=== PATIENT | female | born 1980 | race Caucasian/White ===

== ENCOUNTER 2023-02-15 12:33 | Outpatient (AMB) | payer OTHER, SELFPAY ==
--- NOTE | 2023-02-15 12:34 | A.OFFPC_ITS ---
Vital Signs 02/15/23 12:35 Height 5 ft 6 in Weight 145 lb 0.4 oz BMI 23.4 BP 134/82 Blood Pressure Location Lt brachial Position Sitting Pulse 88 Pulse Source Pulse Oximeter Temp Source Skin Pulse Oximetry (%) 99 Oxygen Delivery Method Room Air Intake Visit Reasons: PE Intake Note: Patient is here today for a physical. Claims Correspondence Clerk Required: No Allergies oxaprozin Allergy (Severe, Verified 02/15/23 12:40) Anaphylaxis tramadol Allergy (Intermediate, Verified 02/15/23 12:40) Anxiety levofloxacin [Levaquin] Allergy (Unknown, Verified 12/25/19 00:00) stomach upset latex Adverse Reaction (Intermediate, Unverified 02/15/23 13:07) Rash Medication List - Last Reconciled 02/15/23 by Nagi Howard MD acetaminophen-codeine 300-30 mg 1 tab PO TID PRN amlodipine 5 mg PO BEDTIME diclofenac sodium 75 mg PO BID PRN Tobacco use date assessed: 02/15/23 Dental Screening Dental Screen Date: 02/15/23 Did you have a dental visit in the last 12 months?: Yes Did you have a dental problem in the last 6 months where you did not have access to dental care?: No Was dental information given to patient?: Patient has dentist HPI PE HPI Details 42-year-old female with a history of tony ymyositis and Raynaud's disease GERD impaired glucose tolerance and generalized anxiety disorder last seen in January 2022 for physical exam. Patient is here for PE again. Patient was seen by the Rheumatology in August 2022 for the polymyositis stable off medication was given nystatin for thrush primary osteoarthritis diclofenac sodium twice a day and Tylenol No. 3 Raynaud's on amlodipine had bone density done 2020 showing osteopenia on calcium and vitamin-D. has seen gyne - states abnormal bloodwork - states TSH - has swelling legs- was told. patient feels that the leg swelling is not from amlodipine [facility] Medical History Asthma GERD (gastroesophageal reflux disease) Migraine Onychomycosis Polymyositis Raynaud's syndrome Family History (Updated 02/10/22 @ 13:31 by Nagi Howard MD) Father Myocardial infarction Maternal Grandmother Ovarian cancer Social History Housing: House Alcohol intake: never Patient Tobacco Use Status: Never used Tobacco e-Cigarette/Vaping Use: Never Used Second Hand Smoke Exposure: No service: No Current occupational status: employed Cognitive needs: No Hearing needs: No Vision needs: No Questionnaire PHQ-9 Over the last 2 weeks, how often have you been bothered by any of the following problems? 1. Little interest or pleasure in doing things: not at all 2. Feeling down, depressed, or hopeless: not at all 3. Trouble falling or staying asleep, or sleeping too much: not at all 4. Feeling tired or having little energy: not at all 5. Poor appetite or overeating: not at all 6. Feeling bad about yourself - or that you are a failure or have let yourself or your family down: not at all 7. Trouble concentrating on things, such as reading the newspaper or watching television: not at all 8. Moving or speaking so slowly that other people could have noticed. Or the opposite - being so fidgety or restless that you have been moving around a lot more than usual: not at all 9. Thoughts that you would be better off or of hurting yourself in some way: not at all Total score: 0 Depression Screening Interpretation: Negative Depression Screening Done: Yes Source: Developed by Drs. Cristino Robison, Stefany Garza, Chip Baldwin and colleagues, with an educational deb from [employer]. Thrive Questionnaire Date Thrive assessed: 02/15/23 I am a: Patient What is your living situation today?: I have a steady place to live Within the past 12 months, did the food you bought not last and you didn't have the money to get more?: Never true Within the past 12 months, did you worry whether your food would run out before you got money to buy more?: Never true Currently or been in a relationship where the following occur: no concerns reported AUDIT C Alcohol Use Questionnaire (AUDIT-C) 1. How often do you have a drink containing alcohol?: Never 3. How often do you have six or more drinks on one occasion?: Never Total Score: 0 JANY-7 AMB Questionnaire JANY-7 Date JANY - 7 assessed: 02/15/23 Feeling nervous, anxious, or on edge: 1 = Several days Not being able to stop or control worryin = Not at all Worrying too much about different things: 0 = Not at all Trouble relaxin = Not at all Being so restless that it is hard to sit still: 0 = Not at all Becoming easily annoyed or irritable: 0 = Not at all Feeling afraid as if something awful might happen: 0 = Not at all Total JANY-7 score (0-4 normal; 5-9 mild; 10-14 moderate; 15-21 severe): 1 Source: Developed by Drs. Cristino Robison, Stefany Garza, Chip Baldwin and colleagues, with an educational deb from [employer]. Review of Systems Const Denies poor appetite and Denies weakness Eyes Denies no additional complaints ENT Reports Normal hearing present, Denies dizziness, Denies nasal congestion, Denies tinnitus and Denies sore throat Card Denies chest pain, Denies syncope, Denies rapid heart rate and Denies dyspnea Resp Denies cough and Denies dyspnea GI Denies change in stool character, Reports constipation, Denies diarrhea, Denies nausea and Denies vomiting Denies urinary frequency, Denies difficulty voiding and Denies dysuria Neuro Reports Normal hearing present, Denies confusion, Denies dizziness, Denies syncope and Denies weakness Psych Denies confusion Physical exam (Primary Care) Vital Signs: Last Vital Signs Pulse 88 02/15/23 12:35 BP 134/82 02/15/23 12:35 Pulse Ox 99 02/15/23 12:35 Oxygen Delivery Method Room Air 02/15/23 12:35 BMI result Body Mass Index 23.4 Tobacco/Smoking Status: Tobacco use Status Tobacco use date assessed 02/15/23 02/15/23 12:44 Patient Tobacco Use Status Never used Tobacco 02/15/23 12:44 e-Cigarette/Vaping Use Never Used 02/15/23 12:44 PHQ-9: PHQ-9 Score PHQ-9: Total score 0 02/15/23 12:44 Depression Screening Interpretation: Negative Thrive Assessment: Date of Thrive Assessment Date Thrive assessed 02/15/23 02/15/23 12:44 Currently or been in a relationship where the following occur: no concerns reported Const General: No confusion Orientation/consciousness: No confusion HENMT Head: Yes normocephalic Ears: external ears normal and TM's normal bilaterally Face and sinus: Yes normal facial exam Mouth: moist mucous membranes Throat: Yes tonsils normal Eyes Conjunctivae: conjunctivae normal Pupils: Equal, round and reactive pupils present and Pupil accommodation reflex normal Direct Ophthalmoscopy: normal light reflex Neck Neck: No lymphadenopathy Thyroid: Thyroid normal Chest Chest palpation & inspection: normal inspection of the chest Resp Effort & Inspection: normal respiratory effort and no audible wheezes Auscultation: clear to auscultation bilaterally, no crackles, no wheezes and lung sounds not diminished Cardio Rate: regular rate Rhythm: regular rhythm Peripheral pulses: radial pulses present and dorsalis pedis present GI Palpation (GI): no masses Auscultation: normal bowel sounds and normoactive bowel sounds Rectal Exam - Female: deferred Skin General skin exam: no rashes or lesions noted Rashes: no rashes Neuro General: No confusion Cranial nerves: Yes Equal, round and reactive pupils present and Yes Normal hearing present Cognition (Neuro): normal cognition Gait exam (Neuro): Normal gait present Motor exam (neuro): 5/5 motor strength present throughout Deep tendon reflexes (DTR's): Right brachioradialis reflex intensity grade: 2+, Left brachioradialis reflex intensity grade: 2+, Right patellar reflex intensity grade: 2+ and Left patellar reflex intensity grade: 2+ Extrem General: No edema Assessment and Plan Assessment & Plan (1) Annual physical exam: Code(s): Z00.00 - Encounter for general adult medical examination without abnormal findings (2) Impaired glucose tolerance: Code(s): R73.02 - Impaired glucose tolerance (oral) Plan: Decrease the amount of carbohydrate intake, pasta, bread, rice and potatoes are all sugar and that is aside from all the sweet stuff, remember that fruits are good but they are Sweet also. (3) Polymyositis: Comment: Dr. Kebede September 2019 Code(s): M33.20 - Polymyositis, organ involvement unspecified Plan: Patient follows up with Rheumatology continuing on monitoring. (4) Raynaud's disease: Code(s): I73.00 - Raynaud's syndrome without gangrene Plan: Continue with amlodipine 5 mg once a day (5) Osteopenia: Comment: 2020 Code(s): M85.80 - Other specified disorders of bone density and structure, unspecified site Plan: reminded patient about this (6) Nuclear nonsenile cataract: Code(s): H26.9 - Unspecified cataract (7) Leg swelling: Code(s): M79.89 - Other specified soft tissue disorders (8) Breast cancer screening by mammogram: Code(s): Z12.31 - Encounter for screening mammogram for malignant neoplasm of breast Plan: reminded Orders: Orders Complete Blood Count Auto Diff Today M33.20 - Polymyositis, organ involvement unspecified Comprehensive Met. Panel Today M33.20 - Polymyositis, organ involvement unspecified Thyroid Stimulating Hormone Today M33.20 - Polymyositis, organ involvement unspecified Vitamin D 25-OH Total Today M33.20 - Polymyositis, organ involvement unspecified Hemoglobin A1c Today M33.20 - Polymyositis, organ involvement unspecified Free T4 (Free Thyroxine) Today M33.20 - Polymyositis, organ involvement unspecified Vitamin B12 and Folate Today M33.20 - Polymyositis, organ involvement u nspecified Lipid Panel Today E78.00 - Pure hypercholesterolemia, unspecified, M33.20 - Polymyositis, organ involvement unspecified Erythrocyte Sedimentation Rate Today M33.20 - Polymyositis, organ involvement unspecified C Reactive Protein Today M33.20 - Polymyositis, organ involvement unspecified Referrals Vascular Surgery Referral M79.89 - Other specified soft tissue disorders Coding Level of Care Code Est Pt Prev Care 40-64y(48206) Diagnoses Annual physical exam Z00.00 Impaired glucose tolerance R73.02 Polymyositis M33.20 Raynaud's disease I73.00 Osteopenia M85.80 Nuclear nonsenile cataract H26.9 Leg swelling M79.89 Breast cancer screening by mammogram Z12.31
[2023-02-15 12:35] VITALS: BP 134/82; PULSE 88; O2SAT 99; BMI 23.4
== END 2023-02-15 13:27 | disposition home or self-care (01) ==
PROVIDERS: Visit Provider Internal Medicine
DX: Z00.00 Encounter for general adult medical examination without abnormal findings (principal); R73.02 Impaired glucose tolerance (oral); M33.20 Polymyositis, organ involvement unspecified; I73.00 Raynaud's syndrome without gangrene; M85.80 Other specified disorders of bone density and structure, unspecified site; H26.9 Unspecified cataract; M79.89 Other specified soft tissue disorders; Z12.31 Encounter for screening mammogram for malignant neoplasm of breast
CPT/HCPCS: 99396

== ENCOUNTER 2023-04-08 09:35 | Outpatient (AMB) | payer OTHER, SELFPAY ==
[2023-04-08 09:41] VITALS: BMI 23.4
--- NOTE | 2023-04-08 09:41 | MHC.OFFVIS ---
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 States he feet are extremely swollen and worse in the summer. Pt states that she does get discoloration, and toes and fingers turn white. Pt states elevation sometimes helps. 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 Complaints include pain over varicosities, swelling of lower extremities, cramping, fatigue, and heaviness of the lower extremities. It has been affecting there daily activities including walking. It is noted more so in right leg. Of note she does have a history significant for Raynaud's disease and is being maintained on amlodipine. In addition she does have a history polymyositis. Patient denies any previous venous surgery or injections. Patient denies any history of DVT/ PE. Patient denies any history of phlebitis. Trial of compression includes - [id number] They now present for vascular evaluation regarding their varicose veins. [facility] Medical History Raynaud's syndrome Asthma Onychomycosis Migraine Polymyositis GERD (gastroesophageal reflux disease) Family History Father Myocardial infarction Maternal Grandmother Ovarian cancer Social History Housing: House Alcohol intake: never Patient Tobacco Use Status: Never used Tobacco e-Cigarette/Vaping Use: Never Used Second Hand Smoke Exposure: No service: No Current occupational status: employed Cognitive needs: No Hearing needs: No Vision needs: No Review of Systems Const Reports as per HPI ENT Reports no additional complaints Card Denies chest pain, Denies chest pain at rest and Denies chest pain with activity Resp Denies chest congestion and Denies cough GI Reports no additional complaints Musc Details: pain over varicosities, aching of lower extremities, swelling, cramping, heaviness and tiredness, itching Denies abnormal gait Skin/Breast Reports pruritus and Denies wounds Neuro Reports no additional complaints and Denies abnormal gait Psych Denies no additional complaints Physical Exam Vital Signs: BMI result Body Mass Index 23.4 Const General: cooperative, healthy appearing and comfortable Orientation/consciousness: oriented to person, oriented to place and oriented to time Neck Carotids: no bruits Chest Chest palpation & inspection: normal inspection of the chest and normal palpation of entire chest wall Resp Effort & Inspection: normal respiratory effort and able to speak in complete sentences Cardio Rate: regular rate Heart sounds: S1 normal heart sound present and S2 normal heart sound present Peripheral pulses: Peripheral pulses 2+ throughout GI Inspection: Yes normal to inspection Skin Other: +2 edema, bilateral calfs on down CEAP Classification C4 - skin color changes Ep - Etiology Primary As - superficial veins P - reflux General skin exam: dry skin Neuro General: oriented to person, oriented to place and oriented to time Extrem Right lower extremity: full ROM, normal capillary refill and edema Left lower extremity: full ROM, normal capillary refill and edema Psych Mental Status: mental status grossly normal Assessment & Plan Assessment & Plan (1) Varicose veins of right lower extremity with inflammation: Code(s): I83.11 - Varicose veins of right lower extremity with inflammation Plan: In short, the patient has evidence of venous insufficiency. I have discussed the pathophysiology with the patient. In addition I have provided informational material regarding venous disease to the patient. We have discussed conservative measures including compression, elevation, and exercise. I have also provided a handout regarding appropriate use of compression stockings and where to purchase good compression stockings as well. I have taken the liberty of ordering venous insufficiency testing with the patient. They will follow up with me after testing. The patient had an opportunity to ask questions regarding the treatment plan. All questions were answered. Imaging studies, laboratory studies and physical exam results were discussed and reviewed in detail. No major barriers to understanding were identified. The patient expressed understanding and agreement with the above treatment plan. The patient is aware they should contact our office by phone for worsening of the current condition or the appearance of new symptoms. Thank you for allowing me to participate in the vascular care of this patient. If you have any questions or concerns regarding the treatment for the above condition please do not hesitate to contact me. The office telephone contact is [phone]. This note is constructed using voice recognition software. While every effort has been made to ensure accuracy, convolute tube winder errors may have been included. Thank you for allowing me to participate in the care of your patient. Yours sincerely, Lenny Valadez MD, FACS, R.P.V.I. Orders: Orders US venous duplex LE BI 1 Week I83.11 - Varicose veins of right lower extremity with inflammation Coding Level of Care Code Est Pt Level 4 (61808) Diagnoses Varicose veins of right lower extremity with inflammation I83.11
== END 2023-04-08 10:41 | disposition home or self-care (01) ==
PROVIDERS: PCP Internal Medicine; Visit Provider Surgery Vascular Surgery
DX: I83.11 Varicose veins of right lower extremity with inflammation (principal)
CPT/HCPCS: 99213

== ENCOUNTER → 2023-04-08 09:35 | Outpatient (BNVA) | payer OTHER, SELFPAY | PROVIDERS: PCP Internal Medicine; Visit Provider Surgery Vascular Surgery ==

== ENCOUNTER 2023-04-13 12:54 | Outpatient (REF) | payer OTHER, SELFPAY ==
--- NOTE | ~2023-04-13 | US_ITS ---
EXAMINATION: US LOWER EXTREMITY VENOUS (REFLUX EXAM), BILATERAL CLINICAL INDICATION: Chronic venous insufficiency with lower extremity varicose veins and inflammation COMPARISON: None. TECHNIQUE: Color flow triplex imaging and compression Doppler was performed to evaluate both the deep and the superficial systems bilaterally. To evaluate the superficial system, the examination was performed in the upright position. Color-flow Doppler ultrasound and compression ultrasound were utilized. In addition, maneuvers were utilized to demonstrate reflux. FINDINGS: 1. DEEP VENOUS ULTRASOUND OF THE RIGHT LOWER EXTREMITY: Common Femoral Vein: Compressible, normal respiratory variation and augmented flow. Femoral Vein: Compressible, normal color flow and augmentation. Popliteal Vein: Compressible, normal augmentation. Deep Reflux: There is no evidence of reflux in the deep system in either the common femoral vein, superficial femoral or the popliteal vein. There is no evidence of a Chapa's cyst. 2. SUPERFICIAL ULTRASOUND WITH DOPPLER OF RIGHT LOWER EXTREMITY: GREAT SAPHENOUS VEIN: Saphenofemoral Junction: 0.5 cm; Reflux: 0 ms Proximal Thigh: 0.5 cm; Reflux: 0 ms Mid Thigh: 0.4 cm; Reflux: 0 ms Above Knee: 0.3 cm; Reflux: 0 ms At Knee: 0.2 cm; Reflux: 0 ms Below Knee: 0.3 cm; Reflux: 0 ms Mid Calf: 0.3 cm; Reflux: 0 ms Ankle: 0.3 cm; Reflux: 0 ms DUPLICATED MEDIAL GREAT SAPHENOUS VEIN: Diameter: None imaged Reflux: NA DUPLICATED LATERAL GREAT SAPHENOUS VEIN: Diameter: 0.3 cm Reflux: None SMALL SAPHENOUS VEIN: Proximal: 0.2 cm; Reflux: 0 ms Distal: 0.2 cm; Reflux: 0 ms VEIN OF GIACOMINI: Size: NA Reflux: NA PERFORATORS: Location: None imaged Size: NA Reflux: NA VARICOSITIES: Location: Mid thigh off the great saphenous vein Size: 0.3 cm Reflux: None 3. DEEP VENOUS ULTRASOUND OF THE LEFT LOWER EXTREMITY: Common Femoral Vein: Compressible, normal respiratory variation and augmented flow. Femoral Vein: Compressible, normal color flow and augmentation. Popliteal Vein: Compressible, normal augmentation. Deep Reflux: There is no evidence of reflux in the deep system in either the common femoral vein, superficial femoral or the popliteal vein. There is no evidence of a Chapa's cyst. 4. SUPERFICIAL ULTRASOUND WITH DOPPLER OF LEFT LOWER EXTREMITY: GREAT SAPHENOUS VEIN: Saphenofemoral Junction: 0.5 cm cm; Reflux: 0 ms Proximal Thigh: 0.4 cm; Reflux: 0 ms Mid Thigh: 0.2 cm; Reflux: 0 ms Above Knee: 0.2 cm; Reflux: 0 ms At Knee: 0.2 cm; Reflux: 0 ms Below Knee: 0.2 cm; Reflux: 0 ms Mid Calf: 0.2 cm; Reflux: 0 ms Ankle: 0.2 cm; Reflux: 0 ms DUPLICATED MEDIAL GREAT SAPHENOUS VEIN: Diameter: None imaged Reflux: NA DUPLICATED LATERAL GREAT SAPHENOUS VEIN: Diameter: 0.3 cm Reflux: None SMALL SAPHENOUS VEIN: Proximal: 0.4 cm; Reflux: 0 ms Distal: 0.3 cm; Reflux: 0 ms VEIN OF GIACOMINI: Size: NA Reflux: NA PERFORATORS: Location: None imaged Size: NA Reflux: NA VARICOSITIES: Location: Proximal thigh off the great saphenous vein Size: 0.4 cm Reflux: None US/US venous duplex LE BI IMPRESSION: Right: No significant venous insufficiency or superficial reflux Left: No significant venous insufficiency or superficial reflux
== END 2023-04-13 12:55 | disposition home or self-care (01) ==
LOC: HO.US 12:54
PROVIDERS: PCP Internal Medicine; Visit Provider Surgery Vascular Surgery
DX: I83.11 Varicose veins of right lower extremity with inflammation (principal)
CPT/HCPCS: 93970

== ENCOUNTER 2023-05-04 14:06 | Outpatient (AMB) | payer OTHER, SELFPAY ==
[2023-05-04 14:16] VITALS: BP 140/94; PULSE 102; O2SAT 99; BMI 21.8
--- NOTE | 2023-05-04 14:16 | MHC.OFFVIS ---
Intake Vital Signs 05/04/23 14:16 Height 5 ft 6 in Weight 135 lb BMI 21.8 BP 140/94 H Blood Pressure Location Rt brachial Position Sitting Pulse 102 H Pulse Source Pulse Oximeter Pulse Oximetry (%) 99 Oxygen Delivery Method Room Air Intake Visit Reasons: FU Intake Note: Pt presents to the office today for a follow up for . Pt states she is tired and both of her legs are still swollen and still painful. Pt states elevation does help but very minimally. Accompanied by: Mother Allergies oxaprozin Allergy (Severe, Verified 05/04/23 14:18) Anaphylaxis tramadol Allergy (Intermediate, Verified 05/04/23 14:18) Anxiety levofloxacin [Levaquin] Allergy (Unknown, Verified 05/04/23 14:18) stomach upset latex Adverse Reaction (Intermediate, Unverified 05/04/23 14:18) Rash HPI FU HPI Details Very complex 42-year-old female presents for follow-up regarding swelling of the lower extremities. She reports that this is been going on for years. She has had no significant change since her last visit. Of note she has been seen by Rheumatology for polymyositis. In addition she has seen neurology in the past for migraine headaches. She now presents for follow-up with venous insufficiency testing. Of note she is extremely concerned about end-organ issues and could this be leading to her current swelling. [facility] Medical History Raynaud's syndrome Asthma Onychomycosis Migraine Polymyositis GERD (gastroesophageal reflux disease) Family History Father Myocardial infarction Maternal Grandmother Ovarian cancer Social History Housing: House Alcohol intake: never Patient Tobacco Use Status: Never used Tobacco e-Cigarette/Vaping Use: Never Used Second Hand Smoke Exposure: No service: No Current occupational status: employed Cognitive needs: No Hearing needs: No Vision needs: No Review of Systems Const All systems reviewed & are unremarkable except as noted in HPI and below Reports no additional complaints ENT Reports Normal hearing present Card Denies chest pain, Denies chest pain at rest, Denies chest pain with activity and Denies pedal edema Resp Denies cough GI Denies abdominal pain Musc Denies abnormal gait, Denies muscle cramps and Denies radiating pain into limb Skin/Breast Denies skin ulcer and Denies wounds Neuro Reports Normal hearing present and Denies abnormal gait Psych Reports no additional complaints Physical Exam Vital Signs: Last Vital Signs Pulse 102 H 05/04/23 14:16 BP 140/94 H 05/04/23 14:16 Pulse Ox 99 05/04/23 14:16 Oxygen Delivery Method Room Air 05/04/23 14:16 BMI result Body Mass Index 21.8 Const General: cooperative, healthy appearing and comfortable Orientation/consciousness: oriented to person, oriented to place and oriented to time HEENT Head: Yes normal to inspection Neck Neck: Yes normal visual inspection Carotids: no bruits Chest Chest palpation & inspection: normal inspection of the chest Resp Effort & Inspection: normal respiratory effort and able to speak in complete sentences Auscultation: clear to auscultation bilaterally, no crackles, no rales, no rhonchi and no wheezes Cardio Rate: regular rate Rhythm: regular rhythm Heart sounds: S1 normal heart sound present and S2 normal heart sound present Bruits: no carotid bruits Peripheral pulses: Peripheral pulses 2+ throughout GI Inspection: Yes normal to inspection Skin Wounds: no wounds Hair: normal Neuro General: oriented to person, oriented to place and oriented to time Cranial nerves: Yes CN's II-XII intact bilaterally and Yes Normal hearing present Cognition (Neuro): normal cognition Motor exam (neuro): 5/5 motor strength present throughout Extrem Other: venous exam: +2 edema lower extremity Right in cm: Thigh 46.5 Knee 39 Calf 40.5 Ankle 25 Left in cm: Thigh 44 Knee 38.5 Calf 42 Ankle 25 Hip/abdomen 82 General: No clubbing, No cyanosis and Yes edema Psych Appearance: grossly normal Mental Status: mental status grossly normal Speech and movement: Normal speech and movement present Results Reviewed Results Reviewed: Brief summary of venous insufficiency testing is as follows: right great saphenous vein: negative right small saphenous vein: negative right accessory vein: none present left great saphenous vein: negative left small saphenous vein: negative left accessory vein: none present Please note there is no evidence of any venous aneurysms or significant tortuosity Assessment & Plan Assessment & Plan (1) Varicose veins of right lower extremity with inflammation: Code(s): I83.11 - Varicose veins of right lower extremity with inflammation Plan: Venous insufficiency testing has shown to be negative. We will treat her for lymphedema. In addition they had several questions about potential end-organ issues that may be causing this. I did have to do a fair amount of counseling and stated that it would be quite unusual that someone so young would have some of these issues. Should symptoms persist may benefit from a cardiology follow-up as she has seen Dr. Roman for heart issues in the past at [facility]. (2) Lymphedema: Code(s): I89.0 - Lymphedema, not elsewhere classified Plan: In short the patient has late on sent lymphedema. The patient has been on conservative treatment for at least 3 months with minimal relief. Patient has tried 30 mm of mercury compression garments, elevation, exercise healthy diet and doing manual says self MLD to the best of their ability for over 4 weeks but with no significant relief. She has been compliant with the program but has provided minimal relief. In addition on physical we are noticing hyperpigmentation, lymphorrhea, and hyperplasia. It appears that she has stage 2 lymphedema. Patient has completed multiple forms of conservative therapy yet significant symptoms remain. Patient requires the use of a pneumatic compression device which we will assist in trying to have the patient obtain them. A pneumatic compression device will help reduce swelling and other lymphedema comorbidities. She does have truncal swelling and will require an advance pump. Thank you for allowing us to assist in this patient's care. Coding Level of Care Code Est Pt Level 4 (93747) Diagnoses Varicose veins of right lower extremity with inflammation I83.11 Lymphedema I89.0
== END 2023-05-04 14:58 | disposition home or self-care (01) ==
PROVIDERS: PCP Internal Medicine; Visit Provider Surgery Vascular Surgery
DX: I83.11 Varicose veins of right lower extremity with inflammation (principal); I89.0 Lymphedema, not elsewhere classified
CPT/HCPCS: 99214

== ENCOUNTER → 2023-05-04 14:06 | Outpatient (BNVA) | payer OTHER, SELFPAY | PROVIDERS: PCP Internal Medicine; Visit Provider Surgery Vascular Surgery ==

== ENCOUNTER 2023-07-20 16:32 | Outpatient (REF) | payer OTHER, SELFPAY ==
[2023-07-20 16:53] LABS: MANUAL DIFF FLAG NO
[2023-07-20 17:40] LABS: Basophils Absolute Auto 0.1 X10*3/uL (0.0-0.2); Basophils Percent Auto 0.6 % (0-2); Eosinophils Absolute Auto 0.1 X10*3/uL (0.0-0.4); Eosinophils Percent Auto 0.7 % (0-4); Hematocrit 37.4 % (37.0-47.0); Hemoglobin 12.4 g/dl (12.0-16.0); Imm Gran Abs Auto 0.05 X10*3/uL (0.00-0.03); Imm Gran Pct Auto 0.5 % (0.0-0.4); Lymphocytes Absolute Auto 1.7 X10*3/uL (1.2-4.9); Lymphocytes Percent Auto 15.9 % (20-40); Mean Corpuscular HGB Conc 33.2 g/dl (31.0-35.0); Mean Corpuscular Hemoglobin 29.2 pg (27.0-33.0); Mean Corpuscular Volume 88.2 fL (80.0-98.0); Mean Platelet Volume 10.6 fL (9.4-12.3); Monocytes Absolute Auto 0.3 X10*3/uL (0.1-1.2); Monocytes Percent Auto 2.8 % (2-11); Neutrophils Absolute Auto 8.3 x10*3/uL (2.0-8.3); Neutrophils Percent Auto 79.5 % (45-73); Platelet Count 356 X10*3/uL (160-400); Red Blood Count 4.24 X10*6/uL (4.20-5.50); Red Cell Distribution Width 13.2 % (11.0-16.0); White Blood Count 10.5 X10*3/uL (4.8-10.8)
[2023-07-20 18:20] LABS: Erythrocyte Sedimentation Rate 21 MM/HR (0-20)
[2023-07-20 18:24] LABS: Alanine Aminotransferase 18 U/L (0-31); Albumin Level 4.1 g/dL (3.5-5.0); Alkaline Phosphatase 84 U/L (39-117); Aspartate Amino Transferase 20 U/L (5-31); Bilirubin Direct 0.1 mg/dL (0.0-0.5); Bilirubin Total 0.3 mg/dL (0.0-1.0); C Reactive Protein 0.88 mg/dL (< or = 0.50); Total Protein 7.6 g/dL (6.5-8.0)
[2023-07-21 16:24] LABS: Immunoglobulin A 351 mg/dL (47-310)
[2023-07-23 12:25] LABS: Gliadin Deamidated IgA Ab <1.0 U/mL; Gliadin Deamidated IgG Ab <1.0 U/mL; Transglutaminase Ab IgG <1.0 U/mL; Transglutaminase IgA <1.0 U/mL
[2023-07-23 13:18] LABS: Endomysial IgA Antibody Negative (Negative)
== END 2023-07-20 16:33 | disposition home or self-care (01) ==
LOC: HO.LAB 16:32
PROVIDERS: PCP Internal Medicine; Visit Provider Internal Medicine
DX: K52.9 Noninfective gastroenteritis and colitis, unspecified (principal)
CPT/HCPCS: 36415; 80076; 82784; 85025; 85652; 86140; 86231; 86258; 86364

== ENCOUNTER 2023-07-22 14:00 | Outpatient (REF) | payer OTHER, SELFPAY ==
[2023-07-22 14:55] LABS: Leukocytes Stool Qualitative NEGATIVE (NEGATIVE)
[2023-07-22 16:04] LABS: CDiff Gene PCR NEGATIVE (Negative)
== END 2023-07-22 14:01 | disposition home or self-care (01) ==
LOC: HO.LNP 14:00
PROVIDERS: Visit Provider Internal Medicine
DX: K52.9 Noninfective gastroenteritis and colitis, unspecified (principal)
CPT/HCPCS: 87493; 87507; 89055

== ENCOUNTER 2023-08-17 15:27 | Outpatient (AMB) | payer OTHER, SELFPAY ==
[2023-08-17 15:41] VITALS: BP 136/74; PULSE 98; O2SAT 98; BMI 22.8
--- NOTE | 2023-08-17 15:41 | MHC.PC.OV ---
Vital Signs 08/17/23 15:41 Height 5 ft 6 in Weight 141 lb BMI 22.8 BP 136/74 Blood Pressure Location Lt brachial Position Sitting Pulse 98 Pulse Source Pulse Oximeter Pulse Oximetry (%) 98 Oxygen Delivery Method Room Air Intake Visit Reasons: polymyositis Intake Note: Dr Franco gives her oxycodone 5 mg when pharmacy can not get her acetaminophen-codeine. Requesting lung doctor requesting Dr Goodrich, requesting comp field case manager, Requesting a dermatology. Allergies oxaprozin Allergy (Severe, Verified 08/17/23 15:41) Anaphylaxis tramadol Allergy (Intermediate, Verified 08/17/23 15:41) Anxiety levofloxacin [Levaquin] Allergy (Unknown, Verified 08/17/23 15:41) stomach upset latex Adverse Reaction (Intermediate, Verified 08/17/23 15:41) Rash Medication List - Last Reconciled 08/17/23 by Nagi Howard MD acetaminophen-codeine 300-30 mg 1 tab PO TID PRN amlodipine 5 mg PO BEDTIME compress.stocking,knee,reg,med As directed 20-30 mm HG diclofenac sodium 75 mg PO BID PRN Tobacco use date assessed: 08/17/23 Dental Screening Dental Screen Date: 08/17/23 Did you have a dental visit in the last 12 months?: Yes Did you have a dental problem in the last 6 months where you did not have access to dental care?: No Was dental information given to patient?: Patient has dentist HPI polymyositis HPI Details 42-year-old female with a history of impaired glucose tolerance Raynaud's osteopenia and polymyositis coming in for follow-up. Last seen in January 2023. Review of the notes in July 2023 seen by Gastroenterology for chronic diarrhea advised colonoscopy stool testing requested patient also sees the vascular surgeon for the leg swelling diagnosis of lymphedema venous insufficiency test negative did request for a pneumatic compression device.. colon test next week [facility] Medical History Raynaud's syndrome Asthma Onychomycosis Migraine Polymyositis GERD (gastroesophageal reflux disease) Family History (Updated 08/17/23 @ 15:42 by Hellen Jung CMA) Father Myocardial infarction Maternal Grandmother Ovarian cancer Social History (Reviewed 05/04/23 @ 14:18 by Deborah Go [facility] Housing: House Alcohol intake: never Patient Tobacco Use Status: Never used Tobacco e-Cigarette/Vaping Use: Never Used Second Hand Smoke Exposure: No service: No Current occupational status: employed Cognitive needs: No Hearing needs: No Vision needs: No Questionnaire PHQ-9 Over the last 2 weeks, how often have you been bothered by any of the following problems? 1. Little interest or pleasure in doing things: not at all 2. Feeling down, depressed, or hopeless: not at all 3. Trouble falling or staying asleep, or sleeping too much: not at all 4. Feeling tired or having little energy: not at all 5. Poor appetite or overeating: not at all 6. Feeling bad about yourself - or that you are a failure or have let yourself or your family down: not at all 7. Trouble concentrating on things, such as reading the newspaper or watching television: not at all 8. Moving or speaking so slowly that other people could have noticed. Or the opposite - being so fidgety or restless that you have been moving around a lot more than usual: not at all 9. Thoughts that you would be better off or of hurting yourself in some way: not at all Total score: 0 Depression Screening Interpretation: Negative Depression Screening Done: Yes Source: Developed by Drs. Cristino Robison, Stefany Garza, Chip Baldwin and colleagues, with an educational deb from [employer]. Thrive Questionnaire Date Thrive assessed: 08/17/23 I am a: Patient What is your living situation today?: I have a steady place to live Within the past 12 months, did the food you bought not last and you didn't have the money to get more?: Never true Within the past 12 months, did you worry whether your food would run out before you got money to buy more?: Never true Do you have trouble paying for medicines?: No Do you have trouble getting transportation to medical appointments?: No Do you have trouble paying your heating and electricity bill?: No Do you have trouble taking care of your child, family member or friend?: No Do you have trouble with day-to-day activities such as bathing, preparing meals, shopping, managing finances, etc.?: No Are you currently unemployed and looking for a job?: No Are you interested in more education?: No Currently or been in a relationship where the following occur: no concerns reported THRIVE Score: 0 AUDIT C Alcohol Use Questionnaire (AUDIT-C) 1. How often do you have a drink containing alcohol?: Never 3. How often do you have six or more drinks on one occasion?: Never Total Score: 0 JANY-7 AMB Questionnaire JANY-7 Date JANY - 7 assessed: 08/17/23 Feeling nervous, anxious, or on edge: 1 = Several days Not being able to stop or control worryin = Not at all Worrying too much about different things: 0 = Not at all Trouble relaxin = Not at all Being so restless that it is hard to sit still: 0 = Not at all Becoming easily annoyed or irritable: 0 = Not at all Feeling afraid as if something awful might happen: 0 = Not at all Total JANY-7 score (0-4 normal; 5-9 mild; 10-14 moderate; 15-21 severe): 1 Source: Developed by Drs. Cristino Robison, Stefany Garza, Chip Baldwin and colleagues, with an educational deb from [employer]. Physical exam (Primary Care) Vital Signs: Last Vital Signs Pulse 98 08/17/23 15:41 BP 136/74 08/17/23 15:41 Pulse Ox 98 08/17/23 15:41 Oxygen Delivery Method Room Air 08/17/23 15:41 BMI result Body Mass Index 22.8 Tobacco/Smoking Status: Tobacco use Status Tobacco use date assessed 08/17/23 08/17/23 15:43 Patient Tobacco Use Status Never used Tobacco 08/17/23 15:43 e-Cigarette/Vaping Use Never Used 08/17/23 15:43 PHQ-9: PHQ-9 Score PHQ-9: Total score 0 08/17/23 16:01 Depression Screening Interpretation: Negative Thrive Assessment: Date of Thrive Assessment Date Thrive assessed 08/17/23 08/17/23 15:43 Currently or been in a relationship where the following occur: no concerns reported Const General: alert; No acute distress Eyes Conjunctivae: conjunctivae normal Resp Auscultation: clear to auscultation bilaterally Cardio Rate: regular rate Rhythm: regular rhythm GI Inspection: Yes normal to inspection Extrem Other: 2 + LE swelling bilateral General: Yes edema Assessment and Plan Assessment & Plan (1) Lymphedema: Code(s): I89.0 - Lymphedema, not elsewhere classified Plan: Patient has been seen by the vascular surgeon and conservative measure.. amlodipine use but needed for Raynauds- states worse swelling summer and amlodipine not taking at that time. (2) Breast cancer screening by mammogram: Code(s): Z12.31 - Encounter for screening mammogram for malignant neoplasm of breast Plan: Reminded about mammogram (3) Polymyositis: Comment: Dr. Kebede September 2019 Code(s): M33.20 - Polymyositis, organ involvement unspecified Plan: Patient continues to follow-up with the rheumatology. on oxycodone. (4) GERD (gastroesophageal reflux disease): Code(s): K21.9 - Gastro-esophageal reflux disease without esophagitis Plan: Avoid the foods that causes that usually spicy foods, tomato products, juices, coffee, soda and foods that your sensitive to. After eating do not lie down, allow 3-4 hours before in lie down. And keep the head of bed above 30 degrees to avoid the acid from going up. (5) Generalized anxiety disorder: Code(s): F41.1 - Generalized anxiety disorder Plan: Stable (6) Chronic diarrhea: Code(s): K52.9 - Noninfective gastroenteritis and colitis, unspecified Plan: colon test next week (7) SOB (shortness of breath): Code(s): R06.02 - Shortness of breath Plan: Will request for a pulmonary function test. Declined chest x-ray (8) Allergic rhinitis: Code(s): J30.9 - Allergic rhinitis, unspecified (9) Eczema: Code(s): L30.9 - Dermatitis, unspecified Plan: Patient request to be seen by Dermatology (10) Impaired fasting blood sugar: Code(s): R73.01 - Impaired fasting glucose Plan: Decrease the amount of carbohydrate intake, pasta, bread, rice and potatoes are all sugar and that is aside from all the sweet stuff, remember that fruits are good but they are Sweet also. Discussed that the hemoglobin A1c 6.2. (11) Hypothyroid: Code(s): E03.9 - Hypothyroidism, unspecified Plan: Patient declined thyroid medication and would like to see the faith doctor scheduled for August 25 (12) Hypercholesterolemia: Code(s): E78.00 - Pure hypercholesterolemia, unspecified Plan: Avoid fried foods, chicken skin, eggs, butter margarine, pastries and meat. Be it pork or beef they have a lot of cholesterol LDL goal of less than 130 and triglyceride of less than 150. Orders: Orders PFT pulmonary function test Today R06.02 - Shortness of breath Referrals Allergy & Immunology Referral J30.9 - Allergic rhinitis, unspecified Dermatology Referral L30.9 - Dermatitis, unspecified Medications: New compress.stocking,knee,reg,med As directed 20-30 mm HG 12 ea 0RF I89.0 - Lymphedema, not elsewhere classified Coding Level of Care Code Est Pt Level 4 (23014) Diagnoses Lymphedema I89.0 Breast cancer screening by mammogram Z12.31 Polymyositis M33.20 GERD (gastroesophageal reflux disease) K21.9 Generalized anxiety disorder F41.1 Chronic diarrhea K52.9 SOB (shortness of breath) R06.02 Allergic rhinitis J30.9 Eczema L30.9 Impaired fasting blood sugar R73.01 Hypothyroid E03.9 Hypercholesterolemia E78.00
== END 2023-08-17 16:53 | disposition home or self-care (01) ==
PROVIDERS: PCP Internal Medicine; Visit Provider Internal Medicine
DX: I89.0 Lymphedema, not elsewhere classified (principal); Z12.31 Encounter for screening mammogram for malignant neoplasm of breast; M33.20 Polymyositis, organ involvement unspecified; K21.9 Gastro-esophageal reflux disease without esophagitis; F41.1 Generalized anxiety disorder; K52.9 Noninfective gastroenteritis and colitis, unspecified; R06.02 Shortness of breath; J30.9 Allergic rhinitis, unspecified; L30.9 Dermatitis, unspecified; R73.01 Impaired fasting glucose; E03.9 Hypothyroidism, unspecified; E78.00 Pure hypercholesterolemia, unspecified
CPT/HCPCS: 99214

== ENCOUNTER 2023-08-23 12:49 | Day surgery (SDC) | payer OTHER, SELFPAY ==
--- NOTE | 2023-08-23 13:14 | HO.ANESPROP2 ---
HPI - Anesthesia Eval Consult details Narrative: 42 yo female patient for Colonoscopy PMFSH Active Problems Active Problems: All Active Problems Hypercholesterolemia (Acute) Hypothyroid (Acute). No meds Impaired fasting blood sugar (Acute) Eczema (Acute) Allergic rhinitis (Acute) SOB (shortness of breath) (Acute) Chronic diarrhea (Acute) Palpitations (Acute) Lymphedema (Acute) Varicose veins of right lower extremity with inflammation (Acute) Breast cancer screening by mammogram (Acute) Leg swelling (Acute) Nuclear nonsenile cataract (Acute) Osteopenia (Acute) Blood pressure elevated without history of HTN (Acute) Generalized anxiety disorder (Acute) Raynaud's disease (Acute) COVID-19 virus infection (Acute) Angular cheilitis (Acute) TSH elevation (Acute) Impaired glucose tolerance (Acute) Annual physical exam (Acute) Migraine (Acute) Polymyositis (Acute)- no meds recently. Diclofenac for generalized pain. None for 1 week GERD (gastroesophageal reflux disease) (Acute)- otc meds Past Medical History Medical History Raynaud's syndrome Asthma Onychomycosis Migraine Polymyositis GERD (gastroesophageal reflux disease) Family History Family History Father Myocardial infarction Maternal Grandmother Ovarian cancer Family history of problems with anesthesia: No Surgical History History of Problems with Anesthesia: No Social History Social History Housing: House Alcohol intake: never Patient Tobacco Use Status: Never used Tobacco e-Cigarette/Vaping Use: Never Used Second Hand Smoke Exposure: No Use of substances other than those prescribed or required for medical reasons: No Are you DNR?: No Advance Directives: No Advance Directives Information Provided: Yes service: No Current occupational status: employed Cognitive needs: No Hearing needs: No Vision needs: No Meds Allergies Allergy/AdvReac Type Severity Reaction Status Date / Time oxaprozin Allergy Severe Anaphylaxis Verified 08/17/23 15:41 tramadol Allergy Intermediate Anxiety Verified 08/17/23 15:41 levofloxacin [Levaquin] Allergy Unknown stomach Verified 08/17/23 15:41 upset latex AdvReac Intermediate Rash Verified 08/17/23 15:41 Home Medications ?Medication ?Instructions ?Recorded ?Confirmed ?Last Taken ?Type acetaminophen 300 mg-codeine 30 mg 1 tab PO TID PRN 02/15/23 08/17/23 Unknown History tablet amlodipine 5 mg tablet 5 mg PO BEDTIME 02/15/23 08/17/23 Unknown History diclofenac sodium 75 mg 75 mg PO BID PRN 02/15/23 08/17/23 Unknown History tablet,delayed release Exam Height,Weight and Vital Signs: Height 5 ft 6 in Weight 61.689 kg Vital Signs Temp Pulse Resp BP Pulse Ox O2 Del Method 08/23/23 13:44 97.1 F 99 18 141/85 H 100 Room Air Pertinent Lab Results Pertinent Lab Results: Lab Results 08/23/23 Range/Units 13:32 Urine Test NEGATIVE (NEGATIVE) Airway Mallampati Class: II TM Dist: >3cm Neck ROM: Limited (Sore with extension but extension ok) Loose/Missing/Broken Teeth: No (Denies broken, loose, missing teeth ) Heart: RRR Lungs: CTAB Assessment and Plan Assessment Anesthesia Assessment: Anesthesia Plan Discussed and Chart Reviewed Final Anesthetic Review Family History of Problems with Anesthesia: No History of Problems with Anesthesia: No NPO: Yes ASA Class: III Final Preanesthetic Review: No Changes in Pt Med Stat, Meds/Allgs Chart Reviewed, Consent Obtained/Reviewed and Anes Risks/Benef Reviewed Patient Risk: Intermediate Procedure Risk: Low Assessment/Block/Sedation in SS: Assess/Block/Sedation-SS Anesthetic Plan Anesthetic Plan: MAC: and TIVA Disposition: Standard PACU
[2023-08-23 13:44] VITALS: BP 141/85; PULSE 99; RESP 18; TEMP 36.2; O2SAT 100; BMI 21.9
[2023-08-23 13:50] LABS: UPreg QC Valid YES; Urine Pregnancy NEGATIVE (NEGATIVE)
[2023-08-23] MEDS: Lactated Ringers 1,000 ML 50 ML IVCONT (14:14)
--- NOTE | 2023-08-23 14:34 | PC.NURSE ---
report given to Matthew Richey RN
[2023-08-23 15:21] VITALS: BP 100/60; PULSE 83; RESP 16; TEMP 36.1; O2SAT 99
--- NOTE | 2023-08-23 15:23 | PM.OP ---
Brief Operative Note Date of Service: 08/23/23 Pre-op diagnosis: Diarrhea Post-op diagnosis: other (R/O Microscopic colitis, Internal hemorrhoids) Procedure: Colonoscopy to the cecum and TI with biopsies Surgeon: Cristino Cuello MD Anesthesia: MAC Was an Beam House Inspector used for this Procedure?: No Estimated blood loss (mL): 2.0 Pathology: other (A. Terminal ileum B. Ascending colon C. Descending colon) Condition: stable Disposition: PACU
[2023-08-23 15:36] VITALS: BP 101/64; PULSE 87; RESP 16; TEMP 36.6; O2SAT 100
[2023-08-23 15:52] VITALS: BP 115/76; PULSE 84; RESP 15; TEMP 36.6; O2SAT 100
--- NOTE | 2023-08-23 23:49 | OP_ITS ---
DATE OF SERVICE: 08/23/2023 SURGEON: Cristino Cuello MD INDICATIONS: The patient presents for evaluation of persistent diarrhea. Full consent has been obtained from her for this, including risks of bleeding and perforation. PREOPERATIVE DIAGNOSIS: Diarrhea. POSTOPERATIVE DIAGNOSIS: PROCEDURE PERFORMED: Colonoscopy to the cecum and terminal ileum with biopsies. ESTIMATED BLOOD LOSS: COMPLICATIONS: ANESTHESIA: Monitored anesthesia care. ASSISTANTS: SPECIMENS: POSTOPERATIVE DIAGNOSES: Diarrhea, rule out microscopic colitis, internal hemorrhoids. DESCRIPTION OF PROCEDURE: The patient was placed in the left lateral decubitus position. The digital rectal exam revealed no abnormalities. The Olympus video pediatric colonoscope was entered into the rectum and advanced easily to the cecum. Once in the cecum, I did identify normal-appearing cecal pouch with appendiceal orifice and a normal-appearing ileocecal valve. The terminal ileum was cannulated and appeared normal. Biopsies were obtained. There was no sign of any ileitis. The scope was withdrawn back in the colon. The entire cecum and ileocecal valve appeared normal. The scope was slowly withdrawn assessing all mucosal surfaces carefully. Preparation was excellent. Different areas of the colon appeared to be somewhat edematous, but in general, there did not appear to be any sign of colitis. There was no evidence of any polyps nor angiodysplasia. Random biopsies were obtained in the ascending and descending colon to rule out microscopic colitis. There were occasional diverticula noted in the sigmoid colon. In the rectum, scope was retroflexed visualizing some internal hemorrhoids, but no other pathology. The rectal mucosa appeared normal. Scope was straightened and withdrawn from the patient. She tolerated the procedure well and was returned to the recovery area in stable condition. IMPRESSION: 1. Rule out microscopic colitis. 2. Occasional sigmoid diverticulosis. 3. Internal hemorrhoids. PLAN: The results of the biopsies will be checked. At this point, she actually reports that her diarrhea has seemingly improved since I saw her in the office last month. I did advise her to use Imodium as needed for that. I did advise her not to use any aspirin and NSAIDs for 1 week. If things do remain improved and the biopsies are not revealing, then she could see me again on a p.r.n. basis and just use Imodium as needed. On the other hand, if the biopsies show any specific pathology and/or her symptoms recur and persist, then I will plan to see her in the office for a followup visit. The underlying concern is that of some type of autoimmune process given her underlying history of polymyositis. This has been discussed with her mother. This has also been discussed with the patient after the procedure. MD OLINDA Toro/ELLEN / [phone]
== END 2023-08-23 15:53 | disposition home or self-care (01) ==
PROVIDERS: PCP Internal Medicine; Visit Provider Internal Medicine
PROC: 0DJD8ZZ Inspection of Lower Intestinal Tract, Via Natural or Artificial Opening Endoscopic (ICD-10-PCS; CPT 45378; principal; 2023-08-23 13:20)
DX: K52.9 Noninfective gastroenteritis and colitis, unspecified (principal); K57.30 Diverticulosis of large intestine without perforation or abscess without bleeding; K64.8 Other hemorrhoids; M33.20 Polymyositis, organ involvement unspecified; I73.00 Raynaud's syndrome without gangrene; J45.909 Unspecified asthma, uncomplicated; G43.909 Migraine, unspecified, not intractable, without status migrainosus; Z79.899 Other long term (current) drug therapy; Z88.1 Allergy status to other antibiotic agents; Z88.5 Allergy status to narcotic agent; Z91.040 Latex allergy status
CPT/HCPCS: 45380; 81025; 88305; J2704

== ENCOUNTER 2024-01-14 14:06 | Emergency (ER) | payer OTHER, SELFPAY ==
--- NOTE | ~2024-01-14 | CT_ITS ---
EXAMINATION: CT ABDOMEN AND PELVIS WITHOUT CONTRAST CLINICAL INFORMATION: Abdominal pain. Nausea. Persistent diarrhea. COMPARISON: None TECHNIQUE: Multidetector volumetric imaging was performed from the superior aspect of the liver through the pubic symphysis. Sagittal and coronal reformatted images were obtained on the technologist's workstation. This CT examination was performed using dose optimization techniques as appropriate, variously including the following: *Automated exposure control *Adjustment of mA and/or kV according to patient size (this includes techniques or standardized protocols for targeted exams where dose is matched to indication/reason for exam; i.e. extremities or head) *Use of iterative reconstruction technique DLP: 401 mGy-cm FINDINGS: LUNG BASES: Interlobular septal thickening is evident in the lower lobes with marked associated volume loss. Cylindrical bronchiectasis is noted at the posterior and medial basilar segments of the lower lobes bilaterally, associated with groundglass attenuation. Peripheral cystlike foci are present along the pleural surface but are not yet numerous enough to be considered honeycombing. LIVER, GALLBLADDER, AND BILIARY TREE: Liver is enlarged, measuring 20.5 cm craniocaudal. Hepatic contour is normal, as is the attenuation. No focal lesions are identified. No there is no dilatation. The gallbladder is unremarkable with no evidence of radiopaque gallstones, gallbladder wall thickening, or obvious pericholecystic inflammatory changes. PANCREAS: Unremarkable. SPLEEN: Unremarkable. ADRENAL GLANDS: Unremarkable. KIDNEYS AND URETERS: The kidneys are normal in size, shape, and attenuation. No hydronephrosis or hydroureter. A few punctate 1 to 2 mm renal calculi are present within both kidneys, 3 on the right, and 2 on the left. No perinephric stranding. BLADDER: Unremarkable. GASTROINTESTINAL TRACT: Stomach, small bowel, and colon are normal in caliber. No bowel wall thickening or surrounding inflammatory changes. Moderate bilateral stool within the colon. Appendix is blunted and short is likely related to prior surgery. No intraperitoneal free fluid or free air. ABDOMINAL WALL: No significant hernia is appreciated. LYMPH NODES: Normal. VASCULAR: Unremarkable. PELVIC VISCERA: The uterus and adnexa are unremarkable. OSSEOUS STRUCTURES: Mild facet arthropathy in the lower lumbar spine L5-S1. No fracture or malalignment. CT/CT abdomen pelvis wo IV con IMPRESSION: 1. No acute intra-abdominal or intrapelvic abnormalities. 2. Hepatomegaly. 3. Punctate nonobstructing bilateral nephrolithiasis. 4. Interlobular septal thickening and bronchiectasis in the lower lobes, potentially due to interstitial lung disease. Recommend correlation with patient history and consider pulmonary function testing if warranted. Fleischner guidelines were followed. Electronically signed by: Miguel Armendariz MD 01/15/2024 12:56 AM EDT
[2024-01-14 14:25] VITALS: BP 138/81; PULSE 84; RESP 16; TEMP 36.8; O2SAT 99; BMI 21.2
--- NOTE | 2024-01-14 14:28 | ED_ITS ---
HPI - Nausea/Vomiting/Diarrhea General Chief complaint: Nausea/Vomiting/Diarrhea Stated complaint: Dehydrated Time Seen by Provider: 01/14/24 22:01 Source: patient and family History of Present Illness HPI Narrative: 43-year-old female who has a history polymyositis, chronic diarrhea, followed by Dr. Cuello from GI, presents for evaluation of persistent diarrhea. Patient states that her diarrhea has worsened over the past approximately 2 weeks. She is having more frequent episodes, nonbloody, with nocturnal symptoms. She has been taking loperamide with minimal relief. She has intermittent abdominal cramping when she is having episodes. She has had intermittent episodes of nausea and vomiting. Patient has been tolerating Gatorade and water. She denies any fevers or chills. No sick contacts. No new foods or recent travel. She has decreased p.o. intake. Related Data Home Medications ?Medication ?Instructions ?Recorded ?Confirmed acetaminophen 300 mg-codeine 30 mg 1 tab PO TID PRN Pain 02/15/23 08/23/23 tablet amlodipine 5 mg tablet 5 mg PO BEDTIME 02/15/23 08/23/23 diclofenac sodium 75 mg 75 mg PO BID PRN Pain 02/15/23 08/23/23 tablet,delayed release oxycodone 5 mg tablet 5 mg PO BEDTIME PRN Pain 08/23/23 08/23/23 Previous Rx's ?Medication ?Instructions ?Recorded compress.stocking,knee,reg,med #12 ea 08/17/23 blood sugar diagnostic (FreeStyle #100 ea 11/01/23 Lite Strips) blood-glucose meter (FreeStyle #1 ea 11/01/23 Lite Meter kit) lancets 28 gauge (FreeStyle #100 ea 11/01/23 Lancets) Allergies Allergy/AdvReac Type Severity Reaction Status Date / Time oxaprozin Allergy Severe Anaphylaxis Verified 01/14/24 14:33 tramadol Allergy Intermediate Anxiety Verified 01/14/24 14:33 levofloxacin [Levaquin] Allergy Unknown stomach Verified 01/14/24 14:33 upset latex AdvReac Intermediate Rash Verified 01/14/24 14:33 Review of Systems 2 Constitutional: Constitutional: Denies chills Cardiovascular: Cardiovascular: Denies chest pain Respiratory: Respiratory: Denies cough Musculoskeletal: Musculoskeletal: Denies myalgias and Reports muscle weakness PMFSH Past Medical History Medical History Raynaud's syndrome Asthma Onychomycosis Migraine Polymyositis GERD (gastroesophageal reflux disease) Family History Family History Father Myocardial infarction Maternal Grandmother Ovarian cancer Social History Social History Housing: House Alcohol intake: never Patient Tobacco Use Status: Never used Tobacco Smoked in Last 30 Days: No e-Cigarette/Vaping Use: Never Used Second Hand Smoke Exposure: No Advance Directives: No Advance Directives Information Provided: No Patient : No service: No Current occupational status: employed Cognitive needs: No Hearing needs: No Vision needs: No Physical Exam 2 Vital Signs: Vital Signs: Last Vital Signs Temp 98.3 F 01/14/24 21:06 Pulse 81 01/14/24 21:06 Resp 16 01/14/24 21:06 BP 131/75 01/14/24 21:06 Pulse Ox 100 01/14/24 21:06 O2 Del Method Room Air 01/14/24 21:06 BMI result Body Mass Index 21.2 Const: General: alert and awake Resp: Auscultation: clear to auscultation bilaterally Cardio: Rhythm: regular rhythm GI: Other: Abdomen is soft and nontender throughout. No peritoneal signs. No CVAT. Course Course Course Narrative: This is a Rapid Medical Examination (RME) performed by Gi Wyatt PA-C in triage. Full HPI, ROS, assessment and treatment plan per primary provider in the Main ED. 43 yo female hx of polymyositis (previously on rituxan) here for eval of diarrhea x months. reports +/15 episodes daily. has followed up with GI with negative work up - advised diet changes and anti-diarrheals. no improvement. she denies any abdominal pain. colonoscopy on 08/23/23. called GI office today, advised to come to the ED today for rehydration. no recent abx. + abd soft, ND/NT. no rebound or guarding. Plan: labs Reevaluation(s) Reevaluation #1: January 14, 1:[address] findings, no acute process. Patient states that she is feeling much better after IV fluids. She has not had any further episodes of diarrhea in the emergency department. Stool cultures are pending at this time. Patient is hemodynamically stable and afebrile. She feels comfortable with discharge plan home will follow up with her GI doctor, Dr. Cuello. I have offered the patient additional anti diarrheal medication however she has declined. She will continue diet modification and pushing fluids. Patient and mom expressed understanding of all discharge instructions and have no further questions at this time. Medications Administered Discontinued Medications Generic Name Dose Route Start Last Admin Trade Name Freq PRN Reason Stop Dose Admin Sodium Chloride 1,000 mls @ 999 mls/hr 01/14/24 22:15 01/14/24 22:46 Ns IV 01/14/24 23:15 999 mls/hr .Q1H1M RUBY Administration Potassium Chloride 40 meq 01/14/24 22:23 01/14/24 23:37 Potassium Chloride Packet 20 Meq Packet PO 01/14/24 22:24 40 meq ONCE ONE Administration Medical Decision Making Medical Decision Making MDM Narrative: 43-year-old female with history of chronic diarrhea, polymyositis, presents with persistent diarrhea. No blood is noted. The patient is not orthostatic. She is afebrile and otherwise hemodynamically stable. Mild hypokalemia, will replete. Slight leukocytosis. Given the patient's history and symptoms, check CT. Further evaluate for pancolitis or other acute process. Differential Diagnosis Differential Diagnoses: The differential diagnosis associated with the presentation includes Colitis Diverticulitis Chronic diarrhea Infectious diarrhea Admission/Observation Consideration of admission/observation: Escalation of care including admission/observation considered Lab Data [facility] Lab Attestation statement: I reviewed the patient's lab results. 01/14/24 14:53 01/14/24 22:41 Labs: Lab Results 01/14/24 01/14/24 01/15/24 Range/Units 14:53 22:41 00:35 WBC 12.4 H (4.8-10.8) X10*3/uL RBC 4.34 (4.20-5.50) X10*6/uL Hgb 12.6 (12.0-16.0) g/dl Hct 37.2 (37.0-47.0) % MCV 85.7 (80.0-98.0) fL MCH 29.0 (27.0-33.0) pg MCHC 33.9 (31.0-35.0) g/dl RDW 13.0 (11.0-16.0) % Plt Count 393 (160-400) X10*3/uL MPV 10.1 (9.4-12.3) fL Immature Gran % (Auto) 0.5 H (0.0-0.4) % Neut % (Auto) 84.1 H (45-73) % Lymph % (Auto) 10.7 L (20-40) % [place] % (Auto) 3.1 (2-11) % Eos % (Auto) 1.0 (0-4) % Baso % (Auto) 0.6 (0-2) % Lymph # (Auto) 1.3 (1.2-4.9) X10*3/uL [place] # (Auto) 0.4 (0.1-1.2) X10*3/uL Eos # (Auto) 0.1 (0.0-0.4) X10*3/uL Baso # (Auto) 0.1 (0.0-0.2) X10*3/uL Abs Immat Gran (auto) 0.06 H (0.00-0.03) X10*3/uL Absolute Neuts (auto) 10.4 H (2.0-8.3) x10*3/uL Absolute Nucleated RBC 0.000 (0.0-0.012) X10*3/uL Nucleated RBC % (auto) 0.0 (0.0-0.2) /100WBC Sodium 138 (135-145) mmol/L Potassium 3.1 L 3.5 (3.3-5.1) mmol/L Chloride 101 (96-108) mmol/L Carbon Dioxide 27 (22-29) mmol/L Anion Gap 13 (12-20) BUN 27 H (9-16) mg/dL Creatinine 1.05 (0.5-1.4) mg/dL Estim Creat Clear Calc 60.9 Estimated GFR 57 Random Glucose 208 H (60-115) mg/dL Calcium 9.2 (8.4-10.2) mg/dL Magnesium 1.6 (1.6-2.6) mg/dL Total Bilirubin 0.4 (0.0-1.0) mg/dL AST 12 (5-31) U/L ALT 9 (0-31) U/L Alkaline Phosphatase 56 (39-117) U/L Total Protein 6.7 (6.5-8.0) g/dL Albumin 3.5 (3.5-5.0) g/dL Lipase 20 (8-78) U/L Urine Color Yellow Urine Appearance Clear Urine pH 5.5 (5.0-9.0) Ur Specific [place] 1.010 (1.005-1.025) Urine Protein Negative (Neg-Trace) mg/dL Urine Glucose (UA) Negative (Negative) mg/dL Urine Ketones Negative (Negative) mg/dL Urine Blood Negative (Negative) Urine Nitrite Negative (Negative) Ur Leukocyte Esterase Negative (Negative) Urine Test NEGATIVE (NEGATIVE) Radiology Impression Discussion of test interpretation with radiology: I have reviewed the radiologist's reading. Radiologist Impression: [place] [id number] CT Scan Report Signed Patient: Mars Bray MR#: [id number] : 02/07/1984 Acct:[id number] Age/Sex: 39 / M ADM Date: 01/14/24 Loc: HO.ED Attending Dr: Ordering Physician: Gómez Batista Date of Service: 01/14/24 Procedure(s): CT abdomen pelvis w IV con Accession Number(s): [id number] cc: Lamont Nick MD; Gómez Batista~ EXAMINATION: CT ABDOMEN AND PELVIS WITH CONTRAST CLINICAL INFORMATION: Left lower quadrant abdominal pain. Bloody stool. COMPARISON: None available. TECHNIQUE: Multidetector volumetric images were obtained from the superior aspect of the liver through the pubic symphysis following administration 85 mL of Omnipaque 350 intravenous contrast. Sagittal and coronal reformatted images were obtained on the technologist's workstation. Oral contrast: No This CT examination was performed using dose optimization techniques as appropriate, variously including the following: *Automated exposure control *Adjustment of mA and/or kV according to patient size (this includes techniques or standardized protocols for targeted exams where dose is matched to indication/reason for exam; i.e. extremities or head) *Use of iterative reconstruction technique DLP: 916 mGy-cm FINDINGS: LUNG BASES: The visualized lung bases are unremarkable. LIVER, GALLBLADDER, AND BILIARY TREE: The liver is normal in size, shape, and attenuation. No focal hepatic lesion or biliary ductal dilatation is present. Gallbladder is surgically absent. PANCREAS: Unremarkable. SPLEEN: Unremarkable. ADRENAL GLANDS: Unremarkable. KIDNEYS AND URETERS: The kidneys are normal in size, shape, and attenuation. No hydronephrosis, hydroureter, or calculi seen. No perinephric stranding. BLADDER: Unremarkable. GASTROINTESTINAL TRACT: Stomach, small bowel, and colon are normal in caliber. Mild colonic diverticulosis. No acute diverticulitis. No bowel wall thickening or surrounding inflammatory changes. Appendix is normal. No intraperitoneal free fluid or free air. ABDOMINAL WALL: Small fat-containing umbilical hernia. No bowel involvement. LYMPH NODES: Normal. VASCULAR: Unremarkable. PELVIC VISCERA: The prostate and seminal vesicles are unremarkable. OSSEOUS STRUCTURES: Mild multilevel degenerative disc disease in lumbar spine with left paracentral disc protrusion at L5-S1 on and a mild disc bulge at L4-L5. No fracture or malalignment. CT/CT abdomen pelvis w IV con IMPRESSION: 1. No acute intra-abdominal or intrapelvic abnormalities. 2. Mild colonic diverticulosis without evidence of acute diverticulitis. 3. Small fat-containing umbilical hernia. Fleischner guidelines were followed. Electronically signed by: Miguel Armendariz MD 01/15/2024 12:39 AM EDT RP Discharge Plan Discharge Clinical Impression: Diarrhea Patient Disposition: Home, Self-Care Instructions: Diet for Stomach Ulcers and Gastritis (ED), Acute Diarrhea (ED) Additional Instructions: Clear liquids. Glenn diet. Gradually advanced. BRAT diet: bananas, white rice, applesauce, plain toast. We will contact you if your stool cultures require any additional treatment. Follow-up with your GI doctor, Dr. Cuello. Call Wednesday morning to schedule follow up appointment Follow-up with your primary care provider. Call this week to schedule a follow- up appointment. Return to the emergency department if you have any worsening of symptoms, or any concerns. Get well soon! Prescriptions: No Action (DME) blood-glucose meter [FreeStyle Lite Meter] Kit See Rx Instructions .ROUTE .[facility] Qty: 1 0RF Rx Instructions: As directed (DME) FreeStyle Lite Strips Strip See Rx Instructions .ROUTE .MEDSUPPLY Qty: 100 3RF Rx Instructions: As directed check the BS QD (DME) lancets [FreeStyle Lancets] 28 gauge misc See Rx Instructions .ROUTE .MEDSUPPLY Qty: 100 3RF Rx Instructions: As directed check BS QD oxycodone 5 mg tablet 5 mg PO BEDTIME PRN (Reason: Pain) diclofenac sodium 75 mg tablet,delayed release (DR/EC) 75 mg PO BID PRN (Reason: Pain) acetaminophen-codeine 300-30 mg tablet 1 tab PO TID PRN (Reason: Pain) amlodipine 5 mg tablet 5 mg PO BEDTIME Rx Instructions: january to July (DME) compress.stocking,knee,reg,med Misc See Rx Instructions .Route Qty: 12 0RF Rx Instructions: As directed 20-30 mm HG Referrals: Cristino Cuello MD [Physician] - 1 week (persistent diarrhea) Print Language: Lithuanian
[2024-01-14 15:04] LABS: MANUAL DIFF FLAG NO
[2024-01-14 15:08] LABS: Basophils Absolute Auto 0.1 X10*3/uL (0.0-0.2); Basophils Percent Auto 0.6 % (0-2); Eosinophils Absolute Auto 0.1 X10*3/uL (0.0-0.4); Hematocrit 37.2 % (37.0-47.0); Hemoglobin 12.6 g/dl (12.0-16.0); Imm Gran Abs Auto 0.06 X10*3/uL (0.00-0.03); Imm Gran Pct Auto 0.5 % (0.0-0.4); Lymphocytes Absolute Auto 1.3 X10*3/uL (1.2-4.9); Lymphocytes Percent Auto 10.7 % (20-40); Mean Corpuscular HGB Conc 33.9 g/dl (31.0-35.0); Mean Corpuscular Volume 85.7 fL (80.0-98.0); Mean Platelet Volume 10.1 fL (9.4-12.3); Monocytes Absolute Auto 0.4 X10*3/uL (0.1-1.2); Monocytes Percent Auto 3.1 % (2-11); Neutrophils Absolute Auto 10.4 x10*3/uL (2.0-8.3); Neutrophils Percent Auto 84.1 % (45-73); Platelet Count 393 X10*3/uL (160-400); Red Blood Count 4.34 X10*6/uL (4.20-5.50); White Blood Count 12.4 X10*3/uL (4.8-10.8)
[2024-01-14 15:23] LABS: Alanine Aminotransferase 9 U/L (0-31); Albumin Level 3.5 g/dL (3.5-5.0); Alkaline Phosphatase 56 U/L (39-117); Anion Gap 13 (12-20); Aspartate Amino Transferase 12 U/L (5-31); Bilirubin Total 0.4 mg/dL (0.0-1.0); Blood Urea Nitrogen 27 mg/dL (9-16); Calcium 9.2 mg/dL (8.4-10.2); Carbon Dioxide 27 mmol/L (22-29); Chloride 101 mmol/L (96-108); Creatinine Clr Calc Pharmacy 60.9; Estimated Glomerular Filt Rate 57; Glucose Random 208 mg/dL (60-115); Lipase 20 U/L (8-78); Magnesium 1.6 mg/dL (1.6-2.6); Potassium 3.1 mmol/L (3.3-5.1); Sodium 138 mmol/L (135-145); Total Protein 6.7 g/dL (6.5-8.0)
[2024-01-14 19:58] VITALS: BP 153/79; PULSE 78; RESP 16; TEMP 37.1; O2SAT 100
[2024-01-14 21:06] VITALS: BP 131/75; PULSE 81; RESP 16; TEMP 36.8; O2SAT 100
[2024-01-14] MEDS: 0.9 % Sodium Chloride 1,000 ML 999 ML IV (22:46)
[2024-01-14 23:01] LABS: Potassium 3.5 mmol/L (3.3-5.1)
--- NOTE | 2024-01-14 23:36 | MHC.EDTECH ---
GI panel and Cdiff samples collected and sent to lab.
[2024-01-14] MEDS: Potassium Chloride Packet 20 MEQ PACKET 40 MEQ PO (23:37)
[2024-01-15 00:42] LABS: Appearance Urine Clear; Color Urine Yellow; Glucose Urine UA Negative (Negative); Leukocyte Esterase Urine Negative (Negative); Nitrite Urine Negative (Negative); PH 5.5 (5.0-9.0); Urine Blood Negative (Negative); Urine Ketones Negative (Negative); Urine Protein Negative (Neg-Trace)
[2024-01-15 00:43] LABS: UPreg QC Valid YES; Urine Pregnancy NEGATIVE (NEGATIVE)
[2024-01-15 01:36] VITALS: BP 123/66; PULSE 86; RESP 12; TEMP 36.6; O2SAT 99
[2024-01-15 01:41] LABS: CDiff Gene PCR NEGATIVE (Negative)
[2024-01-15 02:23] VITALS: BP 123/66; PULSE 86; RESP 12; TEMP 36.6; O2SAT 99
[2024-01-15 11:53] LABS: Adenovirus F 40/41 Not Detected (Not Detect.); Astrovirus Not Detected (Not Detect.); Campylobacter Not Detected (Not Detect.); Cryptosporidium Not Detected (Not Detect.); Cyclospora cayetanensis Not Detected (Not Detect.); E. coli EAEC Not Detected (Not Detect.); E. coli EPEC Not Detected (Not Detect.); E. coli ETEC Not Detected (Not Detect.); E. coli STEC Not Detected (Not Detect.); Entamoeba histolytica Not Detected (Not Detect.); Giardia lamblia Not Detected (Not Detect.); Norovirus GI/GII Not Detected (Not Detect.); Plesiomonas shigelloides Not Detected (Not Detect.); Rotavirus A Not Detected (Not Detect.); Salmonella Not Detected (Not Detect.); Sapovirus Not Detected (Not Detect.); Shigella sp./EIEC Not Detected (Not Detect.); Vibrio Not Detected (Not Detect.); Vibrio Cholerae Not Detected (Not Detect.); Yersinia enterocolitica Not Detected (Not Detect.)
== END 2024-01-15 01:30 | disposition home or self-care (01) ==
PROVIDERS: Physician Assistant; Physician Assistant Medical; Emergency Provider Emergency Medicine Emergency Medical Services; PCP Internal Medicine
DX: R19.7 Diarrhea, unspecified (principal); K57.90 Diverticulosis of intestine, part unspecified, without perforation or abscess without bleeding; K42.9 Umbilical hernia without obstruction or gangrene; E78.00 Pure hypercholesterolemia, unspecified; E03.9 Hypothyroidism, unspecified; R06.02 Shortness of breath; J45.909 Unspecified asthma, uncomplicated; Z79.899 Other long term (current) drug therapy
CPT/HCPCS: 36415; 74176; 80053; 81003; 81025; 83690; 83735; 84132; 85025; 87493; 87507; 99284

== ENCOUNTER 2024-02-18 16:23 | Outpatient (AMB) | payer OTHER, SELFPAY ==
--- NOTE | 2024-02-18 16:33 | A.OFFPC_ITS ---
Vital Signs 02/18/24 16:34 Height 5 ft 5 in Weight 132 lb 8 oz BMI 22.0 BP 138/74 Blood Pressure Location Lt brachial Position Sitting Pulse 102 H Pulse Source Pulse Oximeter Pulse Oximetry (%) 97 Oxygen Delivery Method Room Air Intake Visit Reasons: Annual Exam Intake Note: Patient is here today for a physical. Pleat Taper Required: No Accompanied by: Self / Same As Patient Allergies oxaprozin Allergy (Severe, Verified 02/18/24 16:36) Anaphylaxis tramadol Allergy (Intermediate, Verified 02/18/24 16:36) Anxiety levofloxacin [Levaquin] Allergy (Unknown, Verified 02/18/24 16:36) stomach upset latex Adverse Reaction (Intermediate, Verified 02/18/24 16:36) Rash Medication List - Last Reconciled 02/18/24 by Nagi Howard MD acetaminophen-codeine 300-30 mg 1 tab PO TID PRN amlodipine 5 mg PO BEDTIME blood sugar diagnostic (FreeStyle Lite Strips) As directed check the BS QD blood-glucose meter (FreeStyle Lite Meter kit) As directed chlorthalidone 25 mg PO DAILY compress.stocking,knee,reg,med As directed 20-30 mm HG diclofenac sodium 75 mg PO BID PRN lancets (FreeStyle Lancets) As directed check BS QD levothyroxine 50 mcg PO DAILY progesterone micronized 100 mg PO QAM Tobacco use date assessed: 08/17/23 Dental Screening Dental Screen Date: 08/17/23 HPI Annual Exam HPI Details 43-year-old female with a history of tony ymyositis with Raynaud's disease GERD generalized anxiety disorder impaired glucose tolerance with hypothyroidism and hypercholesterolemia last seen in August coming in for physical exam today. Patient does mammogram in [facility] 0 up-to-date April, colonoscopy up-to-date August [address]23 Dr. Cuello. Received blood work in January 26 showing mild anemia at 11.7 and 37.1 normal platelets blood sugars 101 normal creatinine electrolytes liver function total cholesterol of 186 triglyceride of 119 LDL cholesterol of 122 hemoglobin A1c of 6.3 triglyceride of 119 with HDL of 43. Normal vitamin B12 and folic acid sedimentation rate of him when T and C-reactive protein of 12. Noted ER visit having nausea vomiting diarrhea had CT scan showing colonic diverticulosis small fat containing umbilical hernia. Review of the notes has seen Cardiology also October 2023. Blood pressure is poorly controlled and so adding chlorthalidone 25 mg once a day as for the leg edema venous insufficiency and compression stockings advised. Patient had the colonoscopy done in August due to her diarrhea results showing sigmoid diverticulosis with internal hemorrhoids. complains of chlorthalidone high BS. PAtient had a CT scan of the abd -showing ILD/broncheitasis states feel sob, . No cough no fevers no history of pneumonia. Will do referral to Pulmonary., [facility] Medical History Raynaud's syndrome Asthma Onychomycosis Migraine Polymyositis GERD (gastroesophageal reflux disease) Family History Father Myocardial infarction Maternal Grandmother Ovarian cancer Social History Housing: House Alcohol intake: never Patient Tobacco Use Status: Never used Tobacco e-Cigarette/Vaping Use: Never Used Second Hand Smoke Exposure: No service: No Current occupational status: employed Cognitive needs: No Hearing needs: No Vision needs: No Questionnaire PHQ-9 Over the last 2 weeks, how often have you been bothered by any of the following problems? 1. Little interest or pleasure in doing things: not at all 2. Feeling down, depressed, or hopeless: not at all 3. Trouble falling or staying asleep, or sleeping too much: several days 4. Feeling tired or having little energy: several days 5. Poor appetite or overeating: not at all 6. Feeling bad about yourself - or that you are a failure or have let yourself or your family down: not at all 7. Trouble concentrating on things, such as reading the newspaper or watching television: not at all 8. Moving or speaking so slowly that other people could have noticed. Or the opposite - being so fidgety or restless that you have been moving around a lot more than usual: not at all 9. Thoughts that you would be better off or of hurting yourself in some way: not at all Total score: 2 43048 - PHQ-9 Billing: Yes Source: Developed by Drs. Cristino Robison, Stefany Garza, Chip Baldwin and colleagues, with an educational deb from [employer] (now [employer]). Thrive Questionnaire Date Thrive assessed: 02/18/24 I am a: Patient What is your living situation today?: I have a steady place to live Within the past 12 months, did the food you bought not last and you didn't have the money to get more?: Never true Within the past 12 months, did you worry whether your food would run out before you got money to buy more?: Never true Do you have trouble paying for medicines?: No Do you have trouble getting transportation to medical appointments?: No Do you have trouble paying your heating and electricity bill?: No Do you have trouble taking care of your child, family member or friend?: No Do you have trouble with day-to-day activities such as bathing, preparing meals, shopping, managing finances, etc.?: No Are you currently unemployed and looking for a job?: No Are you interested in more education?: No Please select the resources that you would like help with: None Currently or been in a relationship where the following occur: No concerns reported THRIVE Score: 0 AUDIT C Alcohol Use Questionnaire (AUDIT-C) 1. How often do you have a drink containing alcohol?: Never 3. How often do you have six or more drinks on one occasion?: Never Total Score: 0 JANY-7 AMB Questionnaire JANY-7 Date JANY - 7 assessed: 02/18/24 Feeling nervous, anxious, or on edge: 1 = Several days Not being able to stop or control worryin = Not at all Worrying too much about different things: 0 = Not at all Trouble relaxin = Not at all Being so restless that it is hard to sit still: 0 = Not at all Becoming easily annoyed or irritable: 0 = Not at all Feeling afraid as if something awful might happen: 0 = Not at all Total JANY-7 score (0-4 normal; 5-9 mild; 10-14 moderate; 15-21 severe): 1 Source: Developed by Drs. Cristino Robison, Stefany Garza, Chip Baldwin and colleagues, with an educational deb from [employer] (now [employer]). JANY-7 Assessment Billing JANY-7 Assessment Tool: JANY-7 Assessment 14419 Review of Systems Const Denies poor appetite and Denies weakness Eyes Denies no additional complaints ENT Reports Normal hearing present, Denies dizziness, Denies nasal congestion, Denies tinnitus and Denies sore throat Card Denies chest pain, Denies syncope, Denies rapid heart rate and Denies dyspnea Resp Denies cough and Denies dyspnea GI Denies change in stool character, Reports constipation, Denies diarrhea, Denies nausea and Denies vomiting Denies urinary frequency, Denies difficulty voiding and Denies dysuria Neuro Reports Normal hearing present, Denies confusion, Denies dizziness, Denies syncope and Denies weakness Psych Denies confusion Physical exam (Primary Care) Vital Signs: Last Vital Signs Pulse 102 H 02/18/24 16:34 BP 138/74 02/18/24 16:34 Pulse Ox 97 02/18/24 16:34 Oxygen Delivery Method Room Air 02/18/24 16:34 BMI result Body Mass Index 22.0 Tobacco/Smoking Status: Tobacco use Status Tobacco use date assessed 08/17/23 02/18/24 16:34 Patient Tobacco Use Status Never used Tobacco 02/18/24 16:34 e-Cigarette/Vaping Use Never Used 02/18/24 16:34 PHQ-9: PHQ-9 Score PHQ-9: Total score 2 02/18/24 17:03 Thrive Assessment: Date of Thrive Assessment Date Thrive assessed 02/18/24 02/18/24 16:34 Currently or been in a relationship where the following occur: No concerns reported Const General: alert and awake; No confusion Orientation/consciousness: No confusion HENMT Head: Yes normocephalic Ears: external ears normal and TM's normal bilaterally Face and sinus: Yes normal facial exam Mouth: moist mucous membranes Throat: Yes tonsils normal Eyes Conjunctivae: conjunctivae normal Pupils: Equal, round and reactive pupils present and Pupil accommodation reflex normal Direct Ophthalmoscopy: normal light reflex Neck Neck: No lymphadenopathy Thyroid: Thyroid normal Chest Chest palpation & inspection: normal inspection of the chest Resp Effort & Inspection: normal respiratory effort and no audible wheezes Auscultation: clear to auscultation bilaterally, no crackles, no wheezes and lung sounds not diminished Cardio Rate: regular rate Rhythm: regular rhythm Peripheral pulses: radial pulses present and dorsalis pedis present GI Palpation (GI): no masses Auscultation: normal bowel sounds and normoactive bowel sounds Rectal Exam - Female: deferred Skin General skin exam: no rashes or lesions noted Rashes: no rashes Neuro General: deep tendon reflexes 2+ bilaterally and No confusion Cranial nerves: Yes Equal, round and reactive pupils present, Yes Midline tongue present, Yes Normal hearing present and Yes Ability to bilaterally elevate shoulders present Cognition (Neuro): normal cognition Gait exam (Neuro): Normal gait present Motor exam (neuro): 5/5 motor strength present throughout Deep tendon reflexes (DTR's): Right brachioradialis reflex intensity grade: 2+, Left brachioradialis reflex intensity grade: 2+, Right patellar reflex intensity grade: 2+ and Left patellar reflex intensity grade: 2+ Extrem General: No edema Office Procedures Flu Questionnaire Does the patient have a severe egg allergy?: No Immunizations Fluarix Triv [id number] (PF) 45 mcg (15 mcg x 3)/0.5 mL IM syringe Performing Provider: Nagi Howrad MD [facility] [place] [facility] Documented (not given) by: LEONARD Ortega on 02/18/24 16:34 Reason Not Given: Patient Refused Coding Level of Care Code Est Pt Prev Care 40-64y(49474) Diagnoses Annual physical exam Z00.00 Impaired fasting blood sugar R73.01 Acquired hypothyroidism E03.9 Hypothyroidism type: acquired Hypercholesterolemia E78.00 Varicose veins of right lower extremity with inflammation I83.11 Polymyositis M33.20 Gastroesophageal reflux disease without esophagitis K21.9 Esophagitis presence: without esophagitis Bronchiectasis J47.9 Nephrolithiasis N20.0 Additional Codes JANY-7 Assessment Billing - JANY-7 Assessment Tool: JANY-7 Assessment 42797 ([id number]) Assessment & Plan Assessment & Plan (1) Annual physical exam: Code(s): Z00.00 - Encounter for general adult medical examination without abnormal findings Category: Medical Plan: Patient is advised to eat healthy, keep well hydrated, keep active and have adequate sleep. (2) Impaired fasting blood sugar: Code(s): R73.01 - Impaired fasting glucose Category: Medical Plan: Decrease the amount of carbohydrate intake, pasta, bread, rice and potatoes are all sugar and that is aside from all the sweet stuff, remember that fruits are good but they are Sweet also. (3) Hypothyroid: Code(s): E03.9 - Hypothyroidism, unspecified Category: Medical Qualifiers: Hypothyroidism type: acquired Qualified Code(s): E03.9 - Hypothyroidism, unspecified Plan: Continue to monitor (4) Hypercholesterolemia: Code(s): E78.00 - Pure hypercholesterolemia, unspecified Category: Medical Plan: Avoid fried foods, chicken skin, eggs, butter margarine, pastries and meat. Be it pork or beef they have a lot of cholesterol (5) Varicose veins of right lower extremity with inflammation: Code(s): I83.11 - Varicose veins of right lower extremity with inflammation Category: Medical Plan: When sitting down elevate the legs, exercise, and support stockings (6) Polymyositis: Comment: Dr. Kebede September 2019 Code(s): M33.20 - Polymyositis, organ involvement unspecified Category: Medical Plan: Continue to follow-up with Rheumatology (7) GERD (gastroesophageal reflux disease): Code(s): K21.9 - Gastro-esophageal reflux disease without esophagitis Category: Medical Qualifiers: Esophagitis presence: without esophagitis Qualified Code(s): K21.9 - Gastro-esophageal reflux disease without esophagitis Plan: Avoid the foods that causes that usually spicy foods, tomato products, juices, coffee, soda and foods that your sensitive to. After eating do not lie down, allow 3-4 hours before in lie down. And keep the head of bed above 30 degrees to avoid the acid from going up. (8) Bronchiectasis: Comment: 01/[address] abd ILD Code(s): J47.9 - Bronchiectasis, uncomplicated Category: Medical Plan: referral to Pulmonary (9) Nephrolithiasis: Comment: CT 01/2024 Code(s): N20.0 - Calculus of kidney Category: Medical Plan: increase oral fluids Orders: Orders Influenza [id number] Immunization Today Z23 - Encounter for immunization Complete Blood Count Auto Diff Today R73.01 - Impaired fasting glucose Thyroid Stimulating Hormone Today R73.01 - Impaired fasting glucose Vitamin B12 and Folate Today R73.01 - Impaired fasting glucose Lipid Panel Today E78.00 - Pure hypercholesterolemia, unspecified, R73.01 - Impaired fasting glucose Hemoglobin A1c Today R73.01 - Impaired fasting glucose Magnesium Today R73.01 - Impaired fasting glucose AMB Hemoglobin A1c Today R73.02 - Impaired glucose tolerance (oral) Comprehensive Met. Panel Today R73.01 - Impaired fasting glucose Free T4 (Free Thyroxine) Today R73.01 - Impaired fasting glucose Vitamin D 25-OH Total Today R73.01 - Impaired fasting glucose Erythrocyte Sedimentation Rate Today R73.01 - Impaired fasting glucose C Reactive Protein Today R73.01 - Impaired fasting glucose Referrals Pulmonology Referral J47.9 - Bronchiectasis, uncomplicated
[2024-02-18 16:34] VITALS: BP 138/74; PULSE 102; O2SAT 97; BMI 22.0
== END 2024-02-18 17:36 | disposition home or self-care (01) ==
PROVIDERS: PCP Internal Medicine; Visit Provider Internal Medicine
DX: Z00.00 Encounter for general adult medical examination without abnormal findings (principal); M33.20 Polymyositis, organ involvement unspecified; J47.9 Bronchiectasis, uncomplicated; R73.01 Impaired fasting glucose; E03.9 Hypothyroidism, unspecified; E78.00 Pure hypercholesterolemia, unspecified; I83.11 Varicose veins of right lower extremity with inflammation; K21.9 Gastro-esophageal reflux disease without esophagitis; N20.0 Calculus of kidney

== ENCOUNTER → 2024-02-18 16:23 | Outpatient (BNVA) | payer OTHER, SELFPAY | PROVIDERS: PCP Internal Medicine; Visit Provider Internal Medicine | DX: Z00.00 Encounter for general adult medical examination without abnormal findings (principal); R73.01 Impaired fasting glucose; E03.9 Hypothyroidism, unspecified; E78.00 Pure hypercholesterolemia, unspecified; I83.11 Varicose veins of right lower extremity with inflammation; M33.20 Polymyositis, organ involvement unspecified; K21.9 Gastro-esophageal reflux disease without esophagitis; J47.9 Bronchiectasis, uncomplicated; N20.0 Calculus of kidney; Z28.21 Immunization not carried out because of patient refusal | CPT/HCPCS: 90471; 96127 ==

== ENCOUNTER 2024-04-03 13:27 | Outpatient (AMB) | payer OTHER, SELFPAY ==
[2024-04-03 13:29] VITALS: BP 132/64; PULSE 93; O2SAT 99; BMI 22.9
--- NOTE | 2024-04-03 13:29 | MHC.OFFVIS ---
Vital Signs 04/03/24 13:29 Height 5 ft 5 in Weight 137 lb 12.623 oz BMI 22.9 BP 132/64 Blood Pressure Location Rt brachial Position Sitting Pulse 93 Pulse Source Doppler Pulse Oximetry (%) 99 Oxygen Delivery Method Room Air Intake Visit Reasons: Bronchiectasis Allergies oxaprozin Allergy (Severe, Verified 04/03/24 13:33) Anaphylaxis tramadol Allergy (Intermediate, Verified 04/03/24 13:33) Anxiety levofloxacin [Levaquin] Allergy (Unknown, Verified 04/03/24 13:33) stomach upset latex Adverse Reaction (Intermediate, Verified 04/03/24 13:33) Rash HPI Comments Details: The patient is here for pulmonary evaluation. The patient is a 43 year woman with a known history of polymyositis followed 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 The patient did undergo a CT scan of the chest demonstrating some bronchiectatic changes in his she was referred to Pulmonary. She did see pulmonology back many years ago at [facility]. There the patient did have a CT scan of the chest back in 2011 which I personally reviewed with her. At that time she did have significant reticular changes consistent with pulmonary fibrosis bilaterally right more than left. At the time is felt to be related to methotrexate. She subsequently was having some issue with shortness of breath. At 1 point she was prescribed short-acting beta agonist that the patient had an adverse reaction to it with chest pressure. Therefore she stopped it. She does not use any inhalers any further. Recently she did undergo a CT scan of the abdomen which I personally reviewed demonstrating the reticular changes and bronchiectatic changes. Although when I compared to the CT scan from 21/04 it actually looks a little better which is reassuring. The patient did undergo pulmonary function studies at [facility] back in 09/20/2023 which I personally reviewed demonstrating a mild obstructive ventilatory defect along with small airways disease. In view of her connective tissue disease follicular bronchiolitis differential. At this point she does have what appears to be mild COPD. Based on the patient's symptoms of dyspnea and her ongoing comorbidities I do believe pulmonary rehabilitation be helpful for her. In regards of the polymyositis she is no longer taking any medications although her inflammatory markers are increasing. She will be reviewing the results with her major gifts officer soon and may be starting mycophenolate. [facility] Medical History (Updated 12/02/24 @ 19:44 by David rAriaga MD) Allergies ILD (interstitial lung disease) Asthma-COPD overlap syndrome Raynaud's syndrome Asthma Onychomycosis Migraine Polymyositis GERD (gastroesophageal reflux disease) Family History Father Myocardial infarction Maternal Grandmother Ovarian cancer Social History Housing: House Alcohol intake: never Patient Tobacco Use Status: Never used Tobacco e-Cigarette/Vaping Use: Never Used Second Hand Smoke Exposure: No service: No Current occupational status: employed Cognitive needs: No Hearing needs: No Vision needs: No Review of Systems Const Denies poor appetite and Denies weakness Eyes Denies no additional complaints ENT Reports Normal hearing present, Denies dizziness, Denies nasal congestion, Denies tinnitus and Denies sore throat Card Denies chest pain, Denies syncope, Denies rapid heart rate, Denies dyspnea and Reports dyspnea on exertion Resp Denies cough, Denies dyspnea and Reports dyspnea on exertion GI Denies change in stool character, Reports constipation, Denies diarrhea, Denies nausea and Denies vomiting Musc Reports myalgias and Reports arthralgias Skin/Breast Reports erythema, Reports skin swelling and Reports wounds Neuro Reports Normal hearing present, Denies dizziness, Denies syncope and Denies weakness Tani/Lymph Reports no additional complaints Physical Exam Vital Signs: Last Vital Signs Pulse 93 04/03/24 13:29 BP 132/64 04/03/24 13:29 Pulse Ox 99 04/03/24 13:29 Oxygen Delivery Method Room Air 04/03/24 13:29 BMI result Body Mass Index 22.9 Const General: comfortable Nutritional Appearance: thin HEENT Head: Yes atraumatic Neck Neck: Yes supple Chest Chest palpation & inspection: normal inspection of the chest Resp Effort & Inspection: normal respiratory effort and prolonged expiratory phase Auscultation: diminished lung sounds Cardio Heart sounds: S1 normal heart sound present and S2 normal heart sound present GI Palpation (GI): Soft to palpation Skin Lesions: lesion noted (mechanics hand) Neuro Cranial nerves: Yes Normal hearing present Extrem General: No edema Results Reviewed Results Reviewed: personally reviewed CT chest 2012 with ILD and bronchiectasis, CT abd with ILD/bronchiectasis but slightly better Assessment & Plan Assessment & Plan (1) Asthma-COPD overlap syndrome: Code(s): J44.89 - Other specified chronic obstructive pulmonary disease Category: Medical (2) Bronchiectasis: Comment: 01/[address] abd ILD Code(s): J47.9 - Bronchiectasis, uncomplicated Category: Medical Qualifiers: Bronchiectasis type: uncomplicated Qualified Code(s): J47.9 - Bronchiectasis, uncomplicated (3) ILD (interstitial lung disease): Comment: secondary to MTX, although also could be related to CTD Code(s): J84.9 - Interstitial pulmonary disease, unspecified Category: Medical (4) SOB (shortness of breath): Code(s): R06.02 - Shortness of breath Category: Medical (5) Allergies: Code(s): T78.40XA - Allergy, unspecified, initial encounter Category: Medical Qualifiers: Encounter type: initial encounter Qualified Code(s): T78.40XA - Allergy, unspecified, initial encounter Plan start Advair HFA, will call if any issues bloodwork pulmonary rehab at [facility] F/U with Rheumatology will requiere CT chest, will await to order till the next visit after she starts immunomonulator F/U 2-3 months Orders: Orders Pulmonary Rehab Today J44.89 - Other specified chronic obstructive pulmonary disease LUKASZ 1 Antibody Today J47.9 - Bronchiectasis, uncomplicated, J84.9 - Interstitial pulmonary disease, unspecified Scleroderma 70 Antibody Today J47.9 - Bronchiectasis, uncomplicated, J84.9 - Interstitial pulmonary disease, unspecified Hypersensitive Pneumonitis Prf Today J47.9 - Bronchiectasis, uncomplicated, J84.9 - Interstitial pulmonary disease, unspecified, R91.8 - Other nonspecific abnormal finding of lung field Erythrocyte Sedimentation Rate Today J47.9 - Bronchiectasis, uncomplicated, J84.9 - Interstitial pulmonary disease, unspecified CARL Reflex Titer and Pattern Today J47.9 - Bronchiectasis, uncomplicated, J84.9 - Interstitial pulmonary disease, unspecified ANCA Vasculitides Today J47.9 - Bronchiectasis, uncomplicated, J84.9 - Interstitial pulmonary disease, unspecified Immunoglobulins,IgG IgA IgM Today J47.9 - Bronchiectasis, uncomplicated, J84.9 - Interstitial pulmonary disease, unspecified Cyclic Citrullinated Peptide Today J47.9 - Bronchiectasis, uncomplicated, J84.9 - Interstitial pulmonary disease, unspecified Sjogren's Antibodies Today J47.9 - Bronchiectasis, uncomplicated, J84.9 - Interstitial pulmonary disease, unspecified Immunoglobulin E Today J47.9 - Bronchiectasis, uncomplicated, J84.9 - Interstitial pulmonary disease, unspecified Resp Allergy Profile Region I Today J44.89 - Other specified chronic obstructive pulmonary disease, T78.40XA - Allergy, unspecified, initial encounter Medications: New fluticasone propion-salmeterol 115-21 mcg/actuation (Advair HFA) 2 puffs inhalation Q12H 30 days 12 grams 11RF Coding Level of Care Code New Pt Level 5 (03592) Diagnoses Asthma-COPD overlap syndrome J44.89 Bronchiectasis without complication J47.9 Bronchiectasis type: uncomplicated ILD (interstitial lung disease) J84.9 SOB (shortness of breath) R06.02 Allergy, initial encounter T78.40XA Encounter type: initial encounter Time Spent (min) 60
== END 2024-04-03 14:10 | disposition home or self-care (01) ==
PROVIDERS: PCP Internal Medicine; Referring Provider Internal Medicine; Visit Provider Hospitalist
DX: J44.89 Other specified chronic obstructive pulmonary disease (principal); J47.9 Bronchiectasis, uncomplicated; J84.9 Interstitial pulmonary disease, unspecified
CPT/HCPCS: 99205

== ENCOUNTER 2024-06-20 15:49 | Outpatient (AMB) | payer OTHER, SELFPAY ==
[2024-06-20 15:54] VITALS: BP 128/78; PULSE 75; O2SAT 98; BMI 21.8
--- NOTE | 2024-06-20 15:54 | MHC.PC.OV ---
Vital Signs 06/20/24 15:54 Height 5 ft 5 in Weight 131 lb BMI 21.8 BP 128/78 Blood Pressure Location Lt brachial Position Sitting Pulse 75 Pulse Source Pulse Oximeter Pulse Oximetry (%) 98 Oxygen Delivery Method Room Air Intake Visit Reasons: Polymyositis, brochietasis Allergies oxaprozin Allergy (Severe, Verified 06/20/24 15:54) Anaphylaxis tramadol Allergy (Intermediate, Verified 06/20/24 15:54) Anxiety levofloxacin [Levaquin] Allergy (Unknown, Verified 06/20/24 15:54) stomach upset latex Adverse Reaction (Intermediate, Verified 06/20/24 15:54) Rash Tobacco use date assessed: 06/20/24 Dental Screening Dental Screen Date: 06/20/24 Did you have a dental visit in the last 12 months?: Yes Did you have a dental problem in the last 6 months where you did not have access to dental care?: No Was dental information given to patient?: Patient has dentist HPI Polymyositis, brochietasis HPI Details The patient is a 43-year-old female presenting with a multifaceted medical history, seeking follow-up for chronic disease management and review of recent blood work. She has a documented history of various medical conditions, including GERD, polymyositis, impaired liver tolerance, generalized anxiety disorder, hypothyroidism, and hypercholesterolemia. She was last comprehensively evaluated in February 2024. The recent blood work in June 2023 is notable for mild anemia, elevated blood glucose levels, BUN, and calcium levels, with normal platelets, creatinine, and electrolytes except for elevated calcium at 11.4. Liver function tests were normal. Dyslipidemia is managed, with recent LDL levels of 111 and triglycerides at 116. Her diabetes monitoring shows a hemoglobin A1c of 6.3. Inflammatory markers like sed rate and C-reactive protein were within normal limits, recently recording a sed rate of 12 and CRP at 4. The patient is utilizing regular follow-ups with various specialists: rheumatology for her autoimmune conditions, pulmonary for bronchiectasis management, and gastroenterology for IBS and seborrheic dermatitis. Pertinent interventions involve amlodipine and cilostazol for Raynaud's phenomenon and unrelated pharmaceuticals like Advair for lung disease management, alongside topical treatments of Lucresa and Opzelura for skin issues. She undertook pulmonary rehabilitation in spring 2023, assessed in August with PFTs revealing a mild obstructive defect and small airway disease. Her gastrointestinal workup showed no concerning findings in a recent colonoscopy, supporting her IBS diagnosis for which she was prescribed loperamide. The patient acknowledges a reduction in calcium intake due to concerns over hypercalcemia, considering her elevated values until re-evaluation. [facility] Medical History (Updated 06/20/24 @ 16:07 by Nagi Howard MD) TSH elevation Impaired glucose tolerance Allergies ILD (interstitial lung disease) Asthma-COPD overlap syndrome Raynaud's syndrome Asthma Onychomycosis Migraine Polymyositis GERD (gastroesophageal reflux disease) Family History Father Myocardial infarction Maternal Grandmother Ovarian cancer Social History Housing: House Alcohol intake: never Patient Tobacco Use Status: Never used Tobacco Tobacco use type: Cigarette e-Cigarette/Vaping Use: Never Used Second Hand Smoke Exposure: No service: No Current occupational status: employed Cognitive needs: No Hearing needs: No Vision needs: Yes Questionnaire PHQ-9 Over the last 2 weeks, how often have you been bothered by any of the following problems? 1. Little interest or pleasure in doing things: not at all 2. Feeling down, depressed, or hopeless: not at all 3. Trouble falling or staying asleep, or sleeping too much: several days 4. Feeling tired or having little energy: several days 5. Poor appetite or overeating: not at all 6. Feeling bad about yourself - or that you are a failure or have let yourself or your family down: not at all 7. Trouble concentrating on things, such as reading the newspaper or watching television: not at all 8. Moving or speaking so slowly that other people could have noticed. Or the opposite - being so fidgety or restless that you have been moving around a lot more than usual: not at all 9. Thoughts that you would be better off or of hurting yourself in some way: not at all Total score: 2 16129 - PHQ-9 Billing: Yes Source: Developed by Drs. Cristino Robison, Stefany Garza, Chip Baldwin and colleagues, with an educational deb from [employer]. Thrive Questionnaire Date Thrive assessed: 06/20/24 I am a: Patient What is your living situation today?: I have a steady place to live Within the past 12 months, did the food you bought not last and you didn't have the money to get more?: Never true Within the past 12 months, did you worry whether your food would run out before you got money to buy more?: Never true Do you have trouble paying for medicines?: No Do you have trouble getting transportation to medical appointments?: No Do you have trouble paying your heating and electricity bill?: No Do you have trouble taking care of your child, family member or friend?: No Do you have trouble with day-to-day activities such as bathing, preparing meals, shopping, managing finances, etc.?: No Are you currently unemployed and looking for a job?: No Are you interested in more education?: No Please select the resources that you would like help with: None Currently or been in a relationship where the following occur: No concerns reported THRIVE Score: 0 AUDIT C Alcohol Use Questionnaire (AUDIT-C) 3. How often do you have six or more drinks on one occasion?: Never Total Score: 0 JANY-7 AMB Questionnaire JANY-7 Date JANY - 7 assessed: 06/20/24 Feeling nervous, anxious, or on edge: 1 = Several days Not being able to stop or control worryin = Not at all Worrying too much about different things: 0 = Not at all Trouble relaxin = Not at all Being so restless that it is hard to sit still: 0 = Not at all Becoming easily annoyed or irritable: 0 = Not at all Feeling afraid as if something awful might happen: 0 = Not at all Total JANY-7 score (0-4 normal; 5-9 mild; 10-14 moderate; 15-21 severe): 1 Source: Developed by Drs. Cristino Robison, Stefany Garza, Chip Baldwin and colleagues, with an educational deb from [employer]. JANY-7 Assessment Billing JANY-7 Assessment Tool: JANY-7 Assessment 82253 Physical exam (Primary Care) Vital Signs: Last Vital Signs Pulse 75 06/20/24 15:54 BP 128/78 06/20/24 15:54 Pulse Ox 98 06/20/24 15:54 Oxygen Delivery Method Room Air 06/20/24 15:54 BMI result Body Mass Index 21.8 Tobacco/Smoking Status: Tobacco use Status Tobacco use date assessed 06/20/24 06/20/24 16:01 Patient Tobacco Use Status Never used Tobacco 06/20/24 16:01 Tobacco use type Cigarette 06/20/24 16:01 e-Cigarette/Vaping Use Never Used 06/20/24 16:01 PHQ-9: PHQ-9 Score PHQ-9: Total score 2 06/20/24 16:01 Thrive Assessment: Date of Thrive Assessment Date Thrive assessed 06/20/24 06/20/24 16:01 Currently or been in a relationship where the following occur: No concerns reported Const General: alert; No acute distress Eyes Conjunctivae: conjunctivae normal Resp Auscultation: clear to auscultation bilaterally Cardio Rate: regular rate Rhythm: regular rhythm GI Inspection: Yes normal to inspection Extrem General: Yes normal to inspection and No edema Coding Level of Care Code Est Pt Level 4 (81711) Diagnoses ILD (interstitial lung disease) J84.9 Bronchiectasis without complication J47.9 Bronchiectasis type: uncomplicated Acquired hypothyroidism E03.9 Hypothyroidism type: acquired Hypercholesterolemia E78.00 Impaired fasting blood sugar R73.01 Nephrolithiasis N20.0 Additional Codes JANY-7 Assessment Billing - JANY-7 Assessment Tool: JANY-7 Assessment 31019 ([id number]) PHQ-9 - 12150 - PHQ-9 Billing: Yes ([id number]) Assessment & Plan Assessment & Plan (1) ILD (interstitial lung disease): Comment: secondary to MTX, although also could be related to CTD Code(s): J84.9 - Interstitial pulmonary disease, unspecified Category: Medical Plan: Patient continued to be followed up by Pulmonary on QVAR and as needed albuterol (2) Bronchiectasis: Comment: 01/[address] abd ILD Code(s): J47.9 - Bronchiectasis, uncomplicated Category: Medical Qualifiers: Bronchiectasis type: uncomplicated Qualified Code(s): J47.9 - Bronchiectasis, uncomplicated Plan: Continue to free followed up by Pulmonary. (3) Hypothyroid: Code(s): E03.9 - Hypothyroidism, unspecified Category: Medical Qualifiers: Hypothyroidism type: acquired Qualified Code(s): E03.9 - Hypothyroidism, unspecified Plan: Continue with thyroid medication and retest. (4) Hypercholesterolemia: Code(s): E78.00 - Pure hypercholesterolemia, unspecified Category: Medical Plan: Avoid fried foods, chicken skin, eggs, butter margarine, pastries and meat. Be it pork or beef they have a lot of cholesterol (5) Impaired fasting blood sugar: Code(s): R73.01 - Impaired fasting glucose Category: Medical Plan: Decrease the amount of carbohydrate intake, pasta, bread, rice and potatoes are all sugar and that is aside from all the sweet stuff, remember that fruits are good but they are Sweet also. (6) Nephrolithiasis: Comment: CT 01/2024 Code(s): N20.0 - Calculus of kidney Category: Medical Plan - Continue current management for Gastroesophageal Reflux Disease and monitor for symptom progression. - Follow-up with rheumatology for Polymyositis and Sj?gren's Syndrome management, including continuation of current immunosuppressive therapy. - Monitor Impaired Liver Tolerance; no acute intervention required at this time. - Manage Anxiety Disorder with ongoing psychiatric support and pharmacotherapy. - Maintain current hypothyroidism management plan; re-evaluate TSH and thyroid medication dosage if needed. - Continue managing Hypercholesterolemia with lifestyle interventions and pharmacotherapy. - Follow-up on Mild Anemia status with periodic CBC checks; current management includes observation. - Monitor Hypercalcemia and adjust calcium supplementation; consider re-evaluation of supplement dosage. - Ongoing pulmonary care for Bronchiectasis and Obstructive Ventilatory Defect; continuation of prescribed inhalers and regular PFTs. - Continue use of topical treatments for Seborrheic Dermatitis; reassess efficacy at next Dermatology visit. - IBS management with dietary modifications and prescribed pharmaceutical therapies. - Schedule repeat mammogram; preventative cancer screening is overdue. - Plan to reassess Hemoglobin A1c with follow-up laboratories in three months to evaluate glycemic control. - Provide education regarding adequate hydration and its impact on lab results, with attention to accurate lab testing locations. - Discuss potential future use of Metformin if glycemic control does not improve. - Reinforce preventative and wellness care including influenza vaccination and COVID-19 awareness. Orders: Orders Hemoglobin A1c Today R73.01 - Impaired fasting glucose Comprehensive Met. Panel Today R73.01 - Impaired fasting glucose Complete Blood Count Auto Diff Today R73.01 - Impaired fasting glucose Thyroid Stimulating Hormone Today R73.01 - Impaired fasting glucose Free T4 (Free Thyroxine) Today R73.01 - Impaired fasting glucose Medications: New flash glucose sensor (FreeStyle Leroy 2 Sensor kit) As directed 6 kits 0RF E11.65 - Type 2 diabetes mellitus with hyperglycemia, R73.01 - Impaired fasting glucose flash glucose scanning reader (FreeStyle Leroy 2 [place]) As directed 1 ea 0RF E11.65 - Type 2 diabetes mellitus with hyperglycemia, R73.01 - Impaired fasting glucose
--- OUTSIDE RECORDS SUMMARY | 2024-06-20 16:33 | XMS_ITS | Clinical Summary ---
Author Organization [address] [facility] Address [address] [place] [address] Phone Care Team Providers Care Interior Wirer Name Role Phone Nagi Howard MD Primary Care Provider [phone] Allergies Active Allergy Reactions Criticality Noted Date Comments Latex Rash High 07/21/2023 Burning, Itching, Rash Levofloxacin Medium 07/21/2023 Bloating and stomach pain Oxaprozin Anaphylaxis High 07/21/2023 Tramadol Anaphylaxis High 07/21/2023 Tremors and shakes Medications acetaminophen with codeine (ACETAMINOPHEN-CO DEINE ORAL) Take 60 mg by mouth 2 (two) times a day if needed. Max Daily Amount: 120 mg Active BETAMETHASONE DIPROPIONATE TOP Apply topically if needed. Active diclofenac sodium/misoprosto l (DICLOFENAC-MISOP ROSTOL ORAL) Take 75 mg by mouth 1 (one) time each day. Active NYSTATIN ORAL Take by mouth if needed. Active amLODIPine (NORVASC) 5 mg tablet Take 1 tablet (5 mg total) by mouth 1 (one) time each day. Active levothyroxine sodium (TIROSINT) 25 mcg capsule Take 2 capsules (50 mcg total) by mouth 1 (one) time each day. Active chlorthalidone (HYGROTON) 25 mg tablet TAKE 1 TABLET BY MOUTH EVERY DAY 90 tablet 2 4 Active Active Problems Problem Noted Date Diagnosed Date Lymphedema 03/07/2024 Hypertension 10/22/2023 Overview (04/11/2024): Last Assessment & Plan: Patient is blood pressure appears to be well-controlled with a reading today of 130/80. She will continue on amlodipine. I will stop the chlorthalidone right now as she is concerned about elevations in blood sugars. If her blood pressures elevate we will have to consider a different medical therapy. She will monitor at home and let us know. Edema 07/21/2023 Overview (04/11/2024): Last Assessment & Plan: Patient's leg edema persists. She has used compression stockings in the past and has a lymphedema leg pump at home. She has never been seen by the lymphedema clinic. Chlorthalidone has not helped with her leg edema but is causing some elevations in her blood sugars. At this point I will stop the chlorthalidone and have placed a referral for the lymphedema clinic. Palpitations 07/19/2023 Overview (04/11/2024): Last Assessment & Plan: Patient continues to have palpitations albeit do not seem to be bothering her as frequently. Will continue to monitor this. Encounters Date Type Department Care Team Description 04/18/2024 2:30 PM EST Treatment [facility] [address] [address] Anjali Chavez, OTR/L Lymphedema of both lower extremities (Primary Dx) 04/11/2024 Telephone [facility] [address] [place] [address] Gómez Roman MD Lab Work 03/29/2024 2:30 PM EST Treatment [facility] [address] [address] Anjali Chavez, OTR/L Lymphedema of both lower extremities (Primary Dx) 03/23/2024 2:30 PM EST Treatment [facility] [address] [phone] Anjali Chavez, OTR/L Lymphedema of both lower extremities (Primary Dx) 03/20/2024 3:30 PM EST Treatment [facility] [address] [facility] [address] [place] [address] Scott Anjali P, OTR/L Lymphedema of both lower extremities (Primary Dx) from Last 3 Months Medical History Medical History Date Comments Migraine DX:Migraine Asthma DX:Asthma Onychomycosis DX:Onychomycosis GERD (gastroesophageal reflux disease) DX:GERD (gastroesophageal reflux disease) Polymyositis (CMS/HCC) DX:Polymy ositis (HCC) Raynaud's syndrome DX:Raynaud's syndrome Edema, lower extremity DX:Edema, lower extremity Lymphedema DX:Lymphedema 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 DX:Varicose veins of right l ower extremity with inflammation Family History Medical History Relation Name Comments Other: myocardial infarction Father Relation Name Status Comments Father Social History Tobacco Use Types Packs/Day Years Used Date Smoking Tobacco: Never Smokeless Tobacco: Never Alcohol Use Standard Drinks/Week Comments Never 0 (1 standard drink = 0.6 oz pur e alcohol) Comments Unknown Sex and Gender Information Value Date Recorded Sex Assigned at Not on file Legal Sex Female 1:39 PM EDT Gender Identity Not on file Sexual Orientation Not on file Obstetrics History Last Filed Vital Signs Vital Sign Reading Time Taken Comments Blood Pressure 130/80 01/19/2024 3:19 PM EDT Sitting L Arm Pulse 78 01/19/2024 3:19 PM EDT Temperature - - Respiratory Rate - - Oxygen Saturation - - Inhaled Oxygen Concentration - - Weight 59.5 kg (131 lb 3.2 oz) 01/19/2024 3:19 PM EDT Height 167.6 cm (5' 6 ) 01/19/2024 3:19 PM EDT Body Mass Index 21.18 01/19/2024 3:19 PM EDT Plan of Treatment Upcoming Encounters Date Type Department Care Team (Late st Contact Info) Description 07/11/2024 2:00 PM EDT Office Visit [facility] [address] [facility] [address] [place] [id number] Gómez Roman MD [address] [place] [address] [address] [place] [address] Health Maintenance Due Date Last Done Comments Breast Cancer Screening 1978 COVID-19 Vaccine (#1) 12/25/1983 Hepatitis B Vaccines (1 of 3 - 19+ 3-dose series) 1997 Pneumococcal Vaccine: Pediatrics (0 to 5 Years) and At-Risk Patients (6 to 64 Years) (1 of 2 - PCV) 1997 Cervical Cancer Screening: Pap Smear 12/25/1999 Cholesterol Screening (Lipid Panel) 11/30/2023 Colorectal Cancer Screening: Colonoscopy 11/30/2023 Depression Screening 11/30/2023 HIV Screening 11/30/2023 Hepatitis C Screening 11/30/2023 Social Influencers of Health Screening 11/30/2023 Influenza Vaccine (#1) 2024 Hypertension/CHF/CAD Annual BMP Blood Test 01/27/2025 01/28/2024, 12/16/2023, 09/15/2023, Additional history exists DTaP,Tdap,and Td Vaccines (2 - Td or Tdap) 10/16/2029 10/17/2019 HIB Vaccines Aged Out No longer eligi ble based on patient's age to complete this topic HPV Vaccines Aged Out No longer eligi ble based on patient's age to complete this topic Hepatitis A Vaccines Aged Out No long er eligible based on patient's age to complete this topic IPV Vaccines Aged Out No longer eligi ble based on patient's age to complete this topic MMR Vaccines Aged Out No longer eligi ble based on patient's age to complete this topic Meningococcal ACWY Vaccine Aged Out N o longer eligible based on patient's age to complete this topic Meningococcal B Vacine Aged Out No lo nger eligible based on patient's age to complete this topic RSV Immunization Patients Under 20 months Aged Out No longer eligible based on patient's age to complete this topic Varicella Vaccines Aged Out No longer eligible based on patient's age to complete this topic Goals Goal Patient Goal Type Associated Problems Recent Progress Patient-Stated? Author <enter goal here>TO get rid of the swelling in my legs General On track(2023 3:53 PM EST) Yes Anjali Chavez, OTR/L Note: Patient presents with decreased volumes both LE's improve skin mobility in lower legs General On track(2023 3:53 PM EST) No Anjali Chavez, OTR/L Note: STG : 1 Patient will present with increased skin mobility in her left lower leg 03/23 GOAL HAS BEEN MET LTG Patient will present with increased skin mobility in both Lower legs 04/18 GOAL HAS BEEN MET to reduce lymph edema in both LE's General No change(03/13 3:10 PM EST) No Anjali Chavez, OTR/L Note: STG's ; Patient will present with decreased circumferences in both LE's of at least 8 cm Went from sum of circumference measurements of 491.9 cm in right leg to 480.6 which means a reduction of 11. 3 cm Went from sum of cirumference measurements of 483.9 cm in left leg to 472 which means a reduction of 11.9 cm STG's are met LTG's Patient will present with decreased circumferences in both LE's of at least 10 cm LTG has been met lymph edema self management General On track(2023 3:54 PM EST) No Anjali Chavez, OTR/L Note: STG's 1: Patient will be able to demo at least 3 exercises to increase lymph flow 2: Patient will be able to apply multi layer short stretch compression bandages to LE's 03/23 PATIENT MET STG'S LTG's Patient will be independent in lymph edema management and there will be no increase I symptoms when not seen by this therapist for at least 2 weeks GOAL Has been met Procedures Procedure Name Priority Date/Time Associated Diagnosis Comments ANNUAL BMP BLOOD TEST Routine 01/28/2024 from Last 3 Months or Most Recently Relevant to Health Maintenance Results * Annual BMP Blood Test (01/28/2024) Annual BMP Blood Test Abstracted Historical Provider HEALTH MAINTENANCE Final Result from Last 3 Months or Most Recently Relevant to Health Maintenance Insurance [facility] Care Teams Interior Wirer Relationship Specialty Start Date End Date Nagi Howard MD [address] [facility] [address] [facility] [place] [address] PCP - General 05/24/23
--- OUTSIDE RECORDS SUMMARY | 2024-06-20 16:33 | XMS_ITS | Continuity of Care Document ---
Author Organization [facility] Address [address] [place] [address]- Care Team Providers Care Workers Compensation Attorney Name Role Phone Po Nagi HALE Primary Care Physician [phone] Encounter [place] Date(s): 04/27/24 - 05/27/24 [facility] [address] [place] [id number] Encounter Type: Triage Allergies, Adverse Reactions, Alerts Substance Criticality Severity Reaction Reaction Severity Status oxaprozin Active traMADol Active Levaquin Active Latex Active Medications Acetaminophen-Caffeine See Instructions, PRN Headache, 2 tablets, By Mouth, 0 Refills, Maintenance, 01/22/16 10:33:32 AM EDT Start Date: 01/22/16 Status: Ordered Repeat number: 1 acetaminophen-codeine 300 mg-15 mg oral tablet 21 each, 0 Refill(s), TAKE 2 TABLETS BY MOUTH 3 TIMES DAILY NEEDED FOR PAIN, 0 Refills, :23:00 PM EDT, Partial fill upon patient request if the prescription is for a schedule II opioid drug. Start Date: 02/15/24 Status: Ordered Repeat number: 1 acetaminophen-codeine 300 mg-60 mg oral tablet 20 each, 0 Refill(s), TAKE 1 TABLET BY MOUTH TWICE DAILY NEEDED FOR PAIN, 0 Refills, 02/15/24 2:23:00 PM EDT, Partial fill upon patient request if the prescription is for a schedule II opioid drug. Start Date: 02/15/24 Status: Ordered Repeat number: 1 Amlodipine By Mouth, Daily, 0 Refills, Maintenance, 02/22/24 8:42:00 AM EDT, Partial fill upon patient requestif the prescription is for a schedule II opioid drug. Start Date: 02/22/24 Status: Ordered Repeat number: 1 Biotin = 10 mg, By Mouth, Daily, 0 Refills, Maintenance, 01/22/16 10:37:07 AM EDT Start Date: 01/22/16 Status: Ordered Repeat number: 1 Calcium 600 +D See Instructions, By Mouth daily, 0 Refills, Maintenance, 01/22/16 10:22:31 AM EDT Start Date: 01/22/16 Status: Ordered Repeat number: 1 chlorthalidone 25 mg oral tablet 90 each, 0 Refill(s), TAKE 1 TABLET BY MOUTH EVERY DAY, Refills 0, 02/15/24 2:23:00 PM EDT, Partialfill upon patient request if the prescription is for a schedule II opioid drug. Start Date: 02/15/24 Status: Ordered Repeat number: 1 Chromium Picolinate = 800 mcg, By Mouth, Daily, 0 Refills, Maintenance, 01/22/16 10:27:27 AM EDT Start Date: 01/22/16 Status: Ordered Repeat number: 1 cilostazol 50 mg oral tablet 1 tablet = 50 mg, By Mouth, 2 times a day, # 180 tablet, 2 Refills, Maintenance, 02/22/24 9:01:00 AM EDT, Tablet, [facility]/pharmacy #[id number], Partial fill upon patient request if the prescription is for a schedule II opioid drug., 163, cm, 02/22/24 8:22:00 EDT, Height, 61.45, kg, 02/15/24 15:47:00 EDT, DryWeight Start Date: 02/22/24 Status: Ordered Quantity: 180.0 Unit: tablet Repeat number: 3 cinnamon = 1,000 mg, By Mouth, Daily, 0 Refills, Maintenance, 01/22/16 10:27:02 AM EDT Start Date: 01/22/16 Status: Ordered Repeat number: 1 Co-Q10 = 200 mg, By Mouth, Daily, 0 Refills, Maintenance, 01/22/16 10:34:08 AM EDT Start Date: 01/22/16 Status: Ordered Repeat number: 1 Diclofenac = 75 mg, By Mouth, 2 times a day, 0 Refills, Maintenance, 05/04/17 10:42:53 AM EST Start Date: 05/04/17 Status: Ordered Repeat number: 1 diclofenac sodium 75 mg oral delayed release tablet 90 each, 0 Refill(s), TAKE 1 TABLET BY MOUTH NIGHTLY AT BEDTIME., 0 Refills, 02/15/24 2:23:00 PM EDT, Partial fill upon patient request if the prescription is for a schedule II opioid drug. Start Date: 02/15/24 Status: Ordered Repeat number: 1 Estrace 0.5 mg oral tablet 1 tablet = 0.5 mg, By Mouth, Daily, # 30 tablet, 0 Refills, Maintenance, 02/23/24 11:12:00 AM EDT, Tablet, [facility]/pharmacy #[id number], Partial fill upon patient request if the prescription is for a schedule II opioid drug., 163, cm, 02/23/24 10:10:00 EDT, Height, 61.45, kg, 02/15/24 15:47:00 EDT, Dry Weight Start Date: 02/23/24 Status: Ordered Quantity: 30.0 Unit: tablet Repeat number: 1 Fish Oil = 1,000 mg, By Mouth, Daily, 0 Refills, Maintenance, 07/26/12 5:45:30 PM EDT Start Date: 07/26/12 Status: Ordered Repeat number: 1 Folic Acid = 0.4 mg, By Mouth, Daily, 0 Refills, Maintenance, 07/26/12 5:45:11 PM EDT Start Date: 07/26/12 Status: Ordered Repeat number: 1 Garlic See Instructions, 1000 MG DAILY, 0 Refills, Maintenance, 01/22/16 10:28:51 AM EDT Start Date: 01/22/16 Status: Ordered Repeat number: 1 Lactaid Fast Action 9000 units oral tablet 1 tablet = 9,000 units, By Mouth, 3 times a day with meals, # 32 tablet, 0 Refills, Maintenance, 05/04/17 10:43:47 AM EST, Tablet Start Date: 05/04/17 Status: Ordered Quantity: 32.0 Unit: tablet Repeat number: 1 levothyroxine 0.025 mg oral tablet 10 each, 0 Refill(s), TAKE 1 TABLET BY MOUTH EVERY MORNING, 0 Refills, 02/15/24 2:24:00 PM EDT, Partial fill upon patient request if the prescription is for a schedule II opioid drug. Start Date: 02/15/24 Status: Ordered Repeat number: 1 levothyroxine 0.05 mg oral tablet 90 each, 0 Refill(s), TAKE 1 TABLET BY MOUTH EVERY DAY IN THE MORNING, 0 Refills, 02/15/24 2:24:00 PM EDT, Partial fill upon patient request if the prescription is for a schedule II opioid drug. Start Date: 02/15/24 Status: Ordered Repeat number: 1 levothyroxine 50 mcg (0.05 mg) oral capsule 1 capsule = 50 mcg, By Mouth, Daily, 0 Refills, Maintenance, 02/22/24 8:41:00 AM EDT, Partial fill upon patient request if the prescription is for a schedule II opioid drug. Start Date: 02/22/24 Status: Ordered Repeat number: 1 Magnesium Oxide = 500 mg, By Mouth, Daily, 0 Refills, Maintenance, 01/22/16 10:37:33 AM EDT Start Date: 01/22/16 Status: Ordered Repeat number: 1 Melatonin = 10 mg, By Mouth, Daily at bedtime, PRN as needed for insomnia, 0 Refills, Maintenance, 01/22/16 10:29:23 AM EDT Start Date: 01/22/16 Status: Ordered Repeat number: 1 Multivitamin By Mouth, Daily, 0 Refills, Maintenance, 07/26/12 5:38:40 PM EDT Start Date: 07/26/12 Status: Ordered Repeat number: 1 Multivitamin Tablet 1 tablet, By Mouth, Daily, 0 Refills, Maintenance, 01/22/16 10:25:18 AM EDT, Tablet Start Date: 01/22/16 Status: Ordered Repeat number: 1 Naftin See Instructions, Topically, 0 Refills, Maintenance, 01/22/16 10:31:09 AM EDT Start Date: 01/22/16 Status: Ordered Repeat number: 1 Naproxen = 220 mg, By Mouth, PRN as needed for pain, 0 Refills, Maintenance, 10/06/11 9:57:06 AM EDT Start Date: 10/06/11 Status: Ordered Repeat number: 1 norethindrone 5 mg oral tablet 5 mg, 1, tablet, By Mouth, Daily, # 30 tablet, Refills 2, Tot. Refills 2, Maintenance, 12/24/23 12:26:00 PM EDT, Route to Pharmacy Electronically, [facility]/pharmacy #[id number], Partial fill upon patient requestif the prescription is for a schedule II opioid drug., 163, cm, 01/12/23 18:17:00 EDT, Height, 61.3, kg, 01/12/23 18:17:00 EDT, Dry Weight Start Date: 12/24/23 Status: Ordered Quantity: 30.0 Unit: tablet Repeat number: 3 Omeprazole = 20 mg, By Mouth, Daily, 0 Refills, Maintenance, 01/22/16 10:30:03 AM EDT Start Date: 01/22/16 Status: Ordered Repeat number: 1 Patient's Own Meds Maintenance, Sugar EQ for blood sugar support , 01/22/16 10:27:56 AM EDT Start Date: 01/22/16 Status: Ordered Repeat number: 1 Patient's Own Meds See Instructions, Maintenance, Formula 3 for fungal infection on toenails, 01/22/16 10:32:02 AM EDT Start Date: 01/22/16 Status: Ordered Repeat number: 1 PredniSONE Tablet See Instructions, 15 mg By Mouth Daily, 0 Refills, Maintenance, 03/16/12 5:56:11 PM EST Start Date: 03/16/12 Status: Ordered Repeat number: 1 Multivitamins with Folic Acid 1 mg oral tablet 1 tablet, By Mouth, Daily, # 90 tablet, 3 Refills, Maintenance, 01/12/23 6:44:00 PM EDT, Tablet, Partial fill upon patient request if the prescription is for a schedule II opioid drug. Start Date: 01/12/23 Stop Date: 01/07/24 Status: Ordered Quantity: 90.0 Unit: tablet Repeat number: 4 Probiotic Formula 1 capsule, By Mouth, Daily, 0 Refills, Maintenance, 01/22/16 10:34:53 AM EDT Start Date: 01/22/16 Status: Ordered Repeat number: 1 Prometrium 100 mg oral capsule 1 capsule = 100 mg, By Mouth, Daily, for 90 days, take at night - may cause drowsiness, # 30 capsule, 3 Refills, Acute 02/09/25 3:05:00 PM EDT, 02/15/24 3:05:00 PM EDT, Capsule, [facility]/pharmacy #[id number], Partial fill upon patient request if the prescription is for a schedule II opioid drug., 163, cm, 01/12/23 18:17:00 EDT, Height, 61.3, kg, 01/12/23 18:17:00 EDT, Dry Weight Start Date: 02/15/24 Stop Date: 02/09/25 Status: Ordered Quantity: 30.0 Unit: capsule Repeat number: 4 turmeric = 1,000 mg, By Mouth, Daily in AM, 0 Refills, Maintenance, 05/04/17 10:44:04 AM EST Start Date: 05/04/17 Status: Ordered Repeat number: 1 Viactiv Soft Calcium Chews See Instructions, takes a fraction daily for total daily calcium dose of 600 mg, 0 Refills, Maintenance, 01/22/16 10:38:15 AM EDT Start Date: 01/22/16 Status: Ordered Repeat number: 1 Vitamin B Complex oral tablet, extended release 1 tablet, By Mouth, Daily, 0 Refills, Maintenance, 01/22/16 10:35:31 AM EDT Start Date: 01/22/16 Status: Ordered Repeat number: 1 Vitamin C = 500 mg, By Mouth, 3 times a day, 0 Refills, Maintenance, 01/22/16 10:36:48 AM EDT Start Date: 01/22/16 Status: Ordered Repeat number: 1 Problem List Condition Confirmation Course Effective Dates Status [facility] Informant Asthma Confirmed Active Raynaud's syndrome Confirmed Active Social History Social History Type Response Smoking Status Never (less than 100 in lifetime) entered on: 01/12/23 Sex Female Sex Representation Female (finding) Patient Care team information Care Team Personnel Name: Nagi Howard MD Position: Reference Physician Member Role: PCP Address: [address] [place] [address]- Telecom: Care Team Related Persons Name: SURI LEVY Name: MATTEO KUNZ Name: CHRISTIANO KUNZ Insurance Providers Guarantor name: CHAD KUNZ Health Plan Information #: 1 Payer: [facility] NON P HMO Member Number: NA Policy Number: NA Group Number: NA
--- OUTSIDE RECORDS SUMMARY | 2024-06-20 16:33 | XMS_ITS | Continuity of Care Document ---
Author Organization [facility] Address [address] [address]- Care Team Providers Care Field Checker Name Role Phone Nagi Howard MD Primary Care Physician Encounter [facility] Date(s): 04/21/24 - 05/21/24 [facility] [address] [address] Encounter Type: Triage Allergies, Adverse Reactions, Alerts [...] Refills, Maintenance, 02/22/24 9:01:00 AM EDT, Tablet, [facility]/pharmacy #[id number], Partial fill upon patient request if [...] Refills, Maintenance, 02/23/24 11:12:00 AM EDT, Tablet, [facility]/pharmacy #[id number], Partial fill upon patient request if [...] 12:26:00 PM EDT, Route to Pharmacy Electronically, [facility]/pharmacy #[id number], Partial fill upon patient requestif the prescription [...] PM EDT, 02/15/24 3:05:00 PM EDT, Capsule, [facility]/pharmacy #[id number], Partial fill upon patient request if the [...] List Condition Confirmation Course Effective Dates Status [facility] atus Informant Asthma Confirmed Active Raynaud's syndrome Confirmed Active Social History Social History Type Response Smoking Status Never (less than 100 in lifetime) entered on: 01/12/23 Sex Female Sex Representation Female (finding) Patient Care team information Care Team Personnel Name: Nagi Howard MD Position: Reference Physician Member Role: PCP Address: [address] [place] [id number] Telecom: Care Team Related Persons Name: SURI LEVY Name: MATTEO KUNZ Name: CHRISTIANO KUNZ Insurance Providers Guarantor name: CHAD KUNZ Health Plan Information #: 1 Payer: [facility] NON [employer] HMO Member Number: NA Policy Number: NA Group Number: NA
--- OUTSIDE RECORDS SUMMARY | 2024-06-20 16:33 | XMS_ITS ---
Author Organization [facility] Address [address] [place] [address] Care Team Providers Care Superintendent Drivers Name Role Phone Po Nagi HALE Primary Care Provider Cristino Jasso [phone] Encounters Encounter Location Date Provider Diagnosis [facility] [address] [place] [address] 01/17/2024 Cristino Cuello PLAN OF TREATMENT Next Appt Details Provider Name:Cristino Cuello , 08/09/2024 04:20:00 PM, [address], [address], [place], [address],
--- OUTSIDE RECORDS SUMMARY | 2024-06-20 16:34 | XMS_ITS ---
Author Organization [facility] Address [address] [place] [address] Care Team Providers Care Cylinder Handler Name Role Phone Po Nagi HALE Primary Care Provider Cristino Jasso [phone] REASON FOR VISIT Awaiting response Encounters Encounter Location Date Provider Diagnosis [facility] [address] [place] [address] 01/19/2024 Cristino Cuello PLAN OF TREATMENT Next Appt Details Provider Name:Cristino Cuello , 08/09/2024 04:20:00 PM, [address], [address], [place], [address],
== END 2024-06-20 16:24 | disposition home or self-care (01) ==
PROVIDERS: PCP Internal Medicine; Visit Provider Internal Medicine
DX: J84.9 Interstitial pulmonary disease, unspecified (principal); J47.9 Bronchiectasis, uncomplicated; E03.9 Hypothyroidism, unspecified; E78.00 Pure hypercholesterolemia, unspecified; R73.01 Impaired fasting glucose; N20.0 Calculus of kidney

== ENCOUNTER → 2024-06-20 15:49 | Outpatient (BNVA) | payer OTHER, SELFPAY | PROVIDERS: PCP Internal Medicine; Visit Provider Internal Medicine | DX: J84.9 Interstitial pulmonary disease, unspecified (principal); J47.9 Bronchiectasis, uncomplicated; E03.9 Hypothyroidism, unspecified; E78.00 Pure hypercholesterolemia, unspecified; R73.01 Impaired fasting glucose; N20.0 Calculus of kidney | CPT/HCPCS: 96127 ==

== ENCOUNTER 2024-07-07 14:41 | Outpatient (AMB) | payer OTHER, SELFPAY ==
[2024-07-07 14:47] VITALS: BP 108/56; PULSE 80; O2SAT 99; BMI 21.6
--- NOTE | 2024-07-07 14:47 | A.OFFVIS_ITS ---
Vital Signs 07/07/24 14:47 Height 5 ft 5 in Weight 130 lb 1.164 oz BMI 21.6 BP 108/56 L Blood Pressure Location Rt brachial Position Sitting Pulse 80 Pulse Source Pulse Oximeter Pulse Oximetry (%) 99 Oxygen Delivery Method Room Air Intake Visit Reasons: Bronchiectasis Allergies oxaprozin Allergy (Severe, Verified 07/07/24 14:50) Anaphylaxis tramadol Allergy (Intermediate, Verified 07/07/24 14:50) Anxiety levofloxacin [Levaquin] Allergy (Unknown, Verified 07/07/24 14:50) stomach upset latex Adverse Reaction (Intermediate, Verified 07/07/24 14:50) Rash HPI Comments Details: The patient is a 43 year woman with a known history of polymyositis followed 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 The patient did undergo a CT scan of the chest demonstrating some bronchiectatic changes in his she was referred to Pulmonary. She did see pulmonology back many years ago at [facility]. There the patient did have a CT scan of the chest back in 2011 which I personally reviewed with her. At that time she did have significant reticular changes consistent with pulmonary fibrosis bilaterally right more than left. At the time is felt to be related to methotrexate. She subsequently was having some issue with shortness of breath. At 1 point she was prescribed short-acting beta agonist that the patient had an adverse reaction to it with chest pressure. Therefore she stopped it. She does not use any inhalers any further. Recently she did undergo a CT scan of the abdomen which I personally reviewed demonstrating the reticular changes and bronchiectatic changes. Although when I compared to the CT scan from 21/04 it actually looks a little better which is reassuring. The patient did undergo pulmonary function studies at [facility] back in 09/20/2023 which I personally reviewed demonstrating a mild obstructive ventilatory defect along with small airways disease. In view of her connective tissue disease follicular bronchiolitis differential. At this point she does have what appears to be mild COPD. Based on the patient's symptoms of dyspnea and her ongoing comorbidities I do believe pulmonary rehabilitation be helpful for her. In regards of the polymyositis she is no longer taking any medications although her inflammatory markers are increasing. She will be reviewing the results with her senior solutions engineer soon and may be starting mycophenolate. 07/07/2024 the patient is here for a pulmonary follow-up visit. Overall she is doing okay from a respiratory status. Although she did find out she does carry the BRCA gene and now she is following closely with multicultural services librarian and surgery to undergo prophylactic surgeries. She will likely undergo the surgeries in the coming months. After further discussions with Porsha is his the risk of developing cancer is very high. She is currently on the mycophenolate. If she needs to come off the mycophenolate during the surgical interventions for period of time that is okay to do. In the meantime she was placed on a combination inhaler but she can not tolerate the beta agonist effect. Therefore she was placed on QVAR. QVAR does not seem to be doing too much. She may feel some improvement for the 1st hour so and then it subsides. Will go ahead start her on a long- acting muscarinic antagonist and she will develop on the QVAR. Will plan to r kevinw and reassess her response to therapy with a repeat CT scan in about 4-5 months. Subsequently follow-up after that. If she has any issues prior to that she will call for an earlier assessment. [facility] Medical History (Updated 07/09/24 @ 21:59 by David Arriaga MD) Antisynthetase syndrome Etta-1 antibody positive TSH elevation Impaired glucose tolerance Allergies ILD (interstitial lung disease) Asthma-COPD overlap syndrome Raynaud's syndrome Asthma Onychomycosis Migraine Polymyositis GERD (gastroesophageal reflux disease) Family History Father Myocardial infarction Maternal Grandmother Ovarian cancer Social History Housing: House Alcohol intake: never Patient Tobacco Use Status: Never used Tobacco Tobacco use type: Cigarette e-Cigarette/Vaping Use: Never Used Second Hand Smoke Exposure: No service: No Current occupational status: employed Cognitive needs: No Hearing needs: No Vision needs: Yes Review of Systems Const Denies poor appetite and Denies weakness Eyes Denies no additional complaints ENT Reports Normal hearing present, Denies dizziness, Denies nasal congestion, Denies tinnitus and Denies sore throat Card Denies chest pain, Denies syncope, Denies rapid heart rate, Denies dyspnea and Reports dyspnea on exertion Resp Denies cough, Denies dyspnea and Reports dyspnea on exertion GI Denies change in stool character, Reports constipation, Denies diarrhea, Denies nausea and Denies vomiting Musc Reports myalgias and Reports arthralgias Skin/Breast Reports erythema, Reports skin swelling and Reports wounds Neuro Reports Normal hearing present, Denies dizziness, Denies syncope and Denies weakness Tani/Lymph Reports no additional complaints Physical Exam Vital Signs: Last Vital Signs Pulse 80 07/07/24 14:47 BP 108/56 L 07/07/24 14:47 Pulse Ox 99 07/07/24 14:47 Oxygen Delivery Method Room Air 07/07/24 14:47 BMI result Body Mass Index 21.6 Const General: comfortable Nutritional Appearance: thin HEENT Head: Yes atraumatic Neck Neck: Yes supple Chest Chest palpation & inspection: normal inspection of the chest Resp Effort & Inspection: normal respiratory effort and No prolonged expiratory phase Auscultation: diminished lung sounds Cardio Heart sounds: S1 normal heart sound present and S2 normal heart sound present GI Palpation (GI): Soft to palpation Skin Lesions: lesion noted (mechanics hand) Neuro Cranial nerves: Yes Normal hearing present Extrem General: No edema Assessment & Plan Assessment & Plan (1) Asthma-COPD overlap syndrome: Code(s): J44.89 - Other specified chronic obstructive pulmonary disease Category: Medical (2) Bronchiectasis: Comment: 01/[address] abd ILD Code(s): J47.9 - Bronchiectasis, uncomplicated Category: Medical Qualifiers: Bronchiectasis type: uncomplicated Qualified Code(s): J47.9 - Bronchiectasis, uncomplicated (3) ILD (interstitial lung disease): Comment: secondary to MTX, although also could be related to CTD Code(s): J84.9 - Interstitial pulmonary disease, unspecified Category: Medical (4) SOB (shortness of breath): Code(s): R06.02 - Shortness of breath Category: Medical (5) Allergies: Code(s): T78.40XA - Allergy, unspecified, initial encounter Category: Medical Qualifiers: Encounter type: initial encounter Qualified Code(s): T78.40XA - Allergy, unspecified, initial encounter (6) BRCA1-associated protein-1 tumor predisposition syndrome: Comment: Increased breast cancer risk, ovarian cancer risk and pancreatic cancer risk Code(s): Z15.01 - Genetic susceptibility to malignant neoplasm of breast; Z15.02 - Genetic susceptibility to malignant neoplasm of ovary; Z15.09 - Genetic susceptibility to other malignant neoplasm Category: Medical (7) Etta-1 antibody positive: Code(s): R76.8 - Other specified abnormal immunological findings in serum Category: Medical (8) Antisynthetase syndrome: Code(s): D89.89 - Other specified disorders involving the immune mechanism, not elsewhere classified Category: Medical Plan Increase QVAR start Spiriva Does not tolerate LABA AMENA as needed pulmonary rehab F/U with Rheumatology CT chest in 4 months F/U 4-6 months Orders: Orders CT chest wo IV con 4 Months J84.9 - Interstitial pulmonary disease, unspecified Medications: New tiotropium bromide 2.5 mcg/actuation (Spiriva Respimat) 2 puffs inhalation DAILY 30 days 1 ea 11RF Coding Level of Care Code Est Pt Level 4 (20985) Complex EM visit Add On G2211 Diagnoses Asthma-COPD overlap syndrome J44.89 Bronchiectasis without complication J47.9 Bronchiectasis type: uncomplicated ILD (interstitial lung disease) J84.9 SOB (shortness of breath) R06.02 Allergy, initial encounter T78.40XA Encounter type: initial encounter BRCA1-associated protein-1 tumor predisposition syndrome Z15.01; Z15.02; Z15.09 Etta-1 antibody positive R76.8 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 Time Spent (min) 17
--- OUTSIDE RECORDS SUMMARY | 2024-07-07 16:24 | XMS_ITS | Patient Health Record ---
Author Organization [facility] Address [address] [place] [phone] Care Team Providers Care Block Breaker Name Role Phone Nagi Howard MD Primary Care Provider Cristino Jasso [phone] Allergies Allergen (clinical drug ingredient) Drug/Non Drug Allergy documented on EMR Reaction Allergy Type Onset Date Status oxaprozin Oxaprozin anaphylaxis,ellen na,n/v sob,swelling Drug Allergy Active tramadol Tramadol tremors Drug Allergy Active Latex Latex rash Allergy Active Levaquin swelling Drug Allergy Active Results Component Value Reference Range Notes Complete Blood Count Auto Di ff Reviewed date:07/20/2023 10:23:09 PM Interpretation: Performing Lab:[facility], [address] [place] [phone] Notes/Report: White Blood Count 10.5 4.8-10.8 X10*3/uL Red Blood Count 4.24 4.20-5.50 X10*6/uL Hemoglobin 12.4 12.0-16.0 g/dl Hematocrit 37.4 37.0-47.0 % Mean Corpuscular Volume 88.2 80.0-98.0 fL Mean Corpuscular Hemoglobin 29.2 27.0-33.0 pg Mean Corpuscular HGB Conc 33.2 31.0-35.0 g/dl Red Cell Distribution Width 13.2 11.0-16.0 % Platelet Count 356 160-400 X10*3/uL Mean Platelet Volume 10.6 9.4-12.3 fL Neutrophils Percent Auto 79.5 45-73 % Imm Gran Pct Auto 0.5 0.0-0.4 % Lymphocytes Percent Auto 15.9 20-40 % Monocytes Percent Auto 2.8 2-11 % Eosinophils Percent Auto 0.7 0-4 % Basophils Percent Auto 0.6 0-2 % NRBC Pct Auto 0.0 0.0-0.2 /100WBC Neutrophils Absolute Auto 8.3 2.0-8.3 x10*3/u L Imm Gran Abs Auto 0.05 0.00-0.03 X10*3/uL Lymphocytes Absolute Auto 1.7 1.2-4.9 X10*3/u L Monocytes Absolute Auto 0.3 0.1-1.2 X10*3/uL Eosinophils Absolute Auto 0.1 0.0-0.4 X10*3/u L Basophils Absolute Auto 0.1 0.0-0.2 X10*3/uL NRBC Abs Auto 0.000 0.0-0.012 X10*3/uL Erythrocyte Sedimentation Ra te Reviewed date:07/20/2023 10:23:17 PM Interpretation: Performing Lab:[address] [phone] Notes/Report: Erythrocyte Sedimentation Rate 21 0-20 MM/HR Patients with polycythemia and many hemoglobin abnormalities may have depressed sed rates whereas patients with anemia may have elevated sed rates. Liver Panel Reviewed date:07/20/2023 10:23:27 PM Interpretation: Performing Lab:[address] [phone] Notes/Report: Bilirubin Total 0.3 0.0-1.0 mg/dL Bilirubin Direct 0.1 0.0-0.5 mg/dL Aspartate Amino Transferase 20 5-31 U/L Alanine Aminotransferase 18 0-31 U/L Total Protein 7.6 6.5-8.0 g/dL Albumin Level 4.1 3.5-5.0 g/dL Alkaline Phosphatase 84 39-117 U/L C Reactive Protein Reviewed date:07/20/2023 10:23:36 PM Interpretation: Performing Lab:[address] [phone] Notes/Report: C Reactive Protein 0.88 < or = 0.50 mg/dL Immunoglobulin A Reviewed date:07/23/2023 03:44:25 PM Interpretation: Performing Lab:[facility], [address] [place] [phone] Notes/Report: Immunoglobulin A 351 47-310 mg/dL THIS TEST WAS PERFORMED AT: [employer] [address] [place] [phone] OLIVER RENTERIA MD Transglutaminase Ab IgG Reviewed date:07/23/2023 03:44:31 PM Interpretation: Performing Lab:[facility], [address] [place] [phone] Notes/Report: Transglutaminase Ab IgG <1.0 Value Interpretation ----- <15.0 Antibody not detected > or = 15.0 Antibody detected THIS TEST WAS PERFORMED AT: [facility] [employer] [address] [place] [phone] OLIVER RENTERIA MD Transglutaminase IgA Reviewed date:07/23/2023 03:44:38 PM Interpretation: Performing Lab:[facility], [address] [place] [phone] Notes/Report: Transglutaminase IgA <1.0 Value Interpretation ----- <15.0 Antibody not detected > or = 15.0 Antibody detected THIS TEST WAS PERFORMED AT: [facility] [employer] [address] [place] [phone] OLIVER RENTERIA MD Gliadin Ab Panel Reviewed date:07/23/2023 03:44:44 PM Interpretation: Performing Lab:[facility], [address] [place] [phone] Notes/Report: Gliadin Deamidated IgA Ab <1.0 Value Interpretation ----- <15.0 Antibody not detected > or = 15.0 Antibody detected Gliadin Deamidated IgG Ab <1.0 Value Interpretation ----- <15.0 Antibody not detected > or = 15.0 Antibody detected THIS TEST WAS PERFORMED AT: [facility] [employer] [address] [place] [phone] OLIVER RENTERIA MD Endomysial IgA rflx Titer Reviewed date:07/23/2023 03:44:52 PM Interpretation: Performing Lab:[facility], [address] [place] [phone] Notes/Report: Endomysial IgA Antibody Negative Negative THIS TEST WAS PERFORMED AT: [facility] [employer]/[address] [address] RITA ARELLANO MD,PHD Endomysial Titer TNP Leukocytes Stool Qualitative Reviewed date:07/22/2023 06:22:13 PM Interpretation: Performing Lab:[facility], [address] [place] [phone] Notes/Report: Leukocytes Stool Qualitative NEGATIVE NEGATIVE Cancelled Serology Reviewed date:07/27/2023 11:33:33 PM Interpretation: Performing Lab:[facility], [address] [place] [phone] Notes/Report: Cancelled Serology SEE NOTE ORANGE CAP SPECIMEN CONTAINER OVERFILLED. KAT F. ORANGE CAP SPECIMEN CONTAINER OVERFILLED. KAT F. ([facility]) NOTIFIED PATIENT NEEDS TO RECOLLECT. ([facility]) NOTIFIED PATIENT NEEDS TO RECOLLECT. 07/23/23 AT 1100 BY FRANCESCA Cancelled Serology SEE NOTE ORANGE CAP SPECIMEN CONTAINER OVERFILLED. KAT F. ORANGE CAP SPECIMEN CONTAINER OVERFILLED. KAT F. ([facility]) NOTIFIED PATIENT NEEDS TO RECOLLECT. ([facility]) NOTIFIED PATIENT NEEDS TO RECOLLECT. 07/23/23 AT 1100 BY FRANCESCA C ORRECTED REPORT CDiff Gene PCR Reviewed date:07/22/2023 06:22:42 PM Interpretation: Performing Lab:[facility], [address] [place] [phone] Notes/Report: CDiff Gene PCR NEGATIVE Negative If C. difficile strongly suspected despite one negative test, a second test may be sent vs. empiric treatment for C. difficile infection. Ur Preg Test Reviewed date:08/23/2023 06:53:19 PM Interpretation: Performing Lab:[facility], [address] [place] [phone] Notes/Report: Urine NEGATIVE NEGATIVE This test was developed to detect early . False negative results may occur after the 5th - 7th week of when using this test method. If clinically indicated, consider a serum hCG. Pathology Reviewed date:01/03/2024 04:29:25 PM Interpretation: Performing Lab:[facility], [address] [place] [phone] Notes/Report: --- Name: Chad Go Age/Sex: 42/F : 1980 Unit#: [id number] Attend Dr: Cristino Cuello Re08/23/23 Status : [facility] Location: [facility] Disch: --- SPEC : [id number] RECD : 08/24/23 STATUS: TREVER VENEGAS NUM: [id number] MOOK: 08/23/23-[address] [place] [address]: Cristino Cuello ENTERED: 08/24/23- SP TYPE: Surgical OTHR DR: Nagi Howard MD ORDERED: HE Stain/9, Gross Micro L4/3 Diagnosis A. Terminal ileum, biopsy: Ileal mucosa with no specific change. B. Colon, ascending, biopsy: Colonic mucosa with no specific change; no evidence of microscopic colitis. C. Colon, descending , biopsy: Colonic mucosa with lymphoid aggregate and focal lamina propria hemorrhage, otherwise no specific change; no evidence of microscopic colitis. Clinical History Pre-Op Dx: Noninfect silvana gastroenteritis and colitis, unspecified Post-Op Dx: Hemorrhoids Microscopic Description Microscopic sections reviewed. Material Received A. Terminal ileum bx B. Ascending colon b x, r/o microscopic colitis C. Descending colon bx, r/o microscopic colitis Gross Description Received in 3 parts. Part A: Received in formalin labeled ?terminal ileum bx? are 2 mandel irregular tissue fragments each measuring 0.3 cm, submitted in toto in a cassette labeled A. Part B: Received in formalin labeled ?ascending colon bx? are 3 mandel irregular and rectangular tissue fragments ranging from 0.2-0.3 cm, submitted in toto in a cassette labeled B. Part C: Received in formalin labeled ?descending colon bx? are 5 mandel irregular tissue fragments ranging fr om 0.1-0.2 cm, submitted in toto in a cassette labeled C. CEDS CONTINUED ON NEXT PAGE --- Name: Chad Go Age/Sex: 42/F : 1980 Unit#: [id number] Attend Dr: Cristino Cuello Re08/23/23 Status : [facility] Location: [facility] Disch: --- SPEC : [id number] RECD : 08/24/23 STATUS: TREVER VENEGAS NUM: [id number] MOOK: 08/23/23-[address] [place] [address]: Cristino Cuello ENTERED: 08/24/23- 36 SP TYPE: Surgical OTHR DR: Nagi Howard MD ORDERED: HE Stain/9, Gross Micro L4/3 Copies To: Nagi Howard MD [address] [place] [address] [address] [place] [address] Cristino Cuello [address] [place] [address] [address] [place] [id number] --- Signed (signature on file) [place] 08/25/23 1118 --- END OF REPORT Reason For Referral No Information Medications Medication SIG (Take, Route, Frequency, Duration) Notes Start Date End Date Status Tart Borjas 1200 MG as directed Orally 02/09/2024 Active Multi Vitamin Daily - 1 tablet Orally Once a day for 30 day(s) 02/09/2024 Active Ashwagandha 500 MG as directed Orally 02/09/2024 Active Beet Root - as directed 02/09/2024 Activ e Lomotil 2.5-0.025 MG 1 or 2 tablets Orally Every 6 hours as needed for diarrhea for 30 days 02/09/2024 Active Cinnamon 500 MG as directed Orally 02/09/2024 Active Vitamin C 500 MG as directed Orally 02/09/2024 Active Flonase Allergy Relief 50 MCG/ACT 1 spray in each nostril Nasally Once a day for 30 day(s) 02/09/2024 Active Cholesterol - as directed 02/09/2024 Act silvana Green Tea 100 MG as directed Orally 02/09/2024 Active [place] 6 MG as directed Orally 02/09/2024 Active Hemp MonoPure - as directed Orally 02/09/2024 Active Melatonin 3 MG 1 tablet at bedtime as needed Orally Once a day for 30 day(s) 02/09/2024 Active Chlorthalidone 25 MG TAKE 1 TABLET BY MOUTH EVERY DAY Oral for 90 Active Levothyroxine Sodium 50 MCG TAKE 1 TABLET BY MOUTH EVERY DAY IN THE MORNING Oral for 90 Active Elderberry 575 MG/5ML as directed Orally Active Probiotic - as directed Orally 02/09/2024 Active amLODIPine Besylate 2.5 MG TAKE 1 TABLET BY MOUTH EVERY DAY Oral for 90 For Raynaud's Active Calcium 1 tab Oral for 14 days 02/09/2024 Active Diclofenac Sodium 75 MG TAKE 1 TABLET BY MOUTH TWICE A DAY NEEDED Oral for 90 Active Biotin - as directed 02/09/2024 Active tylenol Not-Taking Coconut Oil - as directed 02/09/2024 Act silvana Acetaminophen-Codeine 300-60 MG TAKE 0.5 TABLETS BY MOUTH 2 (TWO) TIMES A DAY NEEDED FOR PAIN Oral for 7 Active Chromium Picolinate 200 MCG 1 tablet Orally Once a day for 30 day(s) 02/09/2024 Active Magnesium 300 MG 1 capsule with a meal Orally Once a day for 30 day(s) 02/09/2024 Active Vitamin D-3 125 MCG (5000 UT) 1 tablet Orally Once a day for 30 day(s) 02/09/2024 Active Multivitamin - 1 tablet Orally Once a day for 30 day(s) Active Betamethasone - as directed 02/09/2024 A ctive Omeprazole 20 MG 1 capsule 30 minutes before morning meal Orally Once a day for 30 day(s) Active Apple Cider Vinegar 500 MG as directed Orally 02/09/2024 Active Turmeric 500 MG as directed Orally 02/09/2024 Active Dicyclomine HCl 10 MG 1 or 2 capsules Orally Every 4 to 6 hours as needed for abdominal cramps/discomfort for 30 day(s) 02/09/2024 Active Immunizations Vaccine Route Administration Date Status Comme nts Influenza Unknown 02/09/2024 Refused Social History Tobacco Use: Social History Observation Description Date Details (start date - stop date) Never Smoker NA - NA Tobacco Use/Smoking Question Answer Notes Patient is a nonsmoker Alcohol Screen Question Answer Notes Did you have a drink containing alcohol in the p ast year? No Points 0 Interpretation Negative Section Notes: Nonsmoker; no alcohol Nonsmoker; no alcohol Problems Problem Type SNOMED Code ICD Code Onset Dates Problem Status W/U Status Risk Notes Problem Diverticular disease of colon (741571561) Diverticulosis of large intestine without perforation or abscess without bleeding (K57.30) Active confirmed Problem Irritable bowel syndrome with diarrhea (910734437) Irritable bowel syndrome with diarrhea (K58.0) Active confirmed Problem Abnormal weight loss (209807937) Abnormal weight loss (R63.4) Active confirmed Problem Chronic diarrhea (690721014) Chronic diarrhea (K52.9) Active confirmed Vital Signs Temperature 98.2 degrees Fahrenheit 02/09/2024 Blood pressure diastolic 00 mm Hg 02/09/2024 Height 5 ft 6 in in 02/09/2024 Blood pressure systolic 000 mm Hg 02/09/2024 Weight 128 lb 8 oz lbs 02/09/2024 BMI 20.74 kg/m2 02/09/2024 Encounters Encounter Location Date Provider Diagnosis [facility] Outpatient [address] [place], [place] [id number] 08/23/2023 Cristino Cuello Diarrhea R19.7 ; Oth er specified diseases of intestine K63.89 ; Diverticulosis of large intestine without perforation or abscess without bleeding K57.30 and Other hemorrhoids K64.8 [facility] [address] [place] [phone] 07/20/2023 Cristino Cuello Chronic diarrhea K52 .9 [facility] [address] [place] [phone] 02/09/2024 Cristino Cuello Chronic diarrhea K52 .9 ; Abnormal weight loss R63.4 and Irritable bowel syndrome with diarrhea K58.0 [facility] [address] [place] [phone] 07/23/2023 Cristino Cuello [facility] [address] [place] [phone] 07/27/2023 Cristino Cuello Chronic diarrhea K52 .9 [facility] [address] [place] [phone] 08/30/2023 Cristino Omalley [facility] [address] [place] [address] 12/30/2023 Cristino Cuello [facility] [address] [place] [address] 01/14/2024 Cristino Cuello [facility] [address] [place] [address] 01/17/2024 Cristino Cuello [facility] [address] [place] [address] 01/19/2024 Cristino Cuello Assessments Encounter Date Diagnosis (ICD Code) Assessment Notes Treatment Notes Treatment Clinical Notes Section Notes 08/23/2023 Diarrhea (ICD-10 - R19.7) 08/23/2023 Other specified diseases of intestine (ICD-10 - K63.89) 07/20/2023 Chronic diarrhea (ICD-10 - K52.9) Try to use some Imodium as needed for loose stool Given Chad's long-standing symptomatology with persistent diarrhea, along with an underlying autoimmune disease, we did review that her symptoms currently may reflect some underlying inflammatory bowel disease or something such as microscopic colitis. Celiac disease could be another possibility as well. I did recommend a colonoscopy for definitive evaluation to rule out any possibilities such as inflammatory bowel disease or microscopic colitis that would require more specific treatment than just symptomatic therapy. Full consent was obtained from her for the colonoscopy, including risks of bleeding and perforation. The procedure will be done with monitored anesthesia care. In the meantime, I shall have her submit stool specimens to definitively exclude any type of infectious process. I shall also check laboratories for celiac disease, as well as a repeat sedimentation rate, C-reactive protein, CBC, and liver profile. In the meantime, I did recommend she try some Imodium on a p.r.n. basis to see if that can help alleviate some of her symptoms in the meantime. Chad was comfortable with this plan. Thank you again for allowing me to participate in Chad's care. I shall continue to keep you advised of her progress. 02/09/2024 Abnormal weight loss (ICD-10 - R63.4) Given Chad's clinical history and thus far negative workup including colonoscopy, CT scan, laboratories, and stool specimens, we did review that this certainly seems to point toward irritable bowel syndrome as the most likely underlying diagnosis. However, I am concerned about her weight loss. At this point I'm inclined to try to treat things symptomatically and given her a prescription to use Lomotil as needed for diarrhea and dicyclomine as needed for abdominal cramping. Hopefully these medications will help to shorten her episodes of the diarrhea and abdominal discomfort. We did review that she may need an eventual upper endoscopy with duodenal biopsies for further evaluation of celiac disease even though Her celiac disease laboratories are negative. I did advise her to try to avoid dairy and caffeine as she is doing. We did review that she is on many different supplements and other wlle-qvv-uokwnhh medications which can sometimes cause different side effects including diarrhea. We may need to check some other stool specimens for other etiologies of her symptoms such as pancreatic insufficiency. I am going to see her again in approximately 6 months but did advise her to contact me prior to that if her problems persist despite the attempts at treatment with the Lomotil and dicyclomine. If need be we can always schedule her for an upper endoscopy with duodenal biopsies prior to her next office visit. Chad was comfortable with this plan. Thank you again for allowing me to participate in Chad's care. I shall continue to keep you advised of her progress. 02/09/2024 Chronic diarrhea (ICD-10 - K52.9) I will send over prescriptions for the diarrhea and the abdominal cramps Avoid dairy with Lactose and any siugnificant amoiunts of caffeine. Given Chad's clinical history and thus far negative workup including colonoscopy, CT scan, laboratories, and stool specimens, we did review that this certainly seems to point toward irritable bowel syndrome as the most likely underlying diagnosis. However, I am concerned about her weight loss. At this point I'm inclined to try to treat things symptomatically and given her a prescription to use Lomotil as needed for diarrhea and dicyclomine as needed for abdominal cramping. Hopefully these medications will help to shorten her episodes of the diarrhea and abdominal discomfort. We did review that she may need an eventual upper endoscopy with duodenal biopsies for further evaluation of celiac disease even though Her celiac disease laboratories are negative. I did advise her to try to avoid dairy and caffeine as she is doing. We did review that she is on many different supplements and other xjfm-wcs-avieksy medications which can sometimes cause different side effects including diarrhea. We may need to check some other stool specimens for other etiologies of her symptoms such as pancreatic insufficiency. I am going to see her again in approximately 6 months but did advise her to contact me prior to that if her problems persist despite the attempts at treatment with the Lomotil and dicyclomine. If need be we can always schedule her for an upper endoscopy with duodenal biopsies prior to her next office visit. Chad was comfortable with this plan. Thank you again for allowing me to participate in Chad's care. I shall continue to keep you advised of her progress. 07/27/2023 Chronic diarrhea (ICD-10 - K52.9) 08/23/2023 Diverticulosis of large intestine without perforation or abscess without bleeding (ICD-10 - K57.30) 02/09/2024 Irritable bowel syndrome with diarrhea (ICD-10 - K58.0) Given Chad's clinical history and thus far negative workup including colonoscopy, CT scan, laboratories, and stool specimens, we did review that this certainly seems to point toward irritable bowel syndrome as the most likely underlying diagnosis. However, I am concerned about her weight loss. At this point I'm inclined to try to treat things symptomatically and given her a prescription to use Lomotil as needed for diarrhea and dicyclomine as needed for abdominal cramping. Hopefully these medications will help to shorten her episodes of the diarrhea and abdominal discomfort. We did review that she may need an eventual upper endoscopy with duodenal biopsies for further evaluation of celiac disease even though Her celiac disease laboratories are negative. I did advise her to try to avoid dairy and caffeine as she is doing. We did review that she is on many different supplements and other gedv-bbs-xvfilhd medications which can sometimes cause different side effects including diarrhea. We may need to check some other stool specimens for other etiologies of her symptoms such as pancreatic insufficiency. I am going to see her again in approximately 6 months but did advise her to contact me prior to that if her problems persist despite the attempts at treatment with the Lomotil and dicyclomine. If need be we can always schedule her for an upper endoscopy with duodenal biopsies prior to her next office visit. Chad was comfortable with this plan. Thank you again for allowing me to participate in Chad's care. I shall continue to keep you advised of her progress. 08/23/2023 Other hemorrhoids (ICD-10 - K64.8) Plan Of Treatment Pending Test Test Name Order Date LIVER PROFILE 07/20/2023 CRP 07/20/2023 CBC w DIFF 07/20/2023 SED RATE (ESR) 07/20/2023 CELIAC PANEL #10 07/20/2023 STOOL WBC 07/20/2023 C DIFFICILE RFLX PCR 07/20/2023 GI PANEL 07/20/2023 GI PANEL 07/27/2023 Future Test Test Name Order Date COLONOSCOPY 07/20/2023 Next Appt Details Provider Name:Cristino Cuello , 08/09/2024 04:20:00 PM, [address] [facility], [address], [place], [address], Insurance Providers Payer Name Payer Address Payer Phone Subscriber Number Group Number Insured Name Patient Relationship to Insured Coverage Start Date Coverage End Date [facility] [address] [place] [address] [id number] Self - patient is the insured Medical (General) History Medical History History ICD Code Polymyositis- she sees a application trainer, Dr. Kebede, at [facility] Hx of gastroparesis--Dr. Blank morel--describes an upper endoscopy > 10 years ago--she describes that those symptoms resolved without any specific treatment Raynauds Denies PA,DM,CVA,renal disease Diarrhea-laboratories were negative for celiac disease in July of 2023 GERD LE Edema She describes some intersti tial lung disease with some scarring in the lower lungs Colonoscopy August of 2023 wa s unremarkable and specifically negative for inflammatory bowel disease and polyps. Biopsies were negative for microscopic colitis. Biopsies of the terminal ileum were normal. Unremarkable CT of the abdom en and pelvis in January of 2024 during an ER visit Surgical History Surgery Date(Month/Year) Hospitalization History Reason Date(Month/Year) dehydration
--- OUTSIDE RECORDS SUMMARY | 2024-07-07 16:24 | XMS_ITS | Clinical Summary ---
Author Organization 175 [facility] Address [address] [place] [address] Phone Care Team Providers Care Soils Analyst Name Role Phone Nagi Howard MD Primary Care Provider [phone] Allergies Active Allergy Reactions Criticality Noted Date [...] Team Description 04/18/2024 2:30 PM EST Treatment [facility] [address] [place] [address] Anjali Chavez, OTR/L Lymphedema of both lower extremities (Primary Dx) 04/11/2024 Telephone [facility] [address] [place] [address] Gómez Roman MD Lab Work from Last 3 Months Medical History Medical [...] Description 07/11/2024 2:00 PM EDT Office Visit [facility] [address] [place] [address] Gómez Roman MD [address] [place] [address] DRIVE [address] [place] [address] Health Maintenance Due Date Last Done Comments [...] On track(2023 3:53 PM EST) Yes Anjali Chavez P, OTR/L Note: Patient presents with decreased volumes both LE's improve skin mobility in lower legs General On track(2023 3:53 PM EST) No Anjali Chavez P, OTR/L Note: STG : 1 Patient will present with increased skin mobility in her left lower leg 03/23 GOAL HAS BEEN MET LTG Patient will present with increased skin mobility in both Lower legs 04/18 GOAL HAS BEEN MET to reduce lymph edema in both LE's General No change(03/13 3:10 PM EST) No Anjali Chavez P, OTR/L Note: STG's ; Patient will present [...] management General On track(2023 3:54 PM EST) Anjali Buck, OTR/L Note: STG's 1: Patient will be [...] Annual BMP Blood Test Abstracted Historical Provider MD HEALTH MAINTENANCE Final Result from Last 3 Months or Most Recently Relevant to Health Maintenance Insurance [facility] Care Teams Soils Analyst Relationship Specialty Start Date End Date Nagi Howard MD [address] [facility] [address] [facility] [place] [address] PCP - General 05/24/23
--- OUTSIDE RECORDS SUMMARY | 2024-07-07 16:24 | XMS_ITS | Continuity of Care Document ---
Author Organization [facility] Address [address] [place] [address]- Care Team Providers Care Medical Accounting Clerk Name Role Phone Nagi Howard MD Primary Care Physician [id number] Date(s): 06/13/24 - 06/20/24 [facility] [address] [place] [address]- Encounter Diagnosis Raynaud's syndrome(Discharge Diagnosis) - 06/13/24 Attending Physician: Davi Leiva MD Admitting Physician: Davi Leiva MD Referring Physician: Nagi Howard MD Encounter Type: Office Visit Allergies, Adverse Reactions, Alerts Substance Criticality Severity Reaction Reaction Severity Status oxaprozin Active Levaquin Active Latex Active traMADol Active Medications Acetaminophen-Caffeine See Instructions, PRN Headache, [...] Refills, Maintenance, 02/22/24 9:01:00 AM EDT, Tablet, [facility]/pharmacy #[id number], Partial fill upon patient request if the [...] Refills, Maintenance, 02/23/24 11:12:00 AM EDT, Tablet, [facility]/pharmacy #[id number], Partial fill upon patient request if the [...] 12:26:00 PM EDT, Route to Pharmacy Electronically, [facility]/pharmacy #[id number], Partial fill upon patient requestif the prescription [...] Date: 01/22/16 Status: Ordered Repeat number: 1 progesterone 100 mg oral capsule 1 capsule, By Mouth, Daily at bedtime, MAY CAUSE DROWSINESS, # 90 capsule, 3 Refills, Maintenance, 06/04/24 8:35:00 AM EST, [facility]/pharmacy #[id number], 163, cm, 03/27/24 15:36:00 EST, Height, 59.6, kg, 03/27/24 15:36:00 EST, Dry Weight Start Date: 06/04/24 Status: Ordered Quantity: 90.0 Unit: capsule Repeat number: 4 turmeric = [...] List Condition Confirmation Course Effective Dates Status Health St atus Informant Asthma Confirmed Active Raynaud's syndrome Confirmed Active Diagnosis Diagnosis Type Effective Dates Health Status inical Service Informant Raynaud's syndrome Discharge Diagnosis 06/13/24 Vital Signs Most recent to oldest [Reference Range]: 1 Height 163.00 cm (06/13/24 4:07 PM) Weight 56.70 kg (06/13/24 4:07 PM) Oxygen Saturation [94-100 %] 99 % (06/13/24 4:07 PM) Pulse Rate [55-90 bpm] 81 bpm (06/13/24 4:07 PM) Body Mass Index [18.5-24.99 kg/m2] 21.34 kg/m2 (06/13/24 4:07 PM) Blood Pressure [90-138/55-84 mm Hg] 104/ 50mm Hg (06/13/24 4:07 PM) Mode of Delivery (Oxygen) Room air (06/13/24 4:07 PM) Blood pressure sites Arm, left (06/13/24 4:07 PM) Weight Obtained Via Patient/family state d (06/13/24 4:07 PM) Social History Social History Type Response Smoking Status Never (less than 100 in lifetime) entered on: 01/12/23 Sex Female Sex Representation Female (finding) Note * Mone Engle: PERFORM Event Display: Patient Education/Instruction Authored Date: [id number] Ambulatory Adult Visit Summary [facility] [address] [place] [address] Name: CHAD KUNZ : 1980?? Visit: 06/13/2024 15:53?? Ambulatory Visit Instructions ?? Your Care Team Primary Care Provider Nagi Howard MD? This Visit Provider Davi Leiva MD Your Diagnosis Raynaud's syndrome Vitals Signs Pulse Rate: 81 bpm Height: 163 cm Systolic Blood Pressure: 104 mm Hg Weight: 56.7 kg Diastolic Blood Pressure:??50 mm Hg??Low Body Mass Index: 21.34 kg/m2 Oxygen Saturation: 99 % Body surface area: 1.6 What to do next Scheduled Follow-Up Appointments Wednesday 7:40 PM EDT ?? With: Alida Corcoran DO Where: [facility] [employer] [address] [place] [address]- Status: Pending Wednesday 2:00 PM EDT ?? With: Chana De Jesus RD Where: Diabetic Teaching Status: Pending Wednesday 4:00 PM EDT ?? Where: [facility] HELP DESK SUPPORT Non Global [address] [place] [address]- Status: Pending Follow-Up Appointments Follow Up with??Davi Leiva MD When:??Only if needed Where: [address] [place] [address], [address] [facility] [place] [address]- Follow up Appointment - Ordered?-- PRN, She will call if needed, 06/13/24 16:35:00 EST Future Orders Genetics Draw Kit at [facility] - Routine, Once, [facility] DNA/RNA kit. Send out through [facility]od[facility] Faust [facility] Central Lab [address] [place] [address]. Please note instructions for tube draw order. Corresponding orders willbe in [facility] online portal., *Est. 05/31/24, Future Order?? Medications The list below reflects the information in our records and provided by you today along with any changes made during this visit. Please continue your medications until treatment is completed or stopped by your provider. If this is different from the information you have or there are other questions,please contact the prescribing provider. What How Much When Instructions Unchanged Acetaminophen-Caffeine See instructions 2 tablets, By Mouth, As needed for Headache ?? Unchanged Acetaminophen/ Codeine (acetaminophen-codeine 300 mg-15 mg oral tablet) 21 each, 0 Refill(s), TAKE 2 TABLETS BY MOUTH 3 TIMES DAILY NEEDED FOR PAIN ?? Unchanged Acetaminophen/ Codeine (acetaminophen-codeine 300 mg-60 mg oral tablet) 20 each, 0 Refill(s), TAKE 1 TABLET BY MOUTH TWICE DAILY NEEDED FOR PAIN ?? Unchanged Amlodipine Oral Daily Unchanged Ascorbic Acid (Vitamin C) 500 Milligram Oral 3 times a day Unchanged bifidobacterium-lactobacillus (Probiotic Formula) 1 capsule Oral Daily Unchanged Biotin 10 Milligram Oral Daily Unchanged Calcium And Vitamin D Combination (Calcium 600 +D) See instructions By Mouth daily ?? Unchanged Chlorthalidone (chlorthalidone 25 mg oral tablet) 90 each, 0 Refill(s), TAKE 1 TABLET BY MOUTH EVERY DAY ?? Unchanged Chromium Picolinate 800 Microgram Oral Daily Unchanged Cilostazol (cilostazol 50 mg oral tablet) 1 tab(s) Oral Twice a day Unchanged cinnamon 1,000 Milligram Oral Daily Unchanged Diclofenac 75 Milligram Oral Twice a day Unchanged Diclofenac (diclofenac sodium 75 mg oral delayed release tablet) 90 each, 0 Refill(s), TAKE 1 TABLET BY MOUTH NIGHTLY AT BEDTIME. ?? Unchanged Estradiol (Estrace 0.5 mg oral tablet) 1 tab(s) Oral Daily Unchanged Folic Acid 0.4 Milligram Oral Daily Unchanged Garlic See instructions 1000 MG DAILY ?? Unchanged Lactase (Lactaid Fast Action 9000 units oral tablet) 1 tab(s) Oral 3 times a day with meals Unchanged Levothyroxine (levothyroxine 0.025 mg oral tablet) 10 each, 0 Refill(s), TAKE 1 TABLET BY MOUTH EVERY MORNING ?? Unchanged Levothyroxine (levothyroxine 0.05 mg oral tablet) 90 each, 0 Refill(s), TAKE 1 TABLET BY MOUTH EVERY DAY IN THE MORNING ?? Unchanged Levothyroxine (levothyroxine 50 mcg (0.05 mg) oral capsule) 1 capsule Oral Daily Unchanged Magnesium Oxide 500 Milligram Oral Daily Unchanged Melatonin 10 Milligram Oral Daily at Bedtime as needed for as needed for insomnia Unchanged Multivitamin Oral Daily Unchanged Multivitamin (Multivitamin Tablet) 1 tab(s) Oral Daily Unchanged Multivitamin (Vitamin B Complex oral tablet, extended release) 1 tab(s) Oral Daily Unchanged Multivitamin With Minerals (Viactiv Soft Calcium Chews) See instructions takes a fraction daily for total daily calcium dose of 600 mg ?? Unchanged Multivitamin, ( Multivitamins with Folic Acid 1 mg oral tablet) 1 tab(s) Oral Daily Duration: 90 Days Unchanged Naftifine Topical (Naftin) See instructions Topically ?? Unchanged Naproxen 220 Milligram Oral As needed for as needed for pain Unchanged Norethindrone (norethindrone 5 mg oral tablet) 1 tab(s) Oral Daily Unchanged [place]-3 Polyunsaturated Fatty Acids (Fish Oil) 1,000 Milligram Oral Daily Unchanged Omeprazole 20 Milligram Oral Daily Unchanged PredniSONE (PredniSONE Tablet) See instructions 15 ??mg By Mouth Daily ?? Unchanged Progesterone (progesterone 100 mg oral capsule) 1 capsule Oral Daily at Bedtime MAY CAUSE DROWSINESS ?? Unchanged Pt.'s Own Meds (Patient's Own Meds) Sugar EQ for blood sugar support ?? Unchanged Pt.'s Own Meds (Patient's Own Meds) See Instructions Formula 3 for fungal infection on toenails ?? Unchanged turmeric 1,000 Milligram Oral Daily in the morning Unchanged Ubiquinone (Co-Q10) 200 Milligram Oral Daily Medications and Immunizations Administered Medications Given During Visit No medications given during this visit.?? Allergies (NKA means No Known Allergies) Latex Levaquin oxaprozin traMADol Common Emergency Awareness Tips IS IT A STROKE? Act FAST and Check for these signs: FACE Does the face look uneven? ARM Does one arm drift down? SPEECH Does their speech sound strange? TIME Call at any sign of stroke ?? Heart Attack Signs Chest discomfort: Most heart attacks involve discomfort in the center of the chest and lasts more than a few minutes, or goes away and comes back. It can feel like uncomfortable pressure, squeezing, fullness or pain. Discomfort in upper body: Symptoms can include pain or discomfort in one or both arms, back, neck, jaw or stomach. Shortness of breath: With or without discomfort. Other signs: Breaking out in a cold sweat, nausea, or lightheaded. Remember, MINUTES DO MATTER. If you experience any of these heart attack warning signs, call to get immediate medical attention! ?? Smoking can increase your chances of developing chronic health problems and can cause harmful effects to other family members in your house. If you smoke, you are strongly encouraged to quit. Please call [facility] [employer] Link at [phone] or [phone]-[employer] ([phone]) or log in to [email or web address] for referrals to smoking cessation programs. ?? The National Suicide Prevention Hotline is available 23/11 if you or someone you know needs to find a reason to keep living. By calling 4-104-732-[employer] (2194) you'll be connected to a skilled, trained counselor at a crisis center in your area. [facility] [employer] Portal You can view and manage your care through the patient portal or by using a health care nettie of your choosing. [employer] is a website that allows you to securely view your medical information including your hospital discharge summary, office visit summaries, medications and follow-up visits. You can also request appointments, renew medications, and request access to your medical information using a health care nettie of your choosing, or just ask a question. You can enroll at [email or web address] or register during your next office visit. [facility], in keeping with [facility] guidance, no longer requires face masks for staff, patientsor visitors in most situations. Similiar to time spent indoors at other locations, there is the chance that you were exposed to repiratory viruses during your time with us (such as flu or COVID-19). If you develop symptoms concerning for a viral respiratory infection, please seek testing (and treatment if indicated) from your medical provider or home test kit. ?? Disclaimer: The information provided is of a general nature and is intended to be used in conjunction with the recommendations and advice of your health care practitioner. Every effort has been made to ensure that the information provided is accurate and complete at the time it is provided to you however, as your needs change, or, as new information becomes available, different or additional instructions may be required. ?? If you have questions, please consult with your primary care provider or pharmacist, as appropriate. This information is not intended to serve as substitution for assessment and evaluation by a qualified health care provider. If you do not have a primary care provider, you may find a [facility] provider by calling [facility] [employer] [facility] at [phone]. Patient Care team information Care Team Personnel Name: Nagi Howard MD Position: Reference Physician Member Role: PCP Address: [address] [place], [place] [address] Telecom: Care Team Related Persons Name: SURI LEVY Name: MATTEO KUNZ Name: CHRISTIANO KUNZ Insurance Providers Guarantor name: CHAD KUNZ Health Plan Information #: 1 Payer: [facility] [employer] NON B[employer] HMO Member Number: [id number] Policy Number: NA Group Number: [id number] Health Plan Information #: 2 Payer: [facility] [employer] NON BHP HMO Member Number: [id number] Policy Number: NA Group Number: [id number]
--- OUTSIDE RECORDS SUMMARY | 2024-07-07 16:24 | XMS_ITS ---
Author Organization [facility] Address [address] [place] [address] Care Team Providers Care Adhesive Primer Name Role Phone Po Nagi HALE Primary Care Provider Cristino Jasso [phone] Encounters Encounter Location Date Provider Diagnosis [facility] [address] [place] [address] 01/17/2024 Cristino Cuello Plan Of Treatment Next Appt Details Provider Name:Cristino Cuello , 08/09/2024 04:20:00 PM, [address], [address], [place], [address], Progress Notes * SHANON KUNZB: 9 (43 yo F)Acc No.[id number]:01/17/2024 Patient:?CHAD KUNZ :1980???Age:43 Y???Sex:Female Address:[address] [place] [address], [address] * true * Date:? Generated for Printi yoan/Rene/eTransmitting on:?07/07/2024 04:24 PM EST
--- OUTSIDE RECORDS SUMMARY | 2024-07-07 16:25 | XMS_ITS ---
Author Organization [facility] Address [address] [place] [address] Care Team Providers Care Router Operator Pin Name Role Phone Po Nagi HALE Primary Care Provider Cristino Jasso [phone] REASON FOR VISIT Awaiting response Encounters Encounter Location Date Provider Diagnosis [facility] [address] [facility] [address] [place] [address] 01/19/2024 Cristino Cuello Plan Of Treatment Next Appt Details Provider Name:Cristino Cuello , 08/09/2024 04:20:00 PM, [address], [address], [place], [address], Progress Notes * SHANON KUNZB: 9 (43 yo F)Acc No.[id number]:01/19/2024 Patient:?CHAD KUNZ :1980???Age:43 Y???Sex:Female Address:[address] [place] [address], [address] * true * Date:? Generated for Printi yoan/Rene/eTransmitting on:?07/07/2024 04:24 PM EST
--- OUTSIDE RECORDS SUMMARY | 2024-07-07 16:25 | XMS_ITS ---
Author Organization [facility] Address [address] [place] [address] Care Team Providers Care Surgical Garment Inspector Name Role Phone Po Nagi HALE Primary Care Provider Cristino Jasso [phone] Allergies Allergen (clinical drug ingredient) Drug/Non Drug Allergy documented on EMR Reaction Allergy Type Onset Date Status oxaprozin Oxaprozin anaphylaxis,ellen na,n/v sob,swelling Drug Allergy Active tramadol Tramadol tremors Drug Allergy Active Latex Latex rash Allergy Active Levaquin swelling Drug Allergy Active REASON FOR VISIT Patient presents today for diarrhea Medications Medication SIG (Take, Route, Frequency, Duration) Notes Start Date End Date Status Multi Vitamin Daily - 1 tablet Orally Once a day for 30 day(s) 02/09/2024 Active Ashwagandha 500 MG as directed Orally 02/09/2024 Active Beet Root - as directed 02/09/2024 Activ e Cinnamon 500 MG as directed Orally 02/09/2024 Active Vitamin C 500 MG as directed Orally 02/09/2024 Active Probiotic - as directed Orally 02/09/2024 Active Flonase Allergy Relief 50 MCG/ACT 1 spray in each nostril Nasally Once a day for 30 day(s) 02/09/2024 Active Cholesterol - as directed 02/09/2024 Act silvana Green Tea 100 MG as directed Orally 02/09/2024 Active [place] 6 MG as directed Orally 02/09/2024 Active Chlorthalidone 25 MG TAKE 1 TABLET BY MOUTH EVERY DAY Oral for 90 Active Levothyroxine Sodium 50 MCG TAKE 1 TABLET BY MOUTH EVERY DAY IN THE MORNING Oral for 90 Active amLODIPine Besylate 2.5 MG TAKE 1 TABLET BY MOUTH EVERY DAY Oral for 90 For Raynaud's Active tylenol Not-Taking Acetaminophen-Codeine 300-60 MG TAKE 0.5 TABLETS BY MOUTH 2 (TWO) TIMES A DAY NEEDED FOR PAIN Oral for 7 Active Diclofenac Sodium 75 MG TAKE 1 TABLET BY MOUTH TWICE A DAY NEEDED Oral for 90 Active Lomotil 2.5-0.025 MG 1 or 2 tablets Orally Every 6 hours as needed for diarrhea for 30 days 02/09/2024 Active Multivitamin - 1 tablet Orally Once a day for 30 day(s) Active Omeprazole 20 MG 1 capsule 30 minutes before morning meal Orally Once a day for 30 day(s) Active Dicyclomine HCl 10 MG 1 or 2 capsules Orally Every 4 to 6 hours as needed for abdominal cramps/discomfort for 30 day(s) 02/09/2024 Active Elderberry 575 MG/5ML as directed Orally Active Coconut Oil - as directed 02/09/2024 Act silvana Chromium Picolinate 200 MCG 1 tablet Orally Once a day for 30 day(s) 02/09/2024 Active Hemp MonoPure - as directed Orally 02/09/2024 Active Melatonin 3 MG 1 tablet at bedtime as needed Orally Once a day for 30 day(s) 02/09/2024 Active Calcium 1 tab Oral for 14 days 02/09/2024 Active Biotin - as directed 02/09/2024 Active Magnesium 300 MG 1 capsule with a meal Orally Once a day for 30 day(s) 02/09/2024 Active Betamethasone - as directed 02/09/2024 A ctive Apple Cider Vinegar 500 MG as directed Orally 02/09/2024 Active Tart Borjas 1200 MG as directed Orally 02/09/2024 Active Vitamin D-3 125 MCG (5000 UT) 1 tablet Orally Once a day for 30 day(s) 02/09/2024 Active Turmeric 500 MG as directed Orally 02/09/2024 Active Immunizations Vaccine Route Administration Date [...] Interpretation Negative Section Notes: Nonsmoker; no alcohol Problems Problem Type SNOMED Code ICD Code Onset Dates Problem Status W/U Status Risk Notes Problem Abnormal weight loss (054929953) Abnormal weight loss (R63.4) Active confirmed Problem Irritable bowel syndrome with diarrhea (829008188) Irritable bowel syndrome with diarrhea (K58.0) Active confirmed Vital Signs Temperature 98.2 degrees Fahrenheit 02/09/20 24 Blood pressure systolic 000 mm Hg 02/09/20 24 Blood pressure diastolic 00 mm Hg 024 Height 5 ft 6 in in 02/09/2024 Weight 128 lb 8 oz lbs 02/09/2024 BMI 20.74 kg/m2 02/09/2024 Encounters Encounter Location Date Provider Diagnosis [facility] [address] [place] [address] 02/09/2024 Cristino Cuello Chronic diarrhea K52.9 ; Abnormal weight loss R63.4 and Irritable bowel syndrome with diarrhea K58.0 Assessments Encounter Date Diagnosis (ICD Code) Assessment Notes Treatment Notes Treatment Clinical Notes Section Notes 02/09/2024 Chronic diarrhea (ICD-10 - K52.9) I will send over prescriptions for the diarrhea and the abdominal cramps Avoid dairy with Lactose and any siugnificant amoiunts of caffeine. Given Angelina's clinical history and thus far negative workup [...] is on many different supplements and other mmlb-upp-vkquxov medications which can sometimes cause different side [...] biopsies prior to her next office visit. Angelina was comfortable with this plan. Thank you again for allowing me to participate in Angelina's care. I shall continue to keep you advised of her progress. 02/09/2024 Abnormal weight loss (ICD-10 - R63.4) Given Angelina's clinical history and thus far negative workup [...] is on many different supplements and other btlg-enh-vyplnrs medications which can sometimes cause different side [...] biopsies prior to her next office visit. Angelina was comfortable with this plan. Thank you again for allowing me to participate in Angelina's care. I shall continue to keep you advised of her progress. 02/09/2024 Irritable bowel syndrome with diarrhea (ICD-10 - K58.0) Given Angelina's clinical history and thus far negative workup [...] is on many different supplements and other llmp-wyn-jgpxuwj medications which can sometimes cause different side [...] biopsies prior to her next office visit. Angelina was comfortable with this plan. Thank you again for allowing me to participate in Angelina's care. I shall continue to keep you advised of her progress. Plan Of Treatment Medication Medication Name Sig Start Date Stop Date Notes Lomotil 2.5-0.025 MG 1 or 2 tablets Oral ly Every 6 hours as needed for diarrhea for 30 days 02/09/2024 Dicyclomine HCl 10 MG 1 or 2 capsules Or ally Every 4 to 6 hours as needed for abdominal cramps/discomfort for 30 day(s) 02/09/2024 Treatment Notes Assessment Notes Chronic diarrhea I will send over prescriptions for the diarrhea and the abdominal cramps Avoid dairy with Lactose and any siugnificant amoiunts of caffeine. Next Appt Details Follow Up: Spring 2024, Reas on: Provider Name:Cristino Cuello , 08/09/2024 04:20:00 PM, [address], [address], [place], [address], Progress Notes * SHANON KUNZB: 9 (43 yo F)Acc No.[id number]:02/09/2024 Progress Notes Patient:?ANGELINA KUNZ Provider:?Cristino Cuello MD :1980???Age:43 Y???Sex:Female D ate:02/09/2024 Address:[address] [place] [address] [address] [facility] Pcp:Nagi Howard MD Subjective: * Chief Complaints: * ???Patient presents today fo r diarrhea * HPI: ???incontinence:? I saw Angelina in followup today in regard to her ongoing issues with abdominal discomfort and diarrhea with associated weight loss. ?I last saw Angelina in August of 2023, at which time she underwent a colonoscopy for evaluation of both screening purposes and her diarrhea. This was basically unremarkable without any sign of polyps, inflammatory bowel disease, and with normal biopsies of the terminal ileum and colon. There was no evidence of any inflammatory bowel disease on the biopsies nor microscopic colitis. Since that procedure she reports that she has continued to have intermittent problems with abdominal cramps and bouts of diarrhea that can last for several days at a time and associated with weight loss. She was seen in the ER in January for these symptoms at which time a workup was negative including a CT scan of the abdomen, laboratories, and stool specimens. Laboratories during that ER visit included a normal CBC, normal chemistries other than a slightly low potassium level, normal LFTs including an albumin of 3.5, negative stool for C. difficile, and a negative stool GI panel. Her workup earlier in the year with me prior to the colonoscopy was also unremarkable including negative laboratories for celiac disease. ?She describes that these episodes of diarrhea did not improve with Imodium. She denies any significant signs of bleeding, fevers, vomiting, nor abdominal distention. She does describe abdominal cramps and some gas. She tries to avoid dairy and caffeine. ?She has lost over 10 pounds since she was here in July. * ROS:?General/Constitutional:?Change in appetite?denies.?Chills?denies.?Fatigue?admits.?Ophthalmologic:?Comments?all negative.?ENT:?Comments?all negative.?Respiratory:?hemoptysis?denies.?Cough?denies.?Cardiovascular:?Chest pain?denies.?Orthopnea?denies.?Gastrointestinal:?Comments?See HPI for details.?Genitourinary:?Hematuria?denies.?Dysuria?denies.?Musculoskeletal:?Painful joints?admits.?Weakness?denies.?Skin:?Itching?denies.?Rash?denies.?Neurologic:?Headache?denies.?Seizures?denies.?Psychiatric:?Comments?all negative.? * Medical History:? * Surgical History:?No Surgica l History documented. * Hospitalization/Major Diagno stic Procedure:?dehydration * Family History:?Father: dece ased, diagnosed with Heart disease, HTN (hypertension), Diabetes.?Mother: alive, afib.?Siblings: alive, brother, diagnosed with Colon polyps, Diabetes.? No known hx of colon cancer No IBD, celiac disease Brother with colon polyps. * Social History:?Tobacco Use:?Tobacco Use/Smoking?Patient is a?nonsmoker.?Drugs/Alcohol:?Alcohol Screen?Did you have a drink containing alcohol in the past year??No,?Points?0,?Interpretation?Negative.?Miscellaneous:?Marital status: . 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 ???Nonsmoker; no alcohol. * Medications:?TakingOmeprazol e 20 MG Capsule Delayed Release 1 capsule 30 minutes before morning meal Orally Once a dayMultivitamin - Tablet 1 tablet Orally Once a dayDiclofenac Sodium 75 MG Tablet Delayed Release TAKE 1 TABLET BY MOUTH TWICE A DAY NEEDED Oral amLODIPine Besylate 2.5 MG Tablet TAKE 1 TABLET BY MOUTH EVERY DAY Oral , Notes: For Raynaud'sAcetaminophen-Codeine 300-60 MG Tablet TAKE 0.5 TABLETS BY MOUTH 2 (TWO) TIMES A DAY NEEDED FOR PAIN Oral Levothyroxine Sodium 50 MCG Tablet TAKE 1 TABLET BY MOUTH EVERY DAY IN THE MORNING Oral Chlorthalidone 25 MG Tablet TAKE 1 TABLET BY MOUTH EVERY DAY Oral Probiotic - Capsule as directed Orally Cholesterol - Powder as directed Flonase Allergy Relief 50 MCG/ACT Suspension 1 spray in each nostril Nasally Once a dayBoron 6 MG Tablet as directed Orally Green Tea 100 MG Capsule as directed Orally Beet Root - Powder as directed Ashwagandha 500 MG Capsule as directed Orally Vitamin C 500 MG Capsule as directed Orally Cinnamon 500 MG Capsule as directed Orally Multi Vitamin Daily - Tablet 1 tablet Orally Once a dayTart Borjas 1200 MG Capsule as directed Orally Turmeric 500 MG Capsule as directed Orally Vitamin D-3 125 MCG (5000 UT) Tablet 1 tablet Orally Once a dayMagnesium 300 MG Capsule 1 capsule with a meal Orally Once a dayApple Cider Vinegar 500 MG Tablet as directed Orally Betamethasone - Powder as directed Biotin - Powder as directed Calcium 1 tab Oral Chromium Picolinate 200 MCG Tablet 1 tablet Orally Once a dayCoconut Oil - Oil as directed Elderberry 575 MG/5ML Syrup as directed Orally Melatonin 3 MG Tablet 1 tablet at bedtime as needed Orally Once a dayHemp MonoPure - Capsule Delayed Release as directed Orally Taking Omeprazole 20 MG Capsule Delayed Release 1 capsule 30 minutes before morning meal Orally Once a dayTaking Multivitamin - Tablet 1 tablet Orally Once a dayTaking Diclofenac Sodium 75 MG Tablet Delayed Release TAKE 1 TABLET BY MOUTH TWICE A DAY NEEDED Oral Taking amLODIPine Besylate 2.5 MG Tablet TAKE 1 TABLET BY MOUTH EVERY DAY Oral , Notes: For Raynaud'sTaking Acetaminophen-Codeine 300-60 MG Tablet TAKE 0.5 TABLETS BY MOUTH 2 (TWO) TIMES A DAY NEEDED FOR PAIN Oral Taking Levothyroxine Sodium 50 MCG Tablet TAKE 1 TABLET BY MOUTH EVERY DAY IN THE MORNING Oral Taking Chlorthalidone 25 MG Tablet TAKE 1 TABLET BY MOUTH EVERY DAY Oral Taking Probiotic - Capsule as directed Orally Taking Cholesterol - Powder as directed Taking Flonase Allergy Relief 50 MCG/ACT Suspension 1 spray in each nostril Nasally Once a dayTaking [place] 6 MG Tablet as directed Orally Taking Green Tea 100 MG Capsule as directed Orally Taking Beet Root - Powder as directed Taking Ashwagandha 500 MG Capsule as directed Orally Taking Vitamin C 500 MG Capsule as directed Orally Taking Cinnamon 500 MG Capsule as directed Orally Taking Multi Vitamin Daily - Tablet 1 tablet Orally Once a dayTaking Tart Borjas 1200 MG Capsule as directed Orally Taking Turmeric 500 MG Capsule as directed Orally Taking Vitamin D-3 125 MCG (5000 UT) Tablet 1 tablet Orally Once a dayTaking Magnesium 300 MG Capsule 1 capsule with a meal Orally Once a dayTaking Apple Cider Vinegar 500 MG Tablet as directed Orally Taking Betamethasone - Powder as directed Taking Biotin - Powder as directed Taking Calcium 1 tab Oral Taking Chromium Picolinate 200 MCG Tablet 1 tablet Orally Once a dayTaking Coconut Oil - Oil as directed Taking Elderberry 575 MG/5ML Syrup as directed Orally Taking Melatonin 3 MG Tablet 1 tablet at bedtime as needed Orally Once a dayTaking Hemp MonoPure - Capsule Delayed Release as directed Orally Not-Taking/PRNtylenol Medication List reviewed and reconciled with the patientNot-Taking/PRN tylenol Medication List reviewed and reconciled with the patient * Allergies:?Latex: rashLevaqu in: swelling Oxaprozin: anaphylaxis,angina,n/v sob,swellingTramadol: tremorsyes[Allergies Verified] Objective: * Vitals:?Wt: 128 lb 8 oz, Ht: 5 ft 6 in, BMI:20.74 Index, BP: 000/00 mm Hg, Temp: 98.2. * Examination: ???General Examination: ?GENERAL APPEARANCE:?pleasant, thin, alert female in no acute distress.?EYES:?sclera non-icteric.?ORAL CAVITY:?mucosa moist.?NECK/THYROID:?no cervical lymphadenopathy, neck supple.?SKIN:?nonjaundiced, no spider angiomata.?HEART:?S1, S2 normal.?LUNGS:?clear to auscultation bilaterally.?ABDOMEN:?normal bowel sounds, no guarding or rigidity, no guarding or rigidity, no masses palpable, soft, nontender, nondistended.?EXTREMITIES:?Bilateral pedal and pretibial edema.?NEUROLOGIC:?alert and oriented.? Assessment: * Assessment: 1.?Chronic diarrhea - K52.9 (Primary)?2.?Abnormal weight loss - R63.4?3.?Irritable bowel syndrome with diarrhea - K58.0? Given Angelina's clinical his tory and thus far negative workup including colonoscopy, [...] is on many different supplements and other tphw-xgx-lhqorhm medications which can sometimes cause different side [...] biopsies prior to her next office visit. Angelina was comfortable with this plan. Thank you again for allowing me to participate in Angelina's care. I shall continue to keep you advised of her progress. Plan: * Treatment: 2.?Irritable bowel syndrome with diarrhea? Start Dicyclomine HCl Capsule, 10 MG, 1 or 2 capsules, Orally, Every 4 to 6 hours as needed for abdominal cramps/discomfort, 30 day(s), 60, Refills 6.?? * Immunizations:? Influenza (Not administered - Refused: Patient decision) * Procedure Codes:?3017F COLOR ECTAL CA SCREEN DOC [id number] TOBACCO [id number] BP SCR NOT PRFRM REC REASON NOS * Follow Up:?Spring 2024 * * Sign off status: Completed true * Provider:?Cristino Cuello MD Date:? 024 Generated for Carol milton/Rene/Elizitting on:?07/07/2024 04:24 PM EST History and Physical Notes * HPI (History of Present Illness) Category Sub-Category Detail Notes Category Not es incontinence I saw Angelina in followup today in regard to her ongoing issues with abdominal discomfort and diarrhea with associated weight loss. I last saw Angelina in August of 2023, at which time she underwent a colonoscopy for evaluation of both screening purposes and her diarrhea. This was basically unremarkable without any sign of polyps, inflammatory bowel disease, and with normal biopsies of the terminal ileum and colon. There was no evidence of any inflammatory bowel disease on the biopsies nor microscopic colitis. Since that procedure she reports that she has continued to have intermittent problems with abdominal cramps and bouts of diarrhea that can last for several days at a time and associated with weight loss. She was seen in the ER in January for these symptoms at which time a workup was negative including a CT scan of the abdomen, laboratories, and stool specimens. Laboratories during that ER visit included a normal CBC, normal chemistries other than a slightly low potassium level, normal LFTs including an albumin of 3.5, negative stool for C. difficile, and a negative stool GI panel. Her workup earlier in the year with me prior to the colonoscopy was also unremarkable including negative laboratories for celiac disease. She describes that these episodes of diarrhea did not improve with Imodium. She denies any significant signs of bleeding, fevers, vomiting, nor abdominal distention. She does describe abdominal cramps and some gas. She tries to avoid dairy and caffeine. She has lost over 10 pounds since she was here in July. Examination Category Sub-Category Detail Notes Category Not es General Examination GENERAL APPEARANCE: pleasant , thin, alert female in no acute distress HEAD: EYES: sclera non-icteric EARS: NOSE: THROAT: NECK/THYROID: no cervical lymphade nopathy, neck supple HEART: S1, S2 normal CHEST: LUNGS: clear to auscultatio n bilaterally ABDOMEN: normal bowel sounds, no guarding or rigidity, no guarding or rigidity, no masses palpable, soft, nontender, nondistended NEUROLOGIC: alert and oriented SKIN: nonjaundiced, no spi brennon angiomata EXTREMITIES: Bilateral pedal and pretibial edema PERIPHERAL PULSES: BACK: BREASTS: MUSCULOSKELETAL: MALE GENITOURINARY: LYMPH NODES: RECTAL EXAM: FEMALE GENITOURINARY: ORAL CAVITY: mucosa moist
== END 2024-07-07 15:19 | disposition home or self-care (01) ==
PROVIDERS: PCP Internal Medicine; Visit Provider Hospitalist
DX: J44.89 Other specified chronic obstructive pulmonary disease (principal); J47.9 Bronchiectasis, uncomplicated; J84.9 Interstitial pulmonary disease, unspecified; R06.02 Shortness of breath; T78.40XA Allergy, unspecified, initial encounter; Z15.01 Genetic susceptibility to malignant neoplasm of breast; Z15.02 Genetic susceptibility to malignant neoplasm of ovary; Z15.09 Genetic susceptibility to other malignant neoplasm; R76.8 Other specified abnormal immunological findings in serum; D89.89 Other specified disorders involving the immune mechanism, not elsewhere classified
CPT/HCPCS: 99214

== ENCOUNTER 2024-09-19 15:33 | Outpatient (AMB) | payer OTHER, SELFPAY ==
--- NOTE | 2024-09-19 15:46 | A.OFFPC_ITS ---
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 of still positive will go for mastectomy. for the amlodipine and cilostazol for the raynauds use cold season only [facility] Medical History (Updated 09/19/24 @ 17:35 by Nagi Howard MD) Antisynthetase syndrome Etta-1 antibody positive TSH elevation Impaired glucose tolerance Allergies ILD (interstitial lung disease) Asthma-COPD overlap syndrome Raynaud's syndrome Asthma Onychomycosis Migraine Polymyositis GERD (gastroesophageal reflux disease) Family History Father Myocardial infarction Maternal Grandmother Ovarian cancer Social History Housing: House Alcohol intake: never Patient Tobacco Use Status: Never used Tobacco Tobacco use type: Cigarette e-Cigarette/Vaping Use: Never Used Second Hand Smoke Exposure: No service: No Current occupational status: employed Cognitive needs: No Hearing needs: No Vision needs: Yes Questionnaire PHQ-9 Over the last 2 weeks, how often have you been bothered by any of the following problems? 1. Little interest or pleasure in doing things: not at all 2. Feeling down, depressed, or hopeless: not at all 3. Trouble falling or staying asleep, or sleeping too much: not at all 4. Feeling tired or having little energy: more than half the days 5. Poor appetite or overeating: more than half the days 6. Feeling bad about yourself - or that you are a failure or have let yourself or your family down: not at all 7. Trouble concentrating on things, such as reading the newspaper or watching television: several days 8. Moving or speaking so slowly that other people could have noticed. Or the opposite - being so fidgety or restless that you have been moving around a lot more than usual: not at all 9. Thoughts that you would be better off or of hurting yourself in some way: not at all Total score: 5 52304 - PHQ-9 Billing: Yes Source: Developed by Drs. Cristino Robison, Stefany Garza, Chip Baldwin and colleagues, with an educational deb from [employer]. Thrive Questionnaire Date Thrive assessed: 09/19/24 I am a: Patient What is your living situation today?: I have a steady place to live Within the past 12 months, did the food you bought not last and you didn't have the money to get more?: Never true Within the past 12 months, did you worry whether your food would run out before you got money to buy more?: Never true Do you have trouble paying for medicines?: No Do you have trouble getting transportation to medical appointments?: No Do you have trouble paying your heating and electricity bill?: No Do you have trouble taking care of your child, family member or friend?: No Do you have trouble with day-to-day activities such as bathing, preparing meals, shopping, managing finances, etc.?: No Are you currently unemployed and looking for a job?: No Are you interested in more education?: Yes Please select the resources that you would like help with: None Currently or been in a relationship where the following occur: No concerns reported THRIVE Score: 0 AUDIT C Alcohol Use Questionnaire (AUDIT-C) 1. How often do you have a drink containing alcohol?: Never 3. How often do you have six or more drinks on one occasion?: Never Total Score: 0 JANY-7 AMB Questionnaire JANY-7 Date JANY - 7 assessed: 09/19/24 Feeling nervous, anxious, or on edge: 1 = Several days Not being able to stop or control worryin = Several days Worrying too much about different things: 0 = Not at all Trouble relaxin = Several days Being so restless that it is hard to sit still: 0 = Not at all Becoming easily annoyed or irritable: 1 = Several days Feeling afraid as if something awful might happen: 0 = Not at all Total JANY-7 score (0-4 normal; 5-9 mild; 10-14 moderate; 15-21 severe): 4 Source: Developed by Drs. Cristino Robison, Stefany Garza, Chip Baldwin and colleagues, with an educational deb from [employer]. JANY-7 Assessment Billing JANY-7 Assessment Tool: JANY-7 Assessment 35804 Physical exam (Primary Care) Vital Signs: Last Vital Signs Temp 97.5 F 09/19/24 15:57 Pulse 90 09/19/24 15:57 BP 104/70 09/19/24 15:57 Pulse Ox 99 09/19/24 15:57 Oxygen Delivery Method Room Air 09/19/24 15:57 BMI result Body Mass Index 21.5 Tobacco/Smoking Status: Tobacco use Status Tobacco use date assessed 06/20/24 09/19/24 15:46 Patient Tobacco Use Status Never used Tobacco 09/19/24 15:46 Tobacco use type Cigarette 09/19/24 15:46 e-Cigarette/Vaping Use Never Used 09/19/24 15:46 PHQ-9: PHQ-9 Score PHQ-9: Total score 5 09/19/24 16:29 Thrive Assessment: Date of Thrive Assessment Date Thrive assessed 09/19/24 09/19/24 16:03 Currently or been in a relationship where the following occur: No concerns reported Const General: alert; No acute distress Eyes Conjunctivae: conjunctivae normal Resp Auscultation: clear to auscultation bilaterally Cardio Rate: regular rate Rhythm: regular rhythm GI Inspection: Yes normal to inspection Extrem General: Yes normal to inspection and No edema Coding Level of Care Code Est Pt Level 4 (57946) Complex EM visit Add On G2211 Diagnoses BRCA1-associated protein-1 tumor predisposition syndrome Z15.01; Z15.02; Z15.09 ILD (interstitial lung disease) J84.9 Asthma-COPD overlap syndrome J44.89 Hypercholesterolemia E78.00 Acquired hypothyroidism E03.9 Hypothyroidism type: acquired Impaired fasting blood sugar R73.01 Lymphedema I89.0 Gastroesophageal reflux disease without esophagitis K21.9 Esophagitis presence: without esophagitis Polymyositis M33.20 Sjogren syndrome M35.00 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 Additional Codes JANY-7 Assessment Billing - JANY-7 Assessment Tool: JANY-7 Assessment 32895 ([id number]) PHQ-9 - 90147 - PHQ-9 Billing: Yes ([id number]) Assessment & Plan Assessment & Plan (1) BRCA1-associated protein-1 tumor predisposition syndrome: Comment: Increased breast cancer risk, ovarian cancer risk and pancreatic cancer risk Code(s): Z15.01 - Genetic susceptibility to malignant neoplasm of breast; Z15.02 - Genetic susceptibility to malignant neoplasm of ovary; Z15.09 - Genetic susceptibility to other malignant neoplasm Category: Medical Plan: Patient is being followed up by the [facility] and following up with Gynecologic Oncology as well as discussions about mastectomy. (2) ILD (interstitial lung disease): Comment: secondary to MTX, although also could be related to CTD Code(s): J84.9 - Interstitial pulmonary disease, unspecified Category: Medical Plan: Continue to follow-up with Pulmonary and CT scan follow-up requested (3) Asthma-COPD overlap syndrome: Code(s): J44.89 - Other specified chronic obstructive pulmonary disease Category: Medical Plan: Continue with Spiriva and short-acting albuterol inhaler as well as QVAR (4) Hypercholesterolemia: Code(s): E78.00 - Pure hypercholesterolemia, unspecified Category: Medical Plan: Avoid fried foods, chicken skin, eggs, butter margarine, pastries and meat. Be it pork or beef they have a lot of cholesterol continue to follow-up with blood work (5) Hypothyroid: Code(s): E03.9 - Hypothyroidism, unspecified Category: Medical Qualifiers: Hypothyroidism type: acquired Qualified Code(s): E03.9 - Hypothyroidism, unspecified Plan: Continue with thyroid medication (6) Impaired fasting blood sugar: Code(s): R73.01 - Impaired fasting glucose Category: Medical Plan: Decrease the amount of carbohydrate intake, pasta, bread, rice and potatoes are all sugar and that is aside from all the sweet stuff, remember that fruits are good but they are Sweet also. (7) Lymphedema: Code(s): I89.0 - Lymphedema, not elsewhere classified Category: Medical Plan: Patient has been placed on the diuretic but When sitting down elevate the legs, exercise, and support stockings (8) GERD (gastroesophageal reflux disease): Code(s): K21.9 - Gastro-esophageal reflux disease without esophagitis Category: Medical Qualifiers: Esophagitis presence: without esophagitis Qualified Code(s): K21.9 - Gastro-esophageal reflux disease without esophagitis Plan: Avoid the foods that causes that usually spicy foods, tomato products, juices, coffee, soda and foods that your sensitive to. After eating do not lie down, allow 3-4 hours before in lie down. And keep the head of bed above 30 degrees to avoid the acid from going up. (9) Polymyositis: Comment: Dr. Kebede September 2019 Dr. Montoya Code(s): M33.20 - Polymyositis, organ involvement unspecified Category: Medical Plan: Continue to follow-up with Rheumatology (10) Sjogren syndrome: Code(s): M35.00 - Sjogren syndrome, unspecified Category: Medical Plan: Patient follows up with Rheumatology (11) Antisynthetase syndrome: Code(s): D89.89 - Other specified disorders involving the immune mechanism, not elsewhere classified Category: Medical Plan: Follows up with Rheumatology Plan History of Present Illness The patient is a 43-year-old female presenting with a request for a follow-up for her multiple chronic conditions. She has a history of Gastroesophageal Reflux Disease (GERD), polymyositis, and migraine. Additionally, she experiences generalized anxiety disorder, hypothyroidism and hypercholesterolemia. She was previously diagnosed with asthma-COPD overlap syndrome, a condition further compounded by interstitial lung disease, detected as brexa positive. She reports regular follow-ups with [facility] for atopic dermatitis, urticaria, and chronic rhinitis, for which she is managed with ipratropium bromide mesospray and Madai. The patient also experiences orthostatic symptoms with lower extremity edema, bringing about concerns of possible lymphedema. She was evaluated at the lymphedema clinic, where support stockings were advised as well as Lasix in conjunction with chlorthalidone for her Raynaud's phenomenon. Her management includes amlodipine, and periodically sees pulmonary specialists. The previous consultations indicated further lung evaluation with a computed tomography (CT) scan and continuation of inhalers such as Qvar, Spiriva, and a short-acting albuterol inhaler. In terms of her oncology follow-up, the patient has been advised to maintain regular surveillance at the [facility], continuing her discussions regarding mastectomy options and monitoring of ovarian and pancreatic findings. She is in regular contact with gynecologic oncology for this purpose. Additionally, she had a previous history of melanoma, which is to be considered in her follow-up planning. Her last blood work, conducted in January 2024, showed an elevated blood glucose level at 116 mg/dL but was otherwise normal, including complete blood count and renal function. Health Maintenance - Mammogram: Due for screening, not yet performed. - Colonoscopy: Scheduled for August 2023. - Blood work: Normal complete blood count and renal function; blood glucose level noted as 116 mg/dL in January 2024. - Diabetes monitoring: Hemoglobin A1c previously noted at 5.9%. Social History Review of Systems - Respiratory: Reports dyspnea, managed with Spiriva, Qvar, and albuterol. - Dermatologic: Reports atopic dermatitis, urticaria with management including Madai. - Cardiovascular: Reports lower extremity edema; concerns regarding lymphedema. - Psychiatric: Reports generalized anxiety disorder. Physical Exam Results - Labs: Last blood work in January 2024 showed normal complete blood count, normal renal function; noted elevated blood glucose at 116 mg/dL, normal electrolytes, low potassium identified previously. - Imaging: Follow-up CT of the chest recommended. Plan For management of her asthma-COPD overlap syndrome and interstitial lung disease, the plan includes ongoing use of Spiriva, Qvar, and a short-acting albuterol inhaler, with a follow-up CT scan of the chest as discussed. Her thyroid medication is to continue unchanged as recent TSH was normal. Hypercholesterolemia is to be monitored through regular lipid profile panels. She will continue using prescribed medications for allergic symptoms and maintain follow-ups with her explosive ordnance disposal specialist. For her lower extremity edema, continued use of Lasix and chlorthalidone is advised for alleviating symptoms associated with Raynaud's and lymphedema, including wearing support stockings. The patient is advised to maintain follow-ups with the [facility], gynecologic oncology, and her beach attendant, and plans for her cancer surveillance strategies including mastectomy and screening for ovarian and pancreatic cancer will be reviewed as per her oncology team's recommendations. Patient was informed and verbally consented to the use of an ambient scribe for clinic note documentation during this visit. Discussion Notes I discussed with the patient the importance of continued surveillance and management of her multiple chronic conditions. In particular, we reviewed the necessity of adhering to her inhaler regimen and pursuing a follow-up CT scan for effective management of her asthma-COPD overlap syndrome and interstitial lung disease. We reviewed her allergies management regimen and stressed maintaining her appointments with her explosive ordnance disposal specialist. The need to continue with her thyroid and diuretic medications was reinforced, alongside routine surv eillance of her previous melanoma and deliberations on potential mastectomy options with her oncology team. We discussed concerns with her lower extremity edema and strategies for management at home. Follow-up scheduling with her various specialists was strongly recommended. Patient Instructions - Continue using your prescribed inhalers: Spiriva, Qvar, and the short-acting albuterol inhaler as directed. - Follow up on the scheduled CT scan of your chest. - Take your thyroid medication daily as prescribed. - Keep using Lasix and chlorthalidone as instructed for swelling and wear your support stockings regularly. - Use your allergy medications as prescribed and maintain your follow-ups with your explosive ordnance disposal specialist. - Keep up with your appointments at the [facility] and gynecologic oncology for regular cancer screenings and discussions. - Monitor your symptoms and contact your healthcare provider if you notice worsening or new symptoms. - Stick to your upcoming mammogram and colonoscopy schedules for routine health maintenance. - Drink fluids as recommended to help with your low potassium levels and report any significant changes in your health. Orders: Orders Complete Blood Count Auto Diff Today M33.20 - Polymyositis, organ involvement unspecified Comprehensive Met. Panel Today M33.20 - Polymyositis, organ involvement unspecified Lipid Panel Today E78.00 - Pure hypercholesterolemia, unspecified, M33.20 - Polymyositis, organ involvement unspecified Free T4 (Free Thyroxine) Today M33.20 - Polymyositis, organ involvement unspecified UA CC w/rflx Micro + Cult Today M33.20 - Polymyositis, organ involvement unspecified, R30.0 - Dysuria Thyroid Stimulating Hormone Today M33.20 - Polymyositis, organ involvement unspecified Microalbumin, Random (w Creat) Today E11.65 - Type 2 diabetes mellitus with hyperglycemia, M33.20 - Polymyositis, organ involvement unspecified Erythrocyte Sedimentation Rate Today . - Polymyositis, organ involvement unspecified C Reactive Protein Today . - Polymyositis, organ involvement unspecified Magnesium Today . - Polymyositis, organ involvement unspecified IRON PROFILE Today . - Polymyositis, organ involvement unspecified Ferritin Today . - Polymyositis, organ involvement unspecified Vitamin B12 and Folate Today - Polymyositis, organ involvement unspecified Vitamin D 25-OH Total Today - Polymyositis, organ involvement unspecified Hemoglobin A1c Today . - Polymyositis, organ involvement unspecified
[2024-09-19 15:57] VITALS: BP 104/70; PULSE 90; TEMP 36.4; O2SAT 99; BMI 21.5
--- OUTSIDE RECORDS SUMMARY | 2024-09-19 16:31 | XMS_ITS | Clinical Summary ---
Author Organization [address] [facility] Address [address] [place] [address] Phone Care Team Providers Care Chemical Dependency Professional Name Role Phone Nagi Howard MD Primary Care Provider [phone] Allergies Active Allergy Reactions Criticality Noted Date Comments Latex Rash High 07/21/2023 Burning, Itching, Rash Levofloxacin Medium 07/21/2023 Bloating and stomach pain Oxaprozin Anaphylaxis High 07/21/2023 Tramadol Anaphylaxis High 07/21/2023 Tremors and shakes Medications BETAMETHASONE DIPROPIONATE TOP Apply topically if needed. Active diclofenac sodium/misoprost ol (DICLOFENAC-MISO PROSTOL ORAL) Take 75 mg by mouth 1 (one) time each day. Active amLODIPine (NORVASC) 5 mg tablet Take 1 tablet (5 mg total) by mouth 1 (one) time each day. Active chlorthalidone (HYGROTON) 25 mg tablet TAKE 1 TABLET BY MOUTH EVERY DAY 90 tablet 2 04/12/20 24 Active acetaminophen-co deine (TYLENOL #4) 300-60 mg per tablet Take 1 tablet by mouth 2 (two) times a day if needed for moderate pain. Active cilostazoL (PLETAL) 50 mg tablet Take 1 tablet (50 mg total) by mouth 2 (two) times a day. Active gabapentin (NEURONTIN) 100 mg capsule Take 2 capsules (200 mg total) by mouth 1 (one) time each day in the morning. Active mycophenolate (CellCept) 250 mg capsule Take 1 capsule (250 mg total) by mouth 2 (two) times a day. Active dicyclomine (BENTYL) 10 mg capsule Take 1-2 capsules (10-20 mg total) by mouth. Every 4-6 hours/prn 02/09/20 24 Active LomotiL 2.5-0.025 mg per tablet Take 1-2 tablets by mouth once daily as needed. 02/09/20 24 Active tacrolimus (PROTOPIC) 0.1 % ointment if needed. 05/16/19 25 Active furosemide (LASIX) 20 mg tabletIndication s:Localized edema Take 1 tablet (20 mg total) by mouth 1 (one) time each day. 30 each 07/12/19 026 Active Additional Information Patient not taking.Reported on 09/18/2024 gabapentin (NEURONTIN) 400 mg capsule Take 1 capsule (400 mg total) by mouth at bedtime. Active levothyroxine (SYNTHROID, LEVOTHROID) 50 mcg tablet Take 1 tablet (50 mcg total) by mouth 1 (one) time each day before breakfast. Active progesterone (PROMETRIUM) 100 mg capsule Take 1 capsule (100 mg total) by mouth at bedtime. Active aspirin/acetamin ophen/caffeine (EXCEDRIN MIGRAINE ORAL) Take 2 tablets by mouth 1 (one) time each day. Active green tea leaf extract (Green Tea) 250 mg capsule Take 2 capsules by mouth 2 (two) times a day. Active RED BEET ORAL Take 2 capsules by mouth 1 (one) time each day. Active coffee extract (GREEN COFFEE MARQUEZ ORAL) Take 1 capsule by mouth 1 (one) time each day. Active COCONUT OIL ORAL Take 2 capsules by mouth 1 (one) time each day. Active MULTIVITAMIN ORAL Take 1 tablet by mouth 1 (one) time each day. Active berberine chloride 500 mg capsule Take 1 capsule by mouth 3 (three) times a day. Active ELDERBERRY FRUIT ORAL Take 1 capsule by mouth 1 (one) time each day. Active calcium carbonate (OS-JOSE) 1250 mg (500 mg elemental calcium) chewable tablet Chew 1 tablet (1,250 mg total) 2 (two) times a day. Active Cinnamon 500 mg capsule Take 1 capsule (500 mg total) by mouth 1 (one) time each day. Active Vitamin C tablet Take 1 tablet (100 mg total) by mouth 3 (three) times a day. Active levothyroxine (SYNTHROID, LEVOTHROID) 75 mcg tablet Take 1 tablet (75 mcg total) by mouth 1 (one) time each day before breakfast. 025 Discontinu ed(Discont inued by another clinician) Active Problems Problem Noted Date Diagnosed Date Raynaud's disease 07/11/2024 Assessment & Plan (07/11/2024 2:53 PM EDT): Patient remains on amlodipine for treatment of her Raynaud's. No complaints Lymphedema 03/07/2024 Assessment & Plan (07/11/2024 2:53 PM EDT): Patient is been seen multiple times at the lymphedema clinic they taught her how to do the appropriate exercises and felt that she was compliant with them and that you go to home management for self-management. The above note was prepared with the help of voice recognition software. Please excuse any grammatical or spelling errors that may have occurred Hypertension 10/22/2023 Overview (04/11/2024): Last Assessment & [...] monitor at home and let us know. Assessment & Plan (09/18/2024 6:28 PM EDT): Blood pressure is well-controlled even off the amlodipine transfer text Orders: ECG 12 lead Assessment & Plan (07/11/2024 2:53 PM EDT): Orders: ECG 12 lead Edema 07/21/2023 Overview (04/11/2024): Last Assessment & [...] placed a referral for the lymphedema clinic. Assessment & Plan (09/18/2024 6:28 PM EDT): Edema has resolved with the discontinuation of amlodipine and support socks. Told the patient that she could take as needed Lasix now as needed but no more than 3 days in a row that she has to take more than 3 days in a row she needs to let us know so we can ensure that her electrolytes are within normal limits.. She states that in the summer months when it is warm she can discontinue the amlodipine and the Pletal and her Raynaud's is under excellent control. Its only in the winter months that she has to go on the medical therapy. So where to use Lasix on a as needed basis Orders: ECG 12 lead Assessment & Plan (07/11/2024 2:53 PM EDT): Patient is extremely concerned about her edema though I still think it is lymphedema and I am not sure whether the exercises that she was taught at the lymphedema clinic are really helping or not she says she has been compliant with them. She has support stockings in place. There is mild lower extremity edema. Patient will be started on 20 mg of Lasix along with the chlorthalidone just to see if we can mobilize any volume she doing a lab slip to check a basic metabolic profile I warned her that she may become mildly dehydrated by doing this Orders: furosemide (LASIX) 20 mg tablet; Take 1 tablet (20 mg total) by mouth 1 (one) time each day. Basic metabolic panel; Future Palpitations 07/19/2023 Overview (04/11/2024): Last Assessment & Plan: Patient continues to have palpitations albeit do not seem to be bothering her as frequently. Will continue to monitor this. Encounters Date Type Department Care Team Description 09/18/2024 3:30 PM EDT Office Visit [facility] Cardiology [facility] [address] [place] [address] Marissa Roman MD Hypertension, unspecified type (Primary Dx); Edema, unspecified type 08/02/2024 Telephone [facility] Cardiology [facility] [address] [place] [address] Marissa Roman MD lab order 07/11/2024 2:00 PM EDT Office Visit [facility] Cardiology [facility] [address] [place] [address] Marissa Roman MD Palpitations (Primary Dx); Hypertension, unspecified type; Localized edema; Raynaud's disease without gangrene; Lymphedema from Last 3 Months Medical History Medical History Date Comments Migraine DX:Migraine Asthma DX:Asthma Onychomycosis DX:Onychomycosis GERD (gastroesophageal reflux disease) DX:GERD (gastroesophageal reflux disease) Polymyositis (CMS/HCC V24, CMS/HCC V28) DX:Polymyositis ([facility]) Raynaud's syndrome DX:Raynaud's syndrome Edema, lower extremity DX:Edema, lower extremity Lymphedema DX:Lymphedema 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 DX:Varicose veins of right l ower extremity with inflammation Family History Medical History Relation Name Comments Other: myocardial infarction Father Relation Name Status Comments Father Social History Tobacco Use Types Packs/Day Years Used Date Smoking Tobacco: Never Passive Smoke Exposure: Past Smokeless Tobacco: Never Tobacco Cessation:Counseling Given: Not Answered Alcohol Use Standard Drinks/Week Comments Never 0 (1 standard drink = 0.6 oz pur e alcohol) Comments Unknown Sex and Gender Information Value Date Recorded Sex Assigned at Not on file Legal Sex Female 1:39 PM EDT Gender Identity Not on file Sexual Orientation Not on file Obstetrics History Last Filed Vital Signs Vital Sign Reading Time Taken Comments Blood Pressure 116/70 07/11/2024 2:03 PM EDT Pulse 90 09/18/2024 3:53 PM EDT Temperature - - Respiratory Rate - - Oxygen Saturation 99% 09/18/2024 3:53 PM EDT Inhaled Oxygen Concentration - - Weight 57.6 kg (127 lb) 09/18/2024 3:53 PM EDT Height 162.6 cm (5' 4 ) 09/18/2024 3:53 PM EDT Body Mass Index 21.8 09/18/2024 3:53 PM EDT Plan of Treatment Upcoming Encounters Date Type Department Care Team (Late st Contact Info) Description 03/19/2025 2:40 PM EST Office Visit [facility] Cardiology [facility] [address] [place] [address] Flori Pleitez, KATERYNA [address] [place] [address] [address] [place] [address] Health Maintenance Due Date Last Done Comments [...] Influencers of Health Screening 11/30/2023 Influenza Vaccine (Season Ended) 2025 Hypertension/CHF/CAD Annual BMP Blood Test 08/05/2025 08/05/2024, 04/19/2024, 01/28/2024, Additional history exists DTaP,Tdap,and Td Vaccines (2 [...] age to complete this topic Meningococcal B Vaccine Aged Out No l onger eligible based on patient's age to complete [...] Procedure Name Priority Date/Time Associated Diagnosis Comments ECG 12-LEAD Routine 09/18/2024 4:11 PM EDT Hypertension, unspecified type Edema, unspecified type BASIC METABOLIC PANEL Routine 08/05/2024 10:17 AM EDT Palpitations Hypertension, unspecified type ECG 12-LEAD Routine 07/11/2024 2:16 PM EDT Hypertension, unspecified type from Last 3 Months Results * ECG 12 lead (09/18/2024 4:11 PM EDT) Only the most recent of2 resultswithin the time period is included. Ventricular Rate ECG 85 BPM GEMUSE Atrial Rate 85 BPM GEMUSE P-R Interval 152 ms GEMUSE QRS Duration 70 ms GEMUSE Q-T Interval 346 ms GEMUSE QTc 411 ms GEMUSE P Wave Colden 81 degrees GEMUSE R Colden 80 degrees GEMUSE T Cold[place] 47 degrees GEMUSE ECG Interpretation Normal sinus rhythm Septal infarct , age undetermined T wave abnormality, consider anterior ischemia Abnormal ECG When compared with ECG of 11-JUL-2024 14:16, ST elevation now present in Inferior leads Confirmed by Stephanie ROMAN, MARISSA ([id number]) on 09/18/2024 5:17:47 PM GEMUSE 09/18/2024 4:11 PM EDT 09/18/2024 5:17 PM EDT us Marissa Roman MD ECG ORDERABLES Final Result GEMUSE * (ABNORMAL) Basic metabolic panel (08/05/2024 10:17 AM EDT) Glucose 109(H) 70 - 99 mg/dL [facility] 1 Blood Urea Nitrogen (BUN) 31(H) 6 - 24 mg/dL [facility] 1 Creatinine 0.74 0.57 - 1.00 mg/dL [facility] 1 eGFR 102 >59 mL/min/1.7 3 [facility] 1 BUN/Creatinine Ratio 42(H) 9 - 23 [facility] 1 Sodium 137 134 - 144 mmol/L [facility] 1 Potassium 4.2 3.5 - 5.2 mmol/L [facility] 1 Chloride 99 96 - 106 mmol/L [facility] 1 Carbon Dioxide 23 20 - 29 mmol/L [facility] 1 Calcium 9.7 8.7 - 10.2 mg/dL [facility] 1 Blood Venous blood specimen / Unknown 08/05/2024 10:17 AM EDT 08/05/2024 Narrative [facility] 1 - 08/06/2024 7:06 AM EDT Performed at: ??01 - [facility] [address] ??[id number] Circular Distributor: Mary Tena MD, Phone: ??[phone] us Marissa Roman MD LAB BLOOD ORDERABLES Final Res ult [facility] 1 from Last 3 Months Insurance [facility] Care Teams Chemical Dependency Professional Relationship Specialty Start Date End Date Nagi Howard MD [address] [place] [address] [address] [facility] [place] [address] PCP - General 05/24/23
--- OUTSIDE RECORDS SUMMARY | 2024-09-19 16:31 | XMS_ITS | Continuity of Care Document ---
Author Organization [facility] Address [address] [place] [address], [address] [place] [address]- Care Team Providers Care Box Cutter Name Role Phone Po Nagi HALE Primary Care Physician [phone] Encounter [facility] Date(s): 08/15/24 - 09/14/24 [facility] [address] [place] [address], [address] [place], [place] [address] Attending Physician: Tonya Campos Admitting Physician: Tonya Campos Referring Physician: Tonya Campos Encounter Type: Triage Allergies, Adverse Reactions, Alerts Substance Criticality Severity Reaction Reaction Severity Status oxaprozin anaphlaxis Active traMADol anxiety Active Levaquin upset stomach Active Latex rash Active Medications Acetaminophen-Caffeine See Instructions, PRN Headache, [...] Date: 01/22/16 Status: Ordered Repeat number: 1 CellCept 2 times a day, 0 Refills, Maintenance, 07/11/24 3:15:00 PM EDT, Partial fill upon patient request ifthe prescription is for a schedule II opioid drug. Start Date: 07/11/24 Status: Ordered Repeat number: 1 chlorthalidone 25 [...] Refills, Maintenance, 02/22/24 9:01:00 AM EDT, Tablet, [facility]/pharmacy #[id number], Partial fill upon patient request if the [...] Date: 05/04/17 Status: Ordered Repeat number: 1 gabapentin 100 mg oral capsule 200 mg, 2, capsule, By Mouth, 4 times a day, # 720 capsule, Refills 0, Maintenance, 07/11/24 3:15:00PM EDT, Partial fill upon patient request if the prescription is for a schedule II opioid drug. Start Date: 07/11/24 Status: Ordered Quantity: 720.0 Unit: capsule Repeat number: 1 levothyroxine 0.025 mg oral [...] Date: 01/22/16 Status: Ordered Repeat number: 1 Omeprazole = 20 mg, By Mouth, Daily, [...] Date: 01/22/16 Status: Ordered Repeat number: 1 Multivitamins with [...] 3 Refills, Maintenance, 06/04/24 8:35:00 AM EST, [facility]/pharmacy #[id number], 163, cm, 03/27/24 15:36:00 EST, Height, 59.6, kg, 03/27/24 15:36:00 EST, Dry Weight Start Date: 06/04/24 Status: Ordered Quantity: 90.0 Unit: capsule Repeat number: 4 Qvar Redihaler 40 mcg/inh inhalation aerosol 1 inhalation = 40 mcg, Inhalation, 2 times a day, # 10.6 Gm, 0 Refills, Maintenance, 07/11/24 3:16:00 PM EDT, Aerosol, Partial fill upon patient request if the prescription is for a schedule II opioiddrug. Start Date: 07/11/24 Status: Ordered Quantity: 10.6 Unit: g Repeat number: 1 Spiriva = 18 mcg, Inhalation, Daily, 0 Refills, Maintenance, 07/11/24 3:16:00 PM EDT, Partial fill upon patient request if the prescription is for a schedule II opioid drug. Start Date: 07/11/24 Status: Ordered Repeat number: 1 turmeric = 1,000 mg, By Mouth, Daily [...] List Condition Confirmation Course Effective Dates Status H ealth Status Informant Asthma Confirmed Active Asthma Confirmed Active COPD (chronic obstructive pulmonary disease) Confirmed Active GERD (gastroesophageal reflux disease) Confirmed Active ILD (interstitial lung disease) Confirmed Active Onychomycosis Confirmed Active Polymyositis Confirmed Active Raynaud's syndrome Confirmed Active Social History Social History Type Response Smoking Status Never (less than 100 in lifetime) entered on: 08/15/24 Sex Female Sex Representation Female (finding) Laboratory * Event Display: Non [facility] Lab Results Authored Date: * Event Display: Non [facility] Lab Results Authored Date: * Event Display: Non [facility] Lab Results Authored Date: * Event Display: Non [facility] Lab Results Authored Date: Patient Care team information Care Team Personnel Name: Nagi Howard MD Position: Reference Physician Member Role: PCP Address: [address] [place] [id number] Telecom: Care Team Related Persons Name: SURI LEVY Name: MATTEO KUNZ Name: CHRISTIANO KUNZ Insurance Providers Guarantor name: CHAD KUNZ Health Plan Information #: 1 Payer: [facility] NON P HMO Member Number: NA Policy Number: NA Group Number: NA
--- OUTSIDE RECORDS SUMMARY | 2024-09-19 16:31 | XMS_ITS | Patient Health Record ---
Author Organization [facility] Address [address] [place] [phone] Care Team Providers Care Package Winder Name Role Phone Po Nagi HALE Primary Care Provider Cristino Jasso [phone] Allergies Allergen (clinical drug ingredient) Drug/Non Drug Allergy documented on EMR Reaction Allergy Type Onset Date Status oxaprozin Oxaprozin anaphylaxis,ellen na,n/v sob,swelling Drug Allergy Active tramadol Tramadol tremors Drug Allergy Active Latex Latex rash Allergy Active Levaquin swelling Drug Allergy Active Reason For Referral No Information Medications Medication [...] 100 MG as directed Orally 02/09/2024 Active [place] 6 MG as directed Orally 02/09/2024 Active [...] Risk Notes Problem Diverticular disease of colon (157345286) Diverticulosis of large intestine without perforation or abscess without bleeding (K57.30) Active confirmed Problem Irritable bowel syndrome with diarrhea (838004232) Irritable bowel syndrome with diarrhea (K58.0) Active confirmed Problem Abnormal weight loss (159303682) Abnormal weight loss (R63.4) Active confirmed Problem Chronic diarrhea (509202717) Chronic diarrhea (K52.9) Active confirmed Vital Signs Temperature 98.2 degrees Fahrenheit 02/09/2024 Blood pressure diastolic 00 mm Hg 02/09/2024 Height 5 ft 6 in in 02/09/2024 Blood pressure systolic 000 mm Hg 02/09/2024 Weight 128 lb 8 oz lbs 02/09/2024 BMI 20.74 kg/m2 02/09/2024 Encounters Encounter Location Date Provider Diagnosis [facility] [address] [place] [phone] 02/09/2024 Cristino Cuello Chronic diarrhea K52.9 ; Abnormal weight loss R63.4 and Irritable bowel syndrome with diarrhea K58.0 [facility] [address] [place] [phone] 12/30/2023 Cristino Cuello [facility] [address] [place] [phone] 01/14/2024 Cristino Cuello [facility] [address] [place] [phone] 01/17/2024 Cristino Cuello [facility] [address] [place] [phone] 08/08/2024 Cristino Cuello [facility] [address] [place] [phone] 01/19/2024 Cristino Cuello Assessments Encounter Date Diagnosis (ICD Code) Assessment Notes Treatment Notes Treatment Clinical Notes Section Notes 02/09/2024 Abnormal weight loss (ICD-10 - R63.4) [...] is on many different supplements and other kpnw-qgb-vjltcor medications which can sometimes cause different side [...] is on many different supplements and other plzg-xbg-pdsdnli medications which can sometimes cause different side [...] is on many different supplements and other eppn-szm-jaudbgp medications which can sometimes cause different side [...] advised of her progress. Plan Of Treatment Pending Test Test Name Order Date LIVER PROFILE 07/20/2023 CRP 07/20/2023 CBC w DIFF 07/20/2023 SED RATE (ESR) 07/20/2023 CELIAC PANEL #10 07/20/2023 STOOL WBC 07/20/2023 C DIFFICILE RFLX PCR 07/20/2023 GI PANEL 07/20/2023 GI PANEL 07/27/2023 Future Test Test Name Order Date COLONOSCOPY 07/20/2023 Next Appt Details Provider Name:Cristino Cuello , 11/22/2024 04:20:00 PM, [address], [address], [place], [address], Insurance Providers Payer Name Payer Address Payer Phone Subscriber Number Group Number Insured Name Patient Relationship to Insured Coverage Start Date Coverage End Date [facility] [address] [address] [place] [address] [id number] ANGELINA KUNZ Self - patient is the insured Medical (General) History Medical History History ICD Code Polymyositis- she sees a silver miner blasting, Dr. Kebede, at [facility] Hx of gastroparesis--Dr. Blank morel--describes an upper endoscopy > 10 years ago--she describes that those symptoms resolved without any specific treatment Raynauds Denies AL,DM,CVA,renal disease Diarrhea-laboratories were negative for celiac disease [...]
--- OUTSIDE RECORDS SUMMARY | 2024-09-19 16:32 | XMS_ITS | Encounter Summary ---
Author Organization [facility] Address [address] [place] [address] Care Team Providers Care Cut Out Press Operator Name Role Phone Nagi Howard MD Primary Care Provider [phone] Reason for Visit * Reason Comments Follow-up Encounter Details Date Type Department Care Team (Late st Contact Info) Description 09/18/2024 3:30 PM EDT Office Visit [facility] Cardiology [address] [place] [address] Marissa Roman MD [address] [place] [address] [address] [place] [address] Hypertension, unspecified type (Primary Dx); Edema, unspecified type Social History Tobacco Use Types Packs/Day Years Used Date Smoking Tobacco: Never Passive Smoke Exposure: Past Smokeless Tobacco: Never Alcohol Use Standard Drinks/Week Comments Never 0 (1 standard drink = 0.6 oz pur e alcohol) Comments Unknown Sex and Gender Information Value Date Recorded Sex Assigned at Not on file Legal Sex Female 1:39 PM EDT Gender Identity Not on file Sexual Orientation Not on file documented as of this encounter Last Filed Vital Signs Vital Sign Reading Time Taken Comments Blood Pressure - - Pulse 90 09/18/2024 3:53 PM EDT Temperature - - Respiratory Rate - - Oxygen Saturation 99% 09/18/2024 3:53 PM EDT Inhaled Oxygen Concentration - - Weight 57.6 kg (127 lb) 09/18/2024 3:53 PM EDT Height 162.6 cm (5' 4 ) 09/18/2024 3:53 PM EDT Body Mass Index 21.8 09/18/2024 3:53 PM EDT documented in this encounter Progress Notes * Marissa Roman MD - 09/18/2024 3:30 PM EDTAssociated Problem(s): Hypertension Blood pressure is well-controlled even off the amlodipine transfer text Orders: ECG 12 lead * Marissa Roman MD - 09/18/2024 3:30 PM EDTAssociated Problem(s): Edema Edema has resolved with the discontinuation of [...] as needed basis Orders: ECG 12 lead * Marissa Roman MD - 09/18/2024 3:30 PM EDT Images from the original note were not included. Procedures [facility] CONSULT REQUESTED BY: Dr Howard PCP: Nagi Howard MD HPI: Angelina Go is a 43-year-old history of polymyositis and Raynaud's disease. Acid reflux impaired glucose intolerance, generalized anxiety disorder. History of lower extremity edema. No evidence of venous insufficiency by duplex scan. Her main issue was lower extremity edema. We added 20 mgof Lasix to her chlorthalidone to see if we can mobilize some volume gave her a lab slip to check abasic metabolic profile which showed a slight increase BUN potassium was stable. She has been seen at the lymphedema clinic and has been trying to mobilize the volume on her own. She has been on amlodipine for Raynaud's therapy. Recently the patient stopped amlodipine because the weather is warmed up and she does not have muchin the way of Raynaud's symptoms. She also stopped the Pletal. She also stopped the furosemide she has a support socks on now and has absolutely no lower extremity edema The patient complains of some lightheadedness when she changes position and getting up off the floor History of Present Illness ACTIVE MEDICATIONS: Outpatient Medications Marked as Taking for the 09/18/24 encounter (Office Visit) with Marissa Roman MD Medication Sig Dispense Refill acetaminophen-codeine (TYLENOL #4) 300-60 mg per tablet Take 1 tablet by mouth 2 (two) times a day if needed for moderate pain. amLODIPine (NORVASC) 5 mg tablet Take 1 tablet (5 mg total) by mouth 1 (one) time each day. aspirin/acetaminophen/caffeine (EXCEDRIN MIGRAINE ORAL) Take 2 tablets by mouth 1 (one) time each day. berberine chloride 500 mg capsule Take 1 capsule by mouth 3 (three) times a day. BETAMETHASONE DIPROPIONATE TOP Apply topically if needed. calcium carbonate (OS-JOSE) 1250 mg (500 mg elemental calcium) chewable tablet Chew 1 tablet (1,250 mg total) 2 (two) times a day. chlorthalidone (HYGROTON) 25 mg tablet TAKE 1 TABLET BY MOUTH EVERY DAY 90 tablet 2 cilostazoL (PLETAL) 50 mg tablet Take 1 tablet (50 mg total) by mouth 2 (two) times a day. Cinnamon 500 mg capsule Take 1 capsule (500 mg total) by mouth 1 (one) time each day. COCONUT OIL ORAL Take 2 capsules by mouth 1 (one) time each day. coffee extract (GREEN COFFEE MARQUEZ ORAL) Take 1 capsule by mouth 1 (one) time each day. diclofenac sodium/misoprostol (DICLOFENAC-MISOPROSTOL ORAL) Take 75 mg by mouth 1 (one) time each day. dicyclomine (BENTYL) 10 mg capsule Take 1-2 capsules (10-20 mg total) by mouth. Every 4-6 hours/prn ELDERBERRY FRUIT ORAL Take 1 capsule by mouth 1 (one) time each day. gabapentin (NEURONTIN) 100 mg capsule Take 2 capsules (200 mg total) by mouth 1 (one) time each dayin the morning. gabapentin (NEURONTIN) 400 mg capsule Take 1 capsule (400 mg total) by mouth at bedtime. green tea leaf extract (Green Tea) 250 mg capsule Take 2 capsules by mouth 2 (two) times a day. levothyroxine (SYNTHROID, LEVOTHROID) 50 mcg tablet Take 1 tablet (50 mcg total) by mouth 1 (one) time each day before breakfast. LomotiL 2.5-0.025 mg per tablet Take 1-2 tablets by mouth once daily as needed. MULTIVITAMIN ORAL Take 1 tablet by mouth 1 (one) time each day. mycophenolate (CellCept) 250 mg capsule Take 1 capsule (250 mg total) by mouth 2 (two) times a day. progesterone (PROMETRIUM) 100 mg capsule Take 1 capsule (100 mg total) by mouth at bedtime. RED BEET ORAL Take 2 capsules by mouth 1 (one) time each day. tacrolimus (PROTOPIC) 0.1 % ointment if needed. Vitamin C tablet Take 1 tablet (100 mg total) by mouth 3 (three) times a day. PAST MEDICAL HISTORY: Patient Active Problem List Diagnosis Lymphedema Edema Hypertension Palpitations Raynaud's disease ALLERGIES: Allergies Allergen Reactions Latex Rash Burning, Itching, Rash Oxaprozin Anaphylaxis Tramadol Anaphylaxis Tremors and shakes Levofloxacin Bloating and stomach pain FAMILY HISTORY: Family History Problem Relation Name Age of Onset Other (Other: myocardial infarction) Father SOCIAL HISTORY: Social History Tobacco Use Smoking status: Never Passive exposure: Past Smokeless tobacco: Never Substance Use Topics Alcohol use: Never REVIEW OF SYSTEMS: Review of Systems Constitutional: Negative. HENT: Negative. Eyes: Negative. Cardiovascular: Negative. Respiratory: Negative. Endocrine: Negative. Hematologic/Lymphatic: Negative. Skin: Negative. Musculoskeletal: Negative. Gastrointestinal: Negative. Genitourinary: Negative. Neurological: Positive for light-headedness. Psychiatric/Behavioral: Negative. Allergic/Immunologic: Negative. All other systems reviewed and are negative. PHYSICAL EXAM: Vitals: 09/18/24 1553 Pulse: 90 SpO2: 99% Weight: 57.6 kg (127 lb) Height: 1.626 m (64 ) Physical Exam Constitutional: Appearance: Normal appearance. HENT: Head: Normocephalic and atraumatic. Nose: Nose normal. Eyes: Extraocular Movements: Extraocular movements intact. Pupils: Pupils are equal, round, and reactive to light. Cardiovascular: Rate and Rhythm: Regular rhythm. Pulmonary: Breath sounds: Normal breath sounds. Abdominal: General: Abdomen is flat. Bowel sounds are normal. Palpations: Abdomen is soft. Musculoskeletal: General: Normal range of motion. Cervical back: Normal range of motion and neck supple. Skin: General: Skin is warm and dry. Neurological: General: No focal deficit present. Mental Status: She is alert. Psychiatric: Mood and Affect: Mood normal. EKG: Encounter Date: 09/18/24 ECG 12 lead Result Value Ventricular Rate ECG 85 Atrial Rate 85 P-R Interval 152 QRS Duration 70 Q-T Interval 346 QTc 411 P Wave Banner 81 R Banner 80 T Banner 47 ECG Interpretation Normal sinus rhythm Septal infarct , age undetermined T wave abnormality, consider anterior ischemia Abnormal ECG When compared with ECG of 11-JUL-2024 14:16, ST elevation now present in Inferior leads *Note: Due to a large number of results and/or encounters for the requested time period, some results have not been displayed. A complete set of results can be found in Results Review. ASSESSMENT/PLAN: Assessment & Plan Hypertension, unspecified type Blood pressure is well-controlled even off the amlodipine transfer text Orders: ECG 12 lead Edema, unspecified type Edema has resolved with the discontinuation of [...] as needed basis Orders: ECG 12 lead Assessment/Plan The above note was prepared with the help of voice recognition software. Please excuse any grammatical or spelling errors that may have occurred The [facility] team will continue to co-manage this patient following the plan of care as established by my initial visit and as per AHA guidelines for ongoing management and surveillance of Edema This willinclude medication titration, initiation of appropriate medications and further titration, and diagnostic studies to manage this disease process. documented in this encounter Plan of Treatment Upcoming Encounters Date Type Department Care Team (Late st Contact Info) Description 03/19/2025 2:40 PM EST Office Visit [facility] [address] [place] [address] Flori Pleitez NP [address] [place] [address] [address] [place] [address] documented as of this encounter Goals Goal Patient Goal Type Associated Problems [...] management General On track(2023 3:54 PM EST) Debbi ScottAnjali, OTR/L Note: STG's 1: Patient will be [...] least 2 weeks GOAL Has been met documented as of this encounter Procedures Procedure Name Priority Date/Time Associated Diagnosis Comments ECG 12-LEAD Routine 09/18/2024 4:11 PM EDT Hypertension, unspecified type Edema, unspecified type documented in this encounter Results * ECG 12 lead (09/18/2024 4:11 PM EDT) Ventricular Rate ECG 85 BPM GEMUSE Atrial Rate 85 BPM GEMUSE P-R Interval 152 ms GEMUSE QRS Duration 70 ms GEMUSE Q-T Interval 346 ms GEMUSE QTc 411 ms GEMUSE P Wave Banner 81 degrees GEMUSE R Banner 80 degrees GEMUSE T Banner 47 degrees GEMUSE ECG Interpretation Normal sinus rhythm Septal infarct , age undetermined T wave abnormality, consider anterior ischemia Abnormal ECG When compared with ECG of 11-JUL-2024 14:16, ST elevation now present in Inferior leads Confirmed by Stephanie ROMAN, MARISSA ([id number]) on 09/18/2024 5:17:47 PM GEMUSE 09/18/2024 4:11 PM EDT 09/18/2024 5:17 PM EDT us Marissa Roman MD ECG ORDERABLES Final Result GEMUSE documented in this encounter Visit Diagnoses Diagnosis Hypertension, unspecified type- Primary Edema, unspecified type documented in this encounter Discontinued Medications Medication Sig Discontinue Reason Start Date End Da te levothyroxine (SYNTHROID, LEVOTHROID) 75 mcg tablet Take 1 tablet (75 mcg total) by mouth 1 (one) time each day before breakfast. Discontinued by another clinician 09/18/2024 documented as of this encounter Historical Medications * This list may reflect changes made after this encounter. Vitamin C tablet Take 1 tablet (100 mg total) by mouth 3 (three) times a day. Cinnamon 500 mg capsule Take 1 capsule (500 mg total) by mouth 1 (one) time each day. calcium carbonate (OS-JOSE) 1250 mg (500 mg elemental calcium) chewable tablet Chew 1 tablet (1,250 mg total) 2 (two) times a day. ELDERBERRY FRUIT ORAL Take 1 capsule by mouth 1 (one) time each day. berberine chloride 500 mg capsule Take 1 capsule by mouth 3 (three) times a day. MULTIVITAMIN ORAL Take 1 tablet by mouth 1 (one) time each day. COCONUT OIL ORAL Take 2 capsules by mouth 1 (one) time each day. coffee extract (GREEN COFFEE MARQUEZ ORAL) Take 1 capsule by mouth 1 (one) time each day. RED BEET ORAL Take 2 capsules by mouth 1 (one) time each day. green tea leaf extract (Green Tea) 250 mg capsule Take 2 capsules by mouth 2 (two) times a day. aspirin/acetamino phen/caffeine (EXCEDRIN MIGRAINE ORAL) Take 2 tablets by mouth 1 (one) time each day. progesterone (PROMETRIUM) 100 mg capsule Take 1 capsule (100 mg total) by mouth at bedtime. levothyroxine (SYNTHROID, LEVOTHROID) 50 mcg tablet Take 1 tablet (50 mcg total) by mouth 1 (one) time each day before breakfast. gabapentin (NEURONTIN) 400 mg capsule Take 1 capsule (400 mg total) by mouth at bedtime. added in this encounter Care Teams Cut Out Press Operator Relationship Specialty Start Date End Date Nagi Howard MD [address] [place] [address] [address] [facility] [place] [address] PCP - General 05/24/23 documented as of this encounter
--- OUTSIDE RECORDS SUMMARY | 2024-09-19 16:32 | XMS_ITS ---
Author Organization [facility] Address [address] [place] [address] Care Team Providers Care Motor Vehicle Or Caravan Salesperson Name Role Phone Po Nagi HALE Primary Care Provider Cristino Jasso [phone] REASON FOR VISIT pt r/s 08/09 appt to november 22 Encounters Encounter Location Date Provider Diagnosis [facility] [address] [place] [address] 08/08/2024 Cristino Cuello Plan Of Treatment Next Appt Details Provider Name:Cristino Cuello , 11/22/2024 04:20:00 PM, [address], [address], [place], [address], Progress Notes * SHANON KUNZB: 9 (43 yo F)Acc No.[id number]:08/08/2024 Patient:?CHAD KUNZ :1980???Age:43 Y???Sex:Female Address:[address] [place] [address], [address] * true * Date:? Generated for Printi yoan/Rene/eTransmitting on:?09/19/2024 04:31 PM EDT
--- OUTSIDE RECORDS SUMMARY | 2024-09-19 16:32 | XMS_ITS ---
Author Organization [facility] Address [address] [place] [address] Care Team Providers Care Pharmacy Cashier Name Role Phone Nagi Howard MD Primary Care Provider Cristino Jasso [phone] REASON FOR VISIT Patient presents today for a fu from diarrhea Encounters Encounter Location Date Provider Diagnosis [facility] [address] [place] [address] 08/09/2024 Cristino Cuello Plan Of Treatment Next Appt Details Provider Name:Cristino Cuello , 11/22/2024 04:20:00 PM, [address], [address], [place], [address], Progress Notes * SHANON KUNZB: 9 (43 yo F)Acc No.[id number]:08/09/2024 Progress Notes Patient:?ZE CHAD Provider:?Cristino Cuello MD :1980???Age:43 Y???Sex:Female D ate:08/09/2024 Address:[address] [place], [place] [id number] Pcp:Nagi Howard MD Subjective: * Chief Complaints: * ???1. Patient presents today for a fu from diarrhea. * Medical History:? Objective: * Vitals:? Assessment: Plan: * Treatment: * * The named appointment provid er may or may not be the originator of this progress note, and it is not deemed complete until electronically signed by the appointment provider. Sign off status: Pending * Provider:?Cristino Cuello MD Date:? 025 Generated for Carol milton/Rene/Flex on:?09/19/2024 04:32 PM EDT
--- OUTSIDE RECORDS SUMMARY | 2024-09-19 16:32 | XMS_ITS ---
Author Organization [facility] Address [address] [place] [address] Care Team Providers Care Trimmer Buffing Wheel Name Role Phone Po Nagi HALE Primary Care Provider Cristino Jasso [phone] Allergies Allergen (clinical drug ingredient) Drug/Non Drug [...] 100 MG as directed Orally 02/09/2024 Active Applegate 6 MG as directed Orally 02/09/2024 Active [...] Status Risk Notes Problem Abnormal weight loss (288432118) Abnormal weight loss (R63.4) Active confirmed Problem Irritable bowel syndrome with diarrhea (179587218) Irritable bowel syndrome with diarrhea (K58.0) Active confirmed Vital Signs Temperature 98.2 degrees Fahrenheit 02/09/20 24 Blood pressure systolic 000 mm Hg 02/09/20 24 Blood pressure diastolic 00 mm Hg 024 Height 5 ft 6 in in 02/09/2024 Weight 128 lb 8 oz lbs 02/09/2024 BMI 20.74 kg/m2 02/09/2024 Encounters Encounter Location Date Provider Diagnosis [facility] [address] [place] [address] 02/09/2024 Cristino Cuello Chronic diarrhea K52.9 ; [...] is on many different supplements and other cmmf-tse-piyuubb medications which can sometimes cause different side [...] is on many different supplements and other zlpz-wef-bhzqsla medications which can sometimes cause different side [...] is on many different supplements and other edec-cbq-juwdtkb medications which can sometimes cause different side [...] 2024, Reas on: Provider Name:Cristino Cuello , 11/22/2024 04:20:00 PM, [address], [address], [place], [address], Progress Notes * SHANON KUNZB: 9 (43 yo F)Acc No.[id number]:02/09/2024 Progress Notes Patient:?ANGELINA KUNZ Provider:?Cristino Cuello MD :1980???Age:43 Y???Sex:Female D ate:02/09/2024 Address:[address] [place] [address] [facility] Pcp:Nagi Howard MD Subjective: * Chief Complaints: [...] in the past year??No,?Points?0,?Interpretation?Negative.?Miscellaneous:?Marital status: . 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 ???Nonsmoker; no alcohol. * Medications:?TakingOmeprazol e [...] in each nostril Nasally Once a dayTaking Applegate 6 MG Tablet as directed Orally Taking [...] is on many different supplements and other qqqf-vav-unaqrim medications which can sometimes cause different side [...] Procedure Codes:?3017F COLOR ECTAL CA SCREEN DOC [id number] TOBACCO [id number]-VWEGU4337 BP SCR NOT PRFRM REC REASON NOS * Follow Up:?Spring 2024 * * Sign off status: Completed true * Provider:?Cristino Cuello MD Date:? 024 Generated for Carol milton/Rene/Elizitting on:?09/19/2024 04:32 PM EDT History and Physical Notes * HPI (History [...]
== END 2024-09-19 16:52 | disposition home or self-care (01) ==
LOC: HO.HMCH 15:34
PROVIDERS: PCP Internal Medicine; Visit Provider Internal Medicine
DX: Z15.01 Genetic susceptibility to malignant neoplasm of breast (principal); Z15.02 Genetic susceptibility to malignant neoplasm of ovary; Z15.09 Genetic susceptibility to other malignant neoplasm; J84.9 Interstitial pulmonary disease, unspecified; J44.89 Other specified chronic obstructive pulmonary disease; E78.00 Pure hypercholesterolemia, unspecified; E03.9 Hypothyroidism, unspecified; R73.01 Impaired fasting glucose; I89.0 Lymphedema, not elsewhere classified; K21.9 Gastro-esophageal reflux disease without esophagitis; M33.20 Polymyositis, organ involvement unspecified; M35.00 Sjogren syndrome, unspecified; D89.89 Other specified disorders involving the immune mechanism, not elsewhere classified

== ENCOUNTER → 2024-09-19 15:33 | Outpatient (BNVA) | payer OTHER, SELFPAY | PROVIDERS: PCP Internal Medicine; Visit Provider Internal Medicine | DX: J84.9 Interstitial pulmonary disease, unspecified (principal); J44.89 Other specified chronic obstructive pulmonary disease; E78.00 Pure hypercholesterolemia, unspecified; E03.9 Hypothyroidism, unspecified; I89.0 Lymphedema, not elsewhere classified; K21.9 Gastro-esophageal reflux disease without esophagitis; M33.20 Polymyositis, organ involvement unspecified; M35.00 Sjogren syndrome, unspecified; D89.89 Other specified disorders involving the immune mechanism, not elsewhere classified; G43.909 Migraine, unspecified, not intractable, without status migrainosus; F41.1 Generalized anxiety disorder; L30.9 Dermatitis, unspecified; R30.0 Dysuria; E11.65 Type 2 diabetes mellitus with hyperglycemia; Z15.01 Genetic susceptibility to malignant neoplasm of breast; Z15.02 Genetic susceptibility to malignant neoplasm of ovary; Z15.09 Genetic susceptibility to other malignant neoplasm | CPT/HCPCS: 96127 ==

== ENCOUNTER 2024-11-22 16:37 | Outpatient (REF) | payer OTHER, SELFPAY ==
--- NOTE | ~2024-11-22 | CT_ITS ---
EXAMINATION: CT CHEST WITHOUT CONTRAST CLINICAL INFORMATION: J84.9 - Interstitial pulmonary disease, unspecified COMPARISON: CT of abdomen/pelvis on January 14, 2024 describes interlobular septal thickening and bronchiectasis in the lower lobes, potentially due to interstitial lung disease. TECHNIQUE: Multidetector volumetric CT imaging of the chest was done. Axial MIP volume rendering provided. Sagittal and coronal reformatted images were obtained. This CT examination was performed using dose optimization techniques as appropriate, variously including the following: *Automated exposure control *Adjustment of mA and/or kV according to patient size (this includes techniques or standardized protocols for targeted exams where dose is matched to indication/reason for exam; i.e. extremities or head) *Use of iterative reconstruction technique FINDINGS: TRACTOR EXPERT: Unremarkable. LUNGS: Central airways are patent. Cylindrical bronchiectasis associated with adjacent groundglass attenuation, reticular opacities and local volume loss in the medial posterior aspect of bilateral lower lobes; overall similar to prior abdomen/pelvis CT study from January 2024. Linear scarring in the right upper lobe. No confluent airspace opacity. MEDIASTINUM: Thyroid gland is unremarkable. Heart is normal in size. No pericardial effusion. Thoracic aorta is normal in caliber. CORONARY ARTERY CALCIFICATION: Mild PLEURA: There is no pleural effusion. No pleural mass or thickening. AXILLA: No bulky lymphadenopathy UPPER ABDOMEN: Vascular calcifications. OSSEOUS STRUCTURES: No acute or suspicious bone lesions. CT/CT chest wo IV con IMPRESSION: Bronchiectasis and surrounding fibrotic changes in the medial posterior aspect of bilateral lower lobes, associated with local volume loss. Fleischner guidelines were followed. Electronically signed by: Clemente Guillen MD 11/22/2024 07:20 PM EDT
--- OUTSIDE RECORDS SUMMARY | 2024-11-22 16:40 | XMS_ITS | Patient Health Record ---
Author Organization [facility] Address [address] [place] [phone] Care Team Providers Care Psychiatric Specialist Name Role Phone Po Nagi HALE Primary Care Provider Cristino Jasso [phone] Allergies Allergen (clinical drug ingredient) Drug/Non Drug [...] 100 MG as directed Orally 02/09/2024 Active Nisland 6 MG as directed Orally 02/09/2024 Active [...] Risk Notes Problem Diverticular disease of colon (181617742) Diverticulosis of large intestine without perforation or abscess without bleeding (K57.30) Active confirmed Problem Irritable bowel syndrome with diarrhea (673747244) Irritable bowel syndrome with diarrhea (K58.0) Active confirmed Problem Abnormal weight loss (556777043) Abnormal weight loss (R63.4) Active confirmed Problem Chronic diarrhea (796072979) Chronic diarrhea (K52.9) Active confirmed Vital Signs Temperature 98.2 degrees Fahrenheit 02/09/2024 Blood pressure diastolic 00 mm Hg 02/09/2024 Height 5 ft 6 in in 02/09/2024 Blood pressure systolic 000 mm Hg 02/09/2024 Weight 128 lb 8 oz lbs 02/09/2024 BMI 20.74 kg/m2 02/09/2024 Encounters Encounter Location Date Provider Diagnosis [facility] [address] [place] [phone] 02/09/2024 Cristino Cuello Chronic diarrhea K52.9 ; Abnormal weight loss R63.4 and Irritable bowel syndrome with diarrhea K58.0 [facility] [address] [place] [phone] 12/30/2023 Cristino Cuello [facility] [address] [place] [phone] 01/14/2024 Cristino Cuello [facility] [address] [place] [phone] 01/17/2024 Cristino Cuello [facility] [address] [place] [phone] 08/08/2024 Cristino Cuello [facility] [address] [place] [phone] 01/19/2024 Cristino Cuello Assessments Encounter Date Diagnosis [...] is on many different supplements and other kyxo-ghb-xsfthgm medications which can sometimes cause different side [...] is on many different supplements and other ucxs-wzy-rlkpddg medications which can sometimes cause different side [...] is on many different supplements and other hrai-bal-ghqscil medications which can sometimes cause different side [...] Name:Cristino Cuello , 02/28/2025 03:40:00 PM, [address], [address], [place], [address], Insurance Providers Payer Name Payer Address Payer Phone Subscriber Number Group Number Insured Name Patient Relationship to Insured Coverage Start Date Coverage End Date [facility] [address] [place] [phone] [id number] ANGELINA KUNZ Self - patient is the insured Medical (General) History Medical History History ICD Code Polymyositis- she sees a generation mechanic helper, Dr. Kebede, at [facility] Hx of gastroparesis--Dr. Blank morel--describes an upper endoscopy > 10 years ago--she describes that those symptoms resolved without any specific treatment Raynauds Denies MD,DM,CVA,renal disease Diarrhea-laboratories were negative for celiac disease [...]
--- OUTSIDE RECORDS SUMMARY | 2024-11-22 16:40 | XMS_ITS | Clinical Summary ---
Author Organization [facility] Address [address] [place] [address] Phone Care Team Providers Care Chemist Intern Name Role Phone Nagi Howard MD Primary Care Provider Allergies Active Allergy Reactions Criticality Noted Date [...] EVERY DAY 90 tablet 2 4 Active acetaminophen-co deine (TYLENOL #4) 300-60 mg [...] mg total) by mouth. Every 4-6 hours/prn 4 Active LomotiL 2.5-0.025 mg per tablet Take 1-2 tablets by mouth once daily as needed. 4 Active tacrolimus (PROTOPIC) 0.1 % ointment if needed. 5 Active furosemide (LASIX) 20 mg tabletIndication s:Localized edema Take 1 tablet (20 mg total) by mouth 1 (one) time each day. 30 each 11 5 07/12/19 26 Active Additional Information Patient not taking.Reported on [...] mouth 3 (three) times a day. Active Active Problems Problem Noted Date Diagnosed [...] Description 09/18/2024 3:30 PM EDT Office Visit [facility] [address] [place] [address] Gómez Roman MD Hypertension, unspecified type (Primary Dx); Edema, unspecified type from Last 3 Months Medical History Medical History Date Comments Migraine DX:Migraine Asthma DX:Asthma Onychomycosis DX:Onychomycosis GERD (gastroesophageal reflux disease) DX:GERD (gastroesophageal reflux disease) Polymyositis (CMS/HCC V24, CMS/HCC V28) DX:Polymyositis (HCC) Raynaud's syndrome DX:Raynaud's syndrome Edema, lower [...] Description 03/19/2025 2:40 PM EST Office Visit [facility] [address] [place] [address] Flori Pleitez NP [address] [place] [address] [address] [place] [address] Health Maintenance Due Date Last Done Comments Breast Cancer Screening 1978 COVID-19 Vaccine (#1) 12/25/1983 Hepatitis B Vaccines (1 of 3 - 19+ 3-dose series) 1997 Pneumococcal Vaccine: Pediatrics (0 to 5 Years) and At-Risk Patients (6 to 49 Years) (1 of 2 - PCV) 1997 Cervical Cancer Screening: Pap Smear 12/25/1999 Cholesterol Screening (Lipid Panel) 11/30/2023 Colorectal Cancer Screening: Colonoscopy 11/30/2023 HIV Screening 11/30/2023 Hepatitis C Screening 11/30/2023 Social Influencers of Health Screening 11/30/2023 Depression Screening 05/03/2024 Influenza Vaccine (#1) 2025 Hypertension/CHF/CAD Annual BMP Blood Test 08/05/2025 [...] LE's General No change(03/13 3:10 PM EST) Anjali Buck, OTR/L Note: STG's ; Patient will present [...] 10:17 AM EDT Palpitations Hypertension, unspecified type from Last 3 Months or Most Recently Relevant to Health Maintenance Results * ECG 12 lead (09/18/2024 4:11 PM EDT) Ventricular Rate ECG 85 BPM GEMUSE Atrial Rate 85 BPM GEMUSE P-R Interval 152 ms GEMUSE QRS Duration 70 ms GEMUSE Q-T Interval 346 ms GEMUSE QTc 411 ms GEMUSE P Wave [place] 81 degrees GEMUSE R [place] 80 degrees GEMUSE T [place] 47 degrees GEMUSE ECG Interpretation Normal sinus rhythm Septal infarct , age undetermined T wave abnormality, consider anterior ischemia Abnormal ECG When compared with ECG of 11-JUL-2024 14:16, ST elevation now present in Inferior leads Confirmed by Stephanie ROMAN JAMES ([id number]) on 09/18/2024 5:17:47 PM GEMUSE 09/18/2024 4:11 PM EDT 09/18/2024 5:17 PM EDT us Gómez Roman MD ECG ORDERABLES Final Result GEMUSE [...] - 08/06/2024 7:06 AM EDT Performed at: 01 - [facility] [id number] Youth Counselor: Mary Tena MD, Phone: [phone] us Gómez Roman MD LAB BLOOD ORDERABLES Final Res ult [facility] 1 from Last 3 Months or Most Recently Relevant to Health Maintenance Insurance [facility] Care Teams Chemist Intern Relationship Specialty Start Date End Date Nagi Howard MD [address] [place] [address] [address] [facility] [place] [address] PCP - General 05/24/23
== END 2024-11-22 16:38 | disposition home or self-care (01) ==
LOC: HO.CT 16:37
PROVIDERS: PCP Internal Medicine; Visit Provider Hospitalist
DX: J84.9 Interstitial pulmonary disease, unspecified (principal)
CPT/HCPCS: 71250

== ENCOUNTER → 2024-11-22 16:39 | Outpatient (BNV) | payer OTHER, SELFPAY | PROVIDERS: PCP Internal Medicine; Visit Provider Radiology Body Imaging | DX: J47.9 Bronchiectasis, uncomplicated (principal) | CPT/HCPCS: 71250 ==

== ENCOUNTER 2024-12-15 13:47 | Outpatient (AMB) | payer OTHER, SELFPAY ==
--- NOTE | 2024-12-15 13:47 | A.OFFPC_ITS ---
Intake Visit Reasons: Lyme Disease Circular Head Saw Operator Required: No Coverage Analyst: Not Required per policy Accompanied by: Self / Same As Patient Allergies oxaprozin Allergy (Severe, Verified 12/15/24 13:52) Anaphylaxis chlorhexidine Allergy (Intermediate, Verified 12/15/24 13:52) Rash tramadol Allergy (Intermediate, Verified 12/15/24 13:52) Anxiety levofloxacin (Levaquin) Allergy (Unknown, Verified 12/15/24 13:52) stomach upset albuterol Adverse Reaction (Intermediate, Verified 12/15/24 13:52) tremors latex Adverse Reaction (Intermediate, Verified 12/15/24 13:52) Rash Medication List - Last Reconciled 12/15/24 by Nagi Howard MD acetaminophen-codeine 300-30 mg 1 tab PO TID PRN amlodipine 5 mg PO BEDTIME beclomethasone dipropionate 40 mcg/actuation (Qvar RediHaler) 2 inhalations inhalation BID blood sugar diagnostic (FreeStyle Lite Strips) As directed check the BS QD blood-glucose meter (FreeStyle Lite Meter kit) As directed chlorthalidone 25 mg PO DAILY cilostazol 50 mg PO BID compress.stocking,knee,reg,med As directed 20-30 mm HG diclofenac sodium 75 mg PO BID PRN dicyclomine 10 - 20 mg PO Q4-6H PRN diphenoxylate-atropine 2.5-0.025 mg 1 - 2 tabs PO Q6H PRN furosemide (Lasix) 20 mg PO Q OTHER DAY gabapentin 200 mg in am and 400 mg in pm orally bedtime; ibuprofen 800 mg PO Q8H lancets (FreeStyle Lancets) As directed check BS QD levothyroxine 50 mcg PO DAILY methylphenidate HCl 5 mg PO BID progesterone micronized 100 mg PO QAM tiotropium bromide 2.5 mcg/actuation (Spiriva Respimat) 2 puffs inhalation DAILY 30 days Tobacco use date assessed: 06/20/24 Dental Screening Dental Screen Date: 06/20/24 HPI Lyme Disease HPI Details oophorectomy and salpingetomy Dr. Emil Rodriguez wednesday12/11/2024 . woke up though legs numbness, arm to jaw- er visit-did lyme test - [facility] Medical History (Updated 12/15/24 @ 14:14 by Nagi Howard MD) Antisynthetase syndrome Etta-1 antibody positive TSH elevation Impaired glucose tolerance Allergies ILD (interstitial lung disease) Asthma-COPD overlap syndrome Raynaud's syndrome Asthma Onychomycosis Migraine Polymyositis GERD (gastroesophageal reflux disease) Surgical History (Updated 12/15/24 @ 14:29 by Nagi Howard MD) Hx of bilateral salpingectomy History of removal of both ovaries Family History Father Myocardial infarction Maternal Grandmother Ovarian cancer Social History Housing: House Alcohol intake: never Patient Tobacco Use Status: Never used Tobacco Tobacco use type: Cigarette e-Cigarette/Vaping Use: Never Used Second Hand Smoke Exposure: No service: No Current occupational status: employed Cognitive needs: No Hearing needs: No Vision needs: Yes Questionnaire Thrive Questionnaire Date Thrive assessed: 09/19/24 JANY-7 AMB Questionnaire JANY-7 Date JANY - 7 assessed: 09/19/24 Source: Developed by Drs. Cristino Robison, Stefany Garza, Chip Baldwin and colleagues, with an educational deb from [employer]. Physical exam (Primary Care) Tobacco/Smoking Status: Tobacco use Status Tobacco use date assessed 06/20/24 12/15/24 13:56 Patient Tobacco Use Status Never used Tobacco 12/15/24 13:56 Tobacco use type Cigarette 12/15/24 13:56 e-Cigarette/Vaping Use Never Used 12/15/24 13:56 Thrive Assessment: Date of Thrive Assessment Date Thrive assessed 09/19/24 12/15/24 13:56 Telehealth Telehealth Telehealth Platform: Telephone Location of provider rendering services: practice address Location of patient: address on file Patient Identification confirmed using: Name, : Yes Telehealth method: voice only Patient verbally consented to treatment: Yes Patient verbally consented to billing insurance company: Yes Patient informed of any privacy concerns related to visit: Yes Minutes spent on Phone/Video with Pt.: 25 Coding Level of Care Code Tele Est Pt Level 4 (56058) Diagnoses BRCA1-associated protein-1 tumor predisposition syndrome Z15.01; Z15.02; Z15.09 Asthma-COPD overlap syndrome J44.89 Hypertension I10 Lyme disease A69.20 Hx of salpingo-oophorectomy, bilateral Z90.79; Z90.722 Assessment & Plan Assessment & Plan (1) BRCA1-associated protein-1 tumor predisposition syndrome: Comment: Increased breast cancer risk, ovarian cancer risk and pancreatic cancer risk Code(s): Z15.01 - Genetic susceptibility to malignant neoplasm of breast; Z15.02 - Genetic susceptibility to malignant neoplasm of ovary; Z15.09 - Genetic suscepti bility to other malignant neoplasm Category: Medical Plan: Patient has met with the surgeon and repeat testing was advised (2) Asthma-COPD overlap syndrome: Code(s): J44.89 - Other specified chronic obstructive pulmonary disease Category: Medical Plan: Continue to follow-up with Pulmonary. CT scan showing bronchiectasis and fibrotic changes (3) Hypertension: Code(s): I10 - Essential (primary) hypertension Category: Medical Plan: Patient was taken off amlodipine, continue chlorthalidone (4) Lyme disease: Code(s): A69.20 - Lyme disease, unspecified Category: Medical (5) Hx of salpingo-oophorectomy, bilateral: Comment: oophorectomy and salpingetomy Dr. Emil Rodriguez wednesday12/11/2024 BRCA positive Code(s): Z90.79 - Acquired absence of other genital organ(s); Z90.722 - Acquired absence of ovaries, bilateral Category: Surgical Plan History of Present Illness The patient is a 43-year-old female presenting with Lyme disease. The patient has a history of polymyositis, which has been managed over the years with various interventions. She also has a history of gastroesophageal reflux disease (GERD) and migraine, both of which have been chronic conditions. The patient reports a history of generalized anxiety disorder, systemic lupus erythematosus, hypothyroidism, and hypercholesterolemia. These conditions have been managed with medication and lifestyle modifications. The patient has asthma-COPD overlap syndrome, which has been monitored with regular pulmonary follow-ups. A recent CT scan in October 2022 showed b ronchiectasis and fibrotic changes in the lungs. The patient experienced leg edema, which led to the discontinuation of amlodipine and the use of support stockings. Furosemide was prescribed as needed for edema management. The patient has a BRCA1 mutation and has consulted with a surgeon regarding potential surgical interventions. Repeat genetic testing was advised. Recently, the patient underwent surgery for the removal of ovaries and fallopian tubes, performed by Dr. Parikh at [facility]. Post-surgery, she experienced numbness and weakness in her limbs, leading to an ER visit where Lyme disease was diagnosed. The Lyme disease diagnosis was confirmed with positive IgM results, indicating a recent infection. Review of Systems - Neurological: Reports numbness and weakness in limbs post-surgery. - Musculoskeletal: Reports leg edema. - Respiratory: Denies new respiratory symptoms beyond known asthma-COPD overlap syndrome. Plan The patient was advised to discontinue amlodipine due to its contribution to leg edema, and support stockings were recommended to manage the swelling. Furosemide was prescribed on an as-needed basis, with a caution not to exceed three consecutive days of use to prevent renal complications. For the management of Lyme disease, doxycycline was prescribed for a 10-day course, twice daily. The patient was informed that retesting for Lyme disease post-treatment is not necessary as IgG levels remain unchanged. The patient was encouraged to follow up with her solution design and analysis manager for ongoing management of her systemic conditions, including polymyositis and systemic lupus erythematosus. She was also advised to continue regular pulmonary follow-ups due to her asthma-COPD overlap syndrome and bronchiectasis. Patient was informed and verbally consented to the use of an ambient scribe for clinic note documentation during this visit. Discussion Notes I discussed with the patient the discontinuation of amlodipine due to its side effect of causing leg edema and recommended support stockings as an alternative management strategy. We talked about the use of furosemide as needed, emphasizing the importance of not using it for more than three consecutive days to avoid kidney issues. Regarding Lyme disease, I explained the treatment plan involving doxycycline for 10 days and clarified that retesting is unnecessary as IgG levels do not change post-treatment. I advised her to maintain follow-ups with her solution design and analysis manager and petrophysicist for her chronic conditions. Patient Instructions - Stop taking amlodipine and use support stockings for leg swelling. - Take furosemide as needed, but not for more than three days in a row. - Complete the 10-day course of doxycycline as prescribed. - Follow up with your solution design and analysis manager and petrophysicist as advised. Orders: Orders Lyme IgG/IgM w/reflex to WB Today A69.20 - Lyme disease, unspecified Medications: New doxycycline hyclate 100 mg PO BID 20 caps 0RF 10 days furosemide (Lasix) prn 20 mg PO Q OTHER DAY 30 tabs 0RF
== END 2024-12-15 16:34 | disposition home or self-care (01) ==
LOC: HO.HMCH 13:47
PROVIDERS: PCP Internal Medicine; Visit Provider Internal Medicine
DX: Z15.01 Genetic susceptibility to malignant neoplasm of breast (principal); Z15.02 Genetic susceptibility to malignant neoplasm of ovary; Z15.09 Genetic susceptibility to other malignant neoplasm; J44.89 Other specified chronic obstructive pulmonary disease; I10 Essential (primary) hypertension; A69.20 Lyme disease, unspecified; Z90.79 Acquired absence of other genital organ(s); Z90.722 Acquired absence of ovaries, bilateral

== ENCOUNTER 2025-01-09 15:44 | Outpatient (AMB) | payer OTHER, SELFPAY ==
--- OUTSIDE RECORDS SUMMARY | 2023-08-23 09:00 | XMS_ITS ---
[facility] Organization [facility] Address [address] [place] [id number] Care Team Providers Care Coal Sampler Name Role Phone Nagi Howard MD Primary Care Provider Cristino Jasso Unavailable [phone] REASON FOR VISIT chronic diarrhea Problems Problem Type SNOMED Code ICD Code Onset Dates Problem Status W/U Status Risk Notes Problem Diverticular disease of colon ([id number]) Diverticulosis of large intestine without perforation or abscess without bleeding (K57.30) Active confirmed Encounters Encounter Location Date Provider Diagnosis [facility] [place] Outpatient [address] [place] [phone] 08/23/2023 Cristino Cuello Diarrhea R19.7 ; O ther specified diseases of intestine K63.89 ; Diverticulosis of large intestine without perforation or abscess without bleeding K57.30 and Other hemorrhoids K64.8 Assessments Encounter Date Diagnosis (ICD Code) Assessment Notes Treatment Notes Treatment Clinical Notes Section Notes 08/23/2023 Diarrhea (ICD-10 - R19.7) 08/23/2023 Other specified diseases of intestine (ICD-10 - K63.89) 08/23/2023 Diverticulosis of large intestine without perforation or abscess without bleeding (ICD-10 - K57.30) 08/23/2023 Other hemorrhoids (ICD-10 - K64.8) Plan Of Treatment Next Appt Details Provider Name:Cristino Cuello , 02/28/2025 03:40:00 PM, [address], [address], [place], [address], Progress Notes * SHANON KUNZB: 9 (44 yo F)Acc No.[id number]:08/23/2023 COLON WITH MAC Patient: CHAD DON Provider: Carmen Cuello MD :1980 A ge:42 Y S ex:Female Date:08/23/2023 Address:[address] [place], [place] [id number] Pcp:Nagi Howard MD Subjective: * Chief Complaints: * 1 . Chronic diarrhea. * Medical History: Objective: * Vitals: Assessment: * Assessment: 1. D iarrhea - R19.7 (Primary) 2 . O ther specified diseases of intestine - K63.89 3 . D iverticulosis of large intestine without perforation or abscess without bleeding - K57.30 4 . O ther hemorrhoids - K64.8 Plan: * Treatment: * Procedure Codes: 4 5380 COLONOSCOPY AND BIOPSY * * The named appointment provid er may or may not be the originator of this progress note, and it is not deemed complete until electronically signed by the appointment provider. Sign off status: Pending * Provider: Carmen Cuello MD Date: 0 08/23/2023 Generated for Carol milton/Rene/Elizitting on: 0 01/09/2025 05:55 PM EDT
--- OUTSIDE RECORDS SUMMARY | 2024-08-09 12:20 | XMS_ITS ---
Author Organization [facility] Address [address] [place] [address] Care Team Providers Care Court Manager Name Role Phone Nagi Howard MD Primary Care Provider Cristino Jasso [phone] REASON FOR VISIT Patient presents today for a fu from diarrhea Encounters Encounter Location Date Provider Diagnosis [facility] [address] [facility] [place] [address] 08/09/2024 Cristino Cuello Plan Of Treatment Next Appt Details Provider Name:Cristino Cuello , 02/28/2025 03:40:00 PM, [address] [facility] [facility], [address], [place], [address], Progress Notes * RONA KUNZJYOTSNAB: 9 (44 yo F)Acc No.[id number]:08/09/2024 Progress Notes Patient: CHAD DON Provider: Carmen Cuello MD :1980 A ge:43 Y S ex:Female Date:08/09/2024 Address:[address] [place], [place] [id number] Pcp:Nagi Howard MD Subjective: * Chief Complaints: [...] 0 08/09/2024 Generated for Carol milton/Rene/Flex on: 0 01/09/2025 05:55 PM EDT
--- OUTSIDE RECORDS SUMMARY | 2024-11-22 12:20 | XMS_ITS ---
Author Organization [facility] Address [address] [place] [address] Care Team Providers Care Heavy Equipment Plumbing Supervisor Name Role Phone Nagi Howard MD Primary Care Provider Cristino Jasso [phone] REASON FOR VISIT f/u from diarrhea Encounters Encounter Location Date Provider Diagnosis [facility] [address] [place] [address] 11/22/2024 Cristino Cuello Plan Of Treatment Next Appt Details Provider Name:Cristino Cuello , 02/28/2025 03:40:00 PM, [address], [address], [place], [address], Progress Notes * RONA KUNZJYOTSNAB: 9 (44 yo F)Acc No.[id number]:11/22/2024 Progress Notes Patient: CHAD DON Provider: Carmen Cuello MD :1980 A ge:43 Y S ex:Female Date:11/22/2024 Address:[address] [place], [place] [address] Pcp:Nagi Howard MD Subjective: * Chief Complaints: [...] 0 11/22/2024 Generated for Carol milton/Rene/Flex on: 0 01/09/2025 05:56 PM EDT
--- OUTSIDE RECORDS SUMMARY | 2025-01-03 23:59 | XMS_ITS | Continuity of Care Document ---
Author Organization [facility] ter Address [address] [place] [id number]- Care Team Providers Care Chief Digital Officer Name Role Phone Po Nagi HALE Primary Care Physician Encounter [facility] [place] Date(s): 12/04/24 - 01/03/[address] [id number] [[email or web address] Attending Physician: Tonya Campos Admitting Physician: Tonya Campos Referring Physician: Tonya Campos Encounter Type: Triage Allergies, Adverse Reactions, Alerts Substance Criticality Severity Reaction Reaction Severity Status oxaprozin anaphlaxis Active chlorhexidine topical rash Active Levaquin upset stomach Active Latex rash Active traMADol anxiety Active Medications acetaminophen-codeine 300 mg-60 mg oral tablet 20 each, 0 Refill(s), TAKE 1 TABLET BY MOUTH TWICE DAILY NEEDED FOR PAIN, 0 Refills, 02/15/24 2:23:00 PM EDT, Partial fill upon patient request if the prescription is for a schedule II opioid drug. Start Date: 02/15/24 Status: Ordered Medication Dispense Status: Completed Total Allowed Fills: 1 Fills Dispensed: 0 acetaminophen/aspirin/caffeine 194 mg-227 mg-33 mg oral tablet 2 Unknown, oral, 0 Refill(s), Take 2 tablets by mouth 1 (one) time each day., 0 Refills, 12/28/24 3:26:00 PM EDT, Partial fill upon patient request if the prescription is for a schedule II opioid drug. Start Date: 12/28/24 Status: Ordered Medication Dispense Status: Completed Total Allowed Fills: 1 Fills Dispensed: 0 ascorbic acid 1000 mg oral tablet 100 Unknown, oral, 0 Refill(s), Take 1 tablet (100 mg total) by mouth 3 (three) times a day., 0 Refills, 12/28/24 3:26:00 PM EDT, Partial fill upon patient request if the prescription is for a schedule II opioid drug. Start Date: 12/28/24 Status: Ordered Medication Dispense Status: Completed Total Allowed Fills: 1 Fills Dispensed: 0 Berberine 500mg Berberine 500mg, Refills 0, Maintenance, Take TID, 12/26/24 9:29:00 AM EDT, Supply Start Date: 12/26/24 Status: Ordered Medication Dispense Status: Completed Total Allowed Fills: 1 Fills Dispensed: 0 calcium gluconate 650 mg oral tablet 1 tablet = 650 mg, By Mouth, 2 times a day, # 100 tablet, 0 Refills, Maintenance, 12/26/24 9:28:00 AM EDT, Tablet, Partial fill upon patient request if the prescription is for a schedule II opioid drug. Start Date: 12/26/24 Status: Ordered Medication Dispense Status: Completed Quantity: 100.0 Unit: tablet Total Allowed Fills: 1 Fills Dispensed: 0 chlorthalidone 25 mg oral tablet 90 each, 0 Refill(s), TAKE 1 TABLET BY MOUTH EVERY DAY, Refills 0, 02/15/24 2:23:00 PM EDT, Partialfill upon patient request if the prescription is for a schedule II opioid drug. Start Date: 02/15/24 Status: Ordered Medication Dispense Status: Completed Total Allowed Fills: 1 Fills Dispensed: 0 cilostazol 50 mg oral tablet 1 tablet = 50 mg, By Mouth, 2 times a day, # 180 tablet, 2 Refills, Maintenance, 02/22/24 9:01:00 AM EDT, Tablet, [facility]/pharmacy #[id number], Partial fill upon patient request if the prescription is for a schedule II opioid drug., 163, cm, 02/22/24 8:22:00 EDT, Height, 61.45, kg, 02/15/24 15:47:00 EDT, DryWeight Start Date: 02/22/24 Status: Ordered Medication Dispense Status: Completed Quantity: 180.0 Unit: tablet Total Allowed Fills: 3 Fills Dispensed: 0 cinnamon 500 mg oral capsule 500 Unknown, oral, 0 Refill(s), Take 1 capsule (500 mg total) by mouth 1 (one) time each day., 0 Refills, 12/28/24 3:26:00 PM EDT, Partial fill upon patient request if the prescription is for a schedule II opioid drug. Start Date: 12/28/24 Status: Ordered Medication Dispense Status: Completed Total Allowed Fills: 1 Fills Dispensed: 0 diclofenac sodium 75 mg oral delayed release tablet 90 each, 0 Refill(s), TAKE 1 TABLET BY MOUTH NIGHTLY AT BEDTIME., 0 Refills, 12/28/24 3:26:00 PM EDT, Partial fill upon patient request if the prescription is for a schedule II opioid drug. Start Date: 12/28/24 Status: Ordered Medication Dispense Status: Completed Total Allowed Fills: 1 Fills Dispensed: 0 dicyclomine 10 mg oral capsule 60 each, 0 Refill(s), TAKE 1-2 CAPSULES BY MOUTH EVERY 4-6 HOURS NEEDED FOR ABDOMINAL CRAMP/DISCOMFORT FOR 30 DAYS, 0 Refills, 12/28/24 3:26:00 PM EDT, Partial fill upon patient request if the prescription is for a schedule II opioid drug. Start Date: 12/28/24 Status: Ordered Medication Dispense Status: Completed Total Allowed Fills: 1 Fills Dispensed: 0 elderberry 1 Unknown, oral, 0 Refill(s), Take 1 capsule by mouth 1 (one) time each day., 0 Refills, 12/28/24 3:26:00 PM EDT, Partial fill upon patient request if the prescription is for a schedule II opioid drug. Start Date: 12/28/24 Status: Ordered Medication Dispense Status: Completed Total Allowed Fills: 1 Fills Dispensed: 0 furosemide 20 mg oral tablet 1, capsule, By Mouth, Once, # 1 tablet, Refills 0, Maintenance, 09/29/24 3:46:00 PM EDT, Partial fill upon patient request if the prescription is for a schedule II opioid drug. Start Date: 09/29/24 Status: Ordered Medication Dispense Status: Completed Quantity: 1.0 Unit: tablet Total Allowed Fills: 1 Fills Dispensed: 0 gabapentin 100 mg oral capsule 90 each, 0 Refill(s), TAKE 3 CAPSULES BY MOUTH EVERY DAY AT BEDTIME, Refills 0, 12/28/24 3:26:00 PM EDT, Partial fill upon patient request if the prescription is for a schedule II opioid drug. Start Date: 12/28/24 Status: Ordered Medication Dispense Status: Completed Total Allowed Fills: 1 Fills Dispensed: 0 ibuprofen 800 mg oral tablet 800 mg, 1, tablet, By Mouth, Every 8 hours, # 90 tablet, Refills 0, Tot. Refills 0, Maintenance, 12/11/24 4:59:00 PM EDT, Route to Pharmacy Electronically, [facility]/pharmacy #[id number], Partial fill upon patient request if the prescription is for a schedule II opioid drug., 163.2, cm, 11/16/24 15:00:00 EDT, Height, 57.7, kg, 12/11/24 12:54:00 EDT, Dry Weight Start Date: 12/11/24 Status: Ordered Medication Dispense Status: Completed Quantity: 90.0 Unit: tablet Total Allowed Fills: 1 Fills Dispensed: 0 levothyroxine 50 mcg (0.05 mg) oral capsule 1 capsule = 50 mcg, By Mouth, Daily, 0 Refills, Maintenance, 02/22/24 8:41:00 AM EDT, Partial fill upon patient request if the prescription is for a schedule II opioid drug. Start Date: 02/22/24 Status: Ordered Medication Dispense Status: Completed Total Allowed Fills: 1 Fills Dispensed: 0 Lomotil 0.025 mg-2.5 mg oral tablet oral, 0 Refill(s), Take 1-2 tablets by mouth once daily as needed., Refills 0, 02/08/24 8:00:00 PM EDT, Partial fill upon patient request if the prescription is for a schedule II opioid drug. Start Date: 02/08/24 Status: Ordered Medication Dispense Status: Completed Total Allowed Fills: 1 Fills Dispensed: 0 multivitamin Multiple Vitamins oral capsule 1 Unknown, oral, 0 Refill(s), Take 1 tablet by mouth 1 (one) time each day., 0 Refills, 12/28/24 3:25:00 PM EDT, Partial fill upon patient request if the prescription is for a schedule II opioid drug. Start Date: 12/28/24 Status: Ordered Medication Dispense Status: Completed Total Allowed Fills: 1 Fills Dispensed: 0 mycophenolate mofetil 500 mg oral tablet 60 each, 0 Refill(s), TAKE 1 TABLET BY MOUTH TWICE A DAY WITH FOOD, 0 Refills, 12/28/24 3:25:00 PM EDT, Partial fill upon patient request if the prescription is for a schedule II opioid drug. Start Date: 12/28/24 Status: Ordered Medication Dispense Status: Completed Total Allowed Fills: 1 Fills Dispensed: 0 Omeprazole = 20 mg, By Mouth, Daily, 0 Refills, Maintenance, 01/22/16 10:30:03 AM EDT Start Date: 01/22/16 Status: Ordered Medication Dispense Status: Completed Total Allowed Fills: 1 Fills Dispensed: 0 Probiotic Formula By Mouth, Daily, 0 Refills, Maintenance, 12/26/24 9:28:00 AM EDT, Partial fill upon patient request if the prescription is for a schedule II opioid drug. Start Date: 12/26/24 Status: Ordered Medication Dispense Status: Completed Total Allowed Fills: 1 Fills Dispensed: 0 progesterone 100 mg oral capsule 1 capsule, By Mouth, Daily at bedtime, MAY CAUSE DROWSINESS, # 90 capsule, 3 Refills, Maintenance, 06/04/24 8:35:00 AM EST, [facility]/pharmacy #[id number], 163, cm, 03/27/24 15:36:00 EST, Height, 59.6, kg, 03/27/24 15:36:00 EST, Dry Weight Start Date: 06/04/24 Status: Ordered Medication Dispense Status: Completed Quantity: 90.0 Unit: capsule Total Allowed Fills: 4 Fills Dispensed: 0 Qvar Redihaler 40 mcg/inh inhalation aerosol 1 inhalation = 40 mcg, Inhalation, 2 times a day, # 10.6 Gm, 0 Refills, Maintenance, 07/11/24 3:16:00 PM EDT, Aerosol, Partial fill upon patient request if the prescription is for a schedule II opioiddrug. Start Date: 07/11/24 Status: Ordered Medication Dispense Status: Completed Quantity: 10.6 Unit: g Total Allowed Fills: 1 Fills Dispensed: 0 Spiriva = 18 mcg, Inhalation, Daily, 0 Refills, Maintenance, 07/11/24 3:16:00 PM EDT, Partial fill upon patient request if the prescription is for a schedule II opioid drug. Start Date: 07/11/24 Status: Ordered Medication Dispense Status: Completed Total Allowed Fills: 1 Fills Dispensed: 0 Tylenol 325 mg oral tablet 975 mg, 3, tablet, By Mouth, Every 6 hours, PRN, # 50 tablet, Refills 0, Tot. Refills 0, Maintenance, for pain, 12/11/24 4:59:00 PM EDT, Route to Pharmacy Electronically, [facility]/pharmacy #[id number], Partial fill upon patient request if the prescription is for a schedule II opioid drug., 163.2, cm, 11/16/24 15:00:00 EDT, Height, 57.7, kg, 12/11/24 12:54:00 EDT, Dry Weight Start Date: 12/11/24 Status: Ordered Medication Dispense Status: Completed Quantity: 50.0 Unit: tablet Total Allowed Fills: 1 Fills Dispensed: 0 Problem List Condition Confirmation Course Effective Dates Status H ealth Status Informant Asthma Confirmed Active Asthma Confirmed Active COPD (chronic obstructive pulmonary disease) Confirmed Active GERD (gastroesophageal reflux disease) Confirmed Active ILD (interstitial lung disease) Confirmed Active Onychomycosis Confirmed Active Polymyositis Confirmed Active Raynaud's syndrome Confirmed Active Follow-up examination after gynecological surgery Confirmed Active Social History Social History Type Response Smoking Status Never (less than 100 in lifetime) entered on: 08/15/24 Gender Identity Gender identity: ; I dentifies as female Sex Female Sex Representation Female (finding) Patient Care team information Care Team Personnel Name: Amos Brown RN Position: S RN Member Role: Primary Care Nurse Name: Nagi Howard MD Position: Reference Physician Member Role: PCP Address: [address] [place] [address] Telecom: Care Team Related Persons Name: SURI LEVY Name: MATTEO KUNZ Name: CHRISTIANO KUNZ Insurance Providers Guarantor name: CHAD KUZN Health Plan Information #: 1 Payer: [facility] FF NON P HMO P Payer Identifier: NA Member Number: [id number] Group Number: [id number] Subscriber Identifier: NA Relationship to Subscriber: self Coverage Type: Other Private Insurance Coverage Verification Date: NA Telecom: NA Address: NA
--- OUTSIDE RECORDS SUMMARY | 2025-01-03 23:59 | XMS_ITS | Continuity of Care Document ---
Author Organization [facility] ter Address [address] [place] [id number]- Care Team Providers Care Kitchen Helper Name Role Phone Po Nagi HALE Primary Care Physician Encounter [facility] [place] Date(s): 06/01/24 - 01/03/[address] [address]- Attending Physician: Angei Demarco MD Admitting Physician: Angie Demarco MD Encounter Type: Pre-Outpt Allergies, Adverse Reactions, Alerts Substance Criticality Severity [...] Refills, Maintenance, 02/22/24 9:01:00 AM EDT, Tablet, [facility]/pharmacy #[id number], Partial fill upon patient [...] 4:59:00 PM EDT, Route to Pharmacy Electronically, [facility]/pharmacy #[id number], Partial fill upon patient request if the [...] 3 Refills, Maintenance, 06/04/24 8:35:00 AM EST, [facility]/pharmacy #[id number], 163, cm, 03/27/24 15:36:00 EST, [...] 4:59:00 PM EDT, Route to Pharmacy Electronically, [facility]/pharmacy #[id number], Partial fill upon patient request if the [...] Care team information Care Team Personnel Name: Kevin PERSAUD, Amos Position: S RN Member Role: Primary Care Nurse Name: Nagi Howard MD Position: Reference Physician Member Role: PCP Address: [address] [place] [address] Telecom: Care Team Related Persons Name: SURI LEVY Name: MATTEO KUNZ Name: CHRISTIANO KUNZ Insurance Providers Guarantor name: CHAD KUNZ Health Plan Information #: 1 Payer: [facility] FF NON P HMO P Payer Identifier: NA Member Number: [id number] Group Number: [id number] Subscriber Identifier: [id number] Relationship to Subscriber: self Coverage Type: Other Private Insurance Coverage Verification Date: NA Telecom: NA Address: NA
--- OUTSIDE RECORDS SUMMARY | 2025-01-04 23:59 | XMS_ITS | Continuity of Care Document ---
Author Organization [facility] Address [address] [place] [address]- Care Team Providers Care Ground Defence Officer Name Role Phone Po Nagi HALE Primary Care Physician [place] [facility] [place] 01/04/25 [facility] [employer] [address] [place] [id number] Encounter Type: Triage Allergies, Adverse Reactions, Alerts Substance Criticality Severity Reaction Reaction Severity Status chlorhexidine topical rash Active traMADol anxiety Active oxaprozin anaphlaxis Active Levaquin upset stomach Active Latex rash Active Medications acetaminophen-codeine 300 mg-60 mg oral [...] EDT, Tablet, [facility]/pharmacy #[id number], Partial fill upon patient request [...] 4:59:00 PM EDT, Route to Pharmacy Electronically, [facility]/pharmacy #[id number], Partial fill upon patient request if the [...] 4:59:00 PM EDT, Route to Pharmacy Electronically, [facility]/pharmacy #[id number], Partial fill upon patient request if the [...] Position: Reference Physician Member Role: PCP Address: [address] [place] [id number] Telecom: Care Team Related Persons Name: SURI LEVY Name: MATTEO KUNZ Name: CHRISTIANO KUNZ Insurance Providers Guarantor name: CHAD KUNZ Health Plan Information #: 1 Payer: [facility] FF NON P HMO P Payer Identifier: NA Member Number: [id number] Group Number: [id number] Subscriber Identifier: NA Relationship to Subscriber: self Coverage Type: Other Private Insurance Coverage Verification Date: NA Telecom: NA Address: NA
[2025-01-09 15:45] VITALS: BP 114/72; PULSE 72; O2SAT 98; BMI 22.0
--- NOTE | 2025-01-09 15:45 | MHC.OFFVIS ---
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 The patient did undergo a CT scan of the chest demonstrating some bronchiectatic changes in his she was referred to Pulmonary. She did see pulmonology back many years ago at [facility]. There the patient did have a CT scan of the chest back in 2011 which I personally reviewed with her. At that time she did have significant reticular changes consistent with pulmonary fibrosis bilaterally right more than left. At the time is felt to be related to methotrexate. She subsequently was having some issue with shortness of breath. At 1 point she was prescribed short-acting beta agonist that the patient had an adverse reaction to it with chest pressure. Therefore she stopped it. She does not use any inhalers any further. Recently she did undergo a CT scan of the abdomen which I personally reviewed demonstrating the reticular changes and bronchiectatic changes. Although when I compared to the CT scan from 21/04 it actually looks a little better which is reassuring. The patient did undergo pulmonary function studies at [facility] back in 09/20/2023 which I personally reviewed demonstrating a mild obstructive ventilatory defect along with small airways disease. In view of her connective tissue disease follicular bronchiolitis differential. At this point she does have what appears to be mild COPD. Based on the patient's symptoms of dyspnea and her ongoing comorbidities I do believe pulmonary rehabilitation be helpful for her. In regards of the polymyositis she is no longer taking any medications although her inflammatory markers are increasing. She will be reviewing the results with her sand slinger soon and may be starting mycophenolate. 07/07/2024 the patient is here for a pulmonary follow-up visit. Overall she is doing okay from a respiratory status. Although she did find out she does carry the BRCA gene and now she is following closely with chief of anesthesiology and surgery to undergo prophylactic surgeries. She will likely undergo the surgeries in the coming months. After further discussions with Porsha is his the risk of developing cancer is very high. She is currently on the mycophenolate. If she needs to come off the mycophenolate during the surgical interventions for period of time that is okay to do. In the meantime she was placed on a combination inhaler but she can not tolerate the beta agonist effect. Therefore she was placed on QVAR. QVAR does not seem to be doing too much. She may feel some improvement for the 1st hour so and then it subsides. Will go ahead start her on a long-acting muscarinic antagonist and she will develop on the QVAR. Will plan to review and reassess her response to therapy with a repeat CT scan in about 4-5 months. Subsequently follow-up after that. If she has any issues prior to that she will call for an earlier assessment. 01/09/2025 the patient is here for pulmonary follow-up visit. Overall she is doing very good. The patient has been getting ready for surgery. She is going to have her breast surgery soon. She is currently on the CellCept but as low dose of 500 mg twice a day. 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 She did have a CT scan of the chest that I personally reviewed. At least that was able to compare to a CAT scan of the abdomen that she had. Slowly from 2023 and the pulmonary fibrosis and traction bronchiectasis does not look any worse. 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 The patient will have to come off the CellCept when she has a breast surgery. When she does that she can always get a flu shot since she is going to be off the medication. I did recommend she can at least get the flu shot this year. The patient will then go back on the CellCept which is a reasonable dose. She has tried Rituxan in the past and resulting in adverse reactions. Will have her return in 4 months with pulmonary function studies. The patient also had daytime drowsiness with an elevated [place] score of 11/24. The patient also has a family history of sleep apnea. Therefore when she returns and will review her PFTs will talk about considering a sleep study. In the meantime the patient has been using her QVAR I will send her the 80 mcg dose to the pharmacy. She did not use his Spiriva. I will send her Atrovent HFA that she can use as needed as a rescue since she can not tolerate any beta agonist medications. [facility] Medical History (Updated 12/28/24 @ 18:03 by Nagi Howard MD) Antisynthetase syndrome Etta-1 antibody positive TSH elevation Impaired glucose tolerance Allergies ILD (interstitial lung disease) Asthma-COPD overlap syndrome Raynaud's syndrome Asthma Onychomycosis Migraine Polymyositis GERD (gastroesophageal reflux disease) Surgical History (Updated 12/15/24 @ 14:29 by Nagi Howard MD) Hx of bilateral salpingectomy History of removal of both ovaries Family History Father Myocardial infarction Maternal Grandmother Ovarian cancer Social History Housing: House Alcohol intake: never Patient Tobacco Use Status: Never used Tobacco Tobacco use type: Cigarette e-Cigarette/Vaping Use: Never Used Second Hand Smoke Exposure: No service: No Current occupational status: employed Cognitive needs: No Hearing needs: No Vision needs: Yes Review of Systems Const Denies poor appetite and Denies weakness Eyes Denies no additional complaints ENT Reports Normal hearing present, Denies dizziness, Denies nasal congestion, Denies tinnitus and Denies sore throat Card Denies chest pain, Denies syncope, Denies rapid heart rate, Denies dyspnea and Reports dyspnea on exertion Resp Denies cough, Denies dyspnea and Reports dyspnea on exertion GI Denies change in stool character, Reports constipation, Denies diarrhea, Denies nausea and Denies vomiting Musc Reports myalgias and Reports arthralgias Skin/Breast Reports erythema, Reports skin swelling and Reports wounds Neuro Reports Normal hearing present, Denies dizziness, Denies syncope and Denies weakness Tani/Lymph Reports no additional complaints Physical Exam Vital Signs: Last Vital Signs Pulse 72 01/09/25 15:45 BP 114/72 01/09/25 15:45 Pulse Ox 98 01/09/25 15:45 Oxygen Delivery Method Room Air 01/09/25 15:45 BMI result Body Mass Index 22.0 Const General: comfortable Nutritional Appearance: thin HEENT Head: Yes atraumatic Neck Neck: Yes supple Chest Chest palpation & inspection: normal inspection of the chest Resp Effort & Inspection: normal respiratory effort and No prolonged expiratory phase Auscultation: diminished lung sounds Cardio Heart sounds: S1 normal heart sound present and S2 normal heart sound present GI Palpation (GI): Soft to palpation Skin Lesions: 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 Code(s): J44.89 - Other specified chronic obstructive pulmonary disease Category: Medical (2) Bronchiectasis: Comment: 01/[address] abd ILD Code(s): J47.9 - Bronchiectasis, uncomplicated Category: Medical Qualifiers: Bronchiectasis type: uncomplicated Qualified Code(s): J47.9 - Bronchiectasis, uncomplicated (3) ILD (interstitial lung disease): Comment: secondary to MTX, although also could be related to CTD Decemberronchiectasis and surrounding fibrotic changes in the medial posterior aspect of bilateral lower lobes, associated with local volume loss. Code(s): J84.9 - Interstitial pulmonary disease, unspecified Category: Medical (4) SOB (shortness of breath): Code(s): R06.02 - Shortness of breath Category: Medical (5) Allergies: Code(s): T78.40XA - Allergy, unspecified, initial encounter Category: Medical Qualifiers: Encounter type: initial encounter Qualified Code(s): T78.40XA - Allergy, unspecified, initial encounter (6) BRCA1-associated protein-1 tumor predisposition syndrome: Comment: Increased breast cancer risk, ovarian cancer risk and pancreatic cancer risk Code(s): Z15.01 - Genetic susceptibility to malignant neoplasm of breast; Z15.02 - Genetic susceptibility to malignant neoplasm of ovary; Z15.09 - Genetic susceptibility to other malignant neoplasm Category: Medical (7) Etta-1 antibody positive: Code(s): R76.8 - Other specified abnormal immunological findings in serum Category: Medical (8) Antisynthetase syndrome: Code(s): D89.89 - Other specified disorders involving the immune mechanism, not elsewhere classified Category: Medical Plan QVAR 80 stop Spiriva start Atrovent HFA Does not tolerate LABA AMENA as needed consider PSG F/U with Rheumatology PFTs May proceed with anesthesia and breast surgery at this time F/U 4 months Orders: Orders PFT pulmonary function test Today J84.9 - Interstitial pulmonary disease, unspecified Medications: New beclomethasone dipropionate 80 mcg/actuation (Qvar RediHaler) 1 inh inhalation BID 10.6 grams 11RF 30 days ipratropium bromide 17 mcg/actuation (Atrovent HFA) 2 puffs inhalation Q8H 12.9 grams 6RF 30 days Discontinued beclomethasone dipropionate 40 mcg/actuation (Qvar RediHaler) Discontinued Reason: None 2 inhalations inhalation BID 10.6 grams 6RF Coding Level of Care Code Est Pt Level 4 (35858) Complex EM visit Add On G2211 Diagnoses Asthma-COPD overlap syndrome J44.89 Bronchiectasis without complication J47.9 Bronchiectasis type: uncomplicated ILD (interstitial lung disease) J84.9 SOB (shortness of breath) R06.02 Allergy, initial encounter T78.40XA Encounter type: initial encounter BRCA1-associated protein-1 tumor predisposition syndrome Z15.01; Z15.02; Z15.09 Etta-1 antibody positive R76.8 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 Time Spent (min) 20
--- OUTSIDE RECORDS SUMMARY | 2025-01-09 17:55 | XMS_ITS | Encounter Summary ---
Author Organization [facility] Address [address] [place] [address] Phone Care Team Providers Care Manager General Name Role Phone Nagi Howard MD Primary Care Provider [phone] Encounter Details Date Type Department Care Team (Late st Contact Info) Description 03/09/2024 Telephone [facility] Rheumatology [address] [place] [address] Nagi Howard MD [address] [place] [id number] Social History Tobacco Use Types Packs/Day Years Used Date Smoking Tobacco: Never Smokeless Tobacco: Never Alcohol Use Standard Drinks/Week Comments Never 0 (1 standard drink = 0.6 oz pur e alcohol) Education Answer Date Recorded Are you interested in more education? Not on zuhair e 12/01/2022 Are you concerned about learning? Not on file 12/01/2022 No 12/01/2022 No 12/01/2022 Digital Access Answer Date Recorded No 12/01/2022 No 12/01/2022 Reliable internet access at home? Not on file 12/01/2022 Device with a working camera? Not on file Comments Unknown Sex and Gender Information Value Date Recorded Sex Assigned at Female 12/06/2022 4:28 PM EDT Legal Sex Female 11:51 AM EDT Gender Identity Female 12/06/2022 4:28 PM EDT Sexual Orientation Straight 12/06/2022 4: 28 PM EDT documented as of this encounter Plan of Treatment Upcoming Encounters Date Type Department Care Team (Late st Contact Info) Description 02/14/2025 4:00 PM EDT Office Visit [facility] Rheumatology [address] [place] [address] Ruth Ann Samuels MD [address], [address] [place] [address] [email or web address] 08/02/2025 4:00 PM EDT Office Visit [facility]ocrinology [address] [place] [address] Julian Lo DO [address] [place] [address] [email or web address] documented as of this encounter Visit Diagnoses Not on filedocumented in this encounter Care Teams Manager General Relationship Specialty Start Date End Date Po, Nagi Arroyo MD [address] [place] [address] Drive [address] [place] [id number] PCP - General Internal Medicine 12/01/22 documented as of this encounter Additional Source Comments The information contained in this document represents components of the legal health record. It is not the complete legal health record.[facility]
--- OUTSIDE RECORDS SUMMARY | 2025-01-09 17:56 | XMS_ITS | Clinical Summary ---
Author Organization [facility] Address [address] [place] [address] Phone Care Team Providers Care Hopper Feeder Name Role Phone Nagi Howard MD Primary Care Provider [phone] Allergies Active Allergy Reactions Criticality Noted Date Comments Latex Rash High 07/21/2023 Burning, Itching, Rash Levofloxacin Medium 07/21/2023 Bloating and stomach pain Oxaprozin Anaphylaxis High 07/21/2023 Tramadol Anaphylaxis High 07/21/2023 Tremors and shakes Medications BETAMETHASONE DIPROPIONATE TOP Apply topically if needed. Active diclofenac sodium/misopros yumi (DICLOFENAC-MIS OPROSTOL ORAL) Take 75 mg by mouth 1 (one) time each day. Active amLODIPine (NORVASC) 5 mg tablet Take 1 tablet (5 mg total) by mouth 1 (one) time each day. Active acetaminophen-c odeine (TYLENOL #4) 300-60 mg per tablet Take [...] 05/16/19 25 Active furosemide (LASIX) 20 mg tabletIndicatio ns:Localized edema Take 1 tablet (20 mg total) [...] mg total) by mouth at bedtime. Active aspirin/acetami nophen/caffeine (EXCEDRIN MIGRAINE ORAL) Take 2 tablets by [...] mouth 3 (three) times a day. Active chlorthalidone (HYGROTON) 25 mg tablet TAKE 1 TABLET BY MOUTH EVERY DAY 90 tablet 2 01/04/20 25 Active chlorthalidone (HYGROTON) 25 mg tablet TAKE 1 TABLET BY MOUTH EVERY DAY 90 tablet 2 04/12/20 24 025 Discontinued Active Problems Problem Noted Date Diagnosed Date [...] Encounters Date Type Department Care Team Description 12/20/2024 Telephone [facility] Cardiology [facility] [address] [place] [address] Gómez Roman MD 12/14/2024 Telephone [facility] [address] [place] [address] Gómez Roman MD 12/01/2024 10:37 AM EDT - 12/01/2024 1:38 PM EDT Emergency [facility] Emergency [address] [place] [phone] [id number] adverse effect of medication, initial encounter (Primary Dx) Discharge Disposition: Home or Self Care from Last 3 Months Medical History Medical [...] = 0.6 oz pur e alcohol) Comments No Sex and Gender Information Value Date Recorded Sex Assigned at Not on file Legal Sex Female 1:39 PM EDT Gender Identity Not on file Sexual Orientation Not on file Obstetrics History Last Filed Vital Signs Vital Sign Reading Time Taken Comments Blood Pressure 136/72 12/01/2024 1:37 PM EDT Pulse 94 12/01/2024 1:37 PM EDT Temperature 36.6 C (97.8 F) 12/01/2024 1:37 PM EDT Respiratory Rate 18 12/01/2024 1:37 PM EDT Oxygen Saturation 100% 12/01/2024 1:37 PM EDT Inhaled Oxygen Concentration - - Weight 59 kg (130 lb) 12/01/2024 10:33 AM EDT Height 167.6 cm (5' 6 ) 12/01/2024 10:33 AM EDT Body Mass Index 20.98 12/01/2024 10:33 AM EDT Plan of Treatment Upcoming Encounters Date Type Department Care Team (Late st Contact Info) Description 03/19/2025 2:40 PM EST Office Visit [facility] [address] [place] [address] Flori Pleitez, KATERYNA [address] [place] [address] [address] [place] [phone] Health Maintenance Due Date Last Done Comments [...] (#1) 2025 Hypertension/CHF/CAD Annual BMP Blood Test 12/01/2025 12/01/2024, 08/05/2024, 04/19/2024, Additional history exists DTaP,Tdap,and Td Vaccines (2 [...] Procedure Name Priority Date/Time Associated Diagnosis Comments SANCHES URINE CULTURE TUBE STAT 12/01/2024 1:30 PM EDT URINALYSIS WITH REFLEX MICROSCOPIC AND CULTURE STAT 12/01/2024 1:30 PM EDT URINALYSIS WITH REFLEX MICROSCOPIC AND CULTURE STAT 12/01/2024 1:[address] HEAD WO CONTRAST STAT 12/01/2024 1 1:54 AM EDT MAGNESIUM STAT 12/01/2024 11:48 AM EDT C REACTIVE PROTEIN, HIGH SENSITIVITY STAT 12/01/2024 11:48 AM EDT TROPONIN I HIGH SENSITIVITY STAT 12/01/2024 11:48 AM EDT CBC WITH AUTO DIFFERENTIAL STAT 12/01/2024 11:48 AM EDT COMPREHENSIVE METABOLIC PANEL STAT 12/01/2024 11:48 AM EDT CBC AND DIFFERENTIAL STAT 12/01/2024 11:48 AM EDT from Last 3 Months Results * Urinalysis with reflex microscopic and culture (12/01/2024 1:30 PM EDT) Pathologist [facility] Specific [place] Urine 1.016 1.003 - 1.030 LAB URINALYSIS - AUTOMATED METHOD 12/01/2024 2:07 PM EDT [facility] pH, Urine 7.0 5.0 - 8.0 pH LAB URINALYSIS - AUTOMATED METHOD 12/01/2024 2:07 PM EDT [facility] Leukocytes, Urine Negative Negative LAB URINALYSIS - AUTOMATED METHOD 12/01/2024 2:07 PM EDT [facility] Nitrite, Urine Negative Negative LAB URINALYSIS - AUTOMATED METHOD 12/01/2024 2:07 PM EDT [facility] Protein, Urine Negative <=Trace mg/dL LAB URINALYSIS - AUTOMATED METHOD 12/01/2024 2:07 PM EDT [facility] Glucose, Urine Negative Negative mg/dL LAB URINALYSIS - AUTOMATED METHOD 12/01/2024 2:07 PM EDT [facility] Ketones, Urine Negative Negative mg/dL LAB URINALYSIS - AUTOMATED METHOD 12/01/2024 2:07 PM EDT [facility] Urobilinogen, Urine 0.2 0.2 - 1.0 mg/dL LAB URINALYSIS - AUTOMATED METHOD 12/01/2024 2:07 PM EDT [facility] Bilirubin, Urine Negative Negative LAB URINALYSIS - AUTOMATED METHOD 12/01/2024 2:07 PM EDT [facility] Blood, Urine Negative Negative LAB URINALYSIS - AUTOMATED METHOD 12/01/2024 2:07 PM EDT [facility] Urine Urine specimen obtained by clean catch procedure / Unknown Non-blood Collection / Unknown 12/01/2024 1:30 PM EDT 12/01/2024 1:59 PM EDT us Vadim Nieto MD LAB URINE ORDERABLES Final Resu lt Performing Organization Address [facility]/ZIP Co de Phone Number [facility] [address] [place] [address], * Sanches urine culture tube (12/01/2024 1:30 PM EDT) Extra Tube Hold for add-ons. 12/01/2024 3:01 PM EDT [facility] Comment:Auto resulted. Urine Urine specimen obtained by clean catch procedure / Unknown Non-blood Collection / Unknown 12/01/2024 1:30 PM EDT 12/01/2024 1:59 PM EDT us Vadim Nieto MD LAB URINE ORDERABLES Final Resu lt Performing Organization Address City/[facility]/ZIP Co de Phone Number [facility] [address] [place] [address], * CT Head wo Contrast (12/01/2024 11:54 AM EDT) Anatomical Region Laterality Modality Head and Neck Computed Tomogra phy 12/01/2024 12:2 0 PM EDT Impressions 12/01/2024 12:26 PM EDT No intracranial hemorrhage. No midline shift. Rounded low attenuating abnormality in the medial right temporal region without definite mass effect may represent a prominent perivascular space. I doubt this is of any clinical significance -------- FINAL REPORT -------- Dictated By: oHng Florence Dictated Date: 12/01/2024 12:20 ET Assigned Physician: Hong Florence Reviewed and Electronically Signed By: Hong Florence Signed Date: 12/01/2024 12:26 ET Workstation ID: [id number] Transcribed By: Self Edit Transcribed Date: 12/01/2024 12:20 ET Narrative 12/01/2024 12:26 PM EDT EXAMINATION: CT HEAD WITHOUT CONTRAST CLINICAL INFORMATION: Headache. Classic migraine COMPARISON: None TECHNIQUE: Multidetector CT. Examination of the head. Examination of the head without IV contrast. Reformatting in the coronal and sagittal planes. DLP: 717 mGy-cm Dose optimization was performed including the use of low-dose iterative reconstruction technique with automatic exposure control based on patient size. Type of contrast: None Volume of IV contrast: None Volume of contrast discarded: 0 mL FINDINGS: Intracranial hemorrhage: No evidence of recent intracranial hemorrhage. Ventricles, cisterns and sulci: There is no midline shift. The ventricle cisterns and sulci appear within normal limits. Extra-axial mass or collections: No extra-axial mass or collection Intra-axial mass: No mass demonstrated Acute infarct: No acute territorial infarct demonstrated. White matter disease: No significant white matter disease demonstrated. There is an approximately 0.9 cm low attenuating abnormality in the medial right temporal lobe/external capsule region without definite mass effect. This could represent a prominent perivascular space. Sanches-white interface: No disruption of the sanches-white interface. Paranasal sinuses: The visualized paranasal sinuses are well pneumatized and aerated. No mastoid disease demonstrated. Osseous/Scalp: No focal bony lesion Procedure Note Hong Florence MD - 12/01/2024 EXAMINATION: CT HEAD WITHOUT CONTRAST CLINICAL INFORMATION: Headache. Classic migraine COMPARISON: None TECHNIQUE: Multidetector CT. Examination of the head. Examination of the head without IV contrast. Reformatting in the coronal and sagittal planes. DLP: 717 mGy-cm Dose optimization was performed including the use of low-dose iterativereconstruction technique with automatic exposure control based on patientsize. Type of contrast: None Volume of IV contrast: None Volume of contrast discarded: 0 mL FINDINGS: Intracranial hemorrhage: No evidence of recent intracranial hemorrhage. Ventricles, cisterns and sulci: There is no midline shift. The ventriclecisterns and sulci appear within normal limits. Extra-axial mass or collections: No extra-axial mass or collection Intra-axial mass: No mass demonstrated Acute infarct: No acute territorial infarct demonstrated. White matter disease: No significant white matter disease demonstrated.There is an approximately 0.9 cm low attenuating abnormality in the medialright temporal lobe/external capsule region without definite mass effect.This could represent a prominent perivascular space. Sanches-white interface: No disruption of the sanches-white interface. Paranasal sinuses: The visualized paranasal sinuses are well pneumatizedand aerated. No mastoid disease demonstrated. Osseous/Scalp: No focal bony lesion IMPRESSION: No intracranial hemorrhage. No midline shift. Rounded low attenuating abnormality in the medial right temporal regionwithout definite mass effect may represent a prominent perivascular space.I doubt this is of any clinical significance -------- FINAL REPORT -------- Dictated By: Hong Florence Dictated Date: 12/01/2024 12:20 ET Assigned Physician: Hong Florence Reviewed and Electronically Signed By: Hong Florence Signed Date: 12/01/2024 12:26 ET Workstation ID: [id number] Transcribed By: Self Edit Transcribed Date: 12/01/2024 12:20 ET us [address] CT PROCEDURES Final Result * Troponin I High Sensitivity (12/01/2024 11:48 AM EDT) High Sensitivity Troponin I 3 <=54 ng/L LAB CHEMISTRY METHOD 12/01/2024 1:30 PM EDT [facility] Blood Venous blood specimen / Unknown Venipuncture / Unknown 12/01/2024 11:48 AM EDT 12/01/2024 12:38 PM EDT Narrative [facility] - 12/01/2024 1:30 PM EDT High levels of biotin in samples may falsely decrease hsTroponin values. Use caution when interpreting hsTroponin results in patients taking biotin who exhibit renal impairment (eGFR <60) or in patients taking more than 20 mg/day of biotin. Filippo GAFFNEY LAB BLOOD ORDERABLES Final R esult [facility] [address] [place] [address], * (ABNORMAL) CBC auto differential (12/01/2024 11:48 AM EDT) [facility] WBC 8.1 4.8 - 10.8 K/mcL LAB HEMETOLOGY METHOD 12/01/2024 12:45 PM EDT [facility] RBC 4.50 3.80 - 4.80 M/mcL LAB HEMETOLOGY METHOD 12/01/2024 12:45 PM EDT [facility] Hemoglobin 12.4 11.5 - 16.0 g/dL LAB HEMETOLOGY METHOD 12/01/2024 12:45 PM EDT [facility] Hematocrit 40.0 35.0 - 47.0 % LAB HEMETOLOGY METHOD 12/01/2024 12:45 PM EDT [facility] MCV 89.3 79.0 - 98.0 FL LAB HEMETOLOGY METHOD 12/01/2024 12:45 PM EDT [facility] MCH 27.7 27.0 - 32.0 pcg LAB HEMETOLOGY METHOD [facility] MCHC 31.0(L) 32.0 - 37.0 g/dL LAB HEMETOLOGY METHOD 12/01[facility]24 [facility] RDW 13.8 11.0 - 15.0 % LAB HEMETOLOGY METHOD 12/01/2024 12:[facility] Platelets 298 130 - 400 K/mcL LAB HEMETOLOGY METHOD 12/01/2024 12[facility] MPV 11.2(H) 7.0 - 11.0 FL LAB HEMETOLOGY METHOD 12/01/2024 12[facility] NRBC 0.0 <1.0 % LAB HEMETOLOGY METHOD 12/01/2024 12[facility] NRBC Absolute 0.00 <0.10 K/mcL LAB HEMETOLOGY METHOD 12/01/2024 12[facility] Neutrophils Relative 79.8 % LAB HEMETOLOGY METHOD 12/01/2024 12:45 PM [facility] Lymphocytes Relative 15.1 % LAB HEMETOLOGY METHOD 12/01/2024 12:45 PM [facility] Monocytes Relative 3.2 % LAB HEMETOLOGY METHOD 12/01/2024 12:45 PM [facility] Eosinophils Relative 0.7 % LAB HEMETOLOGY METHOD 12/01/2024 12:45 PM [facility] Basophils Relative 0.7 % LAB HEMETOLOGY METHOD 12/01/2024 12[facility] Immature Granulocytes Relative 0.5 % LAB HEMETOLOGY METHOD 12/01/2024 12:45 PM [facility] Neutrophils Absolute 6.47 1.50 - 7.00 K/mcL LAB HEMETOLOGY METHOD 12/01/2024 12:45 PM EDT [facility] Lymphocytes Absolute 1.23 1.00 - 5.00 K/mcL LAB HEMETOLOGY METHOD 12/01/2024 12:45 PM EDT [facility] Monocytes Absolute 0.26 0.20 - 1.00 K/mcL LAB HEMETOLOGY METHOD 12/01/2024 12:45 PM EDT [facility] Eosinophils Absolute 0.06 0.00 - 0.50 K/mcL LAB HEMETOLOGY METHOD 12/01/2024 12:45 PM EDT [facility] Basophils Absolute 0.06 0.00 - 0.20 K/mcL LAB HEMETOLOGY METHOD 12/01/2024 12:45 PM EDT [facility] Immature Granulocytes Absolute 0.04(H) 0.00 - 0.03 K/mcL LAB HEMETOLOGY METHOD 12/01/2024 12:45 PM EDT [facility] Blood Venous blood specimen / Unknown Venipuncture / Unknown 12/01/2024 11:48 AM EDT 12/01/2024 12:38 PM EDT Vadim Nieto MD LAB BLOOD ORDERABLES Final Resu lt [facility] [address] [place] [address], * High Sensitivity CRP (12/01/2024 11:48 AM EDT) CRP, High Sensitivity 0.86 mg/L LAB CHEMISTRY METHOD 12/01/2024 1:30 PM EDT [facility] Comment: Cardio CRP Relative Risk Categories Low <1.0 mg/L Average 1.0 - 3.0 mg/L High >3.0 mg/L Levels >10.0 mg/L should be ignored and repeated when the patient is stable and infection or inflammation is ruled out. HRT (estrogens) consistently increase cardio CRP levels. Risk estimates for women on HRT may need to be calibrated downward. Blood Venous blood specimen / Unknown Venipuncture / Unknown 12/01/2024 11:48 AM EDT 12/01/2024 12:38 PM EDT Filippo GAFFNEY LAB BLOOD ORDERABLES Final R esult Performing Organization Address City/[facility]/ZIP Co de Phone Number [facility] [address] [place] [address], [place] [phone] * (ABNORMAL) Magnesium (12/01/2024 11:48 AM EDT) Pathologist [facility] Magnesium 1.8(L) 1.9 - 2.6 mg/dL LAB CHEMISTRY METHOD 12/01/2024 1:10 PM EDT [facility] Blood Venous blood specimen / Unknown Venipuncture / Unknown 12/01/2024 11:48 AM EDT 12/01/2024 12:38 PM EDT Filippo GAFFNEY LAB BLOOD ORDERABLES Final R esult Performing Organization Address [facility] Co de Phone Number [facility] [address] [place] [address], [place] [phone] * (ABNORMAL) Comprehensive metabolic panel (12/01/2024 11:48 AM EDT) Sodium 139 133 - 145 mmol/L LAB CHEMISTRY METHOD 12/01/2024 1:30 PM EDT [facility] Potassium 4.1 3.5 - 5.5 mmol/L LAB CHEMISTRY METHOD 12/01/2024 1:30 PM EDT [facility] Chloride 105 96 - 110 mmol/L LAB CHEMISTRY METHOD 12/01/2024 1:30 PM EDT [facility] CO2 31 21 - 32 mmol/L LAB CHEMISTRY METHOD 12/01/2024 1:30 PM EDT [facility] Anion Gap 3 3 - 11 LAB CHEMISTRY METHOD 12/01/2024 1:30 PM [facility] Glucose 107(H) 70 - 100 mg/dL LAB CHEMISTRY METHOD 12/01/2024 1:30 PM [facility] BUN 23 5 - 25 mg/dL LAB CHEMISTRY METHOD 12/01/2024 1:30 PM [facility] Creatinine 0.66 0.50 - 1.10 mg/dL LAB CHEMISTRY METHOD 12/01/2024 1:30 PM [facility] eGFR 110 >=60 mL/min/1. 73m2 LAB CHEMISTRY METHOD 12/01/2024 1:30 PM [facility] Comment:Calculation based on the Chronic Kidney Disease Epidemiology Collaboration (CKD-EPI) equation refit without adjustment for race. BUN/Creatinine Ratio 34.8 LAB CHEMISTRY METHOD 12/01/2024 1:30 PM [facility] Calcium 9.7 8.5 - 10.5 mg/dL LAB CHEMISTRY METHOD 12/01/2024 1:30 PM [facility] AST (SGOT) 9(L) 10 - 42 unit/L LAB CHEMISTRY METHOD 12/01/2024 1:30 PM [facility] ALT (SGPT) 15 10 - 60 unit/L LAB CHEMISTRY METHOD 12/01/2024 1:30 PM [facility] Alkaline Phosphatase 69 42 - 121 unit/L LAB CHEMISTRY METHOD 12/01/2024 1:30 PM [facility] Total Protein 6.6 6.0 - 8.0 g/dL LAB CHEMISTRY METHOD 12/01/2024 1:30 PM [facility] Albumin 3.7 3.2 - 5.0 g/dL LAB CHEMISTRY METHOD 12/01/2024 1:30 PM [facility] Total Bilirubin 0.5 0.0 - 1.4 mg/dL LAB CHEMISTRY METHOD 12/01/2024 1:30 PM EDT [facility] Blood Venous blood specimen / Unknown Venipuncture / Unknown 12/01/2024 11:48 AM EDT 12/01/2024 12:38 PM EDT us Vadim Nieto MD LAB BLOOD ORDERABLES Final Resu lt [facility] ([facility] [address] [place] [address], from Last 3 Months Insurance [facility] Care Teams Hopper Feeder Relationship Specialty Start Date End Date Nagi Howard MD [address] [place] [address] [address] [facility] [place] [address] PCP - General 05/24/23
--- OUTSIDE RECORDS SUMMARY | 2025-01-09 17:56 | XMS_ITS | Encounter Summary ---
Author Organization [facility] Address [address] [facility] [address] [place] [address] Phone Care Team Providers Care Semi Driver Name Role Phone Nagi Howard MD Primary Care Provider [phone] Encounter Details Date Type Department Care Team (Late st Contact Info) Description 12/14/2024 Orders Only [facility] Rheumatology [address] [place] [address] Provider, MD Cesilia [address] [place] [id number] Social History Tobacco Use Types Packs/Day Years [...] Description 02/14/2025 4:00 PM EDT Office Visit [facility] Rheumatology [address] [place] [address] Ruth Ann Samuels MD [address] [facility], [address] [place] [address] 08/02/2025 4:00 PM EDT Office Visit [facility] Endocrinology [address] [place] [address] Julian Lo DO [address] [place] [address] [email or web address] documented as of this encounter Procedures Procedure Name Priority Date/Time Associated Diagnosis Comments LYME SCREEN WITH REFLEX TO WESTERN BLOT, BLOOD Routine 12/12/2024 10:27 AM EDT documented in this encounter Results * Lyme Screen with Reflex to Immunoblot, Blood (12/12/2024 10:27 AM EDT) us Historical Provider LAB BLOOD ORDERABLES Diana l Result documented in this encounter Visit Diagnoses Not on filedocumented in this encounter Care Teams Semi Driver Relationship Specialty Start Date End Date Nagi Howard MD [address] [place] [address] [address] [place] [phone] PCP - General Internal Medicine 12/01/22 documented as of this encounter Additional Source Comments The information contained in this document represents components of the legal health record. It is not the complete legal health record.[facility]
--- OUTSIDE RECORDS SUMMARY | 2025-01-09 17:56 | XMS_ITS | Encounter Summary ---
Author Organization [place] [address] Care Team Providers Care Snow Groomer Name Role Phone Nagi Howard MD Primary Care Provider [phone] Reason for Visit * Reason Onset Date Comments Advice Only 12/20/2024 Encounter Details Date Type Department Care Team (Late st Contact Info) Description 12/20/2024 Telephone [facility] [address] [place] [address] [place] [phone] Gómez Roman MD [address] [place] [address] [address] [place] [address] Social History Tobacco Use Types Packs/Day Years [...] on file documented as of this encounter Progress Notes * Gómez Roman MD - 12/25/2024 3:45 PM EDT Call the patient told her that she is had an EKG done on 12 December that shows no manifestations of Lyme toxicity. 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 I told her that her EKG is baseline abnormal and does not change when compared to the ones done in the office and when it was compared to the one done at [facility] on 12 December. There is no change * Luisa Grider - 12/20/2024 3:37 PM EDT Informed the patient someone will get back to her after Wednesday due to the provider being out of theoffice. She understood. * Luisa Grider - 12/20/2024 11:27 AM EDT I informed the patient to consult with her PCP however she insist she would like to speak with . no available appointments at this time. Added patient's name to cancellation list. * Luisa Grider - 12/20/2024 9:26 AM EDT Patient recently diagnosed with Lyme disease, she is concerned of how the disease can affect her heart. She would like to speak with a provider. She also states she has had recent surgery and has been to the ER. Her care team during that time has concerns with her last EKG. They stated the EKG showed a blockage that can cause decrease in blood flow. She would also like to ask the provider is her last EKG cause for concern. I informed the patient to follow up with PCP she said she is in contact with her PCP and they are treating the Lyme disease with antibiotics. However she would like to knowfrom the medical claims representative the possible heart affects of lyme disease. The best call back number is she stated it is ok to leave a detailed message. She also stated it is ok to call her mother Katie at [phone] if she can not be reached. documented in this encounter Plan of Treatment Upcoming Encounters Date Type Department Care Team (Late st Contact Info) Description 03/19/2025 2:40 PM EST Office Visit [facility] [address] [place] [phone] Flori Pleitez NP [address] [place] [address] [address] [place] [address] documented as of this encounter Goals Goal [...] On track(2023 3:54 PM EST) No Anjali Chavez P, OTR/L Note: STG's 1: Patient will be [...] been met documented as of this encounter Visit Diagnoses Not on filedocumented in this encounter Care Teams Snow Groomer Relationship Specialty Start Date End Date Nagi Howard MD [address] [place] [address] [address] [facility] [place] [address] PCP - General 05/24/23 documented as of this encounter
--- OUTSIDE RECORDS SUMMARY | 2025-01-09 17:56 | XMS_ITS | Encounter Summary ---
Author Organization [facility] Address [address] [address] Phone Care Team Providers Care Truck Despatcher Name Role Phone Nagi Howard MD Primary Care Provider [phone] Encounter Details Date Type Department Care Team (Late st Contact Info) Description 12/13/2024 Orders Only [facility] [address] [place] [address] [place] [phone] Steff Moon MA [address] [place] [address] Subclinical hypothyroidism Social History Tobacco Use Types Packs/Day Years [...] Description 02/14/2025 4:00 PM EDT Office Visit [facility] Rheumatology [address] [place] [address] Ruth Ann Samuels MD [address] [facility], [address] [place] [address] [email or web address] 08/[email or web address]/2025 4:00 PM EDT Office Visit [facility] [address] [place] [address] Julian Lo DO [address] [place] [address] [email or web address] documented as of this encounter Procedures Procedure Name Priority Date/Time Associated Diagnosis Comments TSH Routine 12/06/2024 1:50 PM EDT Subclinical hypothyroidism FREE T4 Routine 12/06/2024 1:50 PM EDT Subclinical hypothyroidism documented in this encounter Results * TSH (12/06/2024 1:50 PM EDT) Blood us Julian Lo DO LAB BLOOD ORDERABLES Final Resul t Performing Organization Address [facility] Co de Phone Number [address] [address] * Free T4 (12/06/2024 1:50 PM EDT) Blood us Julian Lo DO LAB BLOOD ORDERABLES Final Resul t Performing Organization Address City/[facility]/ZIP Co de Phone Number [address] [address] documented in this encounter Visit Diagnoses Diagnosis Subclinical hypothyroidism Other specified acquired hypothyroidism documented in this encounter Care Teams Truck Despatcher Relationship Specialty Start Date End Date Nagi Howard MD [address] [place] [address] Drive [address] [place] [address] PCP - General Internal Medicine 12/01/22 documented as of this encounter Additional Source Comments The information contained in this document represents components of the legal health record. It is not the complete legal health record.[facility]
--- OUTSIDE RECORDS SUMMARY | 2025-01-09 17:56 | XMS_ITS | Encounter Summary ---
Author Organization [place] [address] Care Team Providers Care Tool Maintenance Worker Name Role Phone Nagi Howard MD Primary Care Provider [phone] Encounter Details Date Type Department Care Team (Late st Contact Info) Description 12/14/2024 Telephone [facility] [address] [place] [phone] Gómez Roman MD [address] [place] [address] [address] [place] [address] Social History Tobacco Use Types [...] as of this encounter Progress Notes * Ariadne Kirkland MA - 12/19/2024 4:45 PM EDT Left message for call back . Please send to [facility] for call back. TY> * Flori Pleitez NP - 12/19/2024 4:32 PM EDT She should follow-up with her primary care provider in regards to the Lyme disease. If we are able to move up her appointment with me I can try to see her sooner but PCP should see her first. * Padmini Cruz MA - 12/14/2024 11:52 AM EDT Images from the original note were not included. * Pedro Morillo - 12/14/2024 11:36 AM EDT Patient recently had surgery and she had labs done. She found out yesterday she was positive for [place] disease. Patient wants to know if there is anything that needs to be done as she is aware it can affect her heart. She is aware Dr. Roman is out of the office. documented in this encounter Plan of Treatment Upcoming Encounters Date Type Department Care Team (Late st Contact Info) Description 03/19/2025 2:40 PM EST Office Visit [facility] [address] [place] [phone] Flori Pleitez NP [address] [place] [address] [address] [place] [phone] documented as of this encounter Goals Goal [...] on filedocumented in this encounter Care Teams Tool Maintenance Worker Relationship Specialty Start Date End Date Nagi Howard MD [address] [place] [address] [address] [facility] [place] [address] PCP - General 05/24/23 documented as of this encounter
--- OUTSIDE RECORDS SUMMARY | 2025-01-09 17:56 | XMS_ITS | Patient Health Record ---
Author Organization [facility] Address [address] [place] [phone] Care Team Providers Care Student Outreach Coordinator Name Role Phone Po Nagi HALE Primary Care Provider Cristino Jasso [phone] Allergies Allergen (clinical drug ingredient) Drug/Non Drug [...] 100 MG as directed Orally 02/09/2024 Active [place] 6 MG as directed Orally 02/09/2024 Active [...] Risk Notes Problem Diverticular disease of colon (258320390) Diverticulosis of large intestine without perforation or abscess without bleeding (K57.30) Active confirmed Problem Irritable bowel syndrome with diarrhea (304730246) Irritable bowel syndrome with diarrhea (K58.0) Active confirmed Problem Abnormal weight loss (414156364) Abnormal weight loss (R63.4) Active confirmed Problem Chronic diarrhea (139840749) Chronic diarrhea (K52.9) Active confirmed Vital Signs Temperature 98.2 degrees Fahrenheit 02/09/2024 Blood pressure diastolic 00 mm Hg 02/09/2024 Height 5 ft 6 in in 02/09/2024 Blood pressure systolic 000 mm Hg 02/09/2024 Weight 128 lb 8 oz lbs 02/09/2024 BMI 20.74 kg/m2 02/09/2024 Encounters Encounter Location Date Provider Diagnosis [facility] [address] [place] [phone] 02/09/2024 Cristino Cuello Chronic diarrhea K52.9 ; Abnormal weight loss R63.4 and Irritable bowel syndrome with diarrhea K58.0 [facility] [address] [place] [phone] 01/14/2024 Cristino Cuello [facility] [address] [place] [phone] 01/17/2024 Cristino Cuello [facility] [address] [place] [phone] 08/08/2024 Cristino Cuello [facility] [address] [place] [phone] 12/28/2024 Cristino Cuello [facility] [address] [place] [phone] 01/19/2024 Cristino Cuello Assessments Encounter Date Diagnosis [...] is on many different supplements and other rcao-spw-ennjmos medications which can sometimes cause different side [...] is on many different supplements and other kbsk-eqd-vkltcuh medications which can sometimes cause different side [...] is on many different supplements and other igor-ivs-atksmqz medications which can sometimes cause different side [...] C DIFFICILE RFLX PCR 07/20/2023 GI PANEL 07/27/2023 GI PANEL 07/20/2023 Future Test Test Name Order Date COLONOSCOPY 07/20/2023 Next Appt Details Provider Name:Cristino Cuello , 02/28/2025 03:40:00 PM, [address], [address], [place], [address], Insurance Providers Payer Name Payer Address Payer Phone Subscriber Number Group Number Insured Name Patient Relationship to Insured Coverage Start Date Coverage End Date [facility] [address] [place] [phone] [id number] ANGELINA KUNZ Self - patient is the insured Medical (General) History Medical History History ICD Code 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 Kebede, at [facility] Hx of gastroparesis--Dr. Blank morel--describes an upper endoscopy > 10 years ago--she describes that those symptoms resolved without any specific treatment Raynauds Denies HI,DM,CVA,renal disease Diarrhea-laboratories were negative for celiac disease [...]
--- OUTSIDE RECORDS SUMMARY | 2025-01-09 17:56 | XMS_ITS | Clinical Summary ---
Author Organization [facility] Address [address] [facility] [address] [place] [id number] Phone Care Team Providers Care Security Controls Assessor Name Role Phone Nagi Howard MD Primary Care Provider [phone] Allergies Active Allergy Reactions Criticality Noted Date Comments Latex Rash Low 12/07/2022 Levofloxacin Swelling 12/07/2022 Oxaprozin Anaphylaxis,Angina,N ausea and/or Vomiting,Shortness Of Breath,Swelling High 12/07/2022 Tramadol Tremor Low 12/07/2022 Medications CALCIUM ORAL Take by mouth. Ac tive biotin 1 mg tablet Take 1,000 mcg by mouth daily. Active chlorthalidone (HYGROTON) 25 MG tablet Take 25 mg by mouth daily. 12/02/19 24 Active progesterone (PROMETRIUM) 100 mg capsule Take 100 mg by mouth daily. Active cilostazol (PLETAL) 50 MG tablet Take 50 mg by mouth daily. As needed Active omeprazole (PRILOSEC) 20 MG capsule Take 20 mg by mouth daily. Active LOMOTIL 2.5-0.025 mg per tablet Take 1-2 tablets by mouth as needed. 02/09/20 24 Active dicyclomine (BENTYL) 10 MG capsule Take 10-20 mg by mouth. Every 4-6 hours as needed 02/09/20 24 Active QVAR REDIHALER 40 mcg/actuation inhaler Inhale 2 puffs into the lungs as needed. 05/09/19 25 Active betamethasone dipropionate 0.05 % ointment Apply topically. 05/16/19 25 Active tacrolimus (PROTOPIC) 0.1 % ointment Apply topically. As needed 05/16/19 25 Active amLODIPine (NORVASC) 5 MG tablet Take 1 tablet (5 mg total) by mouth daily. 90 tablet 1 05/25/19 25 Active Additional Information Patient taking differently:5 mg Oral Daily,As needed, Reported on 11/27/2024 furosemide (LASIX) 20 MG tablet Take 20 mg by mouth daily as needed. 07/28/24 has not started yet pending lab results 07/12/19 026 Active SPIRIVA RESPIMAT 2.5 mcg/actuation mist for inhalation TAKE 2 PUFFS INHALED DAILY 07/08/19 25 Active gabapentin (NEURONTIN) 400 MG capsuleIndications :Primary osteoarthritis involving multiple joints,Fibromyalgi a TAKE 1 CAPSULE BY MOUTH AT BEDTIME in addition to gabapentin 100 mg 1-2 capsules during the day. 30 capsule 2 09/08/19 25 Active acetaminophen-code ine (TYLENOL #4) 300-60 mg per tabletIndications: Primary osteoarthritis involving multiple joints Take 1 tablet by mouth 2 (two) times a day as needed for pain (specific location in comments). 20 tablet 4 09/09/19 25 Active levothyroxine (SYNTHROID, LEVOTHROID) 50 MCG tabletIndications: Subclinical hypothyroidism Take 1 tablet (50 mcg total) by mouth every morning. 90 tablet 3 09/12/19 25 Active prochlorperazine (COMPAZINE) 10 MG tabletIndications: Nausea Take 1 tablet twice daily as needed for nausea 60 tablet 1 09/13/19 25 Active diclofenac sodium (VOLTAREN) 75 MG EC tabletIndications: Primary osteoarthritis involving multiple joints TAKE 1 TABLET BY MOUTH NIGHTLY AT BEDTIME. 90 tablet 1 10/22/19 25 Active mycophenolate mofetil (CELLCEPT) 500 mg tabletIndications: Polymyositis TAKE 1 TABLET BY MOUTH TWICE A DAY WITH FOOD 60 tablet 3 11/29/19 25 Active Active Problems Problem Noted Date Diagnosed Date group home (current) use of n on-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-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 (nsaid) 11/27/2024 Assessment & Plan (11/27/2024 5:30 PM EDT): Take the lowest dose, with least frequency, for shortest time. Remember to take it always with food. Favor topical over oral preparations. Elevated liver function tests 10/31/2024 Assessment & Plan (10/31/2024 12:25 PM EDT): Possibly secondary to CellCept and or concomitant Tylenol that she is limiting already-monitor closely-she is asked to get monitoring labs in 4 weeks-orders in [facility]. She is asked to stop [id number] products that may contribute to it. Fibromyalgia 07/28/2024 Assessment & Plan (11/27/2024 5:27 PM EDT): We discussed the diagnosis of fibromyalgia, its natural history, and treatment. Specifically, we discussed that treatment requires many interventions and recognition that we are often unable to get patients completely pain free. Management of fibromyalgia requires patient engagement to address any underlying depression, anxiety, or sleep disorder. Further, patients are encouraged to engage in regular physical activity. Some studies have suggested that Brad Chi is effective. Other physical activity may including water-based aerobics, walking, biking, gentle yoga, swimming, Pilates etc. In terms of pharmacotherapy, there are many options, including tricyclic antidepressants, duloxetine, gabapentin or pregabalin, and cyclobenzaprine as well as other similar medications to those listed. In this case, the patient might to continue carefully build up the dose of gabapentin that appears helpful from 200 mg nightly to 300 mg nightly. I provided her with pamphlet on fibromyalgia that contains information on useful books for fibromyalgia patients such as book written by Dr Clinton Yarbrough [facility] Assessment & Plan (10/02/2024 4:40 PM EDT): We discussed the diagnosis of fibromyalgia, its natural history, and treatment. Specifically, we discussed that treatment requires many interventions and recognition that we are often unable to get patients completely pain free. Management of fibromyalgia requires patient engagement to address any underlying depression, anxiety, or sleep disorder. Further, patients are encouraged to engage in regular physical activity. Some studies have suggested that Brad Chi is effective. Other physical activity may including water-based aerobics, walking, biking, gentle yoga, swimming, Pilates etc. In terms of pharmacotherapy, there are many options, including tricyclic antidepressants, duloxetine, gabapentin or pregabalin, and cyclobenzaprine as well as other similar medications to those listed. In this case, the patient might to continue carefully build up the dose of gabapentin that appears helpful from 200 mg nightly to 300 mg nightly. I provided her with pamphlet on fibromyalgia that contains information on useful books for fibromyalgia patients such as book written by Dr Clinton [facility] Assessment & Plan (07/30/2024 11:10 AM EDT): We discussed the diagnosis of fibromyalgia, its natural history, and treatment. Specifically, we discussed that treatment requires many interventions and recognition that we are often unable to get patients completely pain free. Management of fibromyalgia requires patient engagement to address any underlying depression, anxiety, or sleep disorder. Further, patients are encouraged to engage in regular physical activity. Some studies have suggested that Brad Chi is effective. Other physical activity may including water-based aerobics, walking, biking, gentle yoga, swimming, Pilates etc. In terms of pharmacotherapy, there are many options, including tricyclic antidepressants, duloxetine, gabapentin or pregabalin, and cyclobenzaprine as well as other similar medications to those listed. In this case, the patient might to continue carefully build up the dose of gabapentin that appears helpful from 200 mg nightly to 300 mg nightly. I provided her with pamphlet on fibromyalgia that contains information on useful books for fibromyalgia patients such as book written by Dr Clinton [facility] Elevated BUN 05/25/2024 Assessment & Plan (06/18/2024 10:19 PM EST): Keep well-hydrated: 6-8 glasses (8 ounces each) of fluids daily, may need to adjust hydration in hot humid weather. Hypercalcemia 05/25/2024 Assessment & Plan (06/18/2024 10:18 PM EST): Do not take oral calcium supplements. Olecranon bursitis of right elbow 05/25/2024 Assessment & Plan (07/28/2024 5:32 PM EDT): Avoid leaning on right elbow, heavy lifting, pulling or pushing with outstretched arm. She may benefit from keeping it on a pillow, icing it and applying topical Voltaren gel as needed. If symptoms progress especially if there is redness, swelling may need to get direct aspiration of fluid evaluation to rule out infection and/or crystals Assessment & Plan (06/18/2024 10:18 PM EST): Avoid leaning on right elbow, heavy lifting, pulling or pushing with outstretched arm. She may benefit from keeping it on a pillow, icing it and applying topical Voltaren gel as needed. If symptoms progress especially if there is redness, swelling may need to get direct aspiration of fluid evaluation to rule out infection and/or crystals Raynaud's phenomenon without gangrene 04/09/2024 Assessment & Plan (11/27/2024 5:27 PM EDT): Keep warm, dress in layers. Optimize stress management strategies. Avoid vasoconstrictors in OTC products for cold/flu and sinus. Assessment & Plan (10/02/2024 4:40 PM EDT): Keep warm, dress in layers. Optimize stress management strategies. Avoid vasoconstrictors in OTC products for cold/flu and sinus. Assessment & Plan (07/28/2024 5:32 PM EDT): Keep warm, dress in layers. Optimize stress management strategies. Avoid vasoconstrictors in OTC products for cold/flu and sinus. Assessment & Plan (06/18/2024 10:12 PM EST): Keep warm, dress in layers. Optimize stress management strategies. Avoid vasoconstrictors in OTC products for cold/flu and sinus. Assessment & Plan (04/09/2024 10:37 PM EST): Keep warm, dress in layers. Optimize stress management strategies. Avoid vasoconstrictors in OTC products for cold/flu and sinus. Lymphedema of both lower extremities 03/10/2024 Assessment & Plan (07/30/2024 11:08 AM EDT): Continue using techniques as educated at lymphedema clinic to decrease degree of lymphedema. Use compression stockings put first thing in the morning before taking legs off the bed. Assessment & Plan (05/25/2024 1:07 PM EST): Continue using techniques as educated at lymphedema clinic to decrease degree of lymphedema. Assessment & Plan (04/09/2024 10:35 PM EST): Continue using techniques as educated at lymphedema clinic to decrease degree of lymphedema. Gastroesophageal reflux disease without esophagi tis 03/10/2024 Assessment & Plan (11/27/2024 5:28 PM EDT): Avoid late, large, spicy meals. Keep headboard elevated at 45 angle for nighttime. Carefully continue Prilosec (omeprazole) 20 mg daily. Assessment & Plan (10/02/2024 4:40 PM EDT): Avoid late, large, spicy meals. Keep headboard elevated at 45 angle for nighttime. Carefully continue Prilosec (omeprazole) 20 mg daily. Assessment & Plan (07/28/2024 5:32 PM EDT): Avoid late, large, spicy meals. Keep headboard elevated at 45 angle for nighttime. Carefully continue Prilosec (omeprazole) 20 mg daily. Assessment & Plan (05/25/2024 1:08 PM EST): Avoid late, large, spicy meals. Keep headboard elevated at 45 angle for nighttime. Carefully continue Prilosec (omeprazole) 20 mg daily. Assessment & Plan (04/09/2024 10:36 PM EST): Avoid late, large, spicy meals. Keep headboard elevated at 45 angle for nighttime. Carefully continue Prilosec (omeprazole) 20 mg daily. Subclinical hypothyroidism 08/26/2023 Assessment & Plan (08/02/2024 4:29 PM EDT): Chemically and clinically euthyroid. I suspect that her TSH may have dropped even a little bit further on most recent lab work but I do not have it. So what I would do is just renew her medication at the current dose 75 mcg have her return for follow-up in 1 year. Assessment & Plan (04/19/2024 4:07 PM EST): She remains in a subclinical hypothyroid state but the TSH is better and she is feeling slightly better but continues to complain of fatigue. Therefore we will increase the dose to 75 mcg she will repeat thyroid function studies prior to the follow-up visit in 3 months. Assessment & Plan (01/17/2024 4:18 PM EDT): She continues in a subclinical hypothyroid state states that she is feeling a little bit better. Will increase the dose of levothyroxine from 25 to 50 mcg and repeat thyroid function studies in 3 months. Assessment & Plan (10/14/2023 3:42 PM EDT): The patient has subclinical hypothyroidism decided to prescribe 25 mcg of levothyroxine repeat thyroid function studies in 3 months it may help with her hair texture. She inquired about possible adverse outcomes. I informed her that if we normalize her thyroid function study then I would not expect any abnormal outcome. However if she were to get too much medication which I doubt because it is a very low-dose then she can experience hyperthyroid symptoms such as tremors, palpitations, nervousness, anxiety, heat intolerance, insomnia, muscle aches, loose stools. She states that she experiencing some of the symptoms already. So then she inquired if she feels poorly on the medication should she stop it. So the choices in this scenario will be to stop the medication or to just whether thyroid and repeat thyroid function studies in 3 months and just see if overall after 3 months. She will feel better. But at this point it would be her choice. She also ask if the medication has to be tapered off and the answer to this is now she can just stop it if it does not agree with her. I informed her that the medication has to be taken fasting with water in the morning and she must not eat for 45 minutes. She cannot take any calcium, multivitamin or iron within 4 hours of levothyroxine administration. If she does it may block absorption of the medication. Prior to repeating lab work the patient should take the medication the morning of the lab work wait at least 2 hours before having blood drawn. She can do this 1 to 2 weeks prior to the visit. Assessment & Plan (08/26/2023 3:06 PM EDT): The patient has subclinical hypothyroidism and I could prescribe levothyroxine 50 mcg and repeat thyroid function studies in 3 months time. But she is tachycardic and I will actually concern about prescribing levothyroxine which may increase her heart rate. I suggested to the patient that we will repeat thyroid function studies and check for Richy's thyroiditis and reevaluate at a later date. Hair loss 08/26/2023 Assessment & Plan (10/14/2023 3:41 PM EDT): The patient actually did not have hair loss she said that her hair consistency was just off. It does not particularly look brittle. It does look very thin and it does look like she is lost hair but she states that she has not lost hair. In any case the biochemical workup did not find any abnormalities other than elevated TSH and at this point I am giving her a very small dose of levothyroxine and we can see if this improves her hair texture. Assessment & Plan (08/26/2023 3:06 PM EDT): The patient states that she has hair thinning she has not actually noticed hair loss. I will do biochemical workup for hair loss and see if there is any abnormalities. She was advised to do this lab work fasting in the morning. Edema 03/15/2023 Assessment & Plan (03/15/2023 1:59 PM EST): Pitting and doughy edema to both lower legs. I do not believe this is related to polymyositis. Advised her to consider elevating her legs and use compression stockings. Oral thrush 03/15/2023 Assessment & Plan (05/14/2023 2:53 PM EST): She has episodes of oral thrush for which she uses nystatin swish and swallow. Assessment & Plan (03/15/2023 1:58 PM EST): Occasional and intermittent oral thrush. Gave her a prescription for nystatin swish and swallow to be used as needed. Elevated TSH 03/15/2023 Assessment & Plan (08/16/2023 5:43 PM EDT): Was found to have an elevated TSH on 2 different occasions with a normal free T4. She will be seeing Dr. Lo in late August. Assessment & Plan (05/14/2023 2:54 PM EST): She has a long history of an elevated TSH with normal free T4 and has become very anxious about this finding. It is not clear to me if her hair thinning and lymphedema are related to the TSH. At her request I will refer her to our endocrine department. Assessment & Plan (03/15/2023 2:00 PM EST): He was found to have an elevated TSH with a normal circulating free T4. We will repeat her thyroid functions today. We will try and get a hold of Dr. Liliya Corcoran as requested by patient, to discuss her thyroid functions. We will also request a formal endocrine consult for her thyroid functions. 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 I met her first time in early March 2024 and started her on CellCept 500 mg twice daily that she tolerates well. I am encouraging her to continue gentle, regular exercise program in addition to avoiding sick contacts and following age-appropriate screenings and preventive strategies. She is reminded to hold CellCept whenever running fever, feeling sick or taking antibiotics. In preparation for bilateral oophorectomy in fallopian tube resection on 12/11/2024 I instructed her to hold CellCept for at least 2 weeks after the surgery or until postsurgical scar has healed. Provided she has no deterioration I have asked her to return in 11 weeks or earlier if necessary. She was educated to monitor for time, severity and frequency of episodes of arm numbness, speech difficulty and left lower extremity weakness with confusion and if symptoms persist for greater than 5-10 minutes call 911 for help because it may be TIA (transient ischemic attack) that may progress to stroke and permanent deficits. 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 I met her first time in early March 2024 and started her on CellCept 500 mg twice daily that she tolerates well. I am encouraging her to continue gentle, regular exercise program in addition to avoiding sick contacts and following age-appropriate screenings and preventive strategies. She is reminded to hold CellCept whenever running fever, feeling sick or taking antibiotics. Provided she has no deterioration I have asked her to return in 8 weeks. 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 I met her first time in early March 2024 and started her on CellCept 500 mg twice daily that she tolerates well. I am encouraging her to continue gentle, regular exercise program in addition to avoiding sick contacts and following age-appropriate screenings and preventive strategies. She is reminded to hold CellCept whenever running fever, feeling sick or taking antibiotics. Provided she has no deterioration I have asked her to return in 8 weeks. 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 I met her first time in early March 2024 and started her on CellCept 500 mg twice daily that she tolerates well. She however complains of increasing pain, weakness that may signify flare. I am encouraging her to continue gentle, regular exercise program in addition to avoiding sick contacts and following age-appropriate screenings and preventive strategies. She is reminded to hold CellCept whenever running fever, feeling sick or taking antibiotics. Provided she has no deterioration I have asked her to return in 6 weeks. Assessment & Plan (04/09/2024 10:34 PM EST): I am seeing her first time and needs some new set of lab work to make sure that there is no subclinical activity though exam today appears reassuring. She however complains of increasing pain, weakness that may signify flare. In preparation for possible need to adjust therapy I asked additional tests and provided her with pamphlet on CellCept that may need to be employed to reduce the rate of progression and functional decline. Assessment & Plan (2023 10:57 AM EDT): Polymyositis appears stable with no active symptoms. Her muscle enzymes are normal and have been for a while. She can remain off medications for now. Assessment & Plan (10/02/2023 5:42 PM EDT): Polymyositis currently stable with no muscle weakness. Her muscle enzymes have been normal recently. Reassured her that she is currently doing well and can remain off medication at this time. Sent her for some labs today at her request. Assessment & Plan (08/16/2023 5:42 PM EDT): Longstanding polymyositis on no current medications. Her muscle enzymes and her muscle strength have been normal recently. If her numbers are off we can consider azathioprine. Assessment & Plan (05/14/2023 2:51 PM EST): Polymyositis appears quite stable on no medication. She was previously on methotrexate and then Rituxan but has been off medicine for a few years. She is concerned with immunosuppression and prefers to remain off medicine at this time. If her labs show uncontrolled inflammation we can consider starting her on azathioprine. Assessment & Plan (03/15/2023 1:57 PM EST): Polymyositis on no medication with normal muscle strength. She was previously treated with Rituxan a few years ago. She still has mechanics hands and tight shiny skin on her hands and some shortness of breath but no other active symptoms. I offered her the option of treatment with azathioprine which she prefers to hold defer for now. We will do some labs today to reevaluate her muscle enzymes. Advised her to eat balanced meals and to try and whittle down her numerous supplements. Assessment & Plan (01/17/2023 12:59 PM EDT): Polymyositis appears stable on no medications. She was previously treated with Rituxan a few years ago. She has normal and full muscle strength even though she complains of weakness. Her recent muscle enzymes have been normal. We will do some labs today to further evaluate and will continue to monitor her. Primary osteoarthritis involving multiple joints 01/17/2023 Assessment & Plan (11/27/2024 5:32 PM EDT): Joint protection, energy conservation. Gentle, regular exercise routine. Avoid falls, injuries, overuse. Keep body weight in ideal range for her height. She may benefit from topical cream such as Arnica, Biofreeze, Aspercreme versus medicated patches such as salonpas, icy hot patch 2-3 times daily and if necessary at bedtime x 3 weeks Alternatively she may carefully try alternating Tylenol No. 4 with Voltaren (diclofenac) topically. Assessment & Plan (10/02/2024 4:40 PM EDT): Joint protection, energy conservation. Gentle, regular exercise routine. Avoid falls, injuries, overuse. Keep body weight in ideal range for her height. She may benefit from topical cream such as Arnica, Biofreeze, Aspercreme versus medicated patches such as salonpas, icy hot patch 2-3 times daily and if necessary at bedtime x 3 weeks Alternatively she may carefully try alternating Tylenol No. 4 with Voltaren (diclofenac) topically. Assessment & Plan (07/30/2024 11:07 AM EDT): Joint protection, energy conservation. Gentle, regular exercise routine. Avoid falls, injuries, overuse. Keep body weight in ideal range for her height. She may benefit from topical cream such as Arnica, Biofreeze, Aspercreme versus medicated patches such as salonpas, icy hot patch 2-3 times daily and if necessary at bedtime x 3 weeks Alternatively she may carefully try alternating Tylenol No. 4 with Voltaren (diclofenac) topically. Assessment & Plan (06/18/2024 10:12 PM EST): Joint protection, energy conservation. Gentle, regular exercise routine. Avoid falls, injuries, overuse. Keep body weight in ideal range for her height. She may benefit from topical cream such as Arnica, Biofreeze, Aspercreme versus medicated patches such as salonpas, icy hot patch 2-3 times daily and if necessary at bedtime x 3 weeks Alternatively she may carefully try alternating Tylenol No. 4 with diclofenac . Assessment & Plan (04/09/2024 10:32 PM EST): Joint protection, energy conservation. Gentle, regular exercise routine. Avoid falls, injuries, overuse. Keep body weight in ideal range for her height. She may benefit from topical cream such as Arnica, Biofreeze, Aspercreme versus medicated patches such as salonpas, icy hot patch 2-3 times daily and if necessary at bedtime x 3 weeks Alternatively she may carefully try alternating Tylenol No. 4 with diclofenac . Assessment & Plan (2023 10:57 AM EDT): Osteoarthritis in multiple joints with some stiffness with no swelling. She takes either diclofenac, Tylenol or oxycodone as needed. Assessment & Plan (10/02/2023 5:43 PM EDT): Osteoarthritis in multiple joints. She continues to take diclofenac but still requires oxycodone as needed. Assessment & Plan (08/16/2023 5:44 PM EDT): She has pain in multiple joints for which she takes diclofenac. She also occasionally takes a narcotic for severe pain. Assessment & Plan (05/14/2023 2:52 PM EST): Osteoarthritis in multiple joints with no warm and swollen joints. She can take Tylenol as needed and reserve Tylenol #3 for severe pain. Assessment & Plan (03/15/2023 1:57 PM EST): Osteoarthritis in multiple joints most bothersome in the large joints. She has no swelling currently. She can take Tylenol 650 mg as needed. Assessment & Plan (01/17/2023 1:00 PM EDT): Osteoarthritis in multiple joints with stiffness and gelling but no swollen joints. She can continue with diclofenac as needed and reserve the Tylenol No. 3 for severe pain. Encounters Date Type Department Care Team Description 12/14/2024 Orders Only [facility] [address] [place] [address] [place] [id number] Cesilia Snell MD 12/14/2024 Telephone [facility] [address] [place] [address] [place] [id number] Ruth Ann Samuels MD Labs Question 12/13/2024 Orders Only [facility] [address] [place] [address] [place] [id number] Steff Moon MA Subclinical hypothyroidism 12/02/2024 Telephone [facility] [address] [place] [address] [place] [id number] Ruth Ann Samuels MD 11/28/2024 Refill [facility] [address] [place] [address] [place] [id number] Ruth Ann Samuels MD Medication Refill 11/27/2024 4:30 PM EDT Office Visit [facility] [address] [place] [address] [place] [id number] Ruth Ann Samuels MD Polymyositis (Primary Dx); Primary osteoarthritis involving multiple joints; Raynaud's phenomenon without gangrene; Fibromyalgia; Gastroesophageal reflux disease without esophagitis; group home (current) use of non-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-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 (nsaid) 11/08/2024 Orders Only [facility] [address] [place] [address] [place] [id number] Yesi Antunez MA Polymyositis; On Cellcept therapy 10/20/2024 Refill [facility] [address] [place] [id number] Ruth Ann Samuels MD Medication Refill from Last 3 Months Family History Medical History Relation Comments Diabetes Brother Diabetes Father Cancer Maternal Grandmother Relation Status Comments Brother Alive Father Maternal Grandmother Mother Alive Social History Tobacco Use Types Packs/Day Years Used Date Smoking Tobacco: Never Smokeless Tobacco: Never Tobacco Cessation:Counseling Given: Not [...] Orientation Straight 12/06/2022 4: 28 PM EDT Last Filed Vital Signs Vital Sign Reading Time Taken Comments Blood Pressure 120/80 11/27/2024 4:36 PM EDT Pulse 102 11/27/2024 4:36 PM EDT Temperature 36.6 C (97.8 F) 08/26/2023 2:30 PM EDT Respiratory Rate 16 12/07/2022 2:31 PM EDT Oxygen Saturation 98% 11/27/2024 4:36 PM EDT Inhaled Oxygen Concentration - - Weight 61.2 kg (135 lb) 11/27/2024 4:36 PM EDT Height 167.6 cm (5' 6 ) 11/27/2024 4:36 PM EDT Body Mass Index 21.79 11/27/2024 4:36 PM EDT Plan of Treatment Upcoming Encounters Date Type Department Care Team (Late st Contact Info) Description 02/14/2025 4:00 PM EDT Office Visit [facility] Rheumatology [address] [place] [address] Ruth Ann Samuels MD [address] [facility], [address] [place] [address] 08/02/2025 4:00 PM EDT Office Visit [facility] [address] [place] [id number] Julian Lo, [address] [place] [address] [email or web address] Health Maintenance Due Date Last Done Comments LIPID PANEL 1978 COVID-19 VACCINE (#1) 12/25/1983 DEPRESSION SCREENING 1990 HIV ONE-TIME SCREENING (18-65 YEARS) 1996 PNEUMOCOCCAL VACCINES (0-49 years) (1 of 2 - PCV) 1997 PAP SMEAR 12/25/1999 MAMMOGRAM 2018 COLOGUARD 12/25/2023 COLONOSCOPY 12/25/2023 COLORECTAL CANCER SCREENING 12/25/2023 FIT TEST 12/25/2023 FOBT 12/25/2023 SIGMOIDOSCOPY 12/25/2023 VIRTUAL COLONOSCOPY 12/25/2023 INFLUENZA VACCINE (#1) 2024 POTASSIUM LEVEL 05/25/2025 05/25/2024, 04/02, 12/16/2023, Additional history exists TSH LEVEL 12/06/2025 12/06/2024, 0312/2024, 04/10/2024, Additional history exists Adult Td,Tdap Booster 10/16/2029 10/17/2019 HEPATITIS C SCREENING Completed 03/21/2024 SMOKING STATUS SCREENING (Once After 26 Yrs) Completed 11/27/2024 HEPATITIS A VACCINES Aged Out No long er eligible based on patient's age to complete this topic HIB VACCINES Aged Out No longer eligi ble based on patient's age to complete this topic MENINGOCOCCAL VACCINES (ACWY) Aged Out No longer eligible based on patient's age to complete this topic MENINGOCOCCAL VACCINES (B) Aged Out N o longer eligible based on patient's age to complete this topic Medical Devices Not on file Procedures Procedure Name Priority Date/Time Associated Diagnosis Comments LYME SCREEN WITH REFLEX TO WESTERN BLOT, BLOOD Routine 12/12/2024 10:27 AM EDT TSH Routine 12/06/2024 1:50 PM EDT Subclinical hypothyroidism FREE T4 Routine 12/06/2024 1:50 PM EDT Subclinical hypothyroidism CBC AND DIFFERENTIAL Routine 10/31/2024 9:46 AM EDT Polymyositis On Cellcept therapy COMPREHENSIVE METABOLIC PANEL Routine 10/31/2024 9:46 AM EDT Polymyositis On Cellcept therapy MYCOPHENOLATE (CELLCEPT) Routine 10/31/2024 9:46 AM EDT Polymyositis On Cellcept therapy SEDIMENTATION RATE (ESR) Routine 10/31/2024 9:46 AM EDT Polymyositis On Cellcept therapy CPK (CREATINE KINASE) Routine 10/31/2024 9:45 AM EDT Polymyositis On Cellcept therapy ALDOLASE Routine 10/31/2024 9:45 AM EDT Polymyositis On Cellcept therapy C-REACTIVE PROTEIN Routine 10/31/2024 9: 45 AM EDT Polymyositis On Cellcept therapy BASIC METABOLIC PANEL Routine 05/25/2024 2:40 PM EST Elevated BUN HEPATITIS C ANTIBODY, QUALITATIVE Routine 03/21/2024 10:28 AM EST Polymyositis Need for hepatitis C screening test from Last 3 Months or Most Recently Relevant to Health Maintenance Results * Lyme Screen with Reflex to Immunoblot, Blood (12/12/2024 10:27 AM EDT) us Historical Provider LAB BLOOD ORDERABLES Diana l Result * TSH (12/06/2024 1:50 PM EDT) Blood Julian Lo DO LAB BLOOD ORDERABLES Final Resul t Performing Organization Address [facility] de Phone Number [address] [address] * Free T4 (12/06/2024 1:50 PM EDT) Blood Julian Lo DO LAB BLOOD ORDERABLES Final Resul t Performing Organization Address [facility] de Phone Number [address] [address] * CBC and differential (10/31/2024 9:46 AM EDT) Blood Ruth Ann Samuels MD LAB BLOOD ORDERABLES Fin al Result Performing Organization Address [facility] de Phone Number EXTERNAL NON-INTERFACED REF LAB * Comprehensive metabolic panel (10/31/2024 9:46 AM EDT) Blood Ruth Ann Samuels MD LAB BLOOD ORDERABLES Fin al Result Performing Organization Address [facility] de Phone Number EXTERNAL NON-INTERFACED REF LAB * Mycophenolate (Cellcept) (10/31/2024 9:46 AM EDT) Blood Ruth Ann Samuels MD LAB BLOOD ORDERABLES Fin al Result Performing Organization Address [facility] de Phone Number EXTERNAL NON-INTERFACED REF LAB * Sedimentation rate (ESR) (10/31/2024 9:46 AM EDT) Blood Ruth Ann Samuels MD LAB BLOOD ORDERABLES Fin al Result Performing Organization Address [facility] de Phone Number EXTERNAL NON-INTERFACED REF LAB * CPK (creatine kinase) (10/31/2024 9:45 AM EDT) Blood Ruth Ann Samuels MD LAB BLOOD ORDERABLES Fin al Result Performing Organization Address [facility] de Phone Number EXTERNAL NON-INTERFACED REF LAB * Aldolase (10/31/2024 9:45 AM EDT) Blood Ruth Ann Samuels MD LAB BLOOD ORDERABLES Fin al Result Performing Organization Address [facility] de Phone Number EXTERNAL NON-INTERFACED REF LAB * C-Reactive Protein (10/31/2024 9:45 AM EDT) Blood Ruth Ann Samuels MD LAB BLOOD ORDERABLES Fin al Result Performing Organization Address [facility] de Phone Number EXTERNAL NON-INTERFACED REF LAB * (ABNORMAL) Basic metabolic panel (05/25/2024 2:40 PM EST) SODIUM 140 133 - 146 mmol/L [facility] CHLORIDE 101 96 - 108 mmol/L [facility] POTASSIUM 4.0 3.3 - 5.1 mmol/L [facility] CO2 29 21 - 35 mmol/L [facility] BUN 20(H) 6 - 19 mg/dL [facility] CREATININE 0.70 0.5 - 1.5 mg/dL [facility] GLUCOSE 148(H) 70 - 99 mg/dL [facility] CALCIUM 10.3 8.4 - 10.3 mg/dL [facility] EGFR 109 >59 mL/min/1.7 3m2 [facility] Comment:Estimated glomerular filtration rate calculated using the CKD-EPI refit equation. ANION GAP 14 10 - 20 mmol/L [facility] Blood 05/25/2024 2:40 PM EST 05/25/2024 2:44 PM EST us Ruth Ann Samuels MD LAB BLOOD ORDERABLES Fin al Result [facility] [address] [place] [address] * Hepatitis C antibody, qualitative (03/21/2024 10:28 AM EST) Blood Ruth Ann Samuels MD LAB BLOOD ORDERABLES Fin al Result EXTERNAL NON-INTERFACED REF LAB from Last 3 Months or Most Recently Relevant to Health Maintenance Insurance [facility] H[facility] Care Teams Security Controls Assessor Relationship Specialty Start Date End Date Nagi Howard MD [address] [place] [id number] PCP - General Internal Medicine 12/01/22 Additional Source Comments The information contained in this document represents components of the legal health record. It is not the complete legal health record.[facility]
== END 2025-01-09 16:17 | disposition home or self-care (01) ==
LOC: HO.HPS 15:45
PROVIDERS: PCP Internal Medicine; Visit Provider Hospitalist
DX: J44.89 Other specified chronic obstructive pulmonary disease (principal); J47.9 Bronchiectasis, uncomplicated; J84.9 Interstitial pulmonary disease, unspecified; R06.02 Shortness of breath; T78.40XA Allergy, unspecified, initial encounter; Z15.01 Genetic susceptibility to malignant neoplasm of breast; Z15.02 Genetic susceptibility to malignant neoplasm of ovary; Z15.09 Genetic susceptibility to other malignant neoplasm; R76.8 Other specified abnormal immunological findings in serum; D89.89 Other specified disorders involving the immune mechanism, not elsewhere classified
CPT/HCPCS: 99214; G2211

== ENCOUNTER 2025-02-26 17:28 | Outpatient (AMB) | payer OTHER, SELFPAY ==
--- OUTSIDE RECORDS SUMMARY | 2024-08-09 12:20 | XMS_ITS ---
Author Organization [facility] Address [address] [place] [address] Care Team Providers Care Trading Specialist Name Role Phone Nagi Howard MD Primary Care Provider Cristino Jasso [phone] REASON FOR VISIT Patient presents today for a fu from diarrhea Encounters Encounter Location Date Provider Diagnosis [facility] [address] [place] [address] 08/09/2024 Cristino Cuello Plan Of Treatment Next Appt Details Provider Name:Cristino Cuello , 02/28/2025 03:40:00 PM, [address], [address], [place], [address], Progress Notes * RONA KUNZJYOTSNAB: 9 (44 yo F)Acc No.[id number]:08/09/2024 Progress Notes Patient: CHAD DON Provider: Carmen Cuello MD :1980 A ge:43 Y S ex:Female Date:08/09/2024 Address:[address] [place], [place] [id number] Pcp:Nagi Howard MD Subjective: * Chief Complaints: * 1 . Patient presents today for a fu from diarrhea. * Medical History: Objective: * Vitals: Assessment: Plan: * Treatment: * * The named appointment provid er may or may not be the originator of this progress note, and it is not deemed complete until electronically signed by the appointment provider. Sign off status: Pending * Provider: Carmen Cuello MD Date: 0 08/09/2024 Generated for Carol milton/Rene/Flex on: 1 07:25 PM EDT
--- OUTSIDE RECORDS SUMMARY | 2024-11-22 12:20 | XMS_ITS ---
Author Organization [facility] Address [address] [place] [address] Care Team Providers Care Risk And Insurance Manager Name Role Phone Nagi Howard MD Primary Care Provider Cristino Jasso [phone] REASON FOR VISIT f/u from diarrhea Encounters Encounter Location Date Provider Diagnosis [facility] [address] [place] [address] 11/22/2024 Cristino Cuello Plan Of Treatment Next Appt Details Provider Name:Cristino Cuello , 02/28/2025 03:40:00 PM, [address], [address], [place], [address], Progress Notes * RONA KUNZJYOTSNAB: 9 (44 yo F)Acc No.[id number]:11/22/2024 Progress Notes Patient: CHAD DON Provider: Carmen Cuello MD :1980 A ge:43 Y S ex:Female Date:11/22/2024 Address:[address] [place], [place] [id number] Pcp:Nagi Howard MD Subjective: * Chief Complaints: * 1 . F/u from diarrhea. * Medical History: Objective: * Vitals: Assessment: Plan: * Treatment: * * The named appointment provid er may or may not be the originator of this progress note, and it is not deemed complete until electronically signed by the appointment provider. Sign off status: Pending * Provider: Carmen Cuello MD Date: 0 11/22/2024 Generated for Carol milton/Rene/Flex on: 1 07:25 PM EDT
[2025-02-26 17:36] VITALS: BP 114/62; PULSE 96; O2SAT 98; BMI 23.5
--- NOTE | 2025-02-26 17:36 | A.OFFPC_ITS ---
Vital Signs 02/26/25 17:36 Height 5 ft 5 in Weight 141 lb BMI 23.5 BP 114/62 Blood Pressure Location Lt brachial Position Sitting Pulse 96 Pulse Source Pulse Oximeter Pulse Oximetry (%) 98 Oxygen Delivery Method Room Air Intake Visit Reasons: annual exam - see comments Allergies oxaprozin Allergy (Severe, Verified 02/26/25 17:37) Anaphylaxis chlorhexidine Allergy (Intermediate, Verified 02/26/25 17:37) Rash tramadol Allergy (Intermediate, Verified 02/26/25 17:37) Anxiety levofloxacin (Levaquin) Allergy (Unknown, Verified 02/26/25 17:37) stomach upset albuterol Adverse Reaction (Intermediate, Verified 02/26/25 17:37) tremors latex Adverse Reaction (Intermediate, Verified 02/26/25 17:37) Rash Medication List - Last Reconciled 02/26/25 by Nagi Howard MD acetaminophen-codeine 300-30 mg 1 tab PO TID PRN amlodipine 5 mg PO BEDTIME beclomethasone dipropionate 80 mcg/actuation (Qvar RediHaler) 1 inh inhalation BID 30 days blood sugar diagnostic (FreeStyle Lite Strips) As directed check the BS QD blood-glucose meter (FreeStyle Lite Meter kit) As directed chlorthalidone 25 mg PO DAILY cilostazol 50 mg PO BID compress.stocking,knee,reg,med As directed 20-30 mm HG diclofenac sodium 75 mg PO BID PRN dicyclomine 10 - 20 mg PO Q4-6H PRN diphenoxylate-atropine 2.5-0.025 mg 1 - 2 tabs PO Q6H PRN furosemide (Lasix) 20 mg PO Q OTHER DAY PRN ibuprofen 800 mg PO Q8H ipratropium bromide 17 mcg/actuation (Atrovent HFA) 2 puffs inhalation Q8H 30 days lancets (FreeStyle Lancets) As directed check BS QD levothyroxine 50 mcg PO DAILY minoxidil 1.25 mg PO DAILY mycophenolate mofetil (CellCept) 500 mg PO BID omeprazole 20 mg PO DAILY progesterone micronized 100 mg PO QAM Tobacco use date assessed: 06/20/24 Dental Screening Dental Screen Date: 06/20/24 HPI annual exam - see comments HPI Details occ nausea, dizzy, PFSH Medical History (Updated 02/26/25 @ 18:04 by Nagi Howard MD) Breast cancer screening by mammogram Antisynthetase syndrome Etta-1 antibody positive TSH elevation Impaired glucose tolerance Allergies ILD (interstitial lung disease) Asthma-COPD overlap syndrome Raynaud's syndrome Asthma Onychomycosis Migraine Polymyositis GERD (gastroesophageal reflux disease) Surgical History (Updated 02/26/25 @ 18:11 by Nagi Howard MD) Hx of salpingo-oophorectomy, bilateral H/O bilateral mastectomy Hx of bilateral salpingectomy History of removal of both ovaries Family History (Updated 02/26/25 @ 18:11 by Nagi Howard MD) Father Myocardial infarction Maternal Grandmother Ovarian cancer Mother Atrial fibrillation Social History Housing: House Alcohol intake: never Patient Tobacco Use Status: Never used Tobacco Tobacco use type: Cigarette e-Cigarette/Vaping Use: Never Used Second Hand Smoke Exposure: No service: No Current occupational status: employed Cognitive needs: No Hearing needs: No Vision needs: Yes Questionnaire PHQ-9 Over the last 2 weeks, how often have you been bothered by any of the following problems? 1. Little interest or pleasure in doing things: not at all 2. Feeling down, depressed, or hopeless: not at all 3. Trouble falling or staying asleep, or sleeping too much: not at all 4. Feeling tired or having little energy: more than half the days 5. Poor appetite or overeating: more than half the days 6. Feeling bad about yourself - or that you are a failure or have let yourself or your family down: not at all 7. Trouble concentrating on things, such as reading the newspaper or watching television: several days 8. Moving or speaking so slowly that other people could have noticed. Or the opposite - being so fidgety or restless that you have been moving around a lot more than usual: not at all 9. Thoughts that you would be better off or of hurting yourself in some way: not at all Total score: 5 Source: Developed by Drs. Cristino Robison, Stefany Garza, Chip Baldwin and colleagues, with an educational deb from [employer]. Thrive Questionnaire Date Thrive assessed: 09/19/24 I am a: Patient What is your living situation today?: I have a steady place to live Within the past 12 months, did the food you bought not last and you didn't have the money to get more?: Never true Within the past 12 months, did you worry whether your food would run out before you got money to buy more?: Never true Do you have trouble paying for medicines?: No Do you have trouble getting transportation to medical appointments?: No Do you have trouble paying your heating and electricity bill?: No Do you have trouble taking care of your child, family member or friend?: No Do you have trouble with day-to-day activities such as bathing, preparing meals, shopping, managing finances, etc.?: No Are you currently unemployed and looking for a job?: No Are you interested in more education?: Yes Please select the resources that you would like help with: None Currently or been in a relationship where the following occur: No concerns reported THRIVE Score: 0 AJNY-7 AMB Questionnaire JANY-7 Date JANY - 7 assessed: 09/19/24 Source: Developed by Drs. Cristino Robison, Stefany Garza, Chip Baldwin and colleagues, with an educational deb from [employer]. Review of Systems Const Denies poor appetite and Denies weakness Eyes Denies no additional complaints ENT Reports Normal hearing present, Denies dizziness, Denies nasal congestion, Denies tinnitus and Denies sore throat Card Denies chest pain, Denies syncope, Denies rapid heart rate and Denies dyspnea Resp Denies cough and Denies dyspnea GI Denies change in stool character, Reports constipation, Denies diarrhea, Denies nausea and Denies vomiting Denies urinary frequency, Denies difficulty voiding and Denies dysuria Neuro Reports Normal hearing present, Denies confusion, Denies dizziness, Denies syncope and Denies weakness Psych Denies confusion Physical exam (Primary Care) Vital Signs: Last Vital Signs Pulse 96 02/26/25 17:36 BP 114/62 02/26/25 17:36 Pulse Ox 98 02/26/25 17:36 Oxygen Delivery Method Room Air 02/26/25 17:36 BMI result Body Mass Index 23.5 Tobacco/Smoking Status: Tobacco use Status Tobacco use date assessed 06/20/24 02/26/25 17:37 Patient Tobacco Use Status Never used Tobacco 02/26/25 17:37 Tobacco use type Cigarette 02/26/25 17:37 e-Cigarette/Vaping Use Never Used 02/26/25 17:37 PHQ-9: PHQ-9 Score PHQ-9: Total score 5 02/26/25 17:49 Thrive Assessment: Date of Thrive Assessment Date Thrive assessed 09/19/24 02/26/25 17:37 Currently or been in a relationship where the following occur: No concerns reported Const General: No confusion Orientation/consciousness: No confusion HENMT Head: Yes normocephalic Ears: external ears normal and TM's normal bilaterally Face and sinus: Yes normal facial exam Mouth: moist mucous membranes Throat: Yes tonsils normal Eyes Conjunctivae: conjunctivae normal Pupils: Equal, round and reactive pupils present and Pupil accommodation reflex normal Direct Ophthalmoscopy: normal light reflex Neck Neck: No lymphadenopathy Thyroid: Thyroid normal Chest Chest palpation & inspection: normal inspection of the chest Resp Effort & Inspection: normal respiratory effort and no audible wheezes Auscultation: clear to auscultation bilaterally, no crackles, no wheezes and lung sounds not diminished Cardio Rate: regular rate Rhythm: regular rhythm Peripheral pulses: radial pulses present and dorsalis pedis present GI Palpation (GI): no masses Auscultation: normal bowel sounds and normoactive bowel sounds Rectal Exam - Female: deferred Skin General skin exam: no rashes or lesions noted Rashes: no rashes Neuro General: No confusion Cranial nerves: Yes Equal, round and reactive pupils present and Yes Normal hearing present Cognition (Neuro): normal cognition Gait exam (Neuro): Normal gait present Motor exam (neuro): 5/5 motor strength present throughout Deep tendon reflexes (DTR's): Right brachioradialis reflex intensity grade: 2+, Left brachioradialis reflex intensity grade: 2+, Right patellar reflex intensity grade: 2+ and Left patellar reflex intensity grade: 2+ Extrem General: No edema Coding Level of Care Code Est Pt Prev Care 40-64y(94567) Diagnoses Annual physical exam Z00.00 ILD (interstitial lung disease) J84.9 Polymyositis M33.20 BRCA1-associated protein-1 tumor predisposition syndrome Z15.01; Z15.02; Z15.09 Hx of salpingo-oophorectomy, bilateral Z90.79; Z90.722 Gastroesophageal reflux disease without esophagitis K21.9 Esophagitis presence: without esophagitis Acquired hypothyroidism E03.9 Hypothyroidism type: acquired Impaired fasting blood sugar R73.01 Hypercholesterolemia E78.00 Hypertension I10 Generalized anxiety disorder F41.1 H/O bilateral mastectomy Z90.13 Assessment & Plan Assessment & Plan (1) Annual physical exam: Code(s): Z00.00 - Encounter for general adult medical examination without abnormal findings Category: Medical Plan: Patient is advised to eat healthy, keep well hydrated, keep active and have adequate sleep. (2) ILD (interstitial lung disease): Comment: secondary to MTX, although also could be related to CTD Decemberronchiectasis and surrounding fibrotic changes in the medial posterior aspect of bilateral lower lobes, associated with local volume loss. Code(s): J84.9 - Interstitial pulmonary disease, unspecified Category: Medical Plan: Patient being followed up by Pulmonary on albuterol can not take ZAPATA and placed on Atrovent (3) Polymyositis: Comment: Dr. Kebede September 2019 Dr. Montoya Code(s): M33.20 - Polymyositis, organ involvement unspecified Category: Medical Plan: Continue to follow-up with Rheumatology (4) BRCA1-associated protein-1 tumor predisposition syndrome: Comment: Increased breast cancer risk, ovarian cancer risk and pancreatic cancer risk Code(s): Z15.01 - Genetic susceptibility to malignant neoplasm of breast; Z15.02 - Genetic susceptibility to malignant neoplasm of ovary; Z15.09 - Genetic susceptibility to other malignant neoplasm Category: Medical Plan: Bilateral salpingo-oophorectomy and bilateral mastectomy done (5) Hx of salpingo-oophorectomy, bilateral: Comment: oophorectomy and salpingetomy Dr. Stein Gynradhika wednesday12/11/2024 BRCA positive Code(s): Z90.79 - Acquired absence of other genital organ(s); Z90.722 - Acquired absence of ovaries, bilateral Category: Surgical (6) GERD (gastroesophageal reflux disease): Code(s): K21.9 - Gastro-esophageal reflux disease without esophagitis Category: Medical Qualifiers: Esophagitis presence: without esophagitis Qualified Code(s): K21.9 - Gastro-esophageal reflux disease without esophagitis Plan: Avoid the foods that causes that usually spicy foods, tomato products, juices, coffee, soda and foods that your sensitive to. After eating do not lie down, allow 3-4 hours before in lie down. And keep the head of bed above 30 degrees to avoid the acid from going up. (7) Hypothyroid: Code(s): E03.9 - Hypothyroidism, unspecified Category: Medical Qualifiers: Hypothyroidism type: acquired Qualified Code(s): E03.9 - Hypothyroidism, unspecified Plan: Continue with the thyroid medication (8) Impaired fasting blood sugar: Code(s): R73.01 - Impaired fasting glucose Category: Medical Plan: Decrease the amount of carbohydrate intake, pasta, bread, rice and potatoes are all sugar and that is aside from all the sweet stuff, remember that fruits are good but they are Sweet also. (9) Hypercholesterolemia: Code(s): E78.00 - Pure hypercholesterolemia, unspecified Category: Medical Plan: Avoid fried foods, chicken skin, eggs, butter margarine, pastries and meat. Be it pork or beef they have a lot of cholesterol (10) Hypertension: Code(s): I10 - Essential (primary) hypertension Category: Medical Plan: Continue with amlodipine 5 mg once a day chlorthalidone 25 mg once a day (11) Generalized anxiety disorder: Code(s): F41.1 - Generalized anxiety disorder Category: Medical Plan: Stable (12) H/O bilateral mastectomy: Comment: january 2025 Dr. Rivas Code(s): Z90.13 - Acquired absence of bilateral breasts and nipples Category: Surgical Plan: Stable Plan History of Present Illness The patient is a 44-year-old female presenting for an annual physical examination. Her medical history is significant for polymyositis, GERD, migraine, generalized anxiety disorder, osteopenia, hypothyroidism, hypercholesterolemia, asthma-COPD overlap syndrome, bronchiectasis secondary to connective tissue disease, hypertension, Raynaud's phenomenon, and a tendency for Sjogren's syndrome. She has a history of Lyme disease, for which she was previously treated. The patient is BRCA1 positive, a genetic trait inherited from her father's side, and has a significant family history of breast cancer. Due to her high genetic risk, she underwent a prophylactic bilateral salpingo-oophorectomy on December 11, 2024, and a bilateral mastectomy on January 29 of the current year. She is planning to have breast reconstruction surgery in the future. Her health maintenance screenings include a mammogram in June 2024 and a negative colonoscopy in August 2023. Patient reports receiving the flu vaccine. Her family history includes a father with a history of a heart attack and a mother with atrial fibrillation. Her maternal grandmother had ovarian cancer. Recent lab work from December showed a blood glucose of 107, total cholesterol of 185 with an LDL of 102 and triglycerides of 237. Her A1c was 5.7%, vitamin D was low at 26, and B12 was high at 1368. Kidney function, electrolytes, liver function, and complete blood count were normal. For her autoimmune conditions, she follows up with rheumatology and recently restarted Mycophenolate (CellCept) after holding it for surgery. For her pulmonary issues, she follows with pulmonology and uses Qvar. Her medications for hypertension include amlodipine, chlorthalidone, and minoxidil. She has allergies to albuterol, Levaquin, tramadol, chlorhexidine, and oxaprozin. The patient denies any use of alcohol, tobacco, or illicit drugs. Health Maintenance - The patient is BRCA1 positive, which has guided her preventative care, including a prophylactic bilateral salpingo-oophorectomy and bilateral mastectomy. - Mammogram is up to date, with the last one noted as June 2024. - Colonoscopy was negative in August 2023. - Vaccinations: The patient has received the influenza vaccine for the current season. - Sleep health: The patient plans to undergo a sleep apnea test after she recovers from her breast surgery. - Lab Monitoring: Recent lab work from December 2024 showed prediabetes with an HbA1c of 5.7%, elevated triglycerides at 237 mg/dL, and a low vitamin D level of 26. Social History - Tobacco Use: Patient denies smoking. - Alcohol Use: Patient denies drinking alcohol. - Drug Use: Patient denies illicit drug use. - Living Situation: Currently staying with her mother. - Functional Status: Reports doing exercises at home for her post-surgical recovery. Review of Systems - Constitutional: Reports extreme weakness and fatigue. Reports some nausea, attributed to pain killers. Denies fever, dizziness, or syncope. - HEENT: Reports good hearing. Denies difficulty swallowing. - Respiratory: Denies waking up short of breath. Reports a cough. - Cardiovascular: Denies chest pain. - Gastrointestinal: Reports heartburn, which is managed with omeprazole. Reports normal bowel movements while taking MiraLAX. - Genitourinary: Reports normal urination. Reports nocturia once or twice per night. - Musculoskeletal: Reports ongoing pain from her recent surgery. Notes swelling in her calves. Physical Exam General: Cooperative, healthy appearing, comfortable, no acute distress and well developed Orientation: Patient oriented x3 Limitations: No limitations Head: Normal to inspection Ears: Hearing grossly normal bilaterally Nose: Normal external nose present Face and sinus: Normal facial exam Eyes: Appearance normal, both eyes and all related structures Neck: Normal visual inspection and Yes full ROM Respiratory: Normal respiratory effort and able to speak in complete sentences. Clear to auscultation bilaterally Cardiovascular: Regular rate and rhythm. Normal S1 and S2 GI: Normal to inspection. Soft to palpation and nontender Skin: No rashes or lesions noted Neuro: Patient oriented x3 Extremities: Normal to inspection Results - Labs (from December): - Magnesium: normal. - Iron: normal. - Urinalysis: no proteinuria. - Complete Blood Count: normal, non-anemic, with normal white blood cell and platelet counts. - Glucose: 107 mg/dL. - Creatinine: 0.74 mg/dL. - Electrolytes and Liver Function Tests: normal. - Lipid Panel: Total cholesterol 185 mg/dL, LDL 102 mg/dL, triglycerides 237 mg/dL. - Hemoglobin A1c: 5.7%. - B12: 1368 pg/mL (elevated). - Vitamin D: 26 ng/mL (low). - Thyroid function tests: normal. - Folic acid: normal. - C-reactive protein: normal. - Lyme test: positive (patient was previously treated). Plan Patient was informed and verbally consented to the use of an ambient scribe for clinic note documentation during this visit. 1. Wellness And Preventative Care The patient will continue to follow up with her specialists, including pulmonology and rheumatology. She has received her influenza vaccine and was advised to be careful regarding COVID-19 exposure. She was advised to stay hydrated. A follow-up appointment is recommended in six months, or sooner if any new problems arise. 2. Hypertension Continue current antihypertensive regimen of amlodipine 5 mg daily and chlorthalidone 25 mg daily. The patient is also taking minoxidil. Rheumatology has advised holding cilostazol due to low blood pressure and using it only as needed, though the patient reports her vascular specialist discontinued it. 3. Dyslipidemia The patient's total cholesterol is 185 and LDL is 102, which is within the acceptable range. Her triglycerides are elevated at 237. No medication will be started for the elevated triglycerides at this time, but it will be monitored. 4. Prediabetes The patient's hemoglobin A1c is 5.7%, which is in the prediabetic range. No specific changes to management were discussed at this visit. 5. Autoimmune/Rheumatologic Conditions Continue follow-up with rheumatology. The patient has just restarted mycophenolate 500 mg, titrating from once daily for a week to the usual dose of twice daily, after holding it for surgery. 6. Asthma-Copd Overlap Syndrome Continue follow-up with pulmonary. The patient is using Qvar, mostly for pre-anesthesia purposes, and is not using her prescribed Atrovent HFA. 7. Hypothyroidism Continue current thyroid medication. Recent thyroid function tests were normal. 8. Vitamin D Deficiency The patient's Vitamin D level is low at 26. She is taking vitamin D supplements and was advised to continue. 9. Gastroesophageal Reflux Disease The patient takes [id number] omeprazole once daily for heartburn, which will be added to her medication list. Discussion Notes I reviewed the patient's extensive and complex medical history, including her multiple autoimmune conditions, pulmonary disease, and recent prophylactic surgeries for her BRCA1 positive status. We discussed her recent lab results from December. I explained that while her LDL cholesterol is at goal, her triglycerides are elevated at 237, but not high enough to warrant starting medication at this time. We also noted her HbA1c of 5.7% places her in the prediabetic range, and her Vitamin D level is low. We reconciled her medications, noting she recently restarted Mycophenolate after a post-surgical hold and clarified her use of inhalers and blood pressure medications. I acknowledged the physical and emotional difficulty of her recent bilateral mastectomy and ongoing recovery. I recommended she follow up in six months, unless new issues arise, and to continue care with her specialists. I advised her to stay hydrated. Patient Instructions - Continue taking your current medications for blood pressure, thyroid, and reflux as you have been. - You have restarted your Mycophenolate (CellCept). Please take it as directed: one pill a day for seven days, then increase to your regular dose of twice a day. - Continue taking your vitamin D supplement, as your level is low. - Your triglyceride level is a bit high, but we will not start medication for it now. We will continue to monitor it. - Continue with your home exercises to help with your recovery from surgery. - Be sure to drink plenty of fluids to stay well-hydrated. - Please schedule a follow-up appointment to see me in about six months, or call the office sooner if you have any problems or concerns. - Continue to see your other doctors, like your lung specialist and [employer] [employer], for your ongoing conditions. Medications: Changed From furosemide (Lasix) prn 20 mg PO Q OTHER DAY 30 tabs 0RF To furosemide (Lasix) prn 20 mg PO Q OTHER DAY PRN
--- OUTSIDE RECORDS SUMMARY | 2025-02-26 19:25 | XMS_ITS | Encounter Summary ---
Author Organization [facility] Address [address] [place] [address] Phone Care Team Providers Care Coordinator Of Online Programs Name Role Phone Nagi Howard MD Primary Care Provider [phone] Encounter Details Date Type Department Care Team (Late st Contact Info) Description 03/09/2024 Telephone [facility] Rheumatology [address] [place] [address] Nagi Howard MD [address] [place] [phone] Social History Tobacco Use Types Packs/Day [...] Care Team (Late st Contact Info) Description 05/18/2025 4:30 PM EST Office Visit [facility] Rheumatology [address] [place] [address] Ruth Ann Samuels MD [address], [address] [place] [address] [email or web address] 08/02/2025 4:00 PM EDT Office Visit [facility]ocrinology [address] [place] [address] Julian Lo DO [address] [place] [address] [email or web address] documented as of this encounter Visit Diagnoses Not on filedocumented in this encounter Care Teams Coordinator Of Online Programs Relationship Specialty Start Date End Date Po, Nagi Arroyo MD [address] [place] [address] [address] [place] [phone] PCP - General Internal Medicine 12/01/22 documented as of this encounter Additional Source Comments The information contained in this document represents components of the legal health record. It is not the complete legal health record.[facility]
--- OUTSIDE RECORDS SUMMARY | 2025-02-26 19:26 | XMS_ITS | Encounter Summary ---
Author Organization [facility] Address [address] [place] [phone] Phone Care Team Providers Care Wind Site Manager Name Role Phone Nagi Howard MD Primary Care Provider [phone] Encounter Details Date Type Department Care Team (Late st Contact Info) Description 02/26/2025 Orders Only [facility] Rheumatology [address] [place], [place] [phone] Yesi Antunez MA [address] [place] [address] [email or web address] Polymyositis; 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-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-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 (nsaid); On Cellcept therapy Social History Tobacco Use Types Packs/Day Years [...] Description 05/18/2025 4:30 PM EST Office Visit [facility] Rheumatology [address] [place] [address] Ruth Ann Samuels MD [address] [facility], [address] [place] [address] [email or web address] 08/02/2025 4:00 PM EDT Office Visit [facility] [address] [place] [address] Julian Lo DO [address] [place] [id number] [email or web address] documented as of this encounter Procedures Procedure Name Priority Date/Time Associated Diagnosis Comments MYCOPHENOLATE (CELLCEPT) Routine 025 3:38 PM EDT 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) On Cellcept therapy ALDOLASE Routine 02/12/2025 3:38 PM EDT Polymyositis 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-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-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 (nsaid) CPK (CREATINE KINASE) Routine 02/12/2025 3:38 PM EDT 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) CBC AND DIFFERENTIAL Routine 02/12/2025 3:38 PM EDT 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) SEDIMENTATION RATE (ESR) Routine 025 3:38 PM EDT Polymyositis 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-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-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 (nsaid) C-REACTIVE PROTEIN Routine 02/12/2025 3: 38 PM EDT 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) COMPREHENSIVE METABOLIC PANEL Routine 02/12/2025 3:38 PM EDT 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) documented in this encounter Results * Mycophenolate (Cellcept) (02/12/2025 3:38 PM EDT) Blood us Ruth Ann Samuels MD LAB BLOOD ORDERABLES Fin al Result Performing Organization Address [facility] de Phone Number EXTERNAL NON-INTERFACED REF LAB * Aldolase (02/12/2025 3:38 PM EDT) Blood Ruth Ann Samuels MD LAB BLOOD ORDERABLES Fin al Result Performing Organization Address [facility] de Phone Number EXTERNAL NON-INTERFACED REF LAB * CPK (creatine kinase) (02/12/2025 3:38 PM EDT) Blood Ruth Ann Samuels MD LAB BLOOD ORDERABLES Fin al Result Performing Organization Address [facility] de Phone Number EXTERNAL NON-INTERFACED REF LAB * CBC and differential (02/12/2025 3:38 PM EDT) Blood Ruth Ann Samuels MD LAB BLOOD ORDERABLES Fin al Result Performing Organization Address [facility] de Phone Number EXTERNAL NON-INTERFACED REF LAB * Sedimentation rate (ESR) (02/12/2025 3:38 PM EDT) Blood us Ruth Ann Samuels MD LAB BLOOD ORDERABLES Fin al Result Performing Organization Address [facility] de Phone Number EXTERNAL NON-INTERFACED REF LAB * C-Reactive Protein (02/12/2025 3:38 PM EDT) Blood Ruth Ann Samuels MD LAB BLOOD ORDERABLES Fin al Result EXTERNAL NON-INTERFACED REF LAB * Comprehensive metabolic panel (02/12/2025 3:38 PM EDT) Blood Ruth Ann Samuels MD LAB BLOOD ORDERABLES Fin al Result Performing Organization Address [facility] de Phone Number EXTERNAL NON-INTERFACED REF LAB documented in this encounter Visit Diagnoses Diagnosis 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 It is not the complete legal health record.[facility]
--- OUTSIDE RECORDS SUMMARY | 2025-02-26 19:26 | XMS_ITS | Patient Health Record ---
Author Organization [facility] Address [address] [place] [phone] Care Team Providers Care Hadoop Consultant Name Role Phone Nagi Howard MD Primary Care Provider Cristino Jasso [phone] Allergies Allergen (clinical drug ingredient) Drug/Non Drug [...] Daily - 1 tablet Orally Once a day; Duration: 30 day(s) 02/09/2024 Active Ashwagandha 500 MG as directed Orally 02/09/2024 Active Beet Root - as directed 02/09/2024 Activ e Lomotil 2.5-0.025 MG 1 or 2 tablets Orally Every 6 hours as needed for diarrhea; Duration: 30 days 02/09/2024 Active Cinnamon 500 MG as directed Orally 02/09/2024 Active Vitamin C 500 MG as directed Orally 02/09/2024 Active Flonase Allergy Relief 50 MCG/ACT 1 spray in each nostril Nasally Once a day; Duration: 30 day(s) 02/09/2024 Active Cholesterol - as directed 02/09/2024 Act silvana Green Tea 100 MG as directed Orally 02/09/2024 Active Deary 6 MG as directed Orally 02/09/2024 Active Hemp MonoPure - as directed Orally 02/09/2024 Active Melatonin 3 MG 1 tablet at bedtime as needed Orally Once a day; Duration: 30 day(s) 02/09/2024 Active Chlorthalidone 25 MG TAKE 1 TABLET BY MOUTH EVERY DAY Oral; Duration: 90 Active Levothyroxine Sodium 50 MCG TAKE 1 TABLET BY MOUTH EVERY DAY IN THE MORNING Oral; Duration: 90 Active Elderberry 575 MG/5ML as directed Orally Active Probiotic - as directed Orally 02/09/2024 Active amLODIPine Besylate 2.5 MG TAKE 1 TABLET BY MOUTH EVERY DAY Oral; Duration: 90 For Raynaud's Active Calcium 1 tab Oral; Duration: 14 days 02/09/2024 Active Diclofenac Sodium 75 MG TAKE 1 TABLET BY MOUTH TWICE A DAY NEEDED Oral; Duration: 90 Active Biotin - as directed 02/09/2024 Active tylenol Not-Taking Coconut Oil - as directed 02/09/2024 Act silvana Acetaminophen-Codeine 300-60 MG TAKE 0.5 TABLETS BY MOUTH 2 (TWO) TIMES A DAY NEEDED FOR PAIN Oral; Duration: 7 Active Chromium Picolinate 200 MCG 1 tablet Orally Once a day; Duration: 30 day(s) 02/09/2024 Active Magnesium 300 MG 1 capsule with a meal Orally Once a day; Duration: 30 day(s) 02/09/2024 Active Vitamin D-3 125 MCG (5000 UT) 1 tablet Orally Once a day; Duration: 30 day(s) 02/09/2024 Active Multivitamin - 1 tablet Orally Once a day; Duration: 30 day(s) Active Betamethasone - as directed 02/09/2024 A ctive Omeprazole 20 MG 1 capsule 30 minutes before morning meal Orally Once a day; Duration: 30 day(s) Active Apple Cider Vinegar 500 MG as directed Orally 02/09/2024 Active Turmeric 500 MG as directed Orally 02/09/2024 Active Dicyclomine HCl 10 MG 1 or 2 capsules Orally Every 4 to 6 hours as needed for abdominal cramps/discomfort; Duration: 30 day(s) 02/09/2024 Active Immunizations Vaccine Route [...] Risk Notes Problem Diverticular disease of colon (900949777) Diverticulosis of large intestine without perforation or abscess without bleeding (K57.30) Active confirmed Problem Irritable bowel syndrome with diarrhea (459598560) Irritable bowel syndrome with diarrhea (K58.0) Active confirmed Problem Abnormal weight loss (759071646) Abnormal weight loss (R63.4) Active confirmed Problem Chronic diarrhea (059083870) Chronic diarrhea (K52.9) Active confirmed Encounters Encounter Location Date Provider Diagnosis [facility] [address] [place] [address] 08/08/2024 Cristino Cuello [facility] [address] [place] [address] 12/28/2024 Cristino Cuello Plan Of Treatment Pending Test Test Name Order Date LIVER PROFILE 07/20/2023 CRP 07/20/2023 CBC w DIFF 07/20/2023 SED RATE (ESR) 07/20/2023 CELIAC PANEL #10 07/20/2023 STOOL WBC 07/20/2023 C DIFFICILE RFLX PCR 07/20/2023 GI PANEL 07/20/2023 GI PANEL 07/27/2023 Future Test Test Name Order Date COLONOSCOPY 07/20/2023 Next Appt Details Provider Name:Cristino Paul Khushboo , 02/28/2025 03:40:00 PM, [address], [address], [place], [address], Insurance Providers Payer Name Payer Address Payer Phone Subscriber Number Group Number Insured Name Patient Relationship to Insured Coverage Start Date Coverage End Date [facility] [address] [place] [phone] [id number] CHAD KUNZ Self - patient is the insured Medical (General) History Medical History History ICD Code Polymyositis- she sees a water hydrant installer, Dr. Kebede, at [facility] Hx of gastroparesis--Dr. Blank morel--describes an upper endoscopy > 10 years ago--she describes that those symptoms resolved without any specific treatment Raybobbyudina Denies [place],DM,CVA,renal disease Diarrhea-laboratories were negative for celiac disease [...]
--- OUTSIDE RECORDS SUMMARY | 2025-02-26 19:26 | XMS_ITS | Clinical Summary ---
Author Organization [address] [facility] Address [address] [place] [address] Phone Care Team Providers Care Business Solutions Consultant Name Role Phone Nagi Howard MD Primary Care Provider [phone] Allergies Active Allergy Reactions Criticality Noted Date [...] mouth 1 (one) time each day. Active acetaminophen-co deine (TYLENOL #4) 300-60 mg [...] 1 (one) time each day. 30 each 5 07/12/19 26 Active Additional Information Patient [...] BY MOUTH EVERY DAY 90 tablet 2 5 Active Active Problems Problem Noted Date Diagnosed [...] Type Department Care Team Description 12/20/2024 Telephone [facility] [address] [place] [address] Gómez Roman MD 12/14/2024 Telephone [facility] Cardiology [facility] [address] [place] [address] Gómez Roman MD 12/01/2024 10:37 AM EDT - 12/01/2024 1:38 PM EDT Emergency [facility] Emergency [address] [place] [phone] [id number] adverse effect of medication, initial encounter (Primary Dx) Discharge Disposition: Home or Self Care from Last 3 Months Medical History Medical History Date Comments Migraine DX:Migraine Asthma DX:Asthma Onychomycosis DX:Onychomycosis GERD (gastroesophageal reflux disease) DX:GERD (gastroesophageal reflux disease) Polymyositis (CMS/HCC V24, CMS/HCC V28) DX:Polymyositis ([facility]) Raynaud's syndrome DX:Raynaud's syndrome Edema, [...] Description 03/19/2025 2:40 PM EST Office Visit [facility] [address] [facility] [address] [place] [address] Flori Pleitez NP [address] [place] [address] [address] [place] [phone] Health Maintenance Due Date Last Done Comments Breast Cancer Screening 1978 Colorectal Cancer Screening: Colonoscopy 1978 COVID-19 Vaccine (#1) 12/25/1983 Hepatitis B Vaccines (1 of 3 - 19+ 3-dose series) 1997 Pneumococcal Vaccine: Pediatrics (0 to 5 Years) and At-Risk Patients (6 to 49 Years) (1 of 2 - PCV) 1997 Cervical Cancer Screening: Pap Smear 12/25/1999 Cholesterol Screening (Lipid Panel) 11/30/2023 HIV Screening 11/30/2023 Hepatitis C Screening 11/30/2023 Social Influencers of Health Screening 11/30/2023 Depression Screening 05/03/2024 Influenza Vaccine (#1) 2025 Hypertension/CHF/CAD Annual BMP Blood Test 12/01/2025 12/01/2024, 08/05/2024, 04/19/2024, Additional history exists DTaP,Tdap,and Td Vaccines (2 - Td or Tdap) 10/16/2029 10/17/2019 RSV Immunization Adult Patients (1 - 1-dose 75+ series) 2053 HIB Vaccines Aged Out No longer eligi [...] microscopic and culture (12/01/2024 1:30 PM EDT) Specific [place] Urine 1.016 1.003 - 1.030 LAB URINALYSIS - AUTOMATED METHOD 12/01/2024 2:07 PM EDT [facility] pH, Urine 7.0 5.0 - 8.0 pH LAB URINALYSIS - AUTOMATED METHOD 12/01/2024 2:07 PM EDT [facility] Leukocytes, Urine Negative Negative LAB URINALYSIS - AUTOMATED METHOD 12/01/2024 2:07 PM EDT [facility] Nitrite, Urine Negative Negative LAB URINALYSIS - AUTOMATED METHOD 12/01/2024 2:07 PM T [facility] Protein, Urine Negative <=Trace mg/dL LAB URINALYSIS - AUTOMATED METHOD 12/01/2024 2:07 PM T [facility] Glucose, Urine Negative Negative mg/dL LAB URINALYSIS - AUTOMATED METHOD 12/01/2024 2:07 PM EDT [facility] Ketones, Urine Negative Negative mg/dL LAB URINALYSIS - AUTOMATED METHOD 12/01/2024 2:07 PM EDT [facility] Urobilinogen, Urine 0.2 0.2 - 1.0 mg/dL LAB URINALYSIS - AUTOMATED METHOD 12/01/2024 2:07 PM EDT [facility] Bilirubin, Urine Negative Negative LAB URINALYSIS - AUTOMATED METHOD 12/01/2024 2:07 PM EDT [facility] Blood, Urine Negative Negative LAB URINALYSIS - AUTOMATED METHOD 12/01/2024 2:07 PM EDT [facility] Urine Urine specimen obtained by clean catch procedure / Unknown Non-blood Collection / Unknown 12/01/2024 1:30 PM EDT 12/01/2024 1:59 PM EDT us Vadim Nieto MD LAB URINE ORDERABLES Final Resu lt Performing Organization Address City/[facility]/ZIP Co de Phone Number [facility] [address] [place] [address], [place] [phone] * Sanches urine culture tube (12/01/2024 1:30 PM EDT) Extra Tube Hold for add-ons. 12/01/2024 3:01 PM EDT [facility] Comment:Auto resulted. Urine Urine specimen obtained by clean catch procedure / Unknown Non-blood Collection / Unknown 12/01/2024 1:30 PM EDT 12/01/2024 1:59 PM EDT us Vadim Nieto MD LAB URINE ORDERABLES Final Resu lt Performing Organization Address City/[facility]/ZIP Co de Phone Number [facility] [address] [place] [address], [place] [phone] * CT Head wo Contrast (12/01/2024 11:54 [...] Signed Date: 12/01/2024 12:26 ET Workstation ID: [id number] Transcribed By: Self Edit Transcribed Date: 12/01/2024 [...] Signed Date: 12/01/2024 12:26 ET Workstation ID: [id number] Transcribed By: Self Edit Transcribed Date: 12/01/2024 12:[address] PROCEDURES Final Result * Troponin I High Sensitivity (12/01/2024 11:48 AM EDT) High Sensitivity Troponin I 3 <=54 ng/L LAB CHEMISTRY METHOD 12/01/2024 1:30 PM EDT [facility] Blood Venous blood specimen / Unknown Venipuncture / Unknown 12/01/2024 11:48 AM EDT 12/01/2024 12:38 PM EDT Narrative [facility] - 12/01/2024 1:30 PM EDT High levels of biotin in samples may falsely decrease hsTroponin values. Use caution when interpreting hsTroponin results in patients taking biotin who exhibit renal impairment (eGFR <60) or in patients taking more than 20 mg/day of biotin. us Filippo GAFFNEY LAB BLOOD ORDERABLES Final R esult [facility] [address] [place] [address], * (ABNORMAL) CBC auto differential (12/01/2024 11:48 AM EDT) WBC 8.1 4.8 - 10.8 K/mcL LAB HEMETOLOGY METHOD 12/01/2024 12:45 PM EDT [facility] RBC 4.50 3.80 - 4.80 M/mcL LAB HEMETOLOGY METHOD 12/01/2024 12:45 PM EDT [facility] Hemoglobin 12.4 11.5 - 16.0 g/dL LAB HEMETOLOGY METHOD 12/01/2024 12:45 PM EDT [facility] Hematocrit 40.0 35.0 - 47.0 % LAB HEMETOLOGY METHOD 12/01/2024 12:45 PM EDT [facility] MCV 89.3 79.0 - 98.0 FL LAB HEMETOLOGY METHOD 12/01/2024 12:45 PM EDT [facility] MCH 27.7 27.0 - 32.0 pcg LAB HEMETOLOGY METHOD 12/01/2024 12:45 PM EDT [facility] MCHC 31.0(L) 32.0 - 37.0 g/dL LAB HEMETOLOGY METHOD 12/[facility]24 [facility] RDW 13.8 11.0 - 15.0 % LAB HEMETOLOGY METHOD 12/01/2024 12:45 PM [facility] Platelets 298 130 - 400 K/mcL LAB HEMETOLOGY METHOD 12/01/2024 12:[facility] MPV 11.2(H) 7.0 - 11.0 FL LAB HEMETOLOGY METHOD 12/01/2024 12:45 PM [facility] NRBC 0.0 <1.0 % LAB HEMETOLOGY METHOD 12/01/2024 12:45 PM [facility] NRBC Absolute 0.00 <0.10 K/mcL LAB HEMETOLOGY METHOD 12/01/2024 12:45 PM [facility] Neutrophils Relative 79.8 % LAB HEMETOLOGY METHOD 12/01/2024 12:45 PM [facility] Lymphocytes Relative 15.1 % LAB HEMETOLOGY METHOD 12/01/2024 12:45 PM [facility] Monocytes Relative 3.2 % LAB HEMETOLOGY METHOD 12/01/2024 12:45 PM [facility] Eosinophils Relative 0.7 % LAB HEMETOLOGY METHOD 12/01/2024 12:45 PM [facility] Basophils Relative 0.7 % LAB HEMETOLOGY METHOD 12/01/2024 12:45 PM [facility] Immature Granulocytes Relative 0.5 % LAB HEMETOLOGY METHOD 12/01/2024 12:45 PM [facility] Neutrophils Absolute 6.47 1.50 - 7.00 K/mcL LAB HEMETOLOGY METHOD 12/01/2024 12:45 [facility] Lymphocytes Absolute 1.23 1.00 - 5.00 K/mcL LAB HEMETOLOGY METHOD 12/01/2024 12:45 PM EDT [facility] Monocytes Absolute 0.26 0.20 - 1.00 K/mcL LAB HEMETOLOGY METHOD 12/01/2024 12:45 PM EDT [facility] Eosinophils Absolute 0.06 0.00 - 0.50 K/mcL LAB HEMETOLOGY METHOD 12/01/2024 12:45 PM EDT [facility] Basophils Absolute 0.06 0.00 - 0.20 K/mcL LAB HEMETOLOGY METHOD 12/01/2024 12:45 PM EDT [facility] Immature Granulocytes Absolute 0.04(H) 0.00 - 0.03 K/mcL LAB HEMETOLOGY METHOD 12/01/2024 12:45 PM EDT [facility] Blood Venous blood specimen / Unknown Venipuncture / Unknown 12/01/2024 11:48 AM EDT 12/01/2024 12:38 PM EDT Vadim Nieto MD LAB BLOOD ORDERABLES Final Resu lt [facility] [address] [place] [address], * High Sensitivity CRP (12/01/2024 11:48 AM EDT) CRP, High Sensitivity 0.86 mg/L LAB CHEMISTRY METHOD 12/01/2024 1:30 PM EDT [facility] Comment: Cardio CRP Relative Risk [...] ORDERABLES Final R esult Performing Organization Address City/[facility]/ZIP Co de Phone Number [facility] [address] [place] [address], [place] [phone] * (ABNORMAL) Magnesium (12/01/2024 11:48 AM EDT) Magnesium 1.8(L) 1.9 - 2.6 mg/dL LAB CHEMISTRY METHOD 12/01/2024 1:10 PM EDT [facility] Blood Venous blood specimen / Unknown Venipuncture / Unknown 12/01/2024 11:48 AM EDT 12/01/2024 12:38 PM EDT Filippo GAFFNEY LAB BLOOD ORDERABLES Final R esult Performing Organization Address City/[facility]/ZIP Co de Phone Number [facility] [address] [place] [address], [place] [phone] * (ABNORMAL) Comprehensive metabolic panel (12/01/2024 11:48 AM EDT) Sodium 139 133 - 145 mmol/L LAB CHEMISTRY METHOD 12/01/2024 1:30 PM EDT [facility] Potassium 4.1 3.5 - 5.5 mmol/L LAB CHEMISTRY METHOD 12/01/2024 1:30 PM EDT [facility] Chloride 105 96 - 110 mmol/L LAB CHEMISTRY METHOD 12/01/2024 1:30 PM EDT [facility] CO2 31 21 - 32 mmol/L LAB CHEMISTRY METHOD 12/01/2024 1:30 PM EDT [facility] Anion Gap 3 3 - 11 LAB CHEMISTRY METHOD 12/01/2024 1:30 PM [facility] Glucose 107(H) 70 - 100 mg/dL LAB CHEMISTRY METHOD 12/01/2024 1:30 PM [facility] BUN 23 5 - 25 mg/dL LAB CHEMISTRY METHOD 12/01/2024 1:30 PM [facility] Creatinine 0.66 0.50 - 1.10 mg/dL LAB CHEMISTRY METHOD 12/01/2024 1:30 PM [facility] eGFR 110 >=60 mL/min/1. 73m2 LAB CHEMISTRY METHOD 12/01/2024 1:30 PM [facility] Comment:Calculation based on the Chronic Kidney Disease Epidemiology Collaboration (CKD-EPI) equation refit without adjustment for race. BUN/Creatinine Ratio 34.8 LAB CHEMISTRY METHOD 12/01/2024 1:30 PM [facility] Calcium 9.7 8.5 - 10.5 mg/dL LAB CHEMISTRY METHOD 12/01/2024 1:30 PM [facility] AST (SGOT) 9(L) 10 - 42 unit/L LAB CHEMISTRY METHOD 12/01/2024 1:30 PM [facility] ALT (SGPT) 15 10 - 60 unit/L LAB CHEMISTRY METHOD 12/01/2024 1:30 PM [facility] Alkaline Phosphatase 69 42 - 121 unit/L LAB CHEMISTRY METHOD 12/01/2024 1:30 PM [facility] Total Protein 6.6 6.0 - 8.0 g/dL LAB CHEMISTRY METHOD 12/01/2024 1:30 PM [facility] Albumin 3.7 3.2 - 5.0 g/dL LAB CHEMISTRY METHOD 12/01/2024 1:30 PM [facility] Total Bilirubin 0.5 0.0 - 1.4 mg/dL LAB CHEMISTRY METHOD 12/01/2024 1:30 PM EDT [facility] Blood Venous blood specimen / Unknown Venipuncture / Unknown 12/01/2024 11:48 AM EDT 12/01/2024 12:38 PM EDT us Vadim Nieto MD LAB BLOOD ORDERABLES Final Resu lt [facility] [address] [place] [address], from Last 3 Months Insurance [facility] Care Teams Business Solutions Consultant Relationship Specialty Start Date End Date Nagi Howard MD [address] [place] [address] [address] [facility] [place] [address] PCP - General 05/24/23
--- OUTSIDE RECORDS SUMMARY | 2025-02-26 19:26 | XMS_ITS | Clinical Summary ---
Author Organization [facility] Address [address] [facility] [address] [place] [phone] Phone Care Team Providers Care Nurse Monitoring Name Role Phone Nagi Howard MD Primary Care Provider Allergies Active Allergy Reactions Criticality Noted Date Comments Chlorhexidine Rash Low 02/14/2025 Latex Rash Low 12/07/2022 Levofloxacin Swelling 12/07/2022 [...] Take 100 mg by mouth daily. Active omeprazole (PRILOSEC) 20 MG capsule Take 20 mg by mouth daily. Active LOMOTIL 2.5-0.025 mg per tablet Take 1-2 tablets by mouth as needed. 02/09/20 24 Active dicyclomine (BENTYL) 10 MG capsule Take 10-20 mg by mouth. Every 4-6 hours as needed 02/09/20 24 Active betamethasone dipropionate 0.05 % ointment Apply topically. 05/16/19 25 Active tacrolimus (PROTOPIC) 0.1 % ointment Apply topically. As needed 05/16/19 25 Active amLODIPine (NORVASC) 5 MG tablet Take 1 tablet (5 mg total) by mouth daily. 90 tablet 1 05/25/19 25 Active furosemide (LASIX) 20 MG tablet Take 20 mg by mouth daily as needed. 07/28/24 has not started yet pending lab results 07/12/19 25 026 Active acetaminophen-code ine (TYLENOL #4) 300-60 mg [...] FOOD 60 tablet 3 11/29/19 25 Active acetaminophen (TYLENOL) 325 mg tablet TAKE 3 TABLETS BY MOUTH EVERY 6 HOURS NEEDED FOR PAIN 02/06/20 25 Active ibuprofen (ADVIL,MOTRIN) 800 MG tablet Take 800 mg by mouth every 8 (eight) hours. 12/12/19 25 Active oxyCODONE 5 MG immediate release tablet TAKE 1 TABLET BY MOUTH EVERY DAY NEEDED FOR PAIN FOR BREAKTHROUGH PAIN ONLY 02/06/20 25 Active minoxidiL (LONITEN) 2.5 MG tablet Take 1.25 mg by mouth daily. 01/23/20 25 Active cilostazol (PLETAL) 50 MG tablet Take 50 mg by mouth 2 (two) times a day. Active Lacto 51-Bifid 3-L.lact-S.ther (DAILY PROBIOTIC, 10 STRAINS,) 4 billion cell Cap 12/12/19 25 Active Medication-Free Text SEA STEVENS GUMMIES 02/01/20 25 Active beclomethasone (QVAR REDIHALER) 80 mcg/actuation inhaler Inhale 1 puff into the lungs daily. Active cilostazol (PLETAL) 50 MG tablet Take 50 mg by mouth 2 (two) times a day. Discontin ued(Dupli claudia order) QVAR REDIHALER 40 mcg/actuation inhaler Inhale 2 puffs into the lungs as needed. 05/09/19 Discontin ued(No longer taking) SPIRIVA RESPIMAT 2.5 mcg/actuation mist for inhalation TAKE 2 PUFFS INHALED DAILY 07/08/19 Discontin ued(No longer taking) gabapentin (NEURONTIN) 400 MG capsuleIndications :Primary osteoarthritis involving multiple joints,Fibromyalgi a TAKE 1 CAPSULE BY MOUTH AT BEDTIME in addition to gabapentin 100 mg 1-2 capsules during the day. 30 capsule 2 09/08/19 Discontin ued(No longer taking) Active Problems Problem Noted Date Diagnosed Date On Cellcept therapy 02/14/2025 Assessment & Plan (02/14/2025 5:21 PM EDT): Once cleared by the surgeon carefully restart CellCept 500 mg daily for 7 days and if no side effects build up the dose to prior regimen: 500 mg twice daily. Monitor for unusual abdominal discomfort, nausea, diarrhea, weakness, skin rashes etc. Hold CellCept whenever running fever, feeling sick or taking antibiotics. Complete entire course of antibiotics and wait at least 48 hours after the last antibiotic dose to make sure that infection does not recur before restarting CellCept. Return for monitoring labs at least every 3 months-standing orders in [facility]. shelter (current) use of n on-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-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 (nsaid) 11/27/2024 Assessment & Plan (02/14/2025 4:13 PM EDT): Take the lowest dose, with least frequency, for shortest time. Remember to take it always with food. Favor topical over oral preparations. Assessment & Plan (11/27/2024 5:30 PM EDT): [...] get monitoring labs in 4 weeks-orders in [facility]. She is asked to stop [id number] products that may contribute to it. Fibromyalgia 07/28/2024 Assessment & Plan (02/14/2025 4:35 PM EDT): We discussed the diagnosis of [...] [facility] Assessment & Plan (11/27/2024 5:27 PM EDT): [...] [facility] Assessment & Plan (07/30/2024 11:10 [...] by Dr Clinton [facility] Elevated BUN 05/25/2024 Assessment & [...] phenomenon without gangrene 04/09/2024 Assessment & Plan (02/14/2025 4:35 PM EDT): Keep warm, dress in layers. Optimize stress management strategies. Avoid vasoconstrictors in OTC products for cold/flu and sinus. Assessment & Plan (11/27/2024 5:27 PM EDT): [...] without esophagi tis 03/10/2024 Assessment & Plan (02/14/2025 4:33 PM EDT): Avoid late, large, spicy meals. Keep headboard elevated at 45 angle for nighttime. Carefully continue Prilosec (omeprazole) 20 mg daily. Assessment & Plan (11/27/2024 5:28 PM EDT): [...] thyroid functions. 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 I met her first time in early March 2024 and started her on CellCept 500 mg twice daily that she tolerated well until stopping it for recent surgeries in December and at the end of January 2025. I am encouraging her to continue gentle, regular exercise program in addition to avoiding sick contacts and following age-appropriate screenings and preventive strategies. She is reminded to hold CellCept whenever running fever, feeling sick or taking antibiotics. Surgeon As long as her has no contraindications to restarting CellCept she can start right now on the prior dosing schedule: 500 mg daily for 7 days, if no side effects take 500 mg twice daily. Provided she has no deterioration I have asked her to return in 3 months or earlier if necessary. She was educated to monitor for time, severity and frequency of episodes of arm numbness, speech difficulty and left lower extremity weakness with confusion and if symptoms persist for greater than 5-10 minutes call 911 for help because it may be TIA (transient ischemic attack) that may progress to stroke and permanent deficits. Assessment & Plan (11/27/2024 5:27 PM EDT): Due to high titer anti-Jo1 antibody that was ordered by her region manager along with interstitial lung disease and mechanics [...] anti-Jo1 antibody that was ordered by her region manager along with interstitial lung disease and mechanics [...] anti-Jo1 antibody that was ordered by her region manager along with interstitial lung disease and mechanics [...] anti-Jo1 antibody that was ordered by her region manager along with interstitial lung disease and mechanics [...] involving multiple joints 01/17/2023 Assessment & Plan (02/14/2025 5:14 PM EDT): Joint protection, energy conservation. Gentle, [...] with Voltaren (diclofenac) topically. 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 (nsaid); On Cellcept therapy 02/14/2025 4:00 PM EDT Office Visit [facility]ology [address] [place] [address] Ruth Ann Samuels MD Polymyositis (Primary Dx); Raynaud's phenomenon without gangrene; Fibromyalgia; Primary osteoarthritis involving multiple joints; Gastroesophageal reflux disease without esophagitis; shelter (current) use of non-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-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 (nsaid); On Cellcept therapy 12/14/2024 Orders Only [facility] [address] [place] [address] [place] [address] Cesilia Snell MD 12/14/2024 Telephone [facility] [address] [place] [address] [place] [address] Ruth Ann Samuels MD Labs Question 12/13/2024 Orders Only [facility] [address] [place] [address] [place] [id number] Steff Moon MA Subclinical hypothyroidism 12/02/[address] [place] [address] Ruth Ann Samuels MD 11/28/[address] [place] [address] Ruth Ann Samuels MD Medication Refill 11/27/2024 4:30 PM EDT Office Visit [address] [place] [address] Ruth Ann Samuels MD Polymyositis (Primary Dx); Primary osteoarthritis involving multiple joints; Raynaud's phenomenon without gangrene; Fibromyalgia; Gastroesophageal reflux disease without esophagitis; shelter (current) use of non-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-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 (nsaid) from Last 3 Months Family History Medical [...] Sign Reading Time Taken Comments Blood Pressure 138/78 02/14/2025 4:00 PM EDT Pulse 91 02/14/2025 4:00 PM EDT Temperature 36.6 C (97.8 F) 08/26/2023 2:30 PM EDT Respiratory Rate 16 12/07/2022 2:31 PM EDT Oxygen Saturation 99% 02/14/2025 4:00 PM EDT Inhaled Oxygen Concentration - - Weight 61.3 kg (135 lb 3.2 oz) 02/14/2025 4:00 P M EDT Height 167.6 cm (5' 6 ) 02/14/2025 4:00 PM EDT Body Mass Index 21.82 02/14/2025 4:00 PM EDT Plan of Treatment Upcoming Encounters Date Type Department Care Team (Late st Contact Info) Description 05/18/2025 4:30 PM EST Office Visit [facility] [address] [place] [address] [place] [address] Ruth Ann Samuels MD [address] [place] [address], [address] [place] [address] 08/02/2025 4:00 PM EDT Office Visit [facility] [address] [place] [address] [place] [address] Julian Lo DO [address] [place] [id number] Health Maintenance Due Date Last Done Comments LIPID PANEL 1978 COVID-19 VACCINE (#1) 12/25/1983 DEPRESSION SCREENING 1990 HIV ONE-TIME SCREENING (18-65 YEARS) 1996 PNEUMOCOCCAL VACCINES (0-49 years) (1 of 2 - PCV) 1997 PAP SMEAR 12/25/1999 MAMMOGRAM 2018 COLOGUARD 12/25/2023 COLONOSCOPY 12/25/2023 COLORECTAL CANCER SCREENING 12/25/2023 FIT TEST 12/25/2023 FOBT 12/25/2023 SIGMOIDOSCOPY 12/25/2023 VIRTUAL COLONOSCOPY 12/25/2023 POTASSIUM LEVEL 05/25/2025 05/25/2024, 04/02, 12/16/2023, Additional history exists TSH LEVEL 12/06/2025 12/06/2024, 07/02, 04/10/2024, Additional history exists Adult Td,Tdap Booster 10/16/2029 10/17/2019 HEPATITIS C SCREENING Completed 03/21/2024 SMOKING STATUS SCREENING (Once After 26 Yrs) Completed 11/27/2024 INFLUENZA VACCINE Completed 02/05/2025 HEPATITIS A VACCINES Aged Out No long [...] Date/Time Associated Diagnosis Comments MYCOPHENOLATE (CELLCEPT) Routine 02/12/2025 3:38 PM EDT Polymyositis 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 (nsaid) On Cellcept therapy ALDOLASE Routine 02/12/2025 3:38 PM EDT Polymyositis shelter (current) use of non-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-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 (nsaid) CPK (CREATINE KINASE) Routine 02/12/2025 3:38 PM EDT Polymyositis 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 (nsaid) CBC AND DIFFERENTIAL Routine 02/12/2025 3:38 PM EDT Polymyositis 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 (nsaid) SEDIMENTATION RATE (ESR) Routine 02/12/2025 3:38 PM EDT Polymyositis 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 (nsaid) C-REACTIVE PROTEIN Routine 02/12/2025 3: 38 PM EDT Polymyositis 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 (nsaid) COMPREHENSIVE METABOLIC PANEL Routine 02/12/2025 3:38 PM EDT Polymyositis shelter (current) use of non-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-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 (nsaid) LYME SCREEN WITH REFLEX TO WESTERN BLOT, BLOOD Routine 12/12/2024 10:27 AM EDT TSH Routine 12/06/2024 1:50 PM EDT Subclinical hypothyroidism FREE T4 Routine 12/06/2024 1:50 PM EDT Subclinical hypothyroidism BASIC METABOLIC PANEL Routine 05/25/2024 2:40 PM EST Elevated BUN HEPATITIS C ANTIBODY, QUALITATIVE Routine 03/21/2024 10:28 AM EST Polymyositis Need for hepatitis C screening test from Last 3 Months or Most Recently Relevant to Health Maintenance Results * Mycophenolate (Cellcept) (02/12/2025 3:38 PM EDT) Blood Ruth Ann Samuels MD LAB BLOOD ORDERABLES Fin al Result Performing Organization Address City/[facility]/ZIP Co de Phone Number EXTERNAL NON-INTERFACED REF LAB * Aldolase (02/12/2025 3:38 PM EDT) Blood Ruth Ann Samuels MD LAB BLOOD ORDERABLES Fin al Result Performing Organization Address City/[facility]/ZIP Co de Phone Number EXTERNAL NON-INTERFACED REF LAB * CPK (creatine kinase) (02/12/2025 3:38 PM EDT) Blood Ruth Ann Samuels MD LAB BLOOD ORDERABLES Fin al Result Performing Organization Address [facility] de Phone Number EXTERNAL NON-INTERFACED REF LAB * CBC and differential (02/12/2025 3:38 PM EDT) Blood Ruth Ann Samuels MD LAB BLOOD ORDERABLES Fin al Result Performing Organization Address [facility] de Phone Number EXTERNAL NON-INTERFACED REF LAB * Sedimentation rate (ESR) (02/12/2025 3:38 PM EDT) Blood Result [facility] Ruth Ann Samuels MD LAB BLOOD ORDERABLES Fin al Result Performing Organization Address [facility] Phone Number EXTERNAL NON-INTERFACED REF LAB * C-Reactive Protein (02/12/2025 3:38 PM EDT) Blood Result [facility] Ruth Ann Samuels MD LAB BLOOD ORDERABLES Fin al Result Performing Organization Address [facility] Phone Number EXTERNAL NON-INTERFACED REF LAB * Comprehensive metabolic panel (02/12/2025 3:38 PM EDT) Blood Result [facility] Ruth Ann Samuels MD LAB BLOOD ORDERABLES Fin al Result Performing Organization Address [facility] de Phone Number EXTERNAL NON-INTERFACED REF LAB * Lyme Screen with Reflex to Immunoblot, Blood (12/12/2024 10:27 AM EDT) Result [facility] Cesilia Snell MD LAB BLOOD ORDERABLES Diana l Result * TSH (12/06/2024 1:50 PM EDT) Blood us Julian Lo LAB BLOOD ORDERABLES Final Resul t Performing Organization Address City/[facility]/ZIP Co de Phone Number [address] [phone] * Free T4 (12/06/2024 1:50 PM EDT) [facility] Final Resul t Performing Organization Address [facility] Co de Phone Number [address] [address] * (ABNORMAL) Basic metabolic panel (05/25/2024 2:40 PM EST) SODIUM 140 133 - 146 mmol/L [facility] CHLORIDE 101 96 - 108 mmol/L [facility] POTASSIUM 4.0 3.3 - 5.1 mmol/L [facility] CO2 29 21 - 35 mmol/L [facility] BUN 20(H) 6 - 19 mg/dL [facility] CREATININE 0.70 0.5 - 1.5 mg/dL [facility] GLUCOSE 148(H) 70 - 99 mg/dL [facility] CALCIUM 10.3 8.4 - 10.3 mg/dL [facility] EGFR 109 >59 mL/min/1.7 3m2 [facility] Comment:Estimated glomerular filtration rate calculated using the CKD-EPI refit equation. ANION GAP 14 10 - 20 mmol/L [facility] Blood 05/25/2024 2:40 PM EST 05/25/2024 2:44 PM EST us Ruth Ann Samuels MD LAB BLOOD ORDERABLES Fin al Result Performing Organization Address [facility] Co de Phone Number [address] [phone] * Hepatitis C antibody, qualitative (03/21/2024 10:28 AM EST) Blood Ruth Ann Samuels MD LAB BLOOD ORDERABLES Fin al Result EXTERNAL NON-INTERFACED REF LAB from Last 3 Months or Most Recently Relevant to Health Maintenance Insurance Care Teams Nurse Monitoring Relationship Specialty Start Date End Date Nagi Howard MD [address] [place] [phone] PCP - General Internal Medicine 12/01/22 Additional Source Comments The information contained in this document represents components of the legal health record. It is not the complete legal health record.[facility]
== END 2025-02-26 18:30 | disposition home or self-care (01) ==
LOC: HO.HMCH 17:29
PROVIDERS: PCP Internal Medicine; Visit Provider Internal Medicine
DX: Z00.00 Encounter for general adult medical examination without abnormal findings (principal); J84.9 Interstitial pulmonary disease, unspecified; M33.20 Polymyositis, organ involvement unspecified; Z15.01 Genetic susceptibility to malignant neoplasm of breast; Z15.02 Genetic susceptibility to malignant neoplasm of ovary; Z15.09 Genetic susceptibility to other malignant neoplasm; Z90.79 Acquired absence of other genital organ(s); Z90.722 Acquired absence of ovaries, bilateral; K21.9 Gastro-esophageal reflux disease without esophagitis; E03.9 Hypothyroidism, unspecified; R73.01 Impaired fasting glucose; E78.00 Pure hypercholesterolemia, unspecified; I10 Essential (primary) hypertension; F41.1 Generalized anxiety disorder; Z90.13 Acquired absence of bilateral breasts and nipples

== ENCOUNTER → 2025-04-03 07:56 | Outpatient (REF) | payer OTHER, SELFPAY ==
--- NOTE | ~2025-04-03 | NM_ITS ---
EXAMINATION: PA RADIONUCLIDE SOLID FOOD GASTRIC EMPTYING 4-HOUR STUDY CLINICAL INFORMATION: K31.84 GASTROPARESIS COMPARISON: There are no prior studies available for comparison. TECHNIQUE: A standard meal consisting of 4 oz of Egg Beaters brand tagged with 0.96 mCi Tc-99m Sulfur Colloid, and 6 oz water was administered orally to the patient. Images were obtained using a dual head gamma camera in the anterior and posterior projections over of the stomach immediately post ingestion and at hourly intervals up to 4 hours post ingestion. The anterior and posterior counts at each time interval were averaged using the geometric mean and expressed as percentage of the immediate post ingestion counts. FINDINGS: There is visualization of activity in the stomach immediately post ingestion. As the study progresses, there is clearance of activity from the stomach and visualization of progressively increasing small bowel activity. Retention in the stomach at each time interval was: 1 hour 50% (normal 37%-90%) 2 hours 2% (normal 30%-60%) 3 hours 1% PA/PA gastric emptying study IMPRESSION: Normal 4-hour solid food gastric emptying study. For solid meal, rapid gastric emptying is less than 30% at 60 minutes. Delayed gastric emptying criteria is more than 60% remaining at 120 minutes or more than 10% at 240 minutes. The 4-hour value is the best discriminator of a normal or abnormal result. Gastric emptying study grading per JNMT Consensus Recommendations in 2008 (https://tech.snmjournals.org/content/36/44) Grade 1 (mild retention): 11-20% at 4h Grade 2 (moderate retention): 21-35% at 4h Grade 3 (severe retention): 36-50% at 4h Grade 4 (very severe retention): >50% retention at 4h Electronically signed by: Cristino Avelar MD 04/03/2025 11:45 AM [facility]
--- OUTSIDE RECORDS SUMMARY | 2025-04-03 07:59 | XMS_ITS | Encounter Summary ---
Author Organization [facility] Address [address] [place] [address] Phone Care Team Providers Care Shoe Cutter Name Role Phone Nagi Howard MD Primary Care Provider [phone] Encounter Details Date Type Department Care Team (Late st Contact Info) Description 03/09/2024 Telephone [facility] Rheumatology [address] [place] [address] Nagi Howard MD [address] [place] [phone] Social History Tobacco Use Types Packs/Day [...] Description 05/18/2025 4:30 PM EST Office Visit [facility] Rheumatology [address] [place] [address] Ruth Ann Samuels MD [address], [address] [place] [address] [email or web address] 08/02/2025 4:00 PM EDT Office Visit [facility] Endocrinology [address] [place] [address] Julian Lo DO [address] [place] [address] [email or web address] documented as of this encounter Visit Diagnoses Not on filedocumented in this encounter Care Teams Shoe Cutter Relationship Specialty Start Date End Date Po, Nagi Arroyo MD [address] [place] [address] [address] [place] [phone] PCP - General Internal Medicine 12/01/22 documented as of this encounter Additional Source Comments The information contained in this document represents components of the legal health record. It is not the complete legal health record.[facility]
--- OUTSIDE RECORDS SUMMARY | 2025-04-03 07:59 | XMS_ITS | Clinical Summary ---
Author Organization [facility] Address [address] [place] [address] Phone Care Team Providers Care Radiological Metallurgist Name Role Phone Nagi Howard MD Primary Care Provider [phone] Allergies Active Allergy Reactions Criticality Noted Date Comments Chlorhexidine Rash 03/19/2025 Latex Rash High 07/21/2023 Burning, Itching, Rash [...] mouth 2 (two) times a day. Active mycophenolate (CellCept) 250 mg capsule Take [...] (one) time each day. 30 each 07/12/19 Active Additional Information Patient taking differently: (No dose reported), (No route reported), (No frequency reported), 1 tablet up to 3 x a week, Reported on 03/19/2025 levothyroxine (SYNTHROID, LEVOTHROID) 50 mcg tablet Take [...] total) 2 (two) times a day. Active chlorthalidone (HYGROTON) 25 mg tablet TAKE 1 TABLET BY MOUTH EVERY DAY 90 tablet 2 01/04/20 25 Active UNABLE TO FIND Sea pelayo 2 gummies daily Active minoxidiL (LONITEN) 2.5 mg tablet Take 0.5 tablets (1.25 mg total) by mouth 1 (one) time each day. Active UNABLE TO FIND Biotin 1 tab daily Active BORON ORAL Take 1 tablet by mouth 1 (one) time each day. Active cholecalciferol (VITAMIN D-3) 25 mcg (1,000 unit) tablet Take 1 tablet (1,000 Units total) by mouth 1 (one) time each day. Active gabapentin (NEURONTIN) 100 mg capsule Take 2 capsules (200 mg total) by mouth 1 (one) time each day in the morning. Discontinu ed(Discont inued by another clinician) gabapentin (NEURONTIN) 400 mg capsule Take 1 capsule (400 mg total) by mouth at bedtime. Discontinu ed(Discont inued by another clinician) green tea leaf extract (Green Tea) 250 mg capsule Take 2 capsules by mouth 2 (two) times a day. Discontinu ed(Discont inued by another clinician) RED BEET ORAL Take 2 capsules by mouth 1 (one) time each day. Discontinu ed(Discont inued by another clinician) coffee extract (GREEN COFFEE MARQUEZ ORAL) Take 1 capsule by mouth 1 (one) time each day. Discontinu ed(Discont inued by another clinician) COCONUT OIL ORAL Take 2 capsules by mouth 1 (one) time each day. Discontinu ed(Discont inued by another clinician) MULTIVITAMIN ORAL Take 1 tablet by mouth 1 (one) time each day. Discontinu ed(Discont inued by another clinician) berberine chloride 500 mg capsule Take 1 capsule by mouth 3 (three) times a day. Discontinu ed(Discont inued by another clinician) ELDERBERRY FRUIT ORAL Take 1 capsule by mouth 1 (one) time each day. Discontinu ed(Discont inued by another clinician) Cinnamon 500 mg capsule Take 1 capsule (500 mg total) by mouth 1 (one) time each day. Discontinu ed(Discont inued by another clinician) Vitamin C tablet Take 1 tablet (100 mg total) by mouth 3 (three) times a day. Discontinu ed(Discont inued by another clinician) Active [...] and let us know. Assessment & Plan (03/19/2025 3:54 PM EST): Blood pressure reasonable with a reading today of 130/84. Continue with medical therapy as outlined and detailed above. Assessment & Plan (09/18/2024 6:28 PM EDT): [...] for the lymphedema clinic. Assessment & Plan (03/19/2025 3:54 PM EST): Patient has history of chronic leg edema and continues to use compression stockings. She has been on chlorthalidone daily and furosemide 3 times a week. Patient advised that she can try taking furosemide daily and repeat basic metabolic panel in 1 week. Will notify her of lab results when available. Assessment & Plan (09/18/2024 6:28 PM EDT): [...] Encounters Date Type Department Care Team Description 04/02/2025 Results Follow-Up [facility] [address] [place] [address] Flori Pleitez NP 04/02/2025 Telephone [facility] [address] [place] [phone] Gómez Roman MD 03/19/2025 2:40 PM EST Office Visit [facility] Dr [facility] [address] [place] [phone] Flori Pleitez NP Localized edema (Primary Dx); Hypertension, unspecified type; Edema, unspecified type from Last 3 Months [...] Sign Reading Time Taken Comments Blood Pressure 130/84 03/19/2025 2:41 PM EST Pulse 80 03/19/2025 2:41 PM EST Temperature 36.6 C (97.8 F) 12/01/2024 1:37 PM EDT Respiratory Rate 18 12/01/2024 1:37 PM EDT Oxygen Saturation 98% 03/19/2025 2:41 PM EST Inhaled Oxygen Concentration - - Weight 64.5 kg (142 lb 3.2 oz) 03/19/2025 2:41 P M EST Height 162.6 cm (5' 4 ) 03/19/2025 2:41 PM EST Body Mass Index 24.41 03/19/2025 2:41 PM EST Plan of Treatment Health Maintenance Due Date Last Done Comments [...] of Health Screening 11/30/2023 Depression Screening 05/03/2024 Hypertension/CHF/CAD Annual BMP Blood Test 03/26/2026 03/26/2025, 12/01/2024, 08/05/2024, Additional history exists DTaP,Tdap,and Td Vaccines (2 - Td or Tdap) 10/16/2029 10/17/2019 RSV Immunization Adult Patients (1 - 1-dose 75+ series) 2053 Influenza Vaccine Completed 02/05/2025 HIB Vaccines Aged Out No longer eligi [...] Procedure Name Priority Date/Time Associated Diagnosis Comments MAGNESIUM Routine 03/26/2025 3:17 PM EST Edema, unspecified type Hypertension, unspecified type BASIC METABOLIC PANEL Routine 03/26/2025 3:17 PM EST Edema, unspecified type Hypertension, unspecified type from Last 3 Months Results * Magnesium (03/26/2025 3:17 PM EST) Magnesium 1.8 1.6 - 2.3 mg/dL [facility] 1 Blood Venous blood specimen / Unknown 03/26/2025 3:17 PM EST 03/26/2025 Narrative [facility] 1 - 03/27/2025 6:07 AM EST Performed at: 01 - [facility] [place] [address], [address], [place], [place] [id number] Senior Manufacturing Engineer: Shan Melchor MD, Phone: [phone] us Flori Bartjenelle EXHIBIT CLEANER LAB BLOOD ORDERABLES Final R esult [facility] 1 * (ABNORMAL) Basic metabolic panel (03/26/2025 3:17 PM EST) Glucose 133(H) 70 - 99 mg/dL [facility] 1 Blood Urea Nitrogen (BUN) 24 6 - 24 mg/dL [facility] 1 Creatinine 0.69 0.57 - 1.00 mg/dL [facility] 1 eGFR 108 >59 mL/min/1.7 3 [facility] 1 BUN/Creatinine Ratio 35(H) 9 - 23 [facility] 1 Sodium 138 134 - 144 mmol/L [facility] 1 Potassium 3.8 3.5 - 5.2 mmol/L [facility] 1 Chloride 98 96 - 106 mmol/L [facility] 1 Carbon Dioxide 28 20 - 29 mmol/L [facility] 1 Calcium 9.5 8.7 - 10.2 mg/dL [facility] 1 Blood Venous blood specimen / Unknown 03/26/2025 3:17 PM EST 03/26/2025 Narrative [facility] 1 - 03/27/2025 6:07 AM EST Performed at: 01 - [facility] [place] [address], [address], [place] [id number] Senior Manufacturing Engineer: Shan Melchor MD, Phone: [phone] us Flori Bartmarnieucmarichuy EXHIBIT CLEANER LAB BLOOD ORDERABLES Final R esult [facility] 1 from Last 3 Months Insurance [facility] Care Teams Radiological Metallurgist Relationship Specialty Start Date End Date Nagi Howard MD [address] [place] [address] [address] [place] [facility] FABIAN Phelps [address] PCP - General 05/24/23
--- OUTSIDE RECORDS SUMMARY | 2025-04-03 07:59 | XMS_ITS | Encounter Summary ---
Author Organization [facility] [place] [address] Care Team Providers Care Sr. Operations Manager Name Role Phone Nagi Howard MD Primary Care Provider [phone] Encounter Details Date Type Department Care Team (Late st Contact Info) Description 04/02/2025 Results Follow-Up [facility] [address] [facility] [address] [place] [phone] Flori Pleitez NP [address] [place] [address] [address] [place] [phone] Social History Tobacco Use Types Packs/Day Years [...] as of this encounter Progress Notes * Flori Pleitez NP - 04/02/2025 12:28 PM EST Labs are stable. No changes to medical therapies. documented in this encounter Plan of Treatment Not on file documented as of this encounter Goals Goal [...] on filedocumented in this encounter Care Teams Sr. Operations Manager Relationship Specialty Start Date End Date Nagi Howard MD [address] [place] [address] [address] [facility] [place] [address] PCP - General 05/24/23 documented as of this encounter
--- OUTSIDE RECORDS SUMMARY | 2025-04-03 07:59 | XMS_ITS | Encounter Summary ---
Author Organization [facility] Address [address] [facility] [address] [place] [address] Phone Care Team Providers Care Blintze Roller Name Role Phone Nagi Howard MD Primary Care Provider Encounter Details Date Type Department Care Team (Late st Contact Info) Description 02/26/[address] [facility] Rheumatology [address] [place], [place] [phone] Yesi Antunez MA [address] [place] [address] [email or web address] Polymyositis; marine oil terminal superintendent (current) use of non-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-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 (nsaid); On [...] Description 05/18/2025 4:30 PM EST Office Visit [facility] Rhe[facility]ology [address] [place] [address] Ruth Ann Samuels MD [address] [facility], [address] [place] [address] [email or web address] 08/02/2025 4:00 PM EDT Office Visit [facility] [address] [place] [address] Julian Lo DO [address] [place] [phone] [email or web address] documented as of this encounter Procedures Procedure Name Priority Date/Time Associated Diagnosis Comments MYCOPHENOLATE (CELLCEPT) Routine 02/12/2025 3:38 PM EDT Polymyositis marine oil terminal superintendent (current) use of non-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-inflammatorie s (nsaid) On Cellcept therapy ALDOLASE Routine 02/12/2025 3:38 PM EDT Polymyositis shelter (current) use of non-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-inflammatorie s (nsaid) CREATINE KINASE (CK) Routine 02/12/2025 3:38 PM EDT Polymyositis marine oil terminal superintendent (current) use of non-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-inflammatorie s (nsaid) CBC AND DIFFERENTIAL Routine 02/12/2025 3:38 PM EDT Polymyositis marine oil terminal superintendent (current) use of non-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-inflammatorie s (nsaid) SEDIMENTATION RATE (ESR) Routine 02/12/2025 3:38 PM EDT Polymyositis marine oil terminal superintendent (current) use of non-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-inflammatorie s (nsaid) C-REACTIVE PROTEIN (CRP) Routine 02/12/2025 3:38 PM EDT Polymyositis marine oil terminal superintendent (current) use of non-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-inflammatorie s (nsaid) COMPREHENSIVE METABOLIC PANEL (CMP) Routine 02/12/2025 3:38 PM EDT Polymyositis shelter (current) use of non-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-inflammatorie s (nsaid) documented in this encounter Results * Mycophenolate (Cellcept) (02/12/2025 3:38 PM EDT) Blood us Ruth Ann Samuels MD LAB BLOOD ORDERABLES Fin al Result Performing Organization Address [facility] Co de Phone Number EXTERNAL NON-INTERFACED REF LAB * Aldolase (02/12/2025 3:38 PM EDT) Blood us Ruth Ann Samuels MD LAB BLOOD ORDERABLES Fin al Result Performing Organization Address [facility] de Phone Number EXTERNAL NON-INTERFACED REF LAB * CPK (creatine kinase) (02/12/2025 3:38 PM EDT) Blood us Ruth Ann Samuels MD LAB BLOOD BKR ORDERABLES Final Result Performing Organization Address [facility] Co de Phone Number EXTERNAL NON-INTERFACED REF LAB * CBC and differential (02/12/2025 3:38 PM EDT) Blood us Ruth Ann Samuels MD LAB BLOOD BKR ORDERABLES Final Result Performing Organization Address [facility] de Phone Number EXTERNAL NON-INTERFACED REF LAB * Sedimentation rate (ESR) (02/12/2025 3:38 PM EDT) Blood Ruth Ann Samuels MD LAB BLOOD BKR ORDERABLES Final Result Performing Organization Address [facility] Co de Phone Number EXTERNAL NON-INTERFACED REF LAB * C-Reactive Protein (02/12/2025 3:38 PM EDT) Blood Ruth Ann Samuels MD LAB BLOOD BKR ORDERABLES Final Result Performing Organization Address [facility] Co de Phone Number EXTERNAL NON-INTERFACED REF LAB * Comprehensive metabolic panel (02/12/2025 3:38 PM EDT) Blood Ruth Ann Samuels MD LAB BLOOD BKR ORDERABLES Final Result Performing Organization Address [facility] Co de Phone Number EXTERNAL NON-INTERFACED REF LAB documented in this encounter Visit Diagnoses Diagnosis Polymyositis marine oil terminal superintendent (current) use of non-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-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 (nsaid) On Cellcept therapy documented in this encounter Care Teams Blintze Roller Relationship Specialty Start Date End Date Nagi Howard MD [address] [place] [address] [address] [place] [phone] PCP - General Internal Medicine 12/01/22 documented as of this encounter Additional Source Comments The information contained in this document represents components of the legal health record. It is not the complete legal health record.[facility]
--- OUTSIDE RECORDS SUMMARY | 2025-04-03 07:59 | XMS_ITS | Encounter Summary ---
Author Organization [facility] [place] [address] Care Team Providers Care Quality Compliance Manager Name Role Phone Nagi Howard MD Primary Care Provider [phone] Reason for Visit * Reason Onset Date Comments Results 04/02/2025 Encounter Details Date Type Department Care Team (Late st Contact Info) Description 04/02/[address] [facility] [address] [place] [address] [place] [phone] Gómez Roman MD [address] [place] [address] [address] [place] [address] Social History Tobacco Use Types [...] as of this encounter Progress Notes * Judith Abebe RN - 04/02/2025 4:41 PM EST I left a detailed message on the patient's voicemail informing her to have repeat labs drawn every 6 months. I mailed BMP and Mag lab orders to the patient per her request. * Flori Pleitez NP - 04/02/2025 3:07 PM EST Q6 months * Judith Abebe RN - 04/02/2025 1:20 PM EST I spoke to the patient and informed her of stable lab results and to continue medical therapies as prescribed. She also reported being told by Dr. Roman she will need to have labs drawn on a regularbasis while taking Furosemide. She questioned how frequently she should have labs checked? She advised I can leave a message if she does not answer and mentioned she prefers to have lab orders mailed to her. * Flori Pleitez NP - 04/02/2025 12:28 PM EST Labs are stable * Judith Abebe RN - 04/02/2025 11:54 AM EST The patient was seen in the office on 03/19/25 and had a BMP and MAG level drawn 03/26/25. The results are available for your viewing. * Karol Castillo - 04/02/2025 11:46 AM EST Patient called and is requesting the results from her most recent blood tests and magnesium test. Please call patient. Patient stated can leave a detailed message, would also like to know if there are any further blood labs. documented in this encounter Plan of Treatment Scheduled Orders Name Type Priority Associated Diagnoses Orde r Schedule Basic metabolic panel Lab Routine Localized edema Expected: 10/01/2025, Expires: 04/02/2026 Magnesium Lab Routine Localized edema Expected: 10/01/2025, Expires: 04/02/2026 documented as of this encounter Goals Goal [...] documented as of this encounter Visit Diagnoses Diagnosis Localized edema- Primary Edema documented in this encounter Care Teams Quality Compliance Manager Relationship Specialty Start Date End Date Nagi Howard MD [address] [place] [address] [address] [facility] [place] [address] PCP - General 05/24/23 documented as of this encounter
--- OUTSIDE RECORDS SUMMARY | 2025-04-03 07:59 | XMS_ITS | Encounter Summary ---
Author Organization [facility] Address [address] [facility] [address] [place] [address] Phone Care Team Providers Care Boot Turner Name Role Phone Nagi Howard MD Primary Care Provider [phone] Reason for Visit * Reason Comments Medication Refill Encounter Details Date Type Department Care Team (Late st Contact Info) Description 03/29/2025 Refill [facility] Rheumatology [address] [place] [address] Ruth Ann Samuels MD [address] [facility], [address] [place] [address] [email or web address] Medication Refill Social History Tobacco Use Types Packs/Day Years [...] PM EDT documented as of this encounter Progress Notes * Symone Zarco MA - 04/02/2025 11:47 AM EST Rx Care Gap Status - Instructions for Clinical Staff (prescriber discretion applies): > Mismatch review guide > N/a - No action needed Visit Info Last visit: 02/14/2025 Ruth Ann Samuels MD - Rheumatology [facility] > Requested f/u: Return in about 3 months (around 05/17/2025) for PLEASE PRINT RECURRING LABS ORDERS. Upcoming visit: 05/18/2025 Ruth Ann Samuels MD - Rheumatology [facility] ACTIONS TAKEN BY Symone Zarco MA - Criteria met. NSAID Rx Protocol - Daily treatment for inflammatory arthritis/rheumatology use - diclofenac sodium Criteria met; renew for up to 12 months. Visit in the past 14 months: Yes Clinical criteria: - BMP within past year: Yes - LFTs within past year: Yes - CBC within past year: Yes Most recent labs in chart 02/12/2025 documented in this encounter Plan of Treatment Upcoming Encounters Date Type Department Care Team (Late st Contact Info) Description 05/18/2025 4:30 PM EST Office Visit [facility] Rheumatology [address] [place] [address] [place] [address] Ruth Ann Samuels MD [address] [place] [address], [address] [place] [address] 08/02/2025 4:00 PM EDT Office Visit [facility] [address] [place] [address] [place] [address] Julian Lo DO [address] [place] [address] documented as of this encounter Visit Diagnoses Diagnosis Primary osteoarthritis involving multiple joints documented in this encounter Care Teams Boot Turner Relationship Specialty Start Date End Date Po, Lorenver Parowan, MD [address] [place] [address] Drive [address] [place] [address] PCP - General Internal Medicine 12/01/22 documented as of this encounter Additional Source Comments The information contained in this document represents components of the legal health record. It is not the complete legal health record.[facility]
--- OUTSIDE RECORDS SUMMARY | 2025-04-03 07:59 | XMS_ITS | Clinical Summary ---
Author Organization [facility] Address [address] [facility] [address] [place] [address] Phone Care Team Providers Care Physical Therapy Director Name Role Phone Nagi Howard MD Primary Care Provider [phone] Allergies Active Allergy Reactions Criticality Noted Date Comments Chlorhexidine Rash Low 02/14/2025 Latex Rash Low 12/07/2022 Levofloxacin Swelling 12/07/2022 Oxaprozin Anaphylaxis,Angina,N ausea and/or Vomiting,Shortness Of Breath,Swelling High 12/07/2022 Tramadol Tremor Low 12/07/2022 Medications CALCIUM ORAL Take by mouth. Ac tive biotin 1 mg tablet Take 1,000 mcg by mouth daily. Active chlorthalidone (HYGROTON) 25 MG tablet Take 25 mg by mouth daily. Active progesterone (PROMETRIUM) 100 mg capsule Take 100 mg by mouth daily. Active omeprazole (PRILOSEC) 20 MG capsule Take 20 mg by mouth daily. Active LOMOTIL 2.5-0.025 mg per tablet Take 1-2 tablets by mouth as needed. Active dicyclomine (BENTYL) 10 MG capsule Take 10-20 mg by mouth. Every 4-6 hours as needed Active betamethasone dipropionate 0.05 % ointment Apply topically. Active tacrolimus (PROTOPIC) 0.1 % ointment Apply topically. As needed Active amLODIPine (NORVASC) 5 MG tablet Take 1 tablet (5 mg total) by mouth daily. 90 tablet 1 025 Active furosemide (LASIX) 20 MG tablet Take 20 mg by mouth daily as needed. 07/28/24 has not started yet pending lab results 025 2025 Active acetaminophen-cod eine (TYLENOL #4) 300-60 mg per tabletIndications :Primary osteoarthritis involving multiple joints Take 1 tablet by mouth 2 (two) times a day as needed for pain (specific location in comments). 20 tablet 4 025 Active levothyroxine (SYNTHROID, LEVOTHROID) 50 MCG tabletIndications :Subclinical hypothyroidism Take 1 tablet (50 mcg total) by mouth every morning. 90 tablet 3 025 Active prochlorperazine (COMPAZINE) 10 MG tabletIndications :Nausea Take 1 tablet twice daily as needed for nausea 60 tablet 1 025 Active mycophenolate mofetil (CELLCEPT) 500 mg tabletIndications :Polymyositis TAKE 1 TABLET BY MOUTH TWICE A DAY WITH FOOD 60 tablet 3 Active acetaminophen (TYLENOL) 325 mg tablet TAKE 3 TABLETS BY MOUTH EVERY 6 HOURS NEEDED FOR PAIN Active ibuprofen (ADVIL,MOTRIN) 800 MG tablet Take 800 mg by mouth every 8 (eight) hours. Active oxyCODONE 5 MG immediate release tablet TAKE 1 TABLET BY MOUTH EVERY DAY NEEDED FOR PAIN FOR BREAKTHROUGH PAIN ONLY Active minoxidiL (LONITEN) 2.5 MG tablet Take 1.25 mg by mouth daily. Active cilostazol (PLETAL) 50 MG tablet Take 50 mg by mouth 2 (two) times a day. Active Lacto 51-Bifid 3-L.lact-S.ther (DAILY PROBIOTIC, 10 STRAINS,) 4 billion cell Cap Active Medication-Free Text SEA STEVENS GUMMIES Active beclomethasone (QVAR REDIHALER) 80 mcg/actuation inhaler Inhale 1 puff into the lungs daily. Active diclofenac sodium (VOLTAREN) 75 MG EC tabletIndications :Primary osteoarthritis involving multiple joints TAKE 1 TABLET BY MOUTH NIGHTLY AT BEDTIME. 90 tablet 1 025 Active diclofenac sodium (VOLTAREN) 75 MG EC tabletIndications :Primary osteoarthritis involving multiple joints TAKE 1 TABLET BY MOUTH NIGHTLY AT BEDTIME. 90 tablet 1 10/21/ 025 2024 Discontinued Active Problems Problem Noted Date Diagnosed [...] at least every 3 months-standing orders in [facility]. 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 She is asked to stop [id number] products that may contribute to it. Fibromyalgia [...] anti-Jo1 antibody that was ordered by her corporate development associate along with interstitial lung disease and mechanics [...] anti-Jo1 antibody that was ordered by her corporate development associate along with interstitial lung disease and mechanics [...] anti-Jo1 antibody that was ordered by her corporate development associate along with interstitial lung disease and mechanics [...] anti-Jo1 antibody that was ordered by her corporate development associate along with interstitial lung disease and mechanics [...] anti-Jo1 antibody that was ordered by her corporate development associate along with interstitial lung disease and mechanics [...] Encounters Date Type Department Care Team Description 03/29/2025 Refill [facility] Rheumatology [address] [place] [address] [place] [address] Ruth Ann Samuels MD Medication Refill 02/26/2025 Orders Only [facility] Rheumatology [address] [place] [address] [place] [address] Yesi Antunez MA Polymyositis; 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 (nsaid); On Cellcept therapy 02/14/2025 4:00 PM EDT Office Visit [facility] Rheumatology [address] [place] [address] [place] [address] Ruth Ann Samuels MD Polymyositis (Primary Dx); Raynaud's phenomenon without gangrene; Fibromyalgia; Primary osteoarthritis involving multiple joints; Gastroesophageal reflux disease without esophagitis; 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 (nsaid); On Cellcept therapy from Last 3 Months Family History Medical [...] Description 05/18/2025 4:30 PM EST Office Visit [facility] Rheumatology [address] [place] [address] Ruth Ann Samuels MD [address] [facility], [address] [place] [address] 08/02/2025 4:00 PM EDT Office Visit [facility] [address] [place] [address] Julian Lo DO [address] [place] [address] [email or web address] Health Maintenance Due Date Last Done Comments LIPID PANEL 1978 COVID-19 VACCINE (#1) 12/25/1983 DEPRESSION SCREENING 1990 HIV ONE-TIME SCREENING (18-65 YEARS) 1996 PNEUMOCOCCAL VACCINES (0-49 years) (1 of 2 - PCV) 1997 PAP SMEAR 12/25/1999 MAMMOGRAM 2018 COLOGUARD 12/25/2023 COLONOSCOPY 12/25/2023 COLORECTAL CANCER SCREENING 12/25/2023 FIT TEST 12/25/2023 FOBT 12/25/2023 SIGMOIDOSCOPY 12/25/2023 VIRTUAL COLONOSCOPY 12/25/2023 POTASSIUM LEVEL 05/25/2025 05/25/2024, 1212/2023, 12/16/2023, Additional history exists TSH LEVEL 12/06/2025 12/06/2024, 03/2 12/2024, 04/10/2024, Additional history exists Adult Td,Tdap Booster [...] (CELLCEPT) Routine 02/12/2025 3:38 PM EDT Polymyositis 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 (nsaid) On Cellcept therapy ALDOLASE Routine 02/12/2025 3:38 PM EDT Polymyositis 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 (nsaid) CREATINE KINASE (CK) Routine 02/12/2025 3:38 PM EDT Polymyositis 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 (nsaid) CBC AND DIFFERENTIAL Routine 02/12/2025 3:38 PM EDT Polymyositis MCC (current) use of non-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-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 (nsaid) SEDIMENTATION RATE (ESR) Routine 02/12/2025 3:38 PM EDT Polymyositis MCC (current) use of non-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-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 (nsaid) C-REACTIVE PROTEIN (CRP) Routine 02/12/2025 3:38 PM EDT Polymyositis MCC (current) use of non-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-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 (nsaid) COMPREHENSIVE METABOLIC PANEL (CMP) Routine 02/12/2025 3:38 PM EDT Polymyositis MCC (current) use of non-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-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 (nsaid) THYROID STIMULATING HORMONE (TSH) Routine 12/06/2024 1:50 PM EDT Subclinical hypothyroidism BASIC METABOLIC PANEL (BMP) Routine 05/25/2024 2:40 PM EST Elevated BUN HEPATITIS C ANTIBODY, QUALITATIVE Routine 03/21/2024 10:28 AM EST Polymyositis Need for hepatitis C screening test from Last 3 Months or Most Recently Relevant to Health Maintenance Results * Mycophenolate (Cellcept) (02/12/2025 3:38 PM EDT) Blood us Ruth Ann Samuels MD LAB BLOOD ORDERABLES Fin al Result EXTERNAL NON-INTERFACED REF LAB * Aldolase (02/12/2025 3:38 PM EDT) Blood Ruth Ann Samuels MD LAB BLOOD ORDERABLES Fin al Result Performing Organization Address [facility] de Phone Number EXTERNAL NON-INTERFACED REF LAB * CPK (creatine kinase) (02/12/2025 3:38 PM EDT) Blood Ruth Ann Samuels MD LAB BLOOD BKR ORDERABLES Final Result Performing Organization Address [facility] Phone Number EXTERNAL NON-INTERFACED REF LAB * CBC and differential (02/12/2025 3:38 PM EDT) Blood Ruth Ann Samuels MD LAB BLOOD BKR ORDERABLES Final Result Performing Organization Address [facility] de Phone Number EXTERNAL NON-INTERFACED REF LAB * Sedimentation rate (ESR) (02/12/2025 3:38 PM EDT) Blood Ruth Ann Samuels MD LAB BLOOD BKR ORDERABLES Final Result Performing Organization Address [facility] de Phone Number EXTERNAL NON-INTERFACED REF LAB * C-Reactive Protein (02/12/2025 3:38 PM EDT) Blood Ruth Ann Samuels MD LAB BLOOD BKR ORDERABLES Final Result Performing Organization Address [facility] de Phone Number EXTERNAL NON-INTERFACED REF LAB * Comprehensive metabolic panel (02/12/2025 3:38 PM EDT) Blood Ruth Ann Samuels MD LAB BLOOD BKR ORDERABLES Final Result Performing Organization Address City/[facility]/ZIP Co de Phone Number EXTERNAL NON-INTERFACED REF LAB * TSH (12/06/2024 1:50 PM EDT) Blood Julian Lo DO LAB BLOOD BKR ORDERABLES Final R esult Performing Organization Address [facility] Co de Phone Number [address] [address] * (ABNORMAL) Basic metabolic panel (05/25/2024 2:40 PM EST) SODIUM 140 133 - 146 mmol/L [facility] CHLORIDE 101 96 - 108 mmol/L [facility] POTASSIUM 4.0 3.3 - 5.1 mmol/L [facility] CO2 29 21 - 35 mmol/L [facility] BUN 20(H) 6 - 19 mg/dL [facility] CREATININE 0.70 0.5 - 1.5 mg/dL [facility] GLUCOSE 148(H) 70 - 99 mg/dL [facility] CALCIUM 10.3 8.4 - 10.3 mg/dL [facility] EGFR 109 >59 mL/min/1.7 3m2 [facility] Comment:Estimated glomerular filtration rate calculated using the CKD-EPI refit equation. ANION GAP 14 10 - 20 mmol/L [facility] Blood 05/25/2024 2:40 PM EST 05/25/2024 2:44 PM EST us Ruth Ann Samuels MD LAB BLOOD BKR ORDERABLES Final Result Performing Organization Address [facility] Co de Phone Number [address] [address] * Hepatitis C antibody, qualitative (03/21/2024 10:28 AM EST) Blood us Ruth Ann Samuels MD LAB BLOOD BKR ORDERABLES Final Result EXTERNAL NON-INTERFACED REF LAB from Last 3 Months or Most Recently Relevant to Health Maintenance Insurance Care Teams Physical Therapy Director Relationship Specialty Start Date End Date Nagi Howard MD [address] [place] [address] [address] [place] [address] PCP - General Internal Medicine 12/01/22 Additional Source Comments The information contained in this document represents components of the legal health record. It is not the complete legal health record.[facility]
== END ==
LOC: HO.NUCMED 07:56
PROVIDERS: PCP Internal Medicine; Visit Provider Internal Medicine
DX: K31.84 Gastroparesis (principal)
CPT/HCPCS: 78264; A9541

== ENCOUNTER → 2025-04-03 08:06 | Outpatient (BNV) | payer OTHER, SELFPAY | PROVIDERS: PCP Internal Medicine; Visit Provider Radiology Diagnostic Radiology | DX: K31.84 Gastroparesis (principal) | CPT/HCPCS: 78264 ==

== ENCOUNTER 2025-04-20 16:01 | Outpatient (REF) | payer OTHER, SELFPAY ==
--- OUTSIDE RECORDS SUMMARY | 2024-08-09 11:20 | XMS_ITS ---
Author Organization [facility] Address [address] [place] [address] Care Team Providers Care Watch And Clock Repairer Name Role Phone Nagi Howard MD Primary Care Provider Cristino Jasso [phone] REASON FOR VISIT Patient presents today for a fu from diarrhea Encounters Encounter Location Date Provider Diagnosis [facility] [address] [place] [phone] 08/09/2024 Cristino Cuello Plan Of Treatment Next Appt Details Provider Name:Cristino Beverly Khushboo , 02/27/2026 04:00:00 PM, [address], [address], [place], [address], Progress Notes * RONA KUNZJYOTSNAB: 9 (44 yo F)Acc No.[id number]:08/09/2024 Progress Notes Patient: CHAD DON Provider: Carmen Cuello MD :1980 A ge:43 Y S ex:Female Date:08/09/2024 Address:[address] [place], [place] [id number] Pcp:Nagi Howard MD Subjective: * Chief Complaints: * P atient presents today for a fu from diarrhea * The named appointment provid er may or may not be the originator of this progress note, and it is not deemed complete until electronically signed by the appointment provider. Sign off status: Pending * Provider: Carmen Cuello MD Date: 0 08/09/2024 Generated for Carol milton/Rene/eTransmitting on: 1 06/21/2024 04:44 PM EST
--- OUTSIDE RECORDS SUMMARY | 2024-11-22 11:20 | XMS_ITS ---
Author Organization [facility] Address [address] [place] [address] Care Team Providers Care Resident Associate Name Role Phone Nagi Howard MD Primary Care Provider Cristino Jasso [phone] REASON FOR VISIT f/u from diarrhea Encounters Encounter Location Date Provider Diagnosis [facility] [address] [place] [address] 11/22/2024 Cristino Cuello Plan Of Treatment Next Appt Details Provider Name:Cristino Paul Cuello , 02/27/2026 04:00:00 PM, [address], [address], [place], [address], Progress Notes * RONA KUNZJYOTSNAB: 9 (44 yo F)Acc No.[id number]:11/22/2024 Progress Notes Patient: CHAD DON Provider: Carmen Cuello MD :1980 A ge:43 Y S ex:Female Date:11/22/2024 Address:[address] [place], [place] [id number] Pcp:Nagi Howard MD Subjective: * Chief Complaints: * F /u from diarrhea * The named appointment provid er may or may not be the originator of this progress note, and it is not deemed complete until electronically signed by the appointment provider. Sign off status: Pending * Provider: Carmen Cuello MD Date: 0 11/22/2024 Generated for Printi ng/Faxing/eTransmitting on: 1 06/21/2024 04:44 PM EST
--- OUTSIDE RECORDS SUMMARY | 2025-02-28 10:40 | XMS_ITS ---
Author Organization [facility] Address [address] [place] [phone] Care Team Providers Care Mining Support Worker Name Role Phone Po Nagi HALE Primary Care Provider Cristino Jasso [phone] Allergies Allergen (clinical drug ingredient) Drug/Non Drug Allergy documented on EMR Reaction Allergy Type Onset Date Status Levaquin swelling Drug Allergy Active Latex Latex rash Allergy Active tramadol Tramadol tremors Drug Allergy Active oxaprozin Oxaprozin anaphylaxis,ellen na,n/v sob,swelling Drug Allergy Active REASON FOR VISIT Patient presents today for f/u from diarrhea Medications Medication SIG (Take, Route, Frequency, Duration) Notes Start Date End Date Status Progesterone 100 MG Capsule 1 applicatorful for 6 doses Vaginal Active MiraLax 17 GM/SCOOP Powder as directed Orally Active Qvar RediHaler 80 MCG/ACT Aerosol Breath Activated 1 puff Inhalation Once a day Active Hemp MonoPure - Capsule Delayed Release as directed Orally 02/09/2024 Not-Takin g/P RN tylenol Not-Taking /P RN Elderberry 575 MG/5ML Syrup as directed Orally 02/09/2024 Not-Takin g/P RN Melatonin 3 MG Tablet 1 tablet at bedtim e as needed Orally Once a day; Duration: 30 day(s) 02/09/2024 Not-Taking/P RN Coconut Oil - Oil as directed 02/09/2024 Not-Taking/P RN Apple Cider Vinegar 500 MG Tablet as directed Orally 02/09/2024 Not-Taki ng/P RN Chromium Picolinate 200 MCG Tablet 1 tablet Orally Once a day; Duration: 30 day(s) 02/09/2024 Not-Taking/P RN Multi Vitamin Daily - Tablet 1 tablet Orally Once a day; Duration: 30 day(s) 02/09/2024 Not-Taking/P RN Tart Borjas 1200 MG Capsule as directed Orally 02/09/2024 Not-Takin g/P RN Cinnamon 500 MG Capsule as directed Orally 02/09/2024 Not-Takin g/P RN Turmeric 500 MG Capsule as directed Orally 02/09/2024 Not-Takin g/P RN Magnesium 300 MG Capsule 1 capsule with a meal Orally Once a day; Duration: 30 day(s) 02/09/2024 Not-Taking/P RN Green Tea 100 MG Capsule as directed Orally 02/09/2024 Not-Takin g/P RN Beet Root - Powder as directed 02/09/2024 Not-Taking/P RN Ashwagandha 500 MG Capsule as directed Orally 02/09/2024 Not-Takin g/P RN Vitamin C 500 MG Capsule as directed Orally 02/09/2024 Not-Takin g/P RN Flonase Allergy Relief 50 MCG/ACT Suspension 1 spray in each nostril Nasally Once a day; Duration: 30 day(s) 02/09/2024 Not-Taking/P RN Calcium 1 tab Oral; Duration: 14 days 02/09/2024 Active Lomotil 2.5-0.025 MG Tablet 1 or 2 tablets Orally Every 6 hours as needed for diarrhea; Duration: 30 days PRN 02/09/2024 Active Cholesterol - Powder as directed 02/09/2024 Not-Taking/P RN Dicyclomine HCl 10 MG Capsule 1 or 2 capsules Orally Every 4 to 6 hours as needed for abdominal cramps/discomfort; Duration: 30 day(s) 02/09/2024 Active Multivitamin - Tablet 1 tablet Orally On ce a day; Duration: 30 day(s) Not-Taking/P RN Probiotic - Capsule as directed Orally 02/09/2024 Active [place] 3 MG Capsule as directed Orally 02/09/2024 Active Vitamin D-3 125 MCG (5000 UT) Tablet 1 tablet Orally Once a day; Duration: 30 day(s) 02/09/2024 Active Betamethasone - Powder as directed 02/09/2024 Active Biotin - Powder as directed 02/09/2024 A ctive Diclofenac Sodium 75 MG Tablet Delayed Release TAKE 1 TABLET BY MOUTH TWICE A DAY NEEDED Oral; Duration: 90 PRN Active Levothyroxine Sodium 50 MCG Tablet TAKE 1 TABLET BY MOUTH EVERY DAY IN THE MORNING Oral; Duration: 90 Active Chlorthalidone 25 MG Tablet TAKE 1 TABLET BY MOUTH EVERY DAY Oral; Duration: 90 Active amLODIPine Besylate 2.5 MG Tablet TAKE 1 TABLET BY MOUTH EVERY DAY Oral; Duration: 90 For Raynaud's Active Acetaminophen-Codeine 300-60 MG Tablet TAKE 0.5 TABLETS BY MOUTH 2 (TWO) TIMES A DAY NEEDED FOR PAIN Oral; Duration: 7 Active Omeprazole 20 MG Capsule Delayed Release 1 capsule 30 minutes before morning meal Orally Once a day; Duration: 30 day(s) Active Minoxidil Active Cilostazol 50 MG Tablet 1 tablet 30 minutes before or 2 hours after breakfast and dinner Orally Twice a day Active Social History Tobacco Use: Social History Observation Description Date Details (start date - stop date) Never Smoker NA - NA Social History Drugs/Alcohol: Social Info Question Answer Notes Alcohol Screen Did you have a drink containing alcohol in the past year? No Points 0 Interpretation Negative Drug/Alcohol: Social Info Question Answer Notes AUDIT-C (Standard) Did you have a drink containing alcohol in the past year? No Points 0 Interpretation Negative Tobacco Use: Social Info Question Answer Notes Tobacco Use/Smoking Patient is a nonsmoker Section Notes: Nonsmoker; no alcohol Problems Problem Type SNOMED Code ICD Code Onset Dates Problem Status W/U Status Risk Notes Problem Gastroparesis (838364110) Gastroparesis (K31.84) Active confirmed Problem Constipation (07604319) Constipation (K59.00) Active confirmed Problem Gastroesophageal reflux disease (387236913) GERD (gastroesophagea l reflux disease) (K21.9) Active confirmed Problem Colon cancer screening (198279795) Colon cancer screening (Z12.11) Active confirmed Vital Signs Temperature 97.8 degrees Fahrenheit 02/29/20 25 Blood pressure systolic 001 mm Hg 02/29/20 25 Blood pressure diastolic 01 mm Hg 025 Height 5 ft 6 in in 02/28/2025 Weight 141.4 lbs 02/28/2025 BMI 22.82 kg/m2 02/28/2025 Encounters Encounter Location Date Provider Diagnosis [facility] [address] [place] [address] 02/28/2025 Cristino Cuello Gastroparesis K31.84 ; Constipation K59.00 ; Colon cancer screening Z12.11 and GERD (gastroesophageal reflux disease) K21.9 Assessments Encounter Date Diagnosis (ICD Code) Assessment Notes Treatment Notes Treatment Clinical Notes Section Notes 02/28/2025 Gastroparesis (ICD-10 - K31.84) mm 02/28/2025 Constipation (ICD-10 - K59.00) Use Miralax once or twice a day mm 02/28/2025 Colon cancer screening (ICD-10 - Z12.11) Repeat colonoscopy in 08/2028 mm 02/28/2025 GERD (gastroesophageal reflux disease) (ICD-10 - K21.9) Continue the daily omeprazole mm Plan Of Treatment Treatment Notes Assessment Notes Constipation Use Miralax once or twice a day Colon cancer screening Repeat colonoscop y in 08/2028 GERD (gastroesophageal reflux disease) C ontinue the daily omeprazole Pending Test Test Name Order Date NUC GASTRIC ANTRUM EMPTYING 02/28/2025 Next Appt Details Follow Up: 1 Year, Reason: Provider Name:Cristino Cuello , 02/27/2026 04:00:00 PM, [address], [address], [place], [address], History and Physical Notes * HPI (History of Present Illness) Category Sub-Category Detail Notes Category Not es incontinence I saw Angelina in follow-up today in regard to her history of gastroesophageal reflux, reported gastroparesis, and constipation. I last saw Angelina in February 2024. Since that time she has continued on her daily omeprazole with good relief of reflux symptoms. She is still trying to stay on a diet of smaller meals due to the reported gastroparesis in the past. She has been using MiraLAX once a day to help facilitate bowel movements as she has been somewhat constipated after her surgeries earlier this year for bilateral salpingo-oophorectomy and double mastectomy in relation to finding out she has the BRCA 1 gene. She has found that keeping her bowel movements more regular helps her overall GI symptoms improve. She denies any dysphagia, nausea, vomiting, nor any weight loss. She has not noticed any hematochezia or melena. She denies any significant abdominal pain, jaundice, nor fever. She presently describes a bowel regimen of a bowel movement about every third day with the taking of MiraLAX just once daily. She is concerned about her reported underlying gastroparesis. I do not have any data on that as she was told that many years ago when she was being followed by Dr. Fitzgerald in [place]. She does describe a previous history of a nuclear medicine gastric emptying study but I do not have that report. She is presently not using any specific medication for a gastroparesis at this time and is trying to get by with just smaller and more frequent meals. She is also on the omeprazole which is helping to cut down her reflux symptoms.She has found that by keeping her bowel movements somewhat more regular with the daily dose of MiraLAX this has seemingly helped her upper GI complaints of fullness and reflux in regard to her reported underlying gastroparesis. Examination Category Sub-Category Detail Notes Category Not [...] EXAM: FEMALE GENITOURINARY: ORAL CAVITY: mucosa moist Progress Notes * RONA KUNZJYOTSNAB: 9 (44 yo F)Acc No.[id number]:02/28/2025 Progress Notes Patient: ANGELINA DON Provider: Carmen Cuello MD :1980 A ge:44 Y S ex:Female Date:02/28/2025 Address:[address] [place], [place] [id number] Pcp:Nagi Howard MD Subjective: * Chief Complaints: * P atient presents today for f/u from diarrhea * HPI: i ncontinence: I saw Angelina in follow-up today in regard to her history of gastroesophageal reflux, reported gastroparesis, and constipation. I last saw Angelina in February 2024. Since that time she has continued on her daily omeprazole with good relief of reflux symptoms. She is still trying to stay on a diet of smaller meals due to the reported gastroparesis in the past. She has been using MiraLAX once a day to help facilitate bowel movements as she has been somewhat constipated after her surgeries earlier this year for bilateral salpingo- oophorectomy and double mastectomy in relation to finding out she has the BRCA 1 gene. She has found that keeping her bowel movements more regular helps her overall GI symptoms improve. She denies any dysphagia, nausea, vomiting, nor any weight loss. She has not noticed any hematochezia or melena. She denies any significant abdominal pain, jaundice, nor fever. She presently describes a bowel regimen of a bowel movement about every third day with the taking of MiraLAX just once daily. She is concerned about her reported underlying gastroparesis. I do not have any data on that as she was told that many years ago when she was being followed by Dr. Fitzgerald in [place]. She does describe a previous history of a nuclear medicine gastric emptying study but I do not have that report. She is presently not using any specific medication for a gastroparesis at this time and is trying to get by with just smaller and more frequent meals. She is also on the omeprazole which is helping to cut down her reflux symptoms.She has found that by keeping her bowel movements somewhat more regular with the daily dose of MiraLAX this has seemingly helped her upper GI complaints of fullness and reflux in regard to her reported underlying gastroparesis. * ROS: G eneral/Constitutional: Change in appetite d enies. C hills d enies. F atigue a dmits. O phthalmologic: Comments a ll negative. E NT: Comments a ll negative. R espiratory: hemoptysis d enies. C ough d enies. ? C ardiovascular: Chest pain d enies. O rthopnea d enies. ? G astrointestinal: Comments S [facility] for details. G enitourinary: Hematuria d enies. D ysuria d enies. ? M usculoskeletal: Painful joints a dmits. W eakness d enies. S kin: Itching d enies. R tyra d enies. N eurologic: Headache d enies. S eizures d enies. ? P sychiatric: Comments a ll negative. * Medical History: Polymyositis- she sees a business process manager, Dr. Kebede, at [facility] Hx of gastroparesis- Dr. Fitzgerald- describes an upper endoscopy > 10 years ago- she describes that those symptoms resolved without any specific treatment Raynauds Denies MA,DM,CVA,renal disease Diarrhea-laboratories were negative for celiac disease in July of 2023 GERD LE Edema She describes some interstitial lung disease with some scarring in the lower lungs Colonoscopy August of 2023 was unremarkable and specifically negative for inflammatory bowel disease and polyps. Biopsies were negative for microscopic colitis. Biopsies of the terminal ileum were normal. Unremarkable CT of the abdomen and pelvis in January of 2024 during an ER visit Lyme disease Medical History Verified * Surgical History: Fallopian tubes and ovaries removed 12/2024 Double mastectomy with 01/2025......reconstruction starting as of the 01/2025 OV Surgical History verified. * Hospitalization/Major Diagno stic Procedure: No Hospitalization Documented. Hospitalization Verified. * Family History: F ather: , diagnosed with HTN (hypertension), Heart disease, Diabetes. M other: alive, afib. S iblings: alive, brother, diagnosed with Colon polyps, Diabetes. No known hx of colon cancer No IBD, celiac disease Brother with colon polyps. * Social History: T obacco Use: T obacco Use/Smoking P atient is a n onsmoker. D rugs/Alcohol: A lcohol Screen D id you have a drink containing alcohol in the past year? N o, P oints 0 , I nterpretation N egative. D rug/Alcohol: A OLEKSANDR-C (Standard) D id you have a drink containing alcohol in the past year? N o,?Points 0 , I nterpretation N egative. Social History Verified. N onsmoker; no alcohol. * Medications: T akingMiraLax 17 GM/SCOOP Powder as directed Orally Qvar RediHaler 80 MCG/ACT Aerosol Breath Activated 1 puff Inhalation Once a day Progesterone 100 MG Capsule 1 applicatorful for 6 doses Vaginal Minoxidil Cilostazol 50 MG Tablet 1 tablet 30 minutes before or 2 hours after breakfast and dinner Orally Twice a day Omeprazole 20 MG Capsule Delayed Release 1 capsule 30 minutes before morning meal Orally Once a day Diclofenac Sodium 75 MG Tablet Delayed Release TAKE 1 TABLET BY MOUTH TWICE A DAY NEEDED Oral , Notes to Pharmacist: PRNamLODIPine Besylate 2.5 MG Tablet TAKE 1 TABLET BY MOUTH EVERY DAY Oral , Notes to Pharmacist: For Raynaud'sAcetaminophen- Codeine 300-60 MG Tablet TAKE 0.5 TABLETS BY MOUTH 2 (TWO) TIMES A DAY NEEDED FOR PAIN Oral Levothyroxine Sodium 50 MCG Tablet TAKE 1 TABLET BY MOUTH EVERY DAY IN THE MORNING Oral Chlorthalidone 25 MG Tablet TAKE 1 TABLET BY MOUTH EVERY DAY Oral Probiotic - Capsule as directed Orally [place] 3 MG Capsule as directed Orally Vitamin D-3 125 MCG (5000 UT) Tablet 1 tablet Orally Once a day Betamethasone - Powder as directed Biotin - Powder as directed Calcium 1 tab Oral Lomotil 2.5-0.025 MG Tablet 1 or 2 tablets Orally Every 6 hours as needed for diarrhea , Notes to Pharmacist: PRNDicyclomine HCl 10 MG Capsule 1 or 2 capsules Orally Every 4 to 6 hours as needed for abdominal cramps/discomfort Taking MiraLax 17 GM/SCOOP Powder as directed Orally Taking Qvar RediHaler 80 MCG/ACT Aerosol Breath Activated 1 puff Inhalation Once a day Taking Progesterone 100 MG Capsule 1 applicatorful for 6 doses Vaginal Taking Minoxidil Taking Cilostazol 50 MG Tablet 1 tablet 30 minutes before or 2 hours after breakfast and dinner Orally Twice a day Taking Omeprazole 20 MG Capsule Delayed Release 1 capsule 30 minutes before morning meal Orally Once a day Taking Diclofenac Sodium 75 MG Tablet Delayed Release TAKE 1 TABLET BY MOUTH TWICE A DAY NEEDED Oral , Notes to Pharmacist: PRNTaking amLODIPine Besylate 2.5 MG Tablet TAKE 1 TABLET BY MOUTH EVERY DAY Oral , Notes to Pharmacist: For Raynaud'sTaking Acetaminophen- Codeine 300-60 MG Tablet TAKE 0.5 TABLETS BY MOUTH 2 (TWO) TIMES A DAY NEEDED FOR PAIN Oral Taking Levothyroxine Sodium 50 MCG Tablet TAKE 1 TABLET BY MOUTH EVERY DAY IN THE MORNING Oral Taking Chlorthalidone 25 MG Tablet TAKE 1 TABLET BY MOUTH EVERY DAY Oral Taking Probiotic - Capsule as directed Orally Taking [place] 3 MG Capsule as directed Orally Taking Vitamin D-3 125 MCG (5000 UT) Tablet 1 tablet Orally Once a day Taking Betamethasone - Powder as directed Taking Biotin - Powder as directed Taking Calcium 1 tab Oral Taking Lomotil 2.5-0.025 MG Tablet 1 or 2 tablets Orally Every 6 hours as needed for diarrhea , Notes to Pharmacist: PRNTaking Dicyclomine HCl 10 MG Capsule 1 or 2 capsules Orally Every 4 to 6 hours as needed for abdominal cramps/discomfort Not-Taking/PRNMultivitamin - Tablet 1 tablet Orally Once a day Cholesterol - Powder as directed Flonase Allergy Relief 50 MCG/ACT Suspension 1 spray in each nostril Nasally Once a day Green Tea 100 MG Capsule as directed Orally Beet Root - Powder as directed Ashwagandha 500 MG Capsule as directed Orally Vitamin C 500 MG Capsule as directed Orally Cinnamon 500 MG Capsule as directed Orally Multi Vitamin Daily - Tablet 1 tablet Orally Once a day Tart Borjas 1200 MG Capsule as directed Orally Turmeric 500 MG Capsule as directed Orally Magnesium 300 MG Capsule 1 capsule with a meal Orally Once a day Apple Cider Vinegar 500 MG Tablet as directed Orally Chromium Picolinate 200 MCG Tablet 1 tablet Orally Once a day Coconut Oil - Oil as directed Elderberry 575 MG/5ML Syrup as directed Orally Melatonin 3 MG Tablet 1 tablet at bedtime as needed Orally Once a day Hemp MonoPure - Capsule Delayed Release as directed Orally tylenol Medication List reviewed and reconciled with the patientNot-Taking/PRN Multivitamin - Tablet 1 tablet Orally Once a day Not- Taking/PRN Cholesterol - Powder as directed Not-Taking/PRN Flonase Allergy Relief 50 MCG/ACT Suspension 1 spray in each nostril Nasally Once a day Not-Taking/PRN Green Tea 100 MG Capsule as directed Orally Not-Taking/PRN Beet Root - Powder as directed Not-Taking/PRN Ashwagandha 500 MG Capsule as directed Orally Not-Taking/PRN Vitamin C 500 MG Capsule as directed Orally Not-Taking/PRN Cinnamon 500 MG Capsule as directed Orally Not-Taking/PRN Multi Vitamin Daily - Tablet 1 tablet Orally Once a day Not-Taking/PRN Tart Borjas 1200 MG Capsule as directed Orally Not-Taking/PRN Turmeric 500 MG Capsule as directed Orally Not-Taking/PRN Magnesium 300 MG Capsule 1 capsule with a meal Orally Once a day Not-Taking/PRN Apple Cider Vinegar 500 MG Tablet as directed Orally Not-Taking/PRN Chromium Picolinate 200 MCG Tablet 1 tablet Orally Once a day Not-Taking/PRN Coconut Oil - Oil as directed Not-Taking/PRN Elderberry 575 MG/5ML Syrup as directed Orally Not-Taking/PRN Melatonin 3 MG Tablet 1 tablet at bedtime as needed Orally Once a day Not-Taking/PRN Hemp MonoPure - Capsule Delayed Release as directed Orally Not-Taking/PRN tylenol Medication List reviewed and reconciled with the patient * Allergies: L atex: rashLevaquin: swellingOxaprozin: anaphylaxis,angina,n/v sob,swellingTramadol: tremorsyesAllergies Verified. Objective: * Vitals: W t: 141.4 lbs, Ht: 5 ft 6 in, BMI:22.82Index, BP: 001/01 mm Hg, Temp: 97.8 F, Wt- k.14 kg. * Examination: G eneral Examination: GENERAL APPEARANCE: p leasant, thin, alert female in no acute distress. EYES: s clera non-icteric. ORAL CAVITY: m ucosa moist. NECK/THYROID: n o cervical lymphadenopathy, neck supple.? SKIN: n onjaundiced, no spider angiomata. HEART: S 1, S2 normal. LUNGS: c lear to auscultation bilaterally. ABDOMEN: n ormal bowel sounds, no guarding or rigidity, no guarding or rigidity, no masses palpable, soft, nontender, nondistended. EXTREMITIES: B ilateral pedal and pretibial edema. NEUROLOGIC: a lert and oriented. Assessment: * Assessment: 1. G astroparesis - K31.84 (Primary) 2 . C onstipation - K59.00 ?3. C olon cancer screening - Z12.11 4 . G ERD (gastroesophageal reflux disease) - K21.9 mm Plan: * Treatment: * 2.?Constipation? Notes: Use Miralax once or twice a day??3.?Colon cancer screening? Notes: Repeat colonoscopy in 08/2028??4.?GERD (gastroesophageal reflux disease)? Notes: Continue the daily omeprazole?? * Procedure Codes: 3 017F COLORECTAL CA SCREEN DOC [id number] TOBACCO [id number] BP SCR NOT PRFRM REC REASON NOS * Follow Up: 1 Year Billing Information: * Procedure Codes: 3017F COLORECTAL CA SCREEN DOC REV. 1036F TOBACCO NON-USER. G8785 BP SCR NOT PRFRM REC REASON NOS. * The named appointment provid er may or may not be the originator of this progress note, and it is not deemed complete until electronically signed by the appointment provider. Sign off status: Pending * Provider: Carmen Cuello MD Date: 1 Generated for Carol milton/Rene/Flex on: 06/21/2024 04:44 PM EST
--- NOTE | 2025-04-20 16:03 | PFT_ITS ---
Flows: FEV1: 82 % of predicted at 2.43 L FVC: 101 % of predicted at 3.71 L FEV1/FVC: 65 % Bronchodilator response: Patient declined bronchodilator treatment Volumes: Total lung capacity: 98 % of predicted at 5.29 L Residual volume: 108 % of predicted at 1.58 L Slow vital capacity: 94 % of predicted at 3.71 L Expiratory reserve volume: 138 % of predicted at 1.61 L Diffusion capacity: Normal Impression: Mild obstructive ventilatory defect. Patient declined bronchodilator treatment. MTDD
--- OUTSIDE RECORDS SUMMARY | 2025-04-20 16:44 | XMS_ITS | Encounter Summary ---
Author Organization [facility] [place] [address] Care Team Providers Care Grain Cleaner And Transfer Operator Name Role Phone Nagi Howard MD Primary Care Provider [phone] Encounter Details Date Type Department Care Team (Late st Contact Info) Description 04/02/2025 Results Follow-Up [facility] [address] [place] [phone] Flori Pleitez NP [address] [place] [address] [address] [place] [phone] Social History Tobacco Use Types Packs/Day Years [...] on filedocumented in this encounter Care Teams Grain Cleaner And Transfer Operator Relationship Specialty Start Date End Date Nagi Howard MD [address] [place] [address] Dr [address] [facility] [place] [address] PCP - General 05/24/23 documented as of this encounter
--- OUTSIDE RECORDS SUMMARY | 2025-04-20 16:44 | XMS_ITS | Clinical Summary ---
Author Organization [address] [facility] Address [address] [place] [address] Phone Care Team Providers Care Concrete Stone Finisher Name Role Phone Nagi Howard MD Primary Care Provider [phone] Allergies Active Allergy Reactions Criticality Noted Date [...] 5 07/12/19 26 Active Additional Information Patient taking differently: (No [...] EVERY DAY 90 tablet 2 5 Active UNABLE TO FIND Sea pelayo 2 [...] mouth 1 (one) time each day. Active Active Problems Problem Noted Date [...] Department Care Team Description 04/02/2025 Results Follow-Up [facility] [address] [facility] [address] [place] [address] Flori Pleitez NP 04/02/2025 Telephone [facility] [address] [place] [address] Gómez Roman MD 03/19/2025 2:40 PM EST Office Visit [facility] [address] [place] [address] Flori Pleitez NP Localized edema (Primary Dx); [...] on file Sexual Orientation Not on file Last Filed Vital Signs Vital Sign Reading [...] AM EST Performed at: 01 - [facility] [place] [address], [address], [place], [place] [id number] Associate Automation Engineer: Shan Melchor MD, Phone: [phone] us Flori Bartolucci OXYGEN FURNACE OPERATOR LAB BLOOD ORDERABLES Final R esult [facility] [...] - 03/27/2025 6:07 AM EST Performed at: - [facility] [place] [address], [address], [place], [place] [id number] Associate Automation Engineer: Shan Melchor MD, Phone: [phone] us Flori Bartolucci OXYGEN FURNACE OPERATOR LAB BLOOD ORDERABLES Final R esult [facility] 1 from Last 3 Months Insurance [facility] Care Teams Concrete Stone Finisher Relationship Specialty Start Date End Date Nagi Howard MD [address] [place] [address] [address] [facility] [facility] [place] [address] PCP - General 05/24/23
--- OUTSIDE RECORDS SUMMARY | 2025-04-20 16:44 | XMS_ITS | Patient Health Record ---
Author Organization [facility] Address [address] [place] [address] Care Team Providers Care Saw Handle Assembler Name Role Phone STEPHANIE FUENTES MD Primary Care Provider UnavailSARAHI Hampton Unavailable [phone] Allergies Allergen (clinical drug ingredient) Drug/Non Drug Allergy documented on EMR Reaction Allergy Type Onset Date Status Levaquin stomach upset Drug Allergy Act silvana oxaprozin Oxaprozin anaphylaxis Drug Allergy Activ e Latex Latex rash Allergy Active tramadol traMADol anxiety Drug Allergy Active Reason For Referral No Information Medications Medication SIG (Take, Route, Frequency, Duration) Notes Start Date End Date Status Gavi 550MG CAPSULE 1 CAP (S) ORALLY ON CE DAILY Active Apple Cider Vinegar TAB 1 TAB ORALLY ONCE DAILY Active BORON (MINERAL/CALCIUM) - 3MG, 1 TAB ORA LLY ONCE A DAY Active PRIMROSE OIL 500 MG 1 TAB TID Active Melatonin 10 MG 1 TAB(S) ORALLY AT BEDTIME PRN Active Biotin 33598 TABLET 1 TAB(S) ORALLY ONCE A DAY Active amLODIPine Besylate 5 MG Tablet 1 tablet Orally QHS prn in the winter time 07/02/2021 Active Coconut Oil CAPT TWO A DAY Act silvana Omeprazole 20 MG Capsule Delayed Release 1 cap(s) orally once a day Active SUPPLEMENTS SUGAR EQ, 1 TAB ORAL LY TWICE A DAY Active SUPPLEMENTS DIRECTED Active ELDERCAPS 2 TABS ORALLY ONCE A DAY Active Green Tea CAPSULE 2 CAPS ORALLY TWICE A DAY Active Vitamin D3 25 MCG (1000 UT) Tablet 1 cap orally once a day Acti ve Calcium 600+D 600-200 MG-UNIT Tablet 1 tab(s) orally QD Active Co Q-10 100 MG Capsule 2 cap(s) orally o nce a day Active Excedrin Migraine 250-250-65 MG Tablet 2 tab(s) orally as needed Active Chromium Picolinate 1000 TABLET 1 TAB(S) ORALLY ONCE A DAY Active Cinnamon 500 MG Capsule 2 cap(s) orally once a day Active Betamethasone Dipropionate 0.05 % Ointment 1 application Externally bid; Duration: 30 day(s) 03/11/2022 Active Acetaminophen-Codeine #3 300-30 MG Tablet 1 tab Orally TID prn 06/17/2022 Act silvana Diclofenac Sodium 75 MG Tablet Delayed Release TAKE 1 TABLET BY MOUTH TWICE A DAY NEEDED Active TUMERIC 500 MG 1 TAB(S) ORALLY ONCE A DAY Active Probiotic 2 TABS ORALLY ONCE A DAY Active Magnesium Oxide 500 MG Tablet 1 tab(s) orally once a day Active Multivitamin - Tablet 1 cap(s) orally on ce a day; Duration: 30 day(s) Active Fish Oil 1000 MG Capsule 1 cap orally once a day Active Garlic 1000 MG TABLET 1 TAB ORALLY THREE TIMES A DAY Active NYSTATIN SWISH AND SWALLOW 100ml 5 CC PO swish and swallow. 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 asbestos exposure: No alcohol use: no drug use: no Coffee/Tea/Soda: yes Tea,1 cup of Co ffee daily, Soda Marital Status single experience No Living with mother smokers in household no never smoke r Problems Problem Type SNOMED Code ICD Code Onset Dates Problem Status W/U Status Risk Notes Problem Dermatomyositis (493159112) Dermatomyositis (710.3) Active confirmed Problem Polymyositis (75204812) Polymyositis (710.4) Active confirmed Problem Rheumatoid arthritis (37551973) Rheumatoid arthritis (714.0) Active confirmed Problem Medication monitoring (872636614) Medication monitoring (V58.69) Active confirmed Problem Osteoarthritis (168022344) osteoarthritis (715.90) Active confirmed Problem Fatigue (51357879) Fatigue (780.79) Active conf irmed Problem Osteopenia (562791495) Osteopenia (M85.80) Active confirmed Problem Thrush (44923069) Thrush (B37.0) Active confirm ed Problem Medication monitoring (722840761) Medication monitoring encounter (Z51.81) Active confirmed Problem Eruption of skin (484000370) Rash and nonspecific skin eruption (R21) Active confirmed Problem Long-term current use of drug therapy (487698081) Other terminal press operator (current) drug therapy (Z79.899) Active confirmed Problem Polymyositis (37852475) Polymyositis (M33.20) Active confirmed Problem Primary osteoarthritis (766425129) Primary osteoarthritis involving multiple joints (M15.0) Active confirmed Problem Raynaud's disease (558316337) Raynaud's phenomenon without gangrene (I73.00) Active confirmed Plan Of Treatment Pending Test Test Name Order Date AST ( SGOT) 01/02/2021 ALT(DO NOT USE) 01/02/2021 AST ( SGOT) 07/02/2021 ALT(DO NOT USE) 07/02/2021 AST ( SGOT) 11/05/2021 ALT(DO NOT USE) 11/05/2021 Future Test Test Name Order Date CK,TOTAL ONLY ( For BRL only) 06/17/2017 CK,TOTAL ONLY ( For BRL only) 08/19/2017 ESR 06/17/2022 ALBUMIN 06/17/2022 AST ( SGOT) 06/17/2022 CREATININE 06/17/2022 CRP 06/17/2022 CBC W/ AUTOMATED DIFF 06/17/2022 Lyme ,EIA w/i Ref IgG, IgM([facility]/BRL) CK,TOTAL ONLY ( For BRL only) 06/17/2022 ALT (SGPT) 06/17/2022 Insurance Providers Payer Name Payer Address Payer Phone Subscriber Number Group Number Insured Name Patient Relationship to Insured Coverage Start Date Coverage End Date [facility] [address] [place], [place] [phone] [id number] CHAD KUNZ Self - patient is the insured Medications Administered Medication Instructions Date of Administration Dosage Notes Triamcinolone Acetonide, mul ti-dose vial, 11/05/2021 60 mg Triamcinolone Acetonide, mul ti-dose vial, 03/11/2022 60 mg Medical (General) History Medical History History ICD Code allergies (seasonal) Arthritis RA overlap asthma high blood pressure high cholesterol depression DM headaches low grade cervical lesion med intolerance piroxiCAm IMURAN , arava , MTX (cough) interstitial lung disease Dr Nunes gastroparesis Surgical History Surgery Date(Month/Year)
--- OUTSIDE RECORDS SUMMARY | 2025-04-20 16:44 | XMS_ITS | Clinical Summary ---
Author Organization [facility] Address [address] [employer] [facility] [address] [place] [phone] Phone Care Team Providers Care Warehouse Distribution Manager Name Role Phone Nagi Howard MD Primary Care Provider [phone] Allergies Active Allergy Reactions Criticality Noted Date [...] has not started yet pending lab results 2025 Active acetaminophen-cod eine (TYLENOL #4) 300-60 [...] for nausea 60 tablet 1 025 Active acetaminophen (TYLENOL) 325 mg tablet TAKE [...] AT BEDTIME. 90 tablet 1 025 Active mycophenolate mofetil (CELLCEPT) 500 mg tabletIndications :Polymyositis TAKE 1 TABLET BY MOUTH TWICE A DAY WITH FOOD 60 tablet 3 025 Active diclofenac sodium (VOLTAREN) 75 MG EC tabletIndications :Primary osteoarthritis involving multiple joints TAKE 1 TABLET BY MOUTH NIGHTLY AT BEDTIME. 90 tablet 1 025 2024 Discontinued mycophenolate mofetil (CELLCEPT) 500 mg tabletIndications :Polymyositis TAKE 1 TABLET BY MOUTH TWICE A DAY WITH FOOD 60 tablet 3 025 2024 Discontinued Active Problems Problem Noted [...] at least every 3 months-standing orders in [facility]. senior care (current) use of n on-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-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 (nsaid) [...] get monitoring labs in 4 weeks-orders in [facility]. She is asked to stop [id number]-[id number] products that may contribute to it. 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 along with interstitial lung disease and mechanics [...] Encounters Date Type Department Care Team Description 04/19/2025 Refill [facility] Rheumatology [address] [place] [address] Ruth Ann Samuels MD Medication Refill 04/19/2025 Refill [facility] Rheumatology [address] [place] [address] Ruth Ann Samuels MD Medication Refill 03/29/2025 Refill [facility] Rheumatology [address] [place] [address] Ruth Ann Samuels MD Medication Refill 02/26/2025 Orders Only [facility] Rheumatology [address] [place] [address] Yesi Antunez MA Polymyositis; intermediate frame tender (current) use of non-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-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 (nsaid); On Cellcept therapy 02/14/2025 4:00 PM EDT Office Visit [facility] Rheumatology Clinic [address] [place] [address] Ruth Ann Samuels MD Polymyositis (Primary Dx); Raynaud's phenomenon without gangrene; Fibromyalgia; Primary osteoarthritis involving multiple joints; Gastroesophageal reflux disease without esophagitis; intermediate frame tender (current) use of non-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-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 (nsaid); On [...] Description 05/18/2025 4:30 PM EST Office Visit [facility] Rheumatology Clinic [address] [place] [address] Ruth Ann Samuels MD 22 [facility], [address] [place] [address] [email or web address] 08/02/2025 4:00 PM EDT Office Visit [facility] Endocrinology Clinic [address] [place] [address] Julian Lo DO [address] [place] [address] Health Maintenance Due Date Last Done Comments [...] (CELLCEPT) Routine 02/12/2025 3:38 PM EDT Polymyositis intermediate frame tender (current) use of non-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-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 (nsaid) On Cellcept therapy ALDOLASE Routine 02/12/2025 3:38 PM EDT Polymyositis senior care (current) use of non-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-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 (nsaid) CREATINE KINASE (CK) Routine 02/12/2025 3:38 PM EDT Polymyositis senior care (current) use of non-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-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 (nsaid) CBC AND DIFFERENTIAL Routine 02/12/2025 3:38 PM EDT Polymyositis senior care (current) use of non-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-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 (nsaid) SEDIMENTATION RATE (ESR) Routine 02/12/2025 3:38 PM EDT Polymyositis senior care (current) use of non-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-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 (nsaid) C-REACTIVE PROTEIN (CRP) Routine 02/12/2025 3:38 PM EDT Polymyositis senior care (current) use of non-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-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 (nsaid) COMPREHENSIVE METABOLIC PANEL (CMP) Routine 02/12/2025 3:38 PM EDT Polymyositis senior care (current) use of non-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-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 (nsaid) THYROID [...] ORDERABLES Fin al Result Performing Organization Address [facility] de Phone Number EXTERNAL NON-INTERFACED REF LAB * Aldolase (02/12/2025 3:38 PM EDT) Blood Ruth Ann Samuels MD LAB BLOOD ORDERABLES Fin al Result Performing Organization Address [facility] de Phone Number EXTERNAL NON-INTERFACED REF LAB * CPK (creatine kinase) (02/12/2025 3:38 PM EDT) Blood us Ruth Ann Samuels MD LAB BLOOD BKR ORDERABLES Final Result Performing Organization Address [facility] [facility] de Phone Number EXTERNAL NON-INTERFACED REF LAB * CBC and differential (02/12/2025 3:38 PM EDT) Blood Ruth Ann Samuels MD LAB BLOOD BKR ORDERABLES Final Result Performing Organization Address [place] [facility] de Phone Number EXTERNAL NON-INTERFACED REF LAB * Sedimentation rate (ESR) (02/12/2025 3:38 PM EDT) Blood us Ruth Ann Samuels MD LAB BLOOD BKR ORDERABLES Final Result EXTERNAL NON-INTERFACED REF LAB * C-Reactive Protein (02/12/2025 3:38 PM EDT) Blood us Ruth Ann Samuels MD LAB BLOOD BKR ORDERABLES Final Result Performing Organization Address [place] [facility]/ZIP Co de Phone Number EXTERNAL NON-INTERFACED REF LAB * Comprehensive metabolic panel (02/12/2025 3:38 PM EDT) Blood us Ruth Ann Samuels MD LAB BLOOD BKR ORDERABLES Final Result Performing Organization Address [place] [facility] [place]/[facility] Co de Phone Number EXTERNAL NON-INTERFACED REF LAB * TSH (12/06/2024 1:50 PM EDT) Blood us Julian Lo DO LAB BLOOD BKR ORDERABLES Final R esult Performing Organization Address [place] [facility] [place]/[facility] Co de Phone Number [facility] [address] [place] [address] * (ABNORMAL) Basic metabolic panel (05/25/2024 2:40 PM EST) SODIUM 140 133 - 146 mmol/L [facility] CHLORIDE 101 96 - 108 mmol/L [facility] POTASSIUM 4.0 3.3 - 5.1 mmol/L [facility] CO2 29 21 - 35 mmol/L [facility] BUN 20(H) 6 - 19 mg/dL [facility] CREATININE 0.70 0.5 - 1.5 mg/dL [facility] GLUCOSE 148(H) 70 - 99 mg/dL [facility] CALCIUM 10.3 8.4 - 10.3 mg/dL [facility] EGFR 109 >59 mL/min/1.7 3m2 [facility] Comment:Estimated glomerular filtration rate calculated using the CKD-EPI refit equation. ANION GAP 14 10 - 20 mmol/L [facility] Blood 05/25/2024 2:40 PM EST 05/25/2024 2:44 PM EST us Ruth Ann Samuels MD LAB BLOOD BKR ORDERABLES Final Result [facility] [address] [place] [address] * Hepatitis C antibody, qualitative (03/21/2024 10:28 AM EST) Blood us Ruth Ann Samuels MD LAB BLOOD BKR ORDERABLES Final Result EXTERNAL NON-INTERFACED REF LAB from Last 3 Months or Most Recently Relevant to Health Maintenance Insurance [facility] HMO [facility] Address: [address] [address] Care Teams Warehouse Distribution Manager Relationship Specialty Start Date End Date Lee, Nagi Arroyo MD [address] [place] [phone] PCP - General Internal Medicine 12/01/22 Additional Source Comments The information contained in this document represents components of the legal health record. It is not the complete legal health record.[facility]
--- OUTSIDE RECORDS SUMMARY | 2025-04-20 16:44 | XMS_ITS | Encounter Summary ---
Author Organization [facility] Address [address] [place] [address] Phone Care Team Providers Care Medical Examiner Name Role Phone Nagi Howard MD Primary Care Provider [phone] Encounter Details Date Type Department Care Team (Late st Contact Info) Description 03/09/2024 Telephone [facility] Rheumatology Clinic [address] [place] [address] Nagi Howard MD [address] [place] [phone] Social History Tobacco Use Types Packs/Day Years [...] Description 05/18/2025 4:30 PM EST Office Visit [facility] Rheumatology Clinic [address] [place] [address] Ruth Ann Samuels MD [address] [facility], [address] [place] [address] [email or web address] 08/02/2025 4:00 PM EDT Office Visit [facility] Endocrinology Clinic [address] [place] [address] [place] [address] Julian Lo DO [address] [place] [address] [email or web address] documented as of this encounter Visit Diagnoses Not on filedocumented in this encounter Care Teams Medical Examiner Relationship Specialty Start Date End Date Lee, Nagi Arroyo MD [address] [place] [address] [place] [phone] PCP - General Internal Medicine 12/01/22 documented as of this encounter Additional Source Comments The information contained in this document represents components of the legal health record. It is not the complete legal health record.[facility]
--- OUTSIDE RECORDS SUMMARY | 2025-04-20 16:44 | XMS_ITS | Encounter Summary ---
Author Organization [facility] Address [address] [facility] [address] [place] [address] Phone Care Team Providers Care Software Designer Name Role Phone Nagi Howard MD Primary Care Provider [phone] Reason for Visit * Reason Comments Medication Refill Encounter Details Date Type Department Care Team (Late st Contact Info) Description 04/19/2025 Refill [facility] Rheumatology Clinic [address] [place] [address] Ruth Ann Samuels MD [address] [facility], [address] [place] [address] [email or web address] Medication Refill Social History Tobacco Use Types [...] as of this encounter Progress Notes * Yesi Antunez MA - 04/20/2025 4:43 PM EST Left message for patient to call back. * Ruth Ann Samuels MD - 04/20/2025 9:05 AM EST Please check with her whether she needs both prescriptions refilled . If she does please ask how frequently she needs each medication and why so I can justify it. * Symone Zarco MA - 04/20/2025 8:48 AM EST At least one Rx below has no protocol and needs review. Rx Care Gap Status - Instructions for Clinical Staff (prescriber discretion applies): > Mismatch review guide > Check PDMP for all controlled medication requests. Visit Info Last visit: 02/14/2025 Ruth Ann Samuels MD - Rheumatology [facility] > Requested f/u: Return in about 3 months (around 05/17/2025) for PLEASE PRINT RECURRING LABS ORDERS. Upcoming visit: 05/18/2025 Ruth Ann Samuels MD - Rheumatology [facility] ACTIONS TAKEN BY Symone Zarco MA - Checked PDMP/MassPAT. Tylenol #3 Last fill 03/05/2025 #20 for 10 days Last labs 02/12/2025 Opioid Rx Protocol - acetaminophen with codeine Controlled substance renewals are at prescriber discretion. Pain mgmt profile/toxicology (urine/saliva) may be considered annually or more frequently if indicated. In-person visit in past 2 years: Yes (Last in-person visit: 02/14/2025 (Ruth Ann Flynn MD -[facility])) Visit in past 4 months: Yes No benzodiazepine on medication list Opioid agreement on file: Yes Pain management profile/toxicology in past 12 months: No Rx(s) without protocol Renewal is at prescriber discretion. - prochlorperazine maleate Medication Refill documented in this encounter Plan of Treatment Upcoming Encounters Date Type Department Care Team (Late st Contact Info) Description 05/18/2025 4:30 PM EST Office Visit [facility] Rheumatology Clinic [address] [place] [address] [place] [address] Ruth Ann Samuels MD [address] [facility], [address] [place] [address] [email or web address] 08/02/2025 4:00 PM EDT Office Visit [facility] Endocrinology Clinic [address] [place] [address] [place] [address] Julian Lo DO [address] [place] [phone] [email or web address] documented as of this encounter Visit Diagnoses Diagnosis Nausea Nausea alone Primary osteoarthritis involving multiple joints documented in this encounter Care Teams Software Designer Relationship Specialty Start Date End Date Po, Nagi Arroyo MD [address] [place] [address] [place] [phone] PCP - General Internal Medicine 12/01/22 documented as of this encounter Additional Source Comments The information contained in this document represents components of the legal health record. It is not the complete legal health record.[facility]
--- OUTSIDE RECORDS SUMMARY | 2025-04-20 16:44 | XMS_ITS | Encounter Summary ---
Author Organization [facility] Address [address] [facility] [address] [place] [address] Phone Care Team Providers Care Comfort Station Supervisor Name Role Phone Nagi Howard MD Primary Care Provider [phone] Reason for Visit * Reason Comments Medication Refill Encounter Details Date Type Department Care Team (Late st Contact Info) Description 04/19/2025 Refill [facility] Rheumatology Clinic [address] [place] [address] Ruth Ann Samuels MD [address] [facility], [address] [place] [address] [email or web address] Medication Refill Social History Tobacco Use Types [...] Progress Notes * Symone Zarco MA - 04/19/2025 9:39 AM EST At least one Rx below [...] RHEUMATOLOGY ACTIONS TAKEN BY Symone Zarco MA Rx(s) without protocol Renewal is at prescriber discretion. - mycophenolate mofetil Medication Refill Last office visit: 02/14/2025 Next office visit: 05/18/2025 Last CBC w/diff Lab Results Component Value Date WBC 8.47 04/19/2024 RBC 3.80 (L) 04/19/2024 HGB 10.8 (L) 04/19/2024 HCT 33.9 (L) 04/19/2024 PLT 394 04/19/2024 MCV 89.2 04/19/2024 MCH 28.4 04/19/2024 MCHC 31.9 (L) 04/19/2024 RDW 13.8 04/19/2024 MVP 11.3 04/19/2024 NRBCA 0.00 04/19/2024 DIFMET Auto 04/19/2024 NEUT 78.5 (H) 04/19/2024 LYMP 15.0 (L) 04/19/2024 MON 4.1 04/19/2024 EOSP 1.3 04/19/2024 ANEU 6.65 04/19/2024 ALYMP 1.27 04/19/2024 AMONS 0.35 04/19/2024 AEOSN 0.11 04/19/2024 ABASOP 0.06 04/19/2024 IMMGRAN 0.03 04/19/2024 Last CMP Lab Results Component Value Date NA 140 05/25/2024 K 4.0 05/25/2024 CL 101 05/25/2024 CO2 29 05/25/2024 BUN 20 (H) 05/25/2024 CRE 0.70 05/25/2024 GLU 148 (H) 05/25/2024 ALB 3.7 (L) 04/19/2024 TP 6.7 04/19/2024 CA 10.3 05/25/2024 ALKP 87 04/19/2024 TBILI <0.2 04/19/2024 SGOT 24 04/19/2024 SGPT 17 04/19/2024 GLOB 3.0 04/19/2024 GFR 109 05/25/2024 ANION 14 05/25/2024 Last CRP Lab Results Component Value Date CRPT 20.6 (H) 04/19/2024 Last ESR ESR Date Value Ref Range Status 04/19/2024 34 (H) 0 - 20 mm/h Final documented in this encounter Plan of Treatment Upcoming Encounters Date Type Department Care Team (Late st Contact Info) Description 05/18/2025 4:30 PM EST Office Visit [facility] Rheumatology Clinic [address] [place] [address] [place] [address] Ruth Ann Samuels MD [address] [place] [address], [facility] [address] [place] [address] [email or web address] 08/02/2025 4:00 PM EDT Office Visit [facility] Endocrinology Clinic [address] [place] [address] [place] [address] Julian Lo DO [address] [place] [phone] documented as of this encounter Visit Diagnoses Diagnosis Polymyositis documented in this encounter Care Teams Comfort Station Supervisor Relationship Specialty Start Date End Date Nagi Howard MD [address] [place] [address] [place] [phone] PCP - General Internal Medicine 12/01/22 documented as of this encounter Additional Source Comments The information contained in this document represents components of the legal health record. It is not the complete legal health record.[facility]
--- OUTSIDE RECORDS SUMMARY | 2025-04-20 16:44 | XMS_ITS | Patient Health Record ---
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 Name Role Phone Nagi Howard MD Primary Care Provider Cristino Jasso [phone] Allergies Allergen (clinical drug ingredient) Drug/Non Drug Allergy documented on EMR Reaction Allergy Type Onset Date Status Levaquin swelling Drug Allergy Active Latex Latex rash Allergy Active tramadol Tramadol tremors Drug Allergy Active oxaprozin Oxaprozin anaphylaxis,ellen na,n/v sob,swelling Drug Allergy Active Results Component Value Reference Range Notes NM gastric emptying study (N ot yet reviewed by provider) Interpretation: Performing Lab: Notes/Report: [address] [address] Nuclear Medicine Report Signed Patient: Angelina Kunz MR#: [id number] 84 : 1980 Acct:[id number] Age/Sex: 44 / F ADM Date: 04/03/25 Loc: [facility] Attending Dr: Cristino Cuello MD Ordering Physician: Cristino Cuello MD Date of Service: 04/03/25 Procedure(s): NM gastric emptying study Accession Number(s): [id number] cc: Nagi Howard MD; Cristino Cuello MD Reason for Exam: GASTROPARESIS EXAMINATION: NM RADIONUCLIDE SOLID FOOD GASTRIC EMPTYING 4-HOUR STUDY CLINICAL INFORMATION: GASTROPARESIS COMPARISON: There are no prior studies available for comparison. TECHNIQUE: A standard meal consisting of 4 oz of Egg Beaters brand tagged with 0.96 mCi Tc-99m Sulfur Colloid, and 6 oz water was administered orally to the patient. Images were obtained using a dual head gamma camera in the anterior and posterior projections over of the stomach immediately post ingestion and at hourly intervals up to 4 hours post ingestion. The anterior and posterior counts at each time interval were averaged using the geometric mean and expressed as percentage of the immediate post ingestion counts. FINDINGS: There is visualization of activity in the stomach immediately post ingestion. As the study progresses, there is clearance of activity from the stomach and visualization of progressively increasing small bowel activity. Retention in the stomach at each time interval was: 1 hour 50% (normal 37%-90%) 2 hours 2% (normal 30%-60%) 3 hours 1% NM/NM gastric emptying study IMPRESSION: Normal 4-hour solid food gastric emptying study. For solid meal, rapid gastric emptying is less than 30% at 60 minutes. Delayed gastric emptying criteria is more than 60% remaining at 120 minutes or more than 10% at 240 minutes. The 4-hour value is the best discriminator of a normal or abnormal result. Gastric emptying study grading per JNMT Consensus Recommendations in 2008 (https://tech.snmjournals.org/content/36//44) Grade 1 (mild retention): 11-20% at 4h Grade 2 (moderate retention): 21-35% at 4h Grade 3 (severe retention): 36-50% at 4h Grade 4 (very severe retention): >50% retention at 4h Electronically signed by: Cristino Avelar MD 04/03/2025 11:45 AM [facility] Dictated By: Cristino Avelar MD Signed By: <Electronically signed by Cristino Avelar MD in [facility]> 04/03/25 1145 DD/ 0808 TD/TT: 04/03/25 1125 Personal Banking Advisor: Reason For Referral No Information Medications Medication SIG (Take, Route, Frequency, Duration) Notes Start Date End Date Status Progesterone 100 MG Capsule 1 applicatorful for 6 doses Vaginal Active MiraLax 17 GM/SCOOP Powder as directed Orally Active Green Tea 100 MG Capsule as directed Orally 02/09/2024 Not-Takin g/P RN Qvar RediHaler 80 MCG/ACT Aerosol Breath Activated 1 puff Inhalation Once a day Active Beet Root - Powder as directed 02/09/2024 Not-Taking/P RN Ashwagandha 500 MG Capsule as directed Orally 02/09/2024 Not-Takin g/P RN Omeprazole 20 MG Capsule Delayed Release 1 capsule 30 minutes before morning meal Orally Once a day; Duration: 30 day(s) Active Multi Vitamin Daily - Tablet 1 tablet Orally Once a day; Duration: 30 day(s) 02/09/2024 Not-Taking/P RN Diclofenac Sodium 75 MG Tablet Delayed Release TAKE 1 TABLET BY MOUTH TWICE A DAY NEEDED Oral; Duration: 90 PRN Active Tart Borjas 1200 MG Capsule as directed Orally 02/09/2024 Not-Takin g/P RN Minoxidil Active Vitamin C 500 MG Capsule as directed Orally 02/09/2024 Not-Takin g/P RN Cilostazol 50 MG Tablet 1 tablet 30 minutes before or 2 hours after breakfast and dinner Orally Twice a day Active Cinnamon 500 MG Capsule as directed Orally 02/09/2024 Not-Takin g/P RN Levothyroxine Sodium 50 MCG Tablet TAKE 1 TABLET BY MOUTH EVERY DAY IN THE MORNING Oral; Duration: 90 Active Apple Cider Vinegar 500 MG Tablet as directed Orally 02/09/2024 Not-Taki ng/P RN Chlorthalidone 25 MG Tablet TAKE 1 TABLET BY MOUTH EVERY DAY Oral; Duration: 90 Active Chromium Picolinate 200 MCG Tablet 1 tablet Orally Once a day; Duration: 30 day(s) 02/09/2024 Not-Taking/P RN amLODIPine Besylate 2.5 MG Tablet TAKE 1 TABLET BY MOUTH EVERY DAY Oral; Duration: 90 For Raynaud's Active Turmeric 500 MG Capsule as directed Orally 02/09/2024 Not-Takin g/P RN Acetaminophen-Codeine 300-60 MG Tablet TAKE 0.5 TABLETS BY MOUTH 2 (TWO) TIMES A DAY NEEDED FOR PAIN Oral; Duration: 7 Active Magnesium 300 MG Capsule 1 capsule with a meal Orally Once a day; Duration: 30 day(s) 02/09/2024 Not-Taking/P RN Probiotic - Capsule as directed Orally 02/09/2024 Active [place] 3 MG Capsule as directed Orally 02/09/2024 Active Elderberry 575 MG/5ML Syrup as directed Orally 02/09/2024 Not-Takin g/P RN Vitamin D-3 125 MCG (5000 UT) Tablet 1 tablet Orally Once a day; Duration: 30 day(s) 02/09/2024 Active Melatonin 3 MG Tablet 1 tablet at bedtim e as needed Orally Once a day; Duration: 30 day(s) 02/09/2024 Not-Taking/P RN Coconut Oil - Oil as directed 02/09/2024 Not-Taking/P RN Calcium 1 tab Oral; Duration: 14 days 02/09/2024 Active Lomotil 2.5-0.025 MG Tablet 1 or 2 tablets Orally Every 6 hours as needed for diarrhea; Duration: 30 days PRN 02/09/2024 Active Betamethasone - Powder as directed 02/09/2024 Active Hemp MonoPure - Capsule Delayed Release as directed Orally 02/09/2024 Not-Takin g/P RN Biotin - Powder as directed 02/09/2024 A ctive tylenol Not-Taking /P RN Cholesterol - Powder as directed 02/09/2024 Not-Taking/P RN Flonase Allergy Relief 50 MCG/ACT Suspension 1 spray in each nostril Nasally Once a day; Duration: 30 day(s) 02/09/2024 Not-Taking/P RN Dicyclomine HCl 10 MG Capsule 1 or 2 capsules Orally Every 4 to 6 hours as needed for abdominal cramps/discomfort; Duration: 30 day(s) 02/09/2024 Active Multivitamin - Tablet 1 tablet Orally On ce a day; Duration: 30 day(s) Not-Taking/P RN Immunizations Vaccine Route Administration Date Status Comme nts Influenza Unknown 02/09/2024 Refused Influenza Unknown 02/29/2024 Administered Social History Tobacco Use: Social History Observation Description Date Details (start date - stop date) Never Smoker NA - NA Social History Drug/Alcohol: Social Info Question Answer Notes AUDIT-C (Standard) Did you have a drink containing alcohol in the past year? 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 Section Notes: Nonsmoker; no alcohol Nonsmoker; no alcohol Nonsmoker; no alcohol Problems Problem Type SNOMED Code ICD Code Onset Dates Problem Status W/U Status Risk Notes Problem Colon cancer screening (605449715) Colon cancer screening (Z12.11) Active confirmed Problem Constipation (47925668) Constipation (K59.00) Active confirmed Problem Gastroparesis (214141106) Gastroparesis (K31.84) Active confirmed Problem Diverticular disease of colon (139455361) Diverticulosis of large intestine without perforation or abscess without bleeding (K57.30) Active confirmed Problem Irritable bowel syndrome with diarrhea (021667954) Irritable bowel syndrome with diarrhea (K58.0) Active confirmed Problem Abnormal weight loss (553078461) Abnormal weight loss (R63.4) Active confirmed Problem Gastroesophageal reflux disease (085842049) GERD (gastroesophageal reflux disease) (K21.9) Active confirmed Problem Chronic diarrhea (717447262) Chronic diarrhea (K52.9) Active confirmed Vital Signs Temperature 97.8 degrees Fahrenheit 02/28/2025 Blood pressure diastolic 01 mm Hg 02/28/2025 Height 5 ft 6 in in 02/28/2025 Blood pressure systolic 001 mm Hg 02/28/2025 Weight 141.4 lbs 02/28/2025 BMI 22.82 kg/m2 02/28/2025 Encounters Encounter Location Date Provider Diagnosis [facility] [address] [place] [phone] 02/28/2025 Cristino Cuello Gastroparesis K31.84 ; Constipation K59.00 ; Colon cancer screening Z12.11 and GERD (gastroesophageal reflux disease) K21.9 [facility] [address] [place] [phone] 04/20/2025 Cristino Cuello [facility] [address] [place] [phone] 08/08/2024 Cristino Cuello [facility] [address] [place] [phone] 12/28/2024 Cristino Cuello [facility] [address] [place] [phone] 02/28/2025 Cristino Cuello Assessments Encounter Date Diagnosis (ICD Code) Assessment Notes Treatment Notes Treatment Clinical Notes Section Notes 02/28/2025 Constipation (ICD-10 - K59.00) Use Miralax once or twice a day mm 02/28/2025 Gastroparesis (ICD-10 - K31.84) mm 02/28/2025 Colon cancer screening (ICD-10 - Z12.11) Repeat colonoscopy in 08/2028 mm 02/28/2025 GERD (gastroesophageal reflux disease) (ICD-10 - K21.9) Continue the daily omeprazole mm Plan Of Treatment Pending Test Test Name Order Date LIVER PROFILE 07/20/2023 CRP 07/20/2023 CBC w DIFF 07/20/2023 SED RATE (ESR) 07/20/2023 CELIAC PANEL #10 07/20/2023 NUC GASTRIC ANTRUM EMPTYING 02/28/2025 STOOL WBC 07/20/2023 C DIFFICILE RFLX PCR 07/20/2023 NM gastric emptying study 04/03/2025 GI PANEL 07/20/2023 GI PANEL 07/27/2023 Future Test Test Name Order Date COLONOSCOPY 07/20/2023 Next Appt Details Provider Name:Cristino Cuello , 02/27/2026 04:00:00 PM, [address] [place] [address], [address], [place], [address], Insurance Providers Payer Name Payer Address Payer Phone Subscriber Number Group Number Insured Name Patient Relationship to Insured Coverage Start Date Coverage End Date 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 Kebede, at [facility] Hx of gastroparesis- Dr. Blank morel- describes an upper endoscopy > 10 years ago- she describes that those symptoms resolved without any specific treatment Raynauds Denies [place],DM,CVA,renal disease Diarrhea-laboratories were negative for celiac disease [...] 2024 during an ER visit Lyme disease Surgical History Surgery Date(Month/Year) Fallopian tubes and ovaries removed 12/20 24 Double mastectomy with 5......reconstruction starting as of the 01/2025 [facility] Hospitalization History Reason Date(Month/Year)
== END 2025-04-20 16:02 | disposition home or self-care (01) ==
LOC: HO.RESP 16:01
PROVIDERS: PCP Internal Medicine; Visit Provider Internal Medicine Pulmonary Disease
DX: J84.9 Interstitial pulmonary disease, unspecified (principal)
CPT/HCPCS: 94010; 94727; 94729

== ENCOUNTER → 2025-04-20 16:03 | Outpatient (BNV) | payer OTHER, SELFPAY | PROVIDERS: PCP Internal Medicine; Visit Provider Internal Medicine Pulmonary Disease | DX: J84.9 Interstitial pulmonary disease, unspecified (principal) | CPT/HCPCS: 94060; 94727; 94729 ==